=== PATIENT | female | born 1985 | race Caucasian/White ===

== ENCOUNTER 2017-08-16 23:49 | Emergency (ER) | payer OTHER ==
[~2017-08-16] VITALS: Ht 160 cm; Wt 100.4 kg
[~2017-08-16 23:49] MED LIST: ABL10 PO; DPPI150 INJ; HYDR50CA2 PO; TOPI100T45 PO
[2017-08-16] MEDS ORDERED: IBUPROFEN 600 MG TAB PO STA (23:54)
[2017-08-16 23:57] VITALS: TEMP 36.6; Ht 160 cm; Wt 100.4 kg
--- NOTE | 2017-08-17 00:28 | EMERGENCY ROOM VISIT NOTE ---
ED Visit Note First contact with patient: 23:53 CHIEF COMPLAINT: knee pain HISTORY OF PRESENT ILLNESS: This 31-year-old patient presents to the emergency department after sustaining an injury to the right knee twisting it while reaching for her luggage. The patient denies any other injuries besides their knee. The patient denies swelling or bruising. There is pain throughout the knee. They rate the pain as throbbing and 6/10. The patient states they are not able to walk on it. No numbness or tingling. No previous injuries to this knee. No ankle, foot or hip pain. Patient did not fall. REVIEW OF SYSTEMS: A 6 system review of systems was completed with positives and pertinent negatives listed in the HPI. ALLERGIES: None MEDICATIONS: Reviewed PMH: Medical Problems: (1) Adjustment disorder with depressed mood Status: Chronic (2) Schizoaffective disorder Status: Chronic SOCIAL HISTORY: No drug use PHYSICAL EXAM: Vital Signs: Reviewed Nurse's notes, vital signs stable. GENERAL : White female, no acute distress, but appears in pain, well-developed, well- nourished. MENTAL STATUS: Alert, oriented to person place and time, and cooperative. MUSCULOSKELETAL: The right knee is not swollen. There is no ecchymosis. There is no joint effusion present. The patient is tender diffusely. There is joint line tenderness. The patella not subluxate. Range of motion is intact but painful. Strength of the quads and hamstrings is 5/5. Yessenia's is negative. Presley's and Anterior Drawer tests are negative. There is pain with varus and valgus stressing. The foot and toes are warm and well- perfused. Dorsalis pedis pulse 2+. Sensation to pain and light touch is intact. Capillary refill less than 2 seconds. EMERGENCY DEPARTMENT COURSE: I examined the patient. X-rays of the right knee were reviewed by myself and my attending and reveal possible avulsion fracture. The patient was placed in a knee immobilizer under my direction and the position was satisfactory. The patient was instructed on the use of crutches. Patient was advised follow-up with orthopedics in a few days or here in the ER sooner for severe pain, numbness, tingling, worsening signs or symptoms or as needed. The patient was discharged home in good condition. DIAGNOSIS: Right Knee sprain with possible avulsion fracture DISCHARGE INSTRUCTIONS: Ibuprofen(Motrin, Advil) may be used for fever or pain. Use 600mg every six hours as needed. Take with food. Avoid using more than 2400mg in a 24 hour period. Do not use 2400mg per day for more than three consecutive days without physician direction. Prolonged inappropriate use can lead to stomach upset or ulcers. This medication can be taken if you need to drive, work, or perform activities which may be dangerous when taking narcotic pain medication. (AND/OR) Acetaminophen(Tylenol) may be used for fever or pain. Use 1000mg every six hours as needed. Avoid using more than 3000mg in a 24 hour period. This medication can be taken if you need to drive, work, or perform activities which may be dangerous when taking narcotic pain medication. Ice compresses for 20 minutes at a time four times daily for 2-3 days. Use the crutches as instructed. Rest and elevate your injury. Wear knee immobilizer when up and about. Continue current medications. Return to the ER immediately for any numbness, tingling, severe pain, extreme swelling in the extremity or as needed. Call Orthopedics tomorrow to arrange follow up for your injury. Problem List Medical Problems: (1) Adjustment disorder with depressed mood Status: Chronic (2) Schizoaffective disorder Status: Chronic Current/Historical Medications Scheduled Aripiprazole (Abilify *), 20 MG PO DAILY Hydroxyzine Pamoate (Vistaril), 50 MG PO BID Medroxyprogesterone Acetate (Medroxyprogesterone Contraceptive *), 150 MG INJ Q3 MONTHS Topiramate (Topamax), 100 MG PO BID Allergies Coded Allergies: No Known Allergies (Unverified , 10/03/11) Vital Signs Date Time Temp Pulse Resp B/P (MAP) Pulse Ox O2 Delivery O2 Flow Rate FiO2 08/16/17 23:57 36.6 100 15 123/96 99 Room Air Medications Administered Medications (Trade) Dose Ordered Sig/Jose Rafael Route Start Time Stop Time Status Last Admin Dose Admin Ibuprofen (Motrin Tab) 600 mg NOW STAT PO 08/16/17 23:54 08/16/17 23:55 DC 08/17/17 00:07 600 MG Departure Information Referrals Mikel Mauro M.D. (PCP)
[2017-08-17] MEDS ORDERED: LURA40TA PO (00:45)
[2017-08-17] MEDS ORDERED: LAMO100T16 PO (00:46)
[2017-08-17] MEDS ORDERED: PROP10TA7 PO (00:48)
[2017-08-17] MEDS ORDERED: BENZ2TAB6 PO (00:49)
[2017-08-17 00:50] VITALS: BP 147/69; PULSE 103; O2SAT 99
--- NOTE | 2017-08-17 06:32 | DIAGNOSTIC IMAGING REPORT ---
R KNEE 3 VIEWS HISTORY: 31 years-old Female pain acute right knee pain COMPARISON: None available TECHNIQUE: 3 views of the right knee FINDINGS: Moderate joint effusion. 5 x 2 mm bone fragment is noted lateral to the lateral tibial plateau with adjacent cortical lucency and irregularity suggesting possible donor site. Additionally, there is mild depression of the lateral femoral notch as seen on the lateral view. No intra-articular loose body. No dislocation. IMPRESSION: Moderate joint effusion with a 5 x 2 mm bone fragment adjacent to the lateral tibial plateau suggesting an acute avulsion fracture (Segond fracture). Additionally, there is mild depression of the lateral femoral notch suggesting possible osteochondral fracture which can be seen in cases of ACL injury. If of further clinical concern, a nonemergent follow-up MRI of the knee may be considered. The above report was generated using voice recognition software. It may contain grammatical, syntax or spelling errors. Electronically signed by: Giuseppe Gutiérrez M.D. 08/17/2017 6:31 AM Dictated Date/Time: 08/17/2017 6:24 AM
--- NOTE | 2017-08-17 06:41 | EMERGENCY ROOM VISIT NOTE ---
ED Visit Note First contact with patient: 23:52 I have personally evaluated and examined this patient. I agree with assessment and plan of Natalya Manuel PA-C. Avulsion fracture with knee effusion. Knee immobilizer and follow up with PCP/Ortho. Stable and looks well without complaint.
== END 2017-08-17 00:50 | disposition home or self-care (01) ==
LOC: EDBD 23:49 → C.EDB 23:50
DX: S83.91XA Sprain of unspecified site of right knee, initial encounter (principal); X50.1XXA Overexertion from prolonged static or awkward postures, initial encounter; F43.21 Adjustment disorder with depressed mood; F25.9 Schizoaffective disorder, unspecified

== ENCOUNTER 2017-11-21 13:45 | Inpatient (IN) | payer OTHER ==
[~2017-11-21] VITALS: Ht 160 cm; Wt 92.5 kg
[~2017-11-21 13:45] MED LIST changes: -ABL10 PO; +BENZ2TAB6 PO; -DPPI150 INJ; -HYDR50CA2 PO; +LAMO100T16 PO; +LURA40TA PO; +PROP10TA7 PO; -TOPI100T45 PO
[2017-11-21] MEDS ORDERED: BENZ-88 PO (14:00)
[2017-11-21] MEDS ORDERED: TRAZ100T29 PO (14:00)
[2017-11-21] MEDS ORDERED: LAMO25TA PO (14:00)
[2017-11-21] MEDS ORDERED: SODIUM CHLORIDE 0.9% 1000ML 1,000 ML IV STA (14:22)
[2017-11-21] MEDS ORDERED: MoRPHine SULFATE 10 MG/ML CARP/VIAL IV STA (14:22)
[2017-11-21] MEDS ORDERED: AMPICILLIN/SULBACTAM SOD INJ 3,000 MG in SODIUM CHLORIDE 0.9% 100ML 100 ML IV ONE (14:30)
[2017-11-21] MEDS ORDERED: OPTIRAY 320 IV PRN (14:45)
[2017-11-21 14:56] LABS: BASO % 0.2 %; BASO ABS # 0.03 K/uL (0-0.2); EOS % 0.3 %; EOS ABS # 0.04 K/uL (0-0.5); HEMATOCRIT 39.9 % (37-47); IG# 0.06 K/uL (0.00-0.02); LYMPH % 16.3 %; LYMPH ABS # 2.57 K/uL (1.2-3.4); MEAN CELL VOLUME 87.9 fL (80-100); MEAN CORPUSCULAR HEMOGLOBIN 30.8 pg (25-34); MEAN CORPUSCULAR HGB CONC 35.1 g/dl (32-36); MEAN PLATELET VOLUME 9.4 fL (7.4-10.4); MONO % 10.9 %; MONO ABS # 1.73 K/uL (0.11-0.59); NEUT % 71.9 %; NEUT ABS # 11.37 K/uL (1.4-6.5); PLATELET COUNT 297 K/uL (130-400); RED CELL DISTRIBUTION WIDTH CV 12.9 % (11.5-14.5); RED CELL DISTRIBUTION WIDTH SD 41.6 fL (36.4-46.3)
[2017-11-21 15:17] LABS: ALBUMIN 4.2 gm/dl (3.4-5.0); CALCIUM 9.5 mg/dl (8.5-10.1); CREATININE 1.08 mg/dl (0.60-1.20); POTASSIUM 3.3 mmol/L (3.5-5.1)
[2017-11-21 15:20] LABS: TOTAL PROTEIN 8.8 gm/dl (6.4-8.2)
--- NOTE | 2017-11-21 16:15 | DIAGNOSTIC IMAGING REPORT ---
SOFT TISSUE NECK WITH CLINICAL HISTORY: right facial/neck swelling, eval abscess, cellulitis pain. Edema. TECHNIQUE: Transaxial acquisition with multi axial reformatted images COMPARISON STUDY: None FINDINGS: Dentition demonstrates a focal left anterior mandibular periapical abscess of the left posterior incisor. There is a small right anterior mandibular periapical abscess involving a lateral right anterior incisor. There is considerable submandibular soft tissue edematous change of the right and to a lesser extent left. This predominates in the right perimandibular region. Dentition creates significant metallic artifact although a major well-defined drainable abscess or collection is not seen. Extensive cellulitis-type change extends to the right parotid as well as right submandibular region. There is moderate thickening of the right lateral fascial planes of the soft tissue neck. There is moderate reactive cervical adenopathy bilaterally. There is no evidence for airway compromise. Glottic and subglottic regions are unremarkable. IMPRESSION: 1. Extensive right facial and upper right soft tissue neck cellulitis. Less prominent findings are seen in the left. 2. This cellulitis extends to the peripheral margins of the anterior inferior right parotid gland and right submandibular gland. 3. Moderate reactive cervical adenopathy. 4. No evidence for drainable abscess or collection. 5. Several anterior mandibular periapical dental abscesses. The above report was generated using voice recognition software. It may contain grammatical, syntax or spelling errors. Electronically signed by: Dandre Jennings M.D. 11/21/2017 4:13 PM Dictated Date/Time: 11/21/2017 4:08 PM
[2017-11-21] MEDS ORDERED: KETOROLAC TROMETHAMINE 30 MG/ML VIAL IV STA (16:19)
--- NOTE | 2017-11-21 16:31 | EMERGENCY ROOM VISIT NOTE ---
ED Visit Note First contact with patient: 13:59 CHIEF COMPLAINT: Facial swelling and pain HISTORY OF PRESENTING ILLNESS: This is a 32-year-old female who presents to the emergency department with complaint of right facial pain and swelling for the past 1 week. Patient states that her symptoms started as a small lump on her right jaw and has spread to the entire right side of her face and is now spreading down the right side of her neck. She states the pain is constant, throbbing, 10/10. She has been taking ibuprofen and Tylenol with minimal improvement in her pain, her last doses of ibuprofen and Tylenol were yesterday and she has not taken anything today. She has had some associated chills and low-grade fevers 99-100. She denies any difficulty swallowing, shortness of breath or wheezing, throat or tongue swelling. She states that she saw her PCP today and was sent to the ER for further evaluation. She denies any recent dental pain or known dental fractures. She is not a diabetic. She denies tobacco use. She denies any other symptoms of headaches, vision changes, dizziness or syncope, nausea, vomiting, abdominal pain, urinary symptoms, or rash. REVIEW OF SYSTEMS: A complete 10 point review of systems was reviewed with the patient with pertinent positives and negatives as per history of present illness. All else were negative. PAST MEDICAL HISTORY: Reviewed in chart. SOCIAL HISTORY: Lives at home. Denies tobacco, alcohol, recreational drug use. ALLERGIES: Reviewed in chart. PHYSICAL EXAM: CONSTITUTIONAL: Pleasant and cooperative. No acute distress, but appears uncomfortable and in pain. Mildly dehydrated, but otherwise well appearing and well nourished. HEENT: Normocephalic, atraumatic. PERRL, EOMI. TMs normal. Pharynx normal. There is significant right-sided facial swelling most significant along the right mandible, erythematous and warm to touch, extending down the right anterior neck. Poor dentition throughout with multiple carious teeth. No palpable periapical abscesses or notable gingivitis. No edema or tenderness of the mouth floor. No trismus. Tacky mucous membranes. NECK: Supple, full active range of motion without discomfort. Moderate anterior cervical adenopathy, tender to palpation. RESPIRATORY: Clear to auscultation bilaterally with no wheezing, crackles, rhonchi or stridor. Equal expansion bilaterally. CARDIOVASCULAR: Regular rate and rhythm with no murmurs, rubs or gallops. Normal peripheral perfusion. No edema. GASTROINTESTINAL: Soft, nontender, nondistended. No palpable masses or HSM. Bowel sounds present in all quadrants. MUSCULOSKELETAL: Full range of motion of all joints without discomfort. Normal strength and sensation in all 4 extremities. INTEGUMENTARY: No rash or other significant dermatologic conditions noted. NEUROLOGIC: Alert and oriented X 4 with normal affect. Cranial nerves II-XII grossly intact. No focal neurologic deficits noted. Normal speech. Normal gait observed. ED COURSE AND MEDICAL DECISION MAKING: CC: Patient presenting with complaint of right facial pain and swelling DIFFERENTIAL DIAGNOSIS: Includes, but not limited to facial cellulitis, abscess , periapical abscess, gingivitis, dental infection, osteomyelitis, lymphadenitis , sialoadenitis, Guillermo's angina, among others. INTERPRETATION OF LABS: Leukocytosis with left shift, no anemia, no significant electrolyte abnormalities, normal renal function, normal liver enzymes. Elevated inflammatory markers. UA appears more consistent with contaminant than true infection, culture pending. Urine negative. IMAGING: SOFT TISSUE NECK WITH CLINICAL HISTORY: right facial/neck swelling, eval abscess, cellulitis pain. Edema. TECHNIQUE: Transaxial acquisition with multi axial reformatted images COMPARISON STUDY: None FINDINGS: Dentition demonstrates a focal left anterior mandibular periapical abscess of the left posterior incisor. There is a small right anterior mandibular periapical abscess involving a lateral right anterior incisor. There is considerable submandibular soft tissue edematous change of the right and to a lesser extent left. This predominates in the right perimandibular region. Dentition creates significant metallic artifact although a major well-defined drainable abscess or collection is not seen. Extensive cellulitis-type change extends to the right parotid as well as right submandibular region. There is moderate thickening of the right lateral fascial planes of the soft tissue neck. There is moderate reactive cervical adenopathy bilaterally. There is no evidence for airway compromise. Glottic and subglottic regions are unremarkable. IMPRESSION: 1. Extensive right facial and upper right soft tissue neck cellulitis. Less prominent findings are seen in the left. 2. This cellulitis extends to the peripheral margins of the anterior inferior right parotid gland and right submandibular gland. 3. Moderate reactive cervical adenopathy. 4. No evidence for drainable abscess or collection. 5. Several anterior mandibular periapical dental abscesses. MEDICATION RECONCILIATION: I attest that I have personally reviewed the patient 's current medication list. INITIAL VITAL SIGNS REVIEW: I reviewed the patient's initial vital signs and interpret them as follows: T: Afebrile; BP: Hypertensive; HR: Tachycardic; RR : Within normal limits; Pulse Ox: Within normal limits on room air. Blood pressure screening: The patient was found to have an elevated blood pressure, which was felt to be situational. SUMMARY: Patient was evaluated at bedside, history and physical exam performed. She is alert and oriented, no acute distress, resting, and stretcher. There is significant right facial and neck swelling on exam, erythematous and warm to touch. There is a firm indurated area over the right mandible. There is no obvious dental infection, no trismus, no edema of the mouth floor. Moderate right-sided cervical anterior adenopathy, tender to palpation. Patient's airway is patent, no respiratory distress, no stridor or wheezing, oxygen saturation is normal on room air. Orders were placed at bedside for labs, UA and urine , IV fluids for hydration, IV Unasyn to treat infection, IV morphine and Toradol for pain, CT soft tissue neck with IV contrast to evaluate for abscess/cellulitis, osteomyelitis. Patient discussed with Dr. Rodriguez, who agrees with my assessment and plan. Labs and imaging reviewed as above, CT shows evidence of several periapical dental abscesses, but no drainable abscess. Extensive right facial and soft tissue neck cellulitis. Labs significant for leukocytosis with left shift and elevated inflammatory markers. Given the extent of the facial cellulitis, I feel the patient would benefit from an admission for IV antibiotics and close monitoring. I spoke on the phone with Dr. Tapia, hospitalist, who agrees to evaluate the patient for admission. Patient reassessed multiple times throughout ED stay, patient remained stable, airway patent, and her pain has been improved with morphine and Toradol. Patient was updated on all results and plan for admission, she verbalized understanding and was agreeable to this plan. The patient was stable at time of admission. Problem List Medical Problems: (1) Adjustment disorder with depressed mood Status: Chronic (2) Schizoaffective disorder Status: Chronic Current/Historical Medications Scheduled Benztropine Mesylate (Benztropine Mesylate), 1 MG PO BID Lamotrigine (Lamictal), 100 MG PO DAILY Lamotrigine (Lamictal), 50 MG PO QAM Lurasidone Hcl (Latuda), 40 MG PO DAILY Propranolol (Inderal), 10 MG PO TID Topiramate (Topamax), 100 MG PO BID Trazodone Hcl (Trazodone), 100 MG PO BID Allergies Coded Allergies: Codeine (Verified Allergy, Mild, RASH, 08/17/17) Vital Signs Date Time Temp Pulse Resp B/P (MAP) Pulse Ox O2 Delivery O2 Flow Rate FiO2 11/21/17 16:12 87 20 135/76 98 Room Air 11/21/17 15:18 94 Room Air 11/21/17 15:13 97 18 125/80 98 Room Air 11/21/17 13:53 37.2 100 18 136/90 100 Room Air Laboratory Results 11/21/17 14:45 Red Blood Count 4.54, Mean Corpuscular Volume 87.9, Mean Corpuscular Hemoglobin 30.8, Mean Corpuscular Hemoglobin Concent 35.1, Mean Platelet Volume 9.4, Neutrophils (%) (Auto) 71.9, Lymphocytes (%) (Auto) 16.3, Monocytes (%) (Auto) 10.9, Eosinophils (%) (Auto) 0.3, Basophils (%) (Auto) 0.2, Neutrophils # (Auto ) 11.37, Lymphocytes # (Auto) 2.57, Monocytes # (Auto) 1.73, Eosinophils # (Auto ) 0.04, Basophils # (Auto) 0.03 11/21/17 14:45 Test 11/21/17 14:35 11/21/17 14:45 11/21/17 16:41 Urine Color DK YELLOW Urine Appearance CLOUDY (CLEAR) Urine pH 5.5 (4.5-7.5) Urine Specific [place] 1.026 (1.000-1.030) Urine Protein 1+ (NEG) Urine Glucose (UA) NEG (NEG) Urine Ketones 1+ (NEG) Urine Occult Blood 3+ (NEG) Urine Nitrite NEG (NEG) Urine Bilirubin NEG (NEG) Urine Urobilinogen NEG (NEG) Urine Leukocyte Esterase MODERATE (NEG) Urine WBC (Auto) >30 /hpf (0-5) Urine RBC (Auto) 10-30 /hpf (0-4) Urine Hyaline Casts (Auto) 5-10 /lpf (0-5) Urine Epithelial Cells (Auto) >30 /lpf (0-5) Urine Bacteria (Auto) 2+ (NEG) Urine Pathogenic Casts /lpf (0) Urine Mucus PRESENT (NONE PRSENT) Urine Test NEG (NEG) White Blood Count 15.80 K/uL (4.8-10.8) Red Blood Count 4.54 M/uL (4.2-5.4) Hemoglobin 14.0 g/dL (12.0-16.0) Hematocrit 39.9 % (37-47) Mean Corpuscular Volume 87.9 fL (80-100) Mean Corpuscular Hemoglobin 30.8 pg (25-34) Mean Corpuscular Hemoglobin Concent 35.1 g/dl (32-36) Platelet Count 297 K/uL (130-400) Mean Platelet Volume 9.4 fL (7.4-10.4) Neutrophils (%) (Auto) 71.9 % Lymphocytes (%) (Auto) 16.3 % Monocytes (%) (Auto) 10.9 % Eosinophils (%) (Auto) 0.3 % Basophils (%) (Auto) 0.2 % Neutrophils # (Auto) 11.37 K/uL (1.4-6.5) Lymphocytes # (Auto) 2.57 K/uL (1.2-3.4) Monocytes # (Auto) 1.73 K/uL (0.11-0.59) Eosinophils # (Auto) 0.04 K/uL (0-0.5) Basophils # (Auto) 0.03 K/uL (0-0.2) RDW Standard Deviation 41.6 fL (36.4-46.3) RDW Coefficient of Variation 12.9 % (11.5-14.5) Immature Granulocyte % (Auto) 0.4 % Immature Granulocyte # (Auto) 0.06 K/uL (0.00-0.02) Erythrocyte Sedimentation Rate 44 mm/hr (0-21) Anion Gap 6.0 mmol/L (3-11) Est Creatinine Clear Calc Drug Dose 80.8 ml/min Estimated GFR () 78.7 Estimated GFR (Non- 67.9 BUN/Creatinine Ratio 9.6 (10-20) Calcium Level 9.5 mg/dl (8.5-10.1) Total Bilirubin 0.9 mg/dl (0.2-1) Direct Bilirubin 0.3 mg/dl (0-0.2) Aspartate Amino Transf (AST/SGOT) 29 U/L (15-37) Alanine Aminotransferase (ALT/SGPT) 53 U/L (12-78) Alkaline Phosphatase 91 U/L (45-117) C-Reactive Protein 14.60 mg/dl (0-0.29) Total Protein 8.8 gm/dl (6.4-8.2) Albumin 4.2 gm/dl (3.4-5.0) Medications Administered Medications (Trade) Dose Ordered Sig/Jose Rafael Route Start Time Stop Time Status Last Admin Dose Admin Ampicillin Sodium/ Sulbactam Sodium 3000 mg/Sodium Chloride 108 ml @ 200 mls/hr ONE ONCE IV 11/21/17 14:30 11/21/17 15:02 DC 11/21/17 15:13 200 MLS/HR Morphine Sulfate (MoRPHine SULFATE INJ) 4 mg NOW STAT IV 11/21/17 14:22 11/21/17 14:28 DC 11/21/17 15:13 4 MG Sodium Chloride 1,000 ml @ 999 mls/hr Q1H1M STAT IV 11/21/17 14:22 11/21/17 15:22 DC 11/21/17 15:13 999 MLS/HR Ketorolac Tromethamine (Toradol Inj) 15 mg NOW STAT IV 11/21/17 16:19 11/21/17 16:20 DC 11/21/17 16:29 15 MG Departure Information Impression Primary Impression: Facial cellulitis Additional Impression: Acute periapical abscess Dispostion Admitted as an inpatient Condition FAIR Referrals Mikel Mauro M.D. (PCP) Patient Instructions My [facility] Problem Qualifiers
--- NOTE | 2017-11-21 16:35 | EMERGENCY ROOM VISIT NOTE ---
ED Visit Note First contact with patient: 13:59 Patient seen and evaluated at bedside after discussion with the [employer]. Labs and imaging reviewed. Patient obvious right-sided facial swelling with mild overlying erythema. No focal abscess, sialoadenitis, lymphadenitis, deep space infection, or Lemierre's syndrome noted on imaging. Concern given no ability to follow up for at least 72-96 hours as well as patient's poor dentition likely leading to cellulitis. Patient aware of her results and was agreeable with plan for additional evaluation and treatment. Patient given IV antibiotics in the emergency room. Please refer to Tea Graham's note for additional details.
[2017-11-21] MEDS ORDERED: POTASSIUM CHLORIDE 20 MEQ TABCR PO STA (16:41)
[2017-11-21] MEDS ORDERED: PIPERACILL/TAZOBAC CONSULT ACTIVE PRN (16:45)
[2017-11-21] MEDS ORDERED: ALUMINUM/MAGNESIUM/SIMETH (MAALOX MAX) 30 ML UDC PO PRN (17:00)
[2017-11-21] MEDS ORDERED: ONDANSETRON INJ 2 MG/ML 2 ML VIAL IV PRN (17:00)
[2017-11-21] MEDS ORDERED: MAGNESIUM HYDROXIDE SUSP 30 ML UDC PO PRN (17:00)
[2017-11-21] MEDS ORDERED: POLYETHYLENE (MIRALAX) 17 GM PACK PO PRN (17:00)
--- NOTE | 2017-11-21 17:23 | History and Physical ---
History & Physical Date & Time of Service: Nov 21, 2017 at 17:15 Chief Complaint: Hardened Checkbone And Neck Primary Care Physician: Mikel Mauro M.D. History of Present Illness Source: patient, clinic records, hospital records This is a 32-year-old female with a past medical history of schizophrenia and depression who presents with a right sided facial pain 1 week. Patient states that right jaw pain began last week, followed by swelling over her jaw which then progressed to the right side of her neck. Started to have difficulty chewing a few days ago 2/2 to an inability to fully open her mouth. Has been able to tolerate liquids and soft foods. Describes facial pain as constant, throbbing and pressure-like with an 7/10 in severity. Has been taking Tylenol and ibuprofen at home with minimal relief. Endorses a low-grade fever and chills but denies headache, tongue swelling, difficulty breathing, difficulty swallowing. Has never had facial swelling like this before. States that she has had dental problems in the past and had a tooth on the left side of her mouth extracted by an oral surgeon in August 2017. Since then, has noticed that portions of her teeth have "fallen out". States that she brushes teeth regularly. Denies drug use. Went to PCP today and was sent to the ER for further evaluation. Denies lightheadedness, vision changes, chest pain, abdominal pain, nausea, vomiting, dysuria, diarrhea, constipation. Past Medical/Surgical History Medical Problems: (1) Depression Status: Chronic (2) History of drug overdose Status: Chronic (3) Schizophrenia Status: Chronic (4) Sinus tachycardia Status: Chronic Family History No known family history Social History Smoking Status: Never Smoker Alcohol Use: none Marital Status: single Housing status: lives alone, other Occupational Status: unemployed Immunizations History of Influenza Vaccine: Yes History of Tetanus Vaccine?: Yes History of Pneumococcal: No History of Hepatitis B Vaccine: No Allergies Coded Allergies: Codeine (Verified Allergy, Mild, RASH, 08/17/17) Home Medications Scheduled Benztropine Mesylate (Benztropine Mesylate), 1 MG PO BID Lamotrigine (Lamictal), 100 MG PO HS Lamotrigine (Lamictal), 50 MG PO QAM Lurasidone Hcl (Latuda), 40 MG PO HS Propranolol (Inderal), 10 MG PO TID Topiramate (Topamax), 100 MG PO BID Scheduled PRN Trazodone Hcl (Trazodone), 100 MG PO BID PRN for Pain Review of Systems Ten systems reviewed and negative except as noted in the HPI. Physical Exam Vital Signs Date Time Temp Pulse Resp B/P (MAP) Pulse Ox O2 Delivery O2 Flow Rate FiO2 11/21/17 16:12 87 20 135/76 98 Room Air 11/21/17 15:18 94 Room Air 11/21/17 15:13 97 18 125/80 98 Room Air 11/21/17 13:53 37.2 100 18 136/90 100 Room Air General Appearance: + mild distress Head: normocephalic Eyes: normal inspection, PERRL, sclerae normal ENT: hearing grossly normal, + trismus, + pertinent finding (R facial/neck erythema. Warm to touch. Significant edema along right mandible and neck. Firm and tender to palpation. Poor dentition.) Neck: supple, thyroid normal, trachea midline Respiratory/Chest: chest non-tender, lungs clear, normal breath sounds, no respiratory distress, no accessory muscle use Cardiovascular: regular rate, rhythm, no murmur, normal peripheral pulses Abdomen/GI: non tender, soft, no organomegaly Back: normal inspection Extremities/Musculoskelatal: normal inspection, no calf tenderness, no pedal edema Neurologic/Psych: no motor/sensory deficits, alert, normal mood/affect, oriented x 3 Skin: normal color, warm/dry Diagnostics Laboratory Results Results Past 24 Hours Test 11/21/17 14:35 11/21/17 14:45 11/21/17 17:10 Range/Units Urine Color DK YELLOW Urine Appearance CLOUDY CLEAR Urine pH 5.5 4.5-7.5 Urine Specific [place] 1.026 1.000-1.030 Urine Protein 1+ NEG Urine Glucose (UA) NEG NEG Urine Ketones 1+ NEG Urine Occult Blood 3+ NEG Urine Nitrite NEG NEG Urine Bilirubin NEG NEG Urine Urobilinogen NEG NEG Urine Leukocyte Esterase MODERATE NEG Urine WBC (Auto) >30 0-5 /hpf Urine RBC (Auto) 10-30 0-4 /hpf Urine Hyaline Casts (Auto) 5-10 0-5 /lpf Urine Epithelial Cells (Auto) >30 0-5 /lpf Urine Bacteria (Auto) 2+ NEG Urine Pathogenic Casts 0 /lpf Urine Mucus PRESENT NONE PRSENT Urine Test NEG NEG White Blood Count 15.80 4.8-10.8 K/uL Red Blood Count 4.54 4.2-5.4 M/uL Hemoglobin 14.0 12.0-16.0 g/dL Hematocrit 39.9 37-47 % Mean Corpuscular Volume 87.9 80-100 fL Mean Corpuscular Hemoglobin 30.8 25-34 pg Mean Corpuscular Hemoglobin Concent 35.1 32-36 g/dl Platelet Count 297 130-400 K/uL Mean Platelet Volume 9.4 7.4-10.4 fL Neutrophils (%) (Auto) 71.9 % Lymphocytes (%) (Auto) 16.3 % Monocytes (%) (Auto) 10.9 % Eosinophils (%) (Auto) 0.3 % Basophils (%) (Auto) 0.2 % Neutrophils # (Auto) 11.37 1.4-6.5 K/uL Lymphocytes # (Auto) 2.57 1.2-3.4 K/uL Monocytes # (Auto) 1.73 0.11-0.59 K/uL Eosinophils # (Auto) 0.04 0-0.5 K/uL Basophils # (Auto) 0.03 0-0.2 K/uL RDW Standard Deviation 41.6 36.4-46.3 fL RDW Coefficient of Variation 12.9 11.5-14.5 % Immature Granulocyte % (Auto) 0.4 % Immature Granulocyte # (Auto) 0.06 0.00-0.02 K/uL Erythrocyte Sedimentation Rate 44 0-21 mm/hr Sodium Level 135 136-145 mmol/L Potassium Level 3.3 3.5-5.1 mmol/L Chloride Level 107 98-107 mmol/L Carbon Dioxide Level 22 21-32 mmol/L Anion Gap 6.0 3-11 mmol/L Blood Urea Nitrogen 10 7-18 mg/dl Creatinine 1.08 0.60-1.20 mg/dl Est Creatinine Clear Calc Drug Dose 80.8 ml/min Estimated GFR () 78.7 Estimated GFR (Non- 67.9 BUN/Creatinine Ratio 9.6 10-20 Random Glucose 103 70-99 mg/dl Calcium Level 9.5 8.5-10.1 mg/dl Total Bilirubin 0.9 0.2-1 mg/dl Direct Bilirubin 0.3 0-0.2 mg/dl Aspartate Amino Transf (AST/SGOT) 29 15-37 U/L Alanine Aminotransferase (ALT/SGPT) 53 12-78 U/L Alkaline Phosphatase 91 45-117 U/L C-Reactive Protein 14.60 0-0.29 mg/dl Total Protein 8.8 6.4-8.2 gm/dl Albumin 4.2 3.4-5.0 gm/dl Microbiology Results 11/21/17 Urine Culture, Received Pending Diagnostic Radiology Soft tissue neck CT: IMPRESSION: 1. Extensive right facial and upper right soft tissue neck cellulitis. Less prominent findings are seen in the left. 2. This cellulitis extends to the peripheral margins of the anterior inferior right parotid gland and right submandibular gland. 3. Moderate reactive cervical adenopathy. 4. No evidence for drainable abscess or collection. 5. Several anterior mandibular periapical dental abscesses. Impression Assessment and Plan This is a 32-year-old female with a past medical history of schizophrenia and depression who presents with a right sided facial pain 1 week and was found to have facial cellulitis 2/2 several periapical dental abscesses. Right Facial/soft tissue neck cellulitis: -2/2 several anterior mandibular periapical dental abscesses -Leukocytosis of 15.8 -Soft tissue neck CT with: 1. Extensive right facial and upper right soft tissue neck cellulitis. Less prominent findings are seen in the left. 2. This cellulitis extends to the peripheral margins of the anterior inferior right parotid gland and right submandibular gland. 3. Moderate reactive cervical adenopathy. 4. No evidence for drainable abscess or collection. 5. Several anterior mandibular periapical dental abscesses -Unasyn given in ED -Continue treatment with Zosyn -Blood cultures pending -Consulted oromaxillary surgeon -IV fluids UTI: -Asymptomatic -Zosyn -Urine cultures pending Schizophrenia, depression: -Cont home regimen of Lamictal, Latuda, benztropine -Follows with Dr Hoffmann at [facility] Sinus tachycardia: -Cont beta helen DVT Ppx: SCDs Code status: FULL PCP: Dispo: Admitted to [facility]. Plan to return home once medically stable. Patient seen in collaboration with Dr. Claros. Please see addendum. ATTENDING ADDENDUM: Patient seen and examined care coordinated with Erum Hurst PA-C. 32-year-old female with past medical history of depression, schizophrenia presented to ER with right-sided facial swelling pain for approximately 1 week patient has very poor dentition Presents with leukocytosis of 15,000, no evidence of sepsis CT of soft tissue neck: several anterior mandibular periapical dental abscess, extensive right facial and upper right soft tissue Ascites Physical exam: Please refer to physical exam by Erum Hurst PA-C ASSESSMENT AND PLAN: Right-sided facial cellulitis: Secondary to periapical dental abscess Started with empiric treatment with IV Zosyn Order for blood culture Oromaxillary surgeon Dr. Tapia consulted Hyponatremia/hypokalemia: Secondary to poor p.o. intake/dehydration IV fluids with NSS +20 potassium repeat PRP in a.m. Possible UTI: UA grossly positive -Denies of any urinary symptoms -On IV Zosyn -Ordered for urine culture CODE STATUS: Full code Please refer to documentation by Erum Hurst PA-C for further discussion of other issues. Fe Claros MD Resuscitation Status VTE Prophylaxis Will order VTE Prophylaxis: Yes
[2017-11-21] MEDS ORDERED: TRAZODONE HCL 100 MG TAB PO PRN (17:45)
[2017-11-21 18:24] VITALS: BP 120/76; O2SAT 98; Ht 160 cm; Wt 92.5 kg
[2017-11-21 19:06] VITALS: BP 127/80; PULSE 84; TEMP 36.8; O2SAT 99
[2017-11-21] MEDS: KETOROLAC TROMETHAMINE 15 MG/ML VIAL IV PRN (20:16)
[2017-11-21] MEDS: NSS + 20MEQ KCL 1000ML 1,000 ML IV SCH (20:23)
[2017-11-21] MEDS: PROPRANOLOL HCL 10 MG TAB PO SCH (20:25)
[2017-11-21] MEDS: LURASIDONE HCL 40 MG TAB PO SCH (20:26)
[2017-11-21] MEDS: BENZTROPINE MESYLATE 1 MG TAB PO SCH (20:26)
[2017-11-21] MEDS: TOPIRAMATE 100 MG TAB PO SCH (20:27)
[2017-11-21] MEDS ORDERED: TOPI100T45 PO (20:37)
[2017-11-21] MEDS: PIPERACILL/TAZOBAC IV 3.375 GM in DEXTROSE 5% 100ML 100 ML IV SCH (23:04)
[2017-11-22] VITALS: BP 110/75; PULSE 79; TEMP 37.2; O2SAT 100
[2017-11-22] MEDS: PIPERACILL/TAZOBAC IV 3.375 GM in DEXTROSE 5% 100ML 100 ML IV SCH ×3 (06:31→21:02)
[2017-11-22 06:54] LABS: HEMATOCRIT 40.6 % (37-47); HEMOGLOBIN 14.1 g/dL (12.0-16.0); MEAN CELL VOLUME 88.3 fL (80-100); MEAN CORPUSCULAR HEMOGLOBIN 30.7 pg (25-34); MEAN CORPUSCULAR HGB CONC 34.7 g/dl (32-36); MEAN PLATELET VOLUME 9.5 fL (7.4-10.4); PLATELET COUNT 279 K/uL (130-400); RED CELL DISTRIBUTION WIDTH CV 12.8 % (11.5-14.5); RED CELL DISTRIBUTION WIDTH SD 41.4 fL (36.4-46.3); WHITE BLOOD COUNT 8.08 K/uL (4.8-10.8)
[2017-11-22 07:24] LABS: CALCIUM 8.4 mg/dl (8.5-10.1); CREATININE 0.97 mg/dl (0.60-1.20); POTASSIUM 3.4 mmol/L (3.5-5.1)
[2017-11-22 07:35] VITALS: BP 108/72; PULSE 118; TEMP 37.7; O2SAT 100
[2017-11-22 08:00] VITALS: O2SAT 100
[2017-11-22] MEDS: NSS + 20MEQ KCL 1000ML 1,000 ML IV SCH (08:15)
[2017-11-22] MEDS: PROPRANOLOL HCL 10 MG TAB PO SCH ×3 (08:16→21:03)
[2017-11-22] MEDS: BENZTROPINE MESYLATE 1 MG TAB PO SCH ×2 (08:17→21:02)
[2017-11-22] MEDS: TOPIRAMATE 100 MG TAB PO SCH ×2 (08:18→21:04)
--- NOTE | 2017-11-22 08:32 | CONSULTATION REPORT ---
DATE OF CONSULTATION: 11/22/2017 HISTORY OF PRESENT ILLNESS: I was consulted last night to evaluate Denise for a right facial infection. I will refer to you to her dictated admission history and physical for additional details, but in essence, she has a 1-week history of right-sided facial pain with more recent swelling in the area of the right cheek which made it difficult for her to chew. She has not had any difficulty swallowing or breathing but she presented to her PCP's office who referred her to the ER where she was evaluated and then admitted and placed on IV antibiotics. PAST MEDICAL HISTORY: Notable for schizophrenia, history of drug overdose and depression and you can refer to her H&P for her meds, allergies, social and family history. Testing done from the ER showed a white count of 15,[address] scan with largely cellulitic changes in the area of the right buccal space and some stranding in the submandibular space as well. She was admitted to the floor and placed on IV Zosyn. This morning, she reports feeling somewhat better but still significantly swollen in the right cheek. She continues to deny any breathing difficulties. On exam there is a firm cellulitic swelling in the right cheek, minimal swelling in the neck and nothing that crosses the midline. Her tongue is not elevated. Her airway is widely patent. She does have some fluctuant swelling along the gingival margin in the right mandibular vestibule adjacent to those posterior right mandibular teeth which have significant decay. DATA: She was afebrile overnight. White count this morning is down to 8000. The CT scan is as reported in the system. IMPRESSION: Odontogenic infection of the right mandibular teeth extending into the right buccal space which is responding to the IV Zosyn. I feel the IV Zosyn is a good choice for her and would recommend an additional 24 hours of IV antibiotics and then transition her to an oral equivalent and outpatient followup in my office. Ideally I would like to see her Friday prepared for IV sedation and we can extract the offending teeth and drain any residual infection that may be present at that time. Thank you very much for involving me in her care. If you need to reach me, my cell phone is [phone]. The office number is [phone].
[2017-11-22] MEDS: KETOROLAC TROMETHAMINE 15 MG/ML VIAL IV PRN (08:55)
[2017-11-22] MEDS: ACETAMINOPHEN 325 MG TAB PO PRN (08:55)
[2017-11-22] MEDS ORDERED: POTASSIUM CHLORIDE 10 MEQ TABCR PO STA (09:07)
--- NOTE | 2017-11-22 10:19 | Progress Note ---
Subjective Date of Service: Nov 22, 2017. Subjective Pt evaluation today including: conversation w/ patient, physical exam, lab review, review of studies, review of inpatient medication list Saw/examined the patient in room 414 c/o feeling warm/feverish. C/o rash on L arm Noted to have this erythema on the L arm, which is sharply demarcated. Unsure of tape was used; nursing staff does not believe so. Pain controlled at this time of the facial cellulitis/dental infection. Eager to go home. Problem List Medical Problems: (1) Acute periapical abscess Status: Acute (2) Right knee sprain Status: Acute Review of Systems Constitutional: No fever, No chills ENT: + dental problems, + problem reported (facial swelling/pain - improving) Respiratory: No wheezing, No shortness of breath, No dyspnea on exertion, No dyspnea at rest Cardiac: No chest pain, No edema, No palpitations Abdomen: No pain, No nausea, No vomiting, No diarrhea Musculoskeletal: No joint pain Female : No dysuria, No urinary frequency, No hematuria Skin: + see HPI, + rash, No itch Medications Current Inpatient Medications Medications (Trade) Dose Ordered Sig/Jose Rafael Route Start Time Stop Time Status Last Admin Dose Admin Ioversol (Optiray 320) 100 ml UD PRN IV 11/21/17 14:45 11/25/17 14:44 Potassium Chloride/Sodium Chloride 1,000 ml @ 100 mls/hr Q10H IV 11/21/17 18:45 12/21/17 18:44 11/22/17 08:15 100 MLS/HR Piperacillin Sod/ Tazobactam Sod 3.375 gm/Dextrose 115 ml @ 28.75 mls/ hr Q8H IV 11/21/17 22:00 12/01/17 21:59 11/22/17 06:31 28.75 MLS/HR Miscellaneous Information (Consult) 1 ea UD PRN N/A 11/21/17 16:45 12/21/17 16:44 Ketorolac Tromethamine (Toradol Inj) 15 mg Q6H PRN IV 11/21/17 17:00 11/26/17 16:59 11/22/17 08:55 15 MG Acetaminophen (Tylenol Tab) 650 mg Q4H PRN PO 11/21/17 17:00 12/21/17 16:59 11/22/17 08:55 650 MG Al Hydrox/Mg Hydrox/Simethicone (Maalox Max Susp) 15 ml Q4H PRN PO 11/21/17 17:00 12/21/17 16:59 Magnesium Hydroxide (Milk Of Magnesia Susp) 30 ml Q6H PRN PO 11/21/17 17:00 12/21/17 16:59 Polyethylene (Miralax Powder Packet) 17 gm DAILY PRN PO 11/21/17 17:00 12/21/17 16:59 Ondansetron HCl (Zofran Inj) 4 mg Q6H PRN IV 11/21/17 17:00 12/21/17 16:59 Benztropine Mesylate (Cogentin Tab) 1 mg BID PO 11/21/17 20:00 12/21/17 20:59 11/22/17 08:17 1 MG Lamotrigine (Lamictal Tab) 100 mg HS PO 11/21/17 21:00 12/21/17 20:59 11/21/17 20:25 100 MG Lurasidone HCl (Latuda Tab) 40 mg HS PO 11/21/17 21:00 12/21/17 20:59 11/21/17 20:26 40 MG Propranolol HCl (Inderal Tab) 10 mg TID PO 11/21/17 20:00 12/21/17 20:59 11/22/17 08:16 10 MG Topiramate (Topamax Tab) 100 mg BID PO 11/21/17 20:00 12/21/17 20:59 11/22/17 08:18 100 MG Trazodone HCl (Desyrel Tab) 100 mg BID PRN PO 11/21/17 17:45 12/21/17 17:44 Objective Vital Signs Date Time Temp Pulse Resp B/P (MAP) Pulse Ox O2 Delivery O2 Flow Rate FiO2 11/22/17 07:35 37.7 118 20 108/72 (84) 100 Room Air 11/22/17 00:00 Room Air 11/22/17 00:00 37.2 79 18 110/75 (87) 100 Room Air 11/21/17 20:00 Room Air 11/21/17 19:06 36.8 84 18 127/80 (96) 99 Room Air 11/21/17 18:24 20 120/76 98 Room Air 11/21/17 17:53 88 20 120/76 98 11/21/17 16:12 87 20 135/76 98 Room Air 11/21/17 15:18 94 Room Air 11/21/17 15:13 97 18 125/80 98 Room Air 11/21/17 13:53 37.2 100 18 136/90 100 Room Air Physical Exam General Appearance: no apparent distress, + obese ENT: + pertinent finding (L side facial swelling/ mild redness) Respiratory/Chest: chest non-tender, lungs clear, normal breath sounds, no respiratory distress, no accessory muscle use Cardiovascular: regular rate, rhythm, no edema, no murmur Abdomen: normal bowel sounds, non tender, soft Extremities: normal inspection, no pedal edema Neurologic/Psychiatric: no motor/sensory deficits, alert, + pertinent finding ( flat affect) Skin: + pertinent finding (erythematous, pinpoint purpura on L inner arm with sharp demarcation) Laboratory Results Last 24 Hours Test 11/21/17 14:35 11/21/17 14:45 11/21/17 17:10 11/22/17 06:30 Urine Color DK YELLOW Urine Appearance CLOUDY Urine pH 5.5 Urine Specific [place] 1.026 Urine Protein 1+ Urine Glucose (UA) NEG Urine Ketones 1+ Urine Occult Blood 3+ Urine Nitrite NEG Urine Bilirubin NEG Urine Urobilinogen NEG Urine Leukocyte Esterase MODERATE Urine WBC (Auto) >30 /hpf Urine RBC (Auto) 10-30 /hpf Urine Hyaline Casts (Auto) 5-10 /lpf Urine Epithelial Cells (Auto) >30 /lpf Urine Bacteria (Auto) 2+ Urine Pathogenic Casts /lpf Urine Mucus PRESENT Urine Test NEG White Blood Count 15.80 K/uL 8.08 K/uL Red Blood Count 4.54 M/uL 4.60 M/uL Hemoglobin 14.0 g/dL 14.1 g/dL Hematocrit 39.9 % 40.6 % Mean Corpuscular Volume 87.9 fL 88.3 fL Mean Corpuscular Hemoglobin 30.8 pg 30.7 pg Mean Corpuscular Hemoglobin Concent 35.1 g/dl 34.7 g/dl Platelet Count 297 K/uL 279 K/uL Mean Platelet Volume 9.4 fL 9.5 fL Neutrophils (%) (Auto) 71.9 % Lymphocytes (%) (Auto) 16.3 % Monocytes (%) (Auto) 10.9 % Eosinophils (%) (Auto) 0.3 % Basophils (%) (Auto) 0.2 % Neutrophils # (Auto) 11.37 K/uL Lymphocytes # (Auto) 2.57 K/uL Monocytes # (Auto) 1.73 K/uL Eosinophils # (Auto) 0.04 K/uL Basophils # (Auto) 0.03 K/uL RDW Standard Deviation 41.6 fL 41.4 fL RDW Coefficient of Variation 12.9 % 12.8 % Immature Granulocyte % (Auto) 0.4 % Immature Granulocyte # (Auto) 0.06 K/uL Erythrocyte Sedimentation Rate 44 mm/hr Sodium Level 135 mmol/L 136 mmol/L Potassium Level 3.3 mmol/L 3.4 mmol/L Chloride Level 107 mmol/L 110 mmol/L Carbon Dioxide Level 22 mmol/L 17 mmol/L Anion Gap 6.0 mmol/L 10.0 mmol/L Blood Urea Nitrogen 10 mg/dl 9 mg/dl Creatinine 1.08 mg/dl 0.97 mg/dl Est Creatinine Clear Calc Drug Dose 80.8 ml/min 89.9 ml/min Estimated GFR () 78.7 89.6 Estimated GFR (Non- 67.9 77.3 BUN/Creatinine Ratio 9.6 9.7 Random Glucose 103 mg/dl 138 mg/dl Calcium Level 9.5 mg/dl 8.4 mg/dl Total Bilirubin 0.9 mg/dl Direct Bilirubin 0.3 mg/dl Aspartate Amino Transf (AST/SGOT) 29 U/L Alanine Aminotransferase (ALT/SGPT) 53 U/L Alkaline Phosphatase 91 U/L C-Reactive Protein 14.60 mg/dl Total Protein 8.8 gm/dl Albumin 4.2 gm/dl Lactic Acid Level 1.4 mmol/L Assessment and Plan This is a 32 year old female with a PMH of schizophrenia/depression - presented with odontogenic facial cellulitis Odontogenic Facial Cellulitis 11/22 * patient with odontogenic facial cellulitis, WBC elevated on admission * was given Unasyn in the ED and Zosyn when she got to the floor * WBC now resolved; vitals stable, low grade fever noted * appreciate oromaxillofacial surgery input - will do another 24 hours of IV abx. * will then switch to Clindamycin or Augmentin prior to discharge * outpatient f/u on Friday with Dr. Tapia for possible infected tooth extraction * pain is currently under control Schizophrenia/Mood Disorder * continue home medications Asymptomatic Bacteruria * already on antibiotics; no need to specifically treat FULL CODE
[2017-11-22] MEDS ORDERED: [UNRECOGNIZED DRUG - REMARK] ONE (14:00)
[2017-11-22 15:50] VITALS: BP 131/83; PULSE 104; TEMP 37.7; O2SAT 100
[2017-11-22 16:00] VITALS: O2SAT 100
[2017-11-22 17:35] VITALS: TEMP 37
[2017-11-22] MEDS: LURASIDONE HCL 40 MG TAB PO SCH (21:03)
[2017-11-23] VITALS: BP 111/69; PULSE 119; TEMP 38.5; O2SAT 96
[2017-11-23] MEDS: ACETAMINOPHEN 325 MG TAB PO PRN ×2 (00:18→18:00)
[2017-11-23] MEDS: PIPERACILL/TAZOBAC IV 3.375 GM in DEXTROSE 5% 100ML 100 ML IV SCH (05:48)
[2017-11-23 06:19] LABS: HEMATOCRIT 39.5 % (37-47); HEMOGLOBIN 13.8 g/dL (12.0-16.0); MEAN CELL VOLUME 88.2 fL (80-100); MEAN CORPUSCULAR HEMOGLOBIN 30.8 pg (25-34); MEAN CORPUSCULAR HGB CONC 34.9 g/dl (32-36); MEAN PLATELET VOLUME 9.3 fL (7.4-10.4); PLATELET COUNT 292 K/uL (130-400); RED CELL DISTRIBUTION WIDTH SD 41.9 fL (36.4-46.3); WHITE BLOOD COUNT 10.89 K/uL (4.8-10.8)
[2017-11-23 06:47] LABS: CALCIUM 8.7 mg/dl (8.5-10.1); CREATININE 0.9 mg/dl (0.60-1.20); POTASSIUM 3.8 mmol/L (3.5-5.1)
[2017-11-23 07:57] VITALS: BP 107/74; PULSE 111; TEMP 37.9; O2SAT 99
[2017-11-23] MEDS: BENZTROPINE MESYLATE 1 MG TAB PO SCH (08:39)
[2017-11-23] MEDS: TOPIRAMATE 100 MG TAB PO SCH (08:39)
[2017-11-23] MEDS: PROPRANOLOL HCL 10 MG TAB PO SCH ×2 (08:40→14:00)
[2017-11-23 08:42] VITALS: TEMP 37.2
[2017-11-23] MEDS ORDERED: SODIUM CHLORIDE 0.9% 1000ML 1,000 ML IV SCH (09:00)
--- NOTE | 2017-11-23 10:20 | Progress Note ---
Subjective Date of Service: Nov 23, 2017. Subjective Pt evaluation today including: conversation w/ patient, physical exam, lab review, review of studies, review of inpatient medication list Saw/examined the patient in room 414 +spiking fevers last evening pain controlled; eager to go home. Problem List Medical Problems: (1) Acute periapical abscess Status: Acute (2) Right knee sprain Status: Acute Review of Systems Constitutional: + fever, + chills, No weakness ENT: + dental problems, No nasal symptoms, No sore throat, No tinnitus, No trouble swallowing Respiratory: No shortness of breath Cardiac: No chest pain Medications Current Inpatient Medications Medications (Trade) Dose Ordered Sig/Jose Rafael Route Start Time Stop Time Status Last Admin Dose Admin Ioversol (Optiray 320) 100 ml UD PRN IV 11/21/17 14:45 11/25/17 14:44 Ketorolac Tromethamine (Toradol Inj) 15 mg Q6H PRN IV 11/21/17 17:00 11/26/17 16:59 11/22/17 08:55 15 MG Acetaminophen (Tylenol Tab) 650 mg Q4H PRN PO 11/21/17 17:00 12/21/17 16:59 11/23/17 00:18 650 MG Al Hydrox/Mg Hydrox/Simethicone (Maalox Max Susp) 15 ml Q4H PRN PO 11/21/17 17:00 12/21/17 16:59 Magnesium Hydroxide (Milk Of Magnesia Susp) 30 ml Q6H PRN PO 11/21/17 17:00 12/21/17 16:59 Polyethylene (Miralax Powder Packet) 17 gm DAILY PRN PO 11/21/17 17:00 12/21/17 16:59 Ondansetron HCl (Zofran Inj) 4 mg Q6H PRN IV 11/21/17 17:00 12/21/17 16:59 Benztropine Mesylate (Cogentin Tab) 1 mg BID PO 11/21/17 20:00 12/21/17 20:59 11/23/17 08:39 1 MG Lamotrigine (Lamictal Tab) 100 mg HS PO 11/21/17 21:00 12/21/17 20:59 11/22/17 21:03 100 MG Lurasidone HCl (Latuda Tab) 40 mg HS PO 11/21/17 21:00 12/21/17 20:59 11/22/17 21:03 40 MG Propranolol HCl (Inderal Tab) 10 mg TID PO 11/21/17 20:00 12/21/17 20:59 11/23/17 08:40 10 MG Topiramate (Topamax Tab) 100 mg BID PO 11/21/17 20:00 12/21/17 20:59 11/23/17 08:39 100 MG Trazodone HCl (Desyrel Tab) 100 mg BID PRN PO 11/21/17 17:45 12/21/17 17:44 Sodium Chloride 1,000 ml @ 80 mls/hr [id number] IV 11/23/17 09:00 12/23/17 08:59 11/23/17 09:55 80 MLS/HR Ampicillin Sodium/ Sulbactam Sodium 3000 mg/Sodium Chloride 108 ml @ 200 mls/hr Q6H IV 11/23/17 12:00 12/01/17 23:59 Objective Vital Signs Date Time Temp Pulse Resp B/P (MAP) Pulse Ox O2 Delivery O2 Flow Rate FiO2 11/23/17 08:42 37.2 11/23/17 08:00 Room Air 11/23/17 07:57 37.9 111 20 107/74 (85) 99 Room Air 11/23/17 00:00 Room Air 11/23/17 00:00 38.5 119 18 111/69 (83) 96 Room Air 11/22/17 20:00 Room Air 11/22/17 17:35 37.0 11/22/17 16:00 100 Room Air 11/22/17 15:50 37.7 104 18 131/83 (99) 100 Room Air Physical Exam General Appearance: no apparent distress ENT: + pertinent finding (+R jaw swelling noted - improving) Respiratory/Chest: no respiratory distress, no accessory muscle use Laboratory Results Last 24 Hours Test 11/23/17 06:03 White Blood Count 10.89 K/uL Red Blood Count 4.48 M/uL Hemoglobin 13.8 g/dL Hematocrit 39.5 % Mean Corpuscular Volume 88.2 fL Mean Corpuscular Hemoglobin 30.8 pg Mean Corpuscular Hemoglobin Concent 34.9 g/dl RDW Standard Deviation 41.9 fL RDW Coefficient of Variation 13.0 % Platelet Count 292 K/uL Mean Platelet Volume 9.3 fL Sodium Level 137 mmol/L Potassium Level 3.8 mmol/L Chloride Level 109 mmol/L Carbon Dioxide Level 19 mmol/L Anion Gap 9.0 mmol/L Blood Urea Nitrogen 7 mg/dl Creatinine 0.90 mg/dl Est Creatinine Clear Calc Drug Dose 96.9 ml/min Estimated GFR () 98.1 Estimated GFR (Non- 84.6 BUN/Creatinine Ratio 7.4 Random Glucose 111 mg/dl Calcium Level 8.7 mg/dl Chemistry Specimen Hemolysis Assessment and Plan This is a 32 year old female with a PMH of schizophrenia/depression - presented with odontogenic facial cellulitis Odontogenic Facial Cellulitis 11/23 * switch Zosyn to Unasyn today * if not spiking fevers later this afternoon, can d/c with Augmentin and outpatient oromaxillofacial follow-up 11/22 * patient with odontogenic facial cellulitis, WBC elevated on admission * was given Unasyn in the ED and Zosyn when she got to the floor * WBC now resolved; vitals stable, low grade fever noted * appreciate oromaxillofacial surgery input - will do another 24 hours of IV abx. * will then switch to Clindamycin or Augmentin prior to discharge * outpatient f/u on Friday with Dr. Tapia for possible infected tooth extraction * pain is currently under control Schizophrenia/Mood Disorder * continue home medications Asymptomatic Bacteruria * already on antibiotics; no need to specifically treat FULL CODE
[2017-11-23] MEDS: AMPICILLIN/SULBACTAM SOD INJ 3,000 MG in SODIUM CHLORIDE 0.9% 100ML 100 ML IV SCH ×2 (12:17→18:00)
[2017-11-23 15:29] VITALS: BP 114/77; PULSE 111; TEMP 37.5; O2SAT 99
[2017-11-23 17:00] VITALS: BP 135/83; PULSE 92; TEMP 37.4; O2SAT 99
[2017-11-23] MEDS ORDERED: AMOX875T PO (17:40)
[2017-11-23] MEDS ORDERED: NAPR-1221 PO (17:41)
--- NOTE | 2017-11-23 17:47 | Discharge Instructions ---
Discharge Instructions Date of Service Nov 23, 2017. Admission Reason for Admission: Facial Cellulitis Discharge Discharge Diagnosis / Problem: Tooth Infection Discharge Goals Goal(s): Decrease discomfort, Improve function, Diagnostic testing, Therapeutic intervention Activity Recommendations Activity Limitations: resume your previous activity . Instructions / Follow-Up Instructions / Follow-Up Please follow-up with your primary care physician - you will get a phone call with a date and time Please follow-up with Dr. Tapia, oral surgeon, on Friday - please call his office - [phone] * You will be on Augmentin (antibiotic) for the infection - take this twice a day for the next 7 days * Take Tylenol for pain; you can use Naproxen if Tylenol does not work Current Hospital Diet Patient's current hospital diet: Regular Diet Discharge Diet Recommended Diet: Regular Diet Pending Studies Studies pending at discharge: no Medical Emergencies . Who to Call and When: Medical Emergencies: If at any time you feel your situation is an emergency, please call 911 immediately. . Non-Emergent Contact Non-Emergency issues call your: Primary Care Provider, Specialist . . "Provider Documentation" section prepared by Enrico Winston. .
--- NOTE | 2017-11-23 17:50 | Discharge Summary ---
Discharge Summary Date of Service Nov 23, 2017. Discharge Summary Admission Date: Nov 21, 2017 at 16:41 Discharge Date: Nov 23, 2017 Discharge Disposition: Home Principal Diagnosis: Odontogenic Facial Cellulitis Medication Reconciliation New Medications: Amoxicillin & Pot Clavulanate (Augmentin 875-125 mg) 1 Tab Tab 1 TAB PO BID for 7 Days, #14 TAB Naproxen (Naproxen) 375 Mg Tab 1 TAB PO BID for 10 Days, #20 TAB 0 Refills Continued Medications: Benztropine Mesylate (Benztropine Mesylate) 1 Mg Tab 1 MG PO BID Lamotrigine (Lamictal) 100 Mg Tab 100 MG PO HS, TAB Lamotrigine (Lamictal) 25 Mg Tab 50 MG PO QAM, TAB Patient has not been taking at home. Lurasidone Hcl (Latuda) 40 Mg Tab 40 MG PO HS, TAB Propranolol (Inderal) 10 Mg Tab 10 MG PO TID, TAB Has been taking differently: 10mg tab BID Topiramate (Topamax) 100 Mg Tab 100 MG PO BID, TAB Trazodone Hcl (Trazodone) 100 Mg Tab 100 MG PO BID PRN for Pain, TAB Admission Information HPI (per Admitting provider): This is a 32-year-old female with a past medical history of schizophrenia and depression who presents with a right sided facial pain 1 week. Patient states that right jaw pain began last week, followed by swelling over her jaw which then progressed to the right side of her neck. Started to have difficulty chewing a few days ago 2/2 to an inability to fully open her mouth. Has been able to tolerate liquids and soft foods. Describes facial pain as constant, throbbing and pressure-like with an 7/10 in severity. Has been taking Tylenol and ibuprofen at home with minimal relief. Endorses a low-grade fever and chills but denies headache, tongue swelling, difficulty breathing, difficulty swallowing. Has never had facial swelling like this before. States that she has had dental problems in the past and had a tooth on the left side of her mouth extracted by an oral surgeon in August 2017. Since then, has noticed that portions of her teeth have "fallen out". States that she brushes teeth regularly. Denies drug use. Went to PCP today and was sent to the ER for further evaluation. Denies lightheadedness, vision changes, chest pain, abdominal pain, nausea, vomiting, dysuria, diarrhea, constipation. Physical Exam (per Admitting): General Appearance: + mild distress Head: normocephalic Eyes: normal inspection, PERRL, sclerae normal ENT: hearing grossly normal, + trismus, + pertinent finding (R facial/neck erythema. Warm to touch. Significant edema along right mandible and neck. Firm and tender to palpation. Poor dentition.) Neck: supple, thyroid normal, trachea midline Respiratory/Chest: chest non-tender, lungs clear, normal breath sounds, no respiratory distress, no accessory muscle use Cardiovascular: regular rate, rhythm, no murmur, normal peripheral pulses Abdomen/GI: non tender, soft, no organomegaly Back: normal inspection Extremities/Musculoskelatal: normal inspection, no calf tenderness, no pedal edema Neurologic/Psych: no motor/sensory deficits, alert, normal mood/affect, oriented x 3 Skin: normal color, warm/dry Hospital Course This is a 32 year old female with a PMH of schizophrenia/depression - presented with odontogenic facial cellulitis Odontogenic Facial Cellulitis 11/23 * switch Zosyn to Unasyn today * if not spiking fevers later this afternoon, can d/c with Augmentin and outpatient oromaxillofacial follow-up 11/22 * patient with odontogenic facial cellulitis, WBC elevated on admission * was given Unasyn in the ED and Zosyn when she got to the floor * WBC now resolved; vitals stable, low grade fever noted * appreciate oromaxillofacial surgery input - will do another 24 hours of IV abx. * will then switch to Clindamycin or Augmentin prior to discharge * outpatient f/u on Friday with Dr. Tapia for possible infected tooth extraction * pain is currently under control Schizophrenia/Mood Disorder * continue home medications Asymptomatic Bacteruria * already on antibiotics; no need to specifically treat FULL CODE Total time spent on discharge = 35 minutes This includes examination of the patient, discharge planning, medication reconciliation, and communication with other providers. Discharge Instructions Please follow-up with your primary care physician - you will get a phone call with a date and time Please follow-up with Dr. Tapia, oral surgeon, on Friday - please call his office - [phone] * You will be on Augmentin (antibiotic) for the infection - take this twice a day for the next 7 days * Take Tylenol for pain; you can use Naproxen if Tylenol does not work
[2017-11-23 18:48] VITALS: BP 135/83; PULSE 92; TEMP 37.4; O2SAT 99
== END 2017-11-23 19:20 | disposition home or self-care (01) | DRG 603 ==
LOC: C.EDB 13:47 → C.4E 16:41 → ENRESERV 17:10
PROVIDERS: ADMIT Hospitalist; ATTEND Family Medicine
DX: L03.211 Cellulitis of face (principal); E87.1 Hypo-osmolality and hyponatremia; K04.7 Periapical abscess without sinus; F43.21 Adjustment disorder with depressed mood; F25.9 Schizoaffective disorder, unspecified; R00.0 Tachycardia, unspecified; E87.6 Hypokalemia; R82.71 Bacteriuria; Z88.5 Allergy status to narcotic agent

== ENCOUNTER 2021-09-20 13:20 | Inpatient (IN) ==
[2021-09-20 14:30] LABS: Basophils # (auto) 0.03 K/uL (0-0.2); Basophils % (auto) 0.3 %; Eosinophils # (auto) 0.06 K/uL (0-0.5); Eosinophils % (auto) 0.6 %; Hematocrit (blood only) 40.5 % (37-47); Hemoglobin 13.7 g/dL (12.0-16.0); Immature Granulocytes # (auto) 0.01 K/uL (0.00-0.02); Immature Granulocytes % (auto) 0.1 %; Lymphocytes # (auto) 2.31 K/uL (1.2-3.4); Lymphocytes % (auto) 23.7 %; Mean Corpuscular Hemoglobin 29.9 pg (25-34); Mean Corpuscular Hgb Conc 33.8 g/dL (32-36); Mean Corpuscular Volume 88.4 fL (80-100); Mean Platelet Volume 9.9 fL (7.4-10.4); Monocytes # (auto) 0.67 K/uL (0.11-0.59); Monocytes % (auto) 6.9 %; Neutrophils # (auto) 6.65 K/uL (1.4-6.5); Neutrophils % (auto) 68.4 %; Platelet Count 332 K/uL (130-400); RDW Coefficient of Variation 13.1 % (11.5-14.5); RDW Standard Deviation 42.3 fL (36.4-46.3); Red Blood Count 4.58 M/uL (4.2-5.4); White Blood Count 9.73 K/uL (4.8-10.8)
[2021-09-20 14:42] LABS: Amphetamines+Metham, Urine Neg (Neg); Barbiturates, Urine Neg (Neg); Benzodiazepine, Urine Neg (Neg); Cocaine, Urine Neg (Neg); MDMA (Ecstacy), Urine Neg (Neg); Methadone, Urine Neg (Neg); Opiate, Urine Neg (Neg); Phencyclidine, Urine Neg (Neg)
[2021-09-20 14:43] LABS: Appearance Urine Cloudy (Clear); Bacteria Urine Automated 2+ (Negative); Bilirubin Urine Negative (Negative); Blood Urine 1+ (Negative); Color Urine Dark Yellow; Epithelial Cell Urine Auto >30 /lpf (0-5); Glucose Urine UA Negative (Negative); Ketones Urine Trace (Negative); Leukocyte Esterase Urine 2+ (Negative); Nitrite Urine Negative (Negative); Protein Urine Negative (Negative); Specific Gravity Urine 1.024 (1.000-1.030); Urobilinogen Urine Negative (Negative)
[2021-09-20 14:54] LABS: Pregnancy Test, Serum Negative (Negative)
[2021-09-20 15:04] LABS: Albumin Globulin Ratio 1.5 (0.9-2); Albumin Level 4.4 gm/dl (3.4-5.0); BUN Creatinine Ratio 9.7 (10-20); Bilirubin,Total 0.5 mg/dl (0.2-1.0); Calcium 9.1 mg/dl (8.5-10.1); Creatinine Clr Calc Pharmacy 80.8 ml/min; Est GFR (African American) 91.6 ml/min; Est GFR (Non-African American) 79.1 ml/min; Globulin 2.9 gm/dl (2.5-4.0); Potassium 3.7 mmol/L (3.5-5.1); Total Protein 7.3 gm/dl (6.0-8.3)
[2021-09-20 15:05] LABS: Acetaminophen < 3 ug/ml (10-30); Salicylate < 3.0 mg/dl (3.0-30)
--- NOTE | 2021-09-20 17:54 | Emergency Department Note ---
Impression & Plan Suicidal ideation, Schizophrenia ED Provider Note NAME: LISA THAYER AGE: 36 SEX: F ARRIVES VIA: Ambulance INFORMANT: Patient ED PROVIDER(S): Santhosh Arechiga MD CHIEF COMPLAINT: Hallucinations, suicidal ideation. PLAN: Disposition: Inpatient psychiatric admission. MEDICAL DECISION MAKING: The patient is a 36-year-old woman with a past medical history of schizophrenia with history of substance abuse who presents emergency department for evaluation of worsening hallucinations and suicidal ideation where she feels she is unable to function. She describes that she hears voices of people talking to her from "the parking lot". She reports she has thoughts of wanting to hurt herself but denies having attempted to do so. She reports that her "body is a ". Reports there is "no reason for me to live". She is interested in inpatient psychiatric treatment. The patient reports she does have a psychiatrist and follows with some clear. She also reports having been to the [facility] in the past. On arrival the patient is tearful, anxious appearing, withdrawn with poor eye contact covering her head underneath the blanket. She reports psychiatric symptoms per above. She denies any recent cough, congestion, GI or symptoms. WBC, H/H and platelets within normal limits. Chemistry without metabolic acidosis. Electrolytes LFTs are unremarkable. hCG is negative. UA without convincing evidence of infection as epithelial cells are present and the patient denies urinary symptoms. Will await culture to inform need for treatment. Drug screen was unremarkable. COVID-19 RNA, NAAT test was negative. Patient was medically cleared. Psychiatric evaluation was completed and patient again continues to report interest in inpatient treatment. Referral made to S. and anticipate admission. Triage Nursing notes reviewed and agree them. Prior medical records reviewed Vital Signs: reviewed and remarkable for no significant abnormalities Differential diagnosis: Mood disorder, infection, hypoglycemia, electrolyte abnormalities, cardiac sources, intracerebral event, toxicologic, trauma, neurologic, as well as other pathologies. ER treatment provided: See below. Laboratory studies: See below HPI: The patient is a 36-year-old woman with a past medical history of schizophrenia with history of substance abuse who presents emergency department for evaluation of worsening hallucinations and suicidal ideation where she feels she is unable to function. She describes that she hears voices of people talking to her from "the parking lot". She reports she has thoughts of wanting to hurt herself but denies having attempted to do so. She reports that her "body is a ". Reports there is "no reason for me to live". She is interested in inpatient psychiatric treatment. The patient reports she does have a psychiatrist and follows with some clear. She also reports having been to the [facility] in the past. ROS: See above HPI for pertinent positives & negatives. A total of 10 systems reviewed and were otherwise negative. PAST MEDICAL HISTORY:See Below PAST SURGICAL HISTORY:See Below FAMILY HISTORY:See Below SOCIAL HISTORY:See Below HOME MEDICATIONS:See Below ALLERGIES:See Below VITALS:See Below PHYSICAL EXAMINATION: GENERAL: Awake, alert, withdrawn, melancholy appearing and tearful, in no distress, BMI 33.9. HENT: Normocephalic, atraumatic. Oropharynx unremarkable. EYES: Normal conjunctiva. Sclera non-icteric. NECK: Supple. No nuchal rigidity. FROM. No JVD. RESPIRATORY: Clear to auscultation. CARDIAC: Regular rate, normal rhythm. Extremities warm and well perfused. Pulses equal. ABDOMEN: Soft, non-distended. No tenderness to palpation. No rebound or guarding. No masses. RECTAL: Deferred. MUSCULOSKELETAL: Chest examination reveals no tenderness. The back is symmetrical on inspection without obvious abnormality. There is no CVA tenderness to palpation. No joint edema. LOWER EXTREMITIES: Calves are equal size bilaterally and non-tender. No edema. No discoloration. NEURO: Normal sensorium. No sensory or motor deficits noted. SKIN: No rash or jaundice noted. PSYCH: Positive suicidal ideation. Denies HI. Reports auditory hallucinations. Reports hopelessness and depression. Santhosh Arechiga MD Past Med/Surg History Medical History Acute periapical abscess Depression Facial cellulitis History of drug overdose MDD (major depressive disorder), recurrent episode, moderate Schizophrenia Sinus tachycardia Suicidal ideation Surgical History No pertinent past surgical history Family History Other Cancer Social History Smoking Status: Never smoker Preferred Language: Swedish [employer] Required: No Beliefs That Will Affect Care: None marital status: Single current occupational status: unemployed Feels Safe at Home: No Assistive Devices: None Allergies Allergies Allergy/AdvReac Type Severity Reaction Status Date / Time codeine AdvReac Mild RASH Verified 09/20/21 14:36 Home Meds Home Medications Medication Instructions Recorded Confirmed benztropine 1 mg tablet 1 mg PO BID 05/30/19 09/20/21 topiramate 100 mg tablet (Topamax) 100 mg PO BID 05/30/19 09/20/21 lamotrigine 100 mg tablet 100 mg PO HS 08/22/19 09/20/21 (Lamictal) lurasidone 40 mg tablet (Latuda) 40 mg PO DAILY 02/12/21 09/20/21 propranolol 10 mg tablet 10 mg PO BID 02/12/21 09/20/21 Results & Data (ED) Vital Signs Vital Signs - 24 hr 09/20/21 13:49 09/20/21 15:29 Temperature 37.1 C Temperature Source Oral Pulse Rate 98 H Pulse Rate [Right Finger] 90 Respiratory Rate 17 14 Respiratory Depth Normal Blood Pressure 132/95 Blood Pressure [Right Arm] 119/88 Blood Pressure Mean 107 Blood Pressure Mean [Right Arm] 98 Pulse Oximetry 99 97 Oxygen Delivery Method Room Air Room Air Sepsis Recent Fever Within 48 Hours No Sepsis New/Unexplained Change in Mental Status N/A Sepsis Action Taken by Nursing No Action Required Laboratory Data Attestation: I reviewed the patient's lab results. Result diagrams: 09/20/21 14:07 09/20/21 14:07 Lab Results 09/20/21 09/20/21 09/20/21 Range/Units 13:39 13:39 14:07 WBC 9.73 (4.8-10.8) K/uL RBC 4.58 (4.2-5.4) M/uL Hgb 13.7 (12.0-16.0) g/dL Hct 40.5 (37-47) % MCV 88.4 (80-100) fL MCH 29.9 (25-34) pg MCHC 33.8 (32-36) g/dL RDW Std Deviation 42.3 (36.4-46.3) fL RDW Coeff of Indira 13.1 (11.5-14.5) % Plt Count 332 (130-400) K/uL MPV 9.9 (7.4-10.4) fL Immature Gran % (Auto) 0.1 % Neut % (Auto) 68.4 % Lymph % (Auto) 23.7 % [place] % (Auto) 6.9 % Eos % (Auto) 0.6 % Baso % (Auto) 0.3 % Neut # (Auto) 6.65 H (1.4-6.5) K/uL Lymph # (Auto) 2.31 (1.2-3.4) K/uL [place] # (Auto) 0.67 H (0.11-0.59) K/uL Eos # (Auto) 0.06 (0-0.5) K/uL Baso # (Auto) 0.03 (0-0.2) K/uL Immature Gran # (Auto) 0.01 (0.00-0.02) K/uL Sodium (136-145) mmol/L Potassium (3.5-5.1) mmol/L Chloride (98-107) mmol/L Carbon Dioxide (21-32) mmol/L Anion Gap (3-11) BUN (6-23) mg/dl Creatinine (0.6-1.2) mg/dl Est Cr Clr Drug Dosing ml/min Est GFR ( Amer) ml/min Est GFR (Non-Af Amer) ml/min BUN/Creatinine Ratio (10-20) Glucose (70-99) mg/dl Calcium (8.5-10.1) mg/dl Total Bilirubin (0.2-1.0) mg/dl AST (13-39) U/L ALT (7-52) U/L Alkaline Phosphatase (34-104) U/L Total Protein (6.0-8.3) gm/dl Albumin (3.4-5.0) gm/dl Globulin (2.5-4.0) gm/dl Albumin/Globulin Ratio (0.9-2) TSH (0.300-4.500) uIu/ml HCG, Qual (Negative) Urine Color Dark Yellow Urine Appearance Cloudy A (Clear) Urine pH 7.0 (4.5-7.5) Ur Specific [place] 1.024 (1.000-1.030) Urine Protein Negative (Negative) Urine Glucose (UA) Negative (Negative) Urine Ketones Trace H (Negative) Urine Blood 1+ H (Negative) Urine Nitrite Negative (Negative) Urine Bilirubin Negative (Negative) Urine Urobilinogen Negative (Negative) Ur Leukocyte Esterase 2+ H (Negative) Urine WBC (Auto) 10-30 H (0-5) /hpf Urine RBC (Auto) 10-30 H (0-4) /hpf U Hyaline Cast (Auto) 10-30 H (0-5) /lpf U Epithel Cells (Auto) >30 H (0-5) /lpf Urine Bacteria (Auto) 2+ H (Negative) Salicylates (3.0-30) mg/dl Urine Opiates Screen Neg (Neg) Ur Methadone, Qual Neg (Neg) Acetaminophen (10-30) ug/ml Urine Barbiturates Neg (Neg) Ur Phencyclidine (PCP) Neg (Neg) U Amphetamin/Meth Scrn Neg (Neg) MDMA (Ecstasy) Screen Neg (Neg) U Benzodiazepines Scrn Neg (Neg) Ur Cocaine Metabolite Neg (Neg) U Marijuana (THC) Screen Neg (Neg) Ethyl Alcohol mg/dL (0-9.9) mg/dl SARS-CoV-2, RNA, NAAT (NEGATIVE) 09/20/21 09/20/21 09/20/21 Range/Units 14:07 14:07 14:07 WBC (4.8-10.8) K/uL RBC (4.2-5.4) M/uL Hgb (12.0-16.0) g/dL Hct (37-47) % MCV (80-100) fL MCH (25-34) pg MCHC (32-36) g/dL RDW Std Deviation (36.4-46.3) fL RDW Coeff of Indira (11.5-14.5) % Plt Count (130-400) K/uL MPV (7.4-10.4) fL Immature Gran % (Auto) % Neut % (Auto) % Lymph % (Auto) % [place] % (Auto) % Eos % (Auto) % Baso % (Auto) % Neut # (Auto) (1.4-6.5) K/uL Lymph # (Auto) (1.2-3.4) K/uL [place] # (Auto) (0.11-0.59) K/uL Eos # (Auto) (0-0.5) K/uL Baso # (Auto) (0-0.2) K/uL Immature Gran # (Auto) (0.00-0.02) K/uL Sodium 138 (136-145) mmol/L Potassium 3.7 (3.5-5.1) mmol/L Chloride 108 H (98-107) mmol/L Carbon Dioxide 22 (21-32) mmol/L Anion Gap 8 (3-11) BUN 9 (6-23) mg/dl Creatinine 0.93 (0.6-1.2) mg/dl Est Cr Clr Drug Dosing 80.8 ml/min Est GFR ( Amer) 91.6 ml/min Est GFR (Non-Af Amer) 79.1 ml/min BUN/Creatinine Ratio 9.7 L (10-20) Glucose 96 (70-99) mg/dl Calcium 9.1 (8.5-10.1) mg/dl Total Bilirubin 0.5 (0.2-1.0) mg/dl AST 16 (13-39) U/L ALT 25 (7-52) U/L Alkaline Phosphatase 73 (34-104) U/L Total Protein 7.3 (6.0-8.3) gm/dl Albumin 4.4 (3.4-5.0) gm/dl Globulin 2.9 (2.5-4.0) gm/dl Albumin/Globulin Ratio 1.5 (0.9-2) TSH 1.232 (0.300-4.500) uIu/ml HCG, Qual (Negative) Urine Color Urine Appearance (Clear) Urine pH (4.5-7.5) Ur Specific [place] (1.000-1.030) Urine Protein (Negative) Urine Glucose (UA) (Negative) Urine Ketones (Negative) Urine Blood (Negative) Urine Nitrite (Negative) Urine Bilirubin (Negative) Urine Urobilinogen (Negative) Ur Leukocyte Esterase (Negative) Urine WBC (Auto) (0-5) /hpf Urine RBC (Auto) (0-4) /hpf U Hyaline Cast (Auto) (0-5) /lpf U Epithel Cells (Auto) (0-5) /lpf Urine Bacteria (Auto) (Negative) Salicylates < 3.0 L (3.0-30) mg/dl Urine Opiates Screen (Neg) Ur Methadone, Qual (Neg) Acetaminophen < 3 L (10-30) ug/ml Urine Barbiturates (Neg) Ur Phencyclidine (PCP) (Neg) U Amphetamin/Meth Scrn (Neg) MDMA (Ecstasy) Screen (Neg) U Benzodiazepines Scrn (Neg) Ur Cocaine Metabolite (Neg) U Marijuana (THC) Screen (Neg) Ethyl Alcohol mg/dL (0-9.9) mg/dl SARS-CoV-2, RNA, NAAT (NEGATIVE) 09/20/21 09/20/21 09/20/21 Range/Units 14:07 14:07 15:30 WBC (4.8-10.8) K/uL RBC (4.2-5.4) M/uL Hgb (12.0-16.0) g/dL Hct (37-47) % MCV (80-100) fL MCH (25-34) pg MCHC (32-36) g/dL RDW Std Deviation (36.4-46.3) fL RDW Coeff of Indira (11.5-14.5) % Plt Count (130-400) K/uL MPV (7.4-10.4) fL Immature Gran % (Auto) % Neut % (Auto) % Lymph % (Auto) % [place] % (Auto) % Eos % (Auto) % Baso % (Auto) % Neut # (Auto) (1.4-6.5) K/uL Lymph # (Auto) (1.2-3.4) K/uL [place] # (Auto) (0.11-0.59) K/uL Eos # (Auto) (0-0.5) K/uL Baso # (Auto) (0-0.2) K/uL Immature Gran # (Auto) (0.00-0.02) K/uL Sodium (136-145) mmol/L Potassium (3.5-5.1) mmol/L Chloride (98-107) mmol/L Carbon Dioxide (21-32) mmol/L Anion Gap (3-11) BUN (6-23) mg/dl Creatinine (0.6-1.2) mg/dl Est Cr Clr Drug Dosing ml/min Est GFR ( Amer) ml/min Est GFR (Non-Af Amer) ml/min BUN/Creatinine Ratio (10-20) Glucose (70-99) mg/dl Calcium (8.5-10.1) mg/dl Total Bilirubin (0.2-1.0) mg/dl AST (13-39) U/L ALT (7-52) U/L Alkaline Phosphatase (34-104) U/L Total Protein (6.0-8.3) gm/dl Albumin (3.4-5.0) gm/dl Globulin (2.5-4.0) gm/dl Albumin/Globulin Ratio (0.9-2) TSH (0.300-4.500) uIu/ml HCG, Qual Negative (Negative) Urine Color Urine Appearance (Clear) Urine pH (4.5-7.5) Ur Specific [place] (1.000-1.030) Urine Protein (Negative) Urine Glucose (UA) (Negative) Urine Ketones (Negative) Urine Blood (Negative) Urine Nitrite (Negative) Urine Bilirubin (Negative) Urine Urobilinogen (Negative) Ur Leukocyte Esterase (Negative) Urine WBC (Auto) (0-5) /hpf Urine RBC (Auto) (0-4) /hpf U Hyaline Cast (Auto) (0-5) /lpf U Epithel Cells (Auto) (0-5) /lpf Urine Bacteria (Auto) (Negative) Salicylates (3.0-30) mg/dl Urine Opiates Screen (Neg) Ur Methadone, Qual (Neg) Acetaminophen (10-30) ug/ml Urine Barbiturates (Neg) Ur Phencyclidine (PCP) (Neg) U Amphetamin/Meth Scrn (Neg) MDMA (Ecstasy) Screen (Neg) U Benzodiazepines Scrn (Neg) Ur Cocaine Metabolite (Neg) U Marijuana (THC) Screen (Neg) Ethyl Alcohol mg/dL < 10.0 H (0-9.9) mg/dl SARS-CoV-2, RNA, NAAT NEGATIVE (NEGATIVE) Administered Medications Benztropine Mesylate (Benztropine Mesylate 1 Mg Tab) 1 mg PO BID [facility] Stop: 10/20/21 20:59 Last Admin: 09/20/21 20:02 Dose: 1 mg Documented by: [id number] Hydroxyzine HCl (Hydroxyzine Hcl 25 Mg Tab) 50 mg PO HSZ PRN PRN Reason: Insomnia Stop: 10/20/21 18:24 Last Admin: 09/20/21 22:43 Dose: 50 mg Documented by: [id number] Admin: 09/20/21 21:29 Dose: 50 mg Documented by: [id number] Lamotrigine (Lamotrigine 100 Mg Tab) 100 mg PO HS [facility] Stop: 10/20/21 21:59 Last Admin: 09/20/21 20:02 Dose: 100 mg Documented by: [id number] Lurasidone HCl (Lurasidone Hcl 40 Mg Tab) 40 mg PO DAILY [facility] Stop: 10/20/21 19:14 Last Admin: 09/20/21 20:01 Dose: 40 mg Documented by: [id number] Olanzapine (Olanzapine Zydis 5 Mg Orally Dis. Tab) 5 mg PO Q6 PRN PRN Reason: Agitation Stop: 10/20/21 20:05 Last Admin: 09/20/21 20:38 Dose: 5 mg Documented by: [id number] Propranolol HCl (Propranolol Hcl 10 Mg Tab) 10 mg PO BID [facility] Stop: 10/20/21 20:59 Last Admin: 09/20/21 20:02 Dose: 10 mg Documented by: [id number] Topiramate (Topiramate 100 Mg Tab) 100 mg PO BID [facility] Stop: 10/20/21 20:59 Last Admin: 09/20/21 20:02 Dose: 100 mg Documented by: [id number] Discharge Plan Visit Data Chief Complaint: Mental Health Evaluation Stated Complaint: PSYCHIATRIC EVAL ED Provider: Santhosh Arechiga Discharge Problem: Suicidal ideation, Schizophrenia Patient Disposition: Admitted As Inpatient Discharge Instructions Interventions: ED Discharge Assessment Last Done: 09/20/21 18:40 Discharge Problem: Schizophrenia Qualifiers: Schizophrenia type: unspecified Qualified Code(s): F20.9 - Schizophrenia, unspecified
[2021-09-20] MEDS ORDERED: ALUMINUM/MAGNESIUM SUSP 30 ML UDC PO PRN (18:25)
[2021-09-20] MEDS ORDERED: MAGNESIUM HYDROXIDE SUSP 30 ML UDC PO PRN (18:25)
[2021-09-20] MEDS ORDERED: BISMUTH SUBSALICYLATE LIQD 236 ML PO PRN (18:25)
[2021-09-20] MEDS ORDERED: ACETAMINOPHEN 325 MG TAB PO PRN (18:25)
[2021-09-20] MEDS ORDERED: SODIUM CHLORIDE 0.65% NA SOLN 45 ML (OCEAN) PRN (18:25)
[2021-09-20] MEDS ORDERED: hydrOXYzine HCl 25 MG TAB PO PRN (18:25)
[2021-09-20] MEDS: LURASIDONE HCL 40 MG TAB PO SCH (20:01)
[2021-09-20] MEDS: TOPIRAMATE 100 MG TAB PO SCH (20:02)
[2021-09-20] MEDS: PROPRANOLOL HCL 10 MG TAB PO SCH (20:02)
[2021-09-20] MEDS: BENZTROPINE MESYLATE 1 MG TAB PO SCH (20:02)
[2021-09-20] MEDS: OLANZapine ZYDIS 5 MG ORALLY DIS. TAB PO PRN (20:38)
[2021-09-20] MEDS: hydrOXYzine HCl 25 MG TAB PO PRN ×2 (21:29→22:43)
[2021-09-20] MEDS ORDERED: lamoTRIgine 100 MG TAB PO SCH (22:00)
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
[2021-09-21] MEDS: LURASIDONE HCL 40 MG TAB PO SCH (09:24)
[2021-09-21] MEDS: TOPIRAMATE 100 MG TAB PO SCH (09:24)
[2021-09-21] MEDS: BENZTROPINE MESYLATE 1 MG TAB PO SCH ×2 (09:24→20:44)
[2021-09-21] MEDS: PROPRANOLOL HCL 10 MG TAB PO SCH ×2 (09:24→20:44)
[2021-09-21] MEDS: hydrOXYzine HCl 25 MG TAB PO PRN (20:44)
[2021-09-21] MEDS: lamoTRIgine 100 MG TAB PO SCH (20:44)
[2021-09-21] MEDS ORDERED: BENZTROPINE MESYLATE 1 MG TAB PO SCH (21:00)
[2021-09-21] MEDS ORDERED: PROPRANOLOL HCL 10 MG TAB PO SCH (21:00)
[2021-09-22] MEDS: OLANZapine ZYDIS 5 MG ORALLY DIS. TAB PO PRN (00:02)
[2021-09-22] MEDS: BENZTROPINE MESYLATE 1 MG TAB PO SCH ×2 (09:17→20:53)
[2021-09-22] MEDS: LURASIDONE HCL 40 MG TAB PO SCH (09:18)
[2021-09-22] MEDS: PROPRANOLOL HCL 10 MG TAB PO SCH ×2 (09:18→20:52)
--- NOTE | 2021-09-22 10:27 | Psychiatric Progress Note ---
Date of Service September 22, 2021 Impression / Recommendations Impression The patient is a 36 year old with a history of schizophrenia and depression who was admitted for worsening psychosis, mood lability and SI. Diagnostically consistent with acute exacerbation of psychosis associated with schizoaffective disorder versus schizophrenia with current depressive episode. Schizoaffective disorder seems most likely given history of episodes of senait and depression. Fixation around romantic relationships and feelings of loneliness seem to be symptoms she has previously experienced during episodes of worsening mood and psychosis. Differential also includes malingering given her perseveration regarding her intent to come to an inpatient unit to meet a romantic partner and her frustration and initial 72 hour notice (she then rescinded) when she determined the unit did not have enough male patients for her liking. The patient is deemed unstable and requires psychiatric hospitalization for diagnostic clarification, safety and stabilization, medication management and development of further coping skills. MNPR given psychosis, recent agitation/anger and ongoing poor sleep. 09/22/20--as per admission she declines titration of lamictal and latuda, requesting trial of Zyprexa so will order standing this hs. Reviewed metabolic labs from am. elevated bp last night likely agitation related to primary psych condition, no evidence of withdrawal. (1) MDD (major depressive disorder), recurrent episode, moderate: (2) Suicidal ideation: (3) Schizoaffective disorder: 09/22/20: reviewed care by Dr. Rogers. Zyprexa 10 mg this hs with plan to taper Latuda if tolerates/effective. D/C hs/prn Vistaril as ineffective. 09/21/21: The patient was admitted to the [facility] ([facility] mental health unit) on q15 min checks (behavioral with suicide precautions) for safety. The patient will participate in group, recreational, and milieu therapies and will be offered additional individual and family sessions as clinically appropriate. MNPR given acute psychosis with paranoia, delusions and yelling and easily irritable -Fasting labs for tomorrow morning -Will discontinue topimax -If fasting labs stable plan for likely cross-taper from latuda to olanzapine -Consider utility of cogentin given that she is on secondary generation antipsychotic and it may be contributing to cognitive and anticholinergic side effects -Continue propranolol and lamictal -consider increasing outpt supports with case management and additional opportunities for healthy social engagement with peers Inventory Assets Strengths: motivated to seek treatment, interested in additional outpatient supports, has psychiatric provider Needs: increased outpatient supports, additional coping skills, medication adjustments Risk Factors Assessment Do You Have Access To A Gun?: No Mental Health Diagnoses: Yes Previous Attempt: Yes (per chart, she denies) Family History of Suicide: No Previous Psychiatric Hospitalization: Yes Hopelessness: No (denies today) Smoker: No Protective Factors Assessment Employed: No Good Rapport with Provider: Yes Interval History Identifying Information LISA THAYER is a 36-year-old woman who has a history of schizophrenia vs schizoaffective disorder, major depressive, multiple prior psychiatric hospitalizations (last at [facility] in 2019) and prior suicide attempts and was admitted on 09/20/21 18:25 on a 201 voluntary commitment for worsening auditory hallucinations, paranoia, and SI. Chief Complaint "yeah I feel like if this place can't help me find a I should just be at home". Review of Systems Sleep Information Total Hours of Sleep: 2.25 Sleep Comments: pt given vistaril per rn. pt on q-15 minute checks Meal Information Percent Meal Consumed - Breakfast: 100 Percent Meal Consumed - Lunch: 100 Percent Meal Consumed - Dinner: 100 Subjective Subjective Patient was seen & assessed and interval progress reviewed with nursing and social work. Irritable on admission assessments and difficult time falling asleep last pm. States this is similar to home. Seems to have some degree of thought blocking. Very concrete/limited in groups. Disheveled and now wearing a bra despite pendulous breasts. Physical Exam Psychiatric Orientation: alert (but tired appearing) Apperance: + disheveled Eye Contact: + fair eye contact Motor Behavior: steady gait and station and no abnormal motor movements Speech: + abnormal rate/rhythm/volume of speech (non spontaneous) Affect: + blunted affect Mood: + irritable mood Thought Process: + circumstantial thought process and + looseness of associations Thought Content: + paranoid; no delusions Suicidal Thoughts: denies suicidal thoughts, denies suicidal plan and denies suicidal intent Homicidal Thoughts: denies homicidal thoughts Hallucinations: no auditory hallucinations (denies, did not appear to be responding to internal stimuli at this time) and no visual hallucinations Cognition: language grossly intact; + attention not intact Estimated Intelligence: + below average estimated intelligence Insight: + impaired insight Judgement: + impaired judgement Vital Signs (Past 24 Hours) Last Vital Signs Temp 37.5 C 09/21/21 21:13 Pulse 93 H 09/21/21 21:12 Resp 16 09/21/21 06:37 BP 141/84 H 09/21/21 21:12 Pulse Ox 98 09/20/21 19:18 Results & Data ([facility]) Laboratory Results Laboratory Results - last 24 hr 09/20/21 09/22/21 14:07 09:00 Fasting Glucose 87 Triglycerides 114 Cholesterol 171 LDL Cholesterol, Calc 114 VLDL Cholesterol, Calc 23 HDL Cholesterol 34 Cholesterol/HDL Ratio 5.0 Ethyl Alcohol mg/dL < 10.0 Current Inpatient Medications Current Inpatient Medications: Current Inpatient Medications Acetaminophen (Acetaminophen 325 Mg Tab) 650 mg PO Q4H PRN PRN Reason: Headache or Minor Fever Stop: 10/20/21 18:24 Al Hydrox/Mg Hydrox/Simethicone (Aluminum/Magnesium Susp 30 Ml Udc) 30 ml PO Q4H PRN PRN Reason: GI Upset Stop: 10/20/21 18:24 Benztropine Mesylate (Benztropine Mesylate 1 Mg Tab) 1 mg PO BID SUZY Stop: 10/20/21 20:59 Last Admin: 09/22/21 09:17 Dose: 1 mg Documented by: Bismuth Subsalicylate (Bismuth Subsalicylate Liqd 236 Ml) 15 ml PO PRN PRN PRN Reason: Loose Stool Stop: 10/20/21 18:24 Hydroxyzine HCl (Hydroxyzine Hcl 25 Mg Tab) 50 mg PO HSZ PRN PRN Reason: Insomnia Stop: 10/20/21 18:24 Last Admin: 09/21/21 20:44 Dose: 50 mg Documented by: Hydroxyzine HCl (Hydroxyzine Hcl 25 Mg Tab) 25 mg PO Q4H PRN PRN Reason: Anxiety Stop: 10/20/21 18:24 Lamotrigine (Lamotrigine 100 Mg Tab) 100 mg PO HS SUZY Stop: 10/21/21 21:59 Last Admin: 09/21/21 20:44 Dose: 100 mg Documented by: Lurasidone HCl (Lurasidone Hcl 40 Mg Tab) 40 mg PO DAILY SUZY Stop: 10/22/21 08:59 Last Admin: 09/22/21 09:18 Dose: 40 mg Documented by: Magnesium Hydroxide (Magnesium Hydroxide Susp 30 Ml Udc) 30 ml PO DAILY PRN PRN Reason: Constipation Stop: 10/20/21 18:24 Olanzapine (Olanzapine Zydis 5 Mg Orally Dis. Tab) 5 mg PO Q6 PRN PRN Reason: Agitation Stop: 10/20/21 20:05 Last Admin: 09/22/21 00:02 Dose: 5 mg Documented by: Propranolol HCl (Propranolol Hcl 10 Mg Tab) 10 mg PO BID SUZY Stop: 10/20/21 20:59 Last Admin: 09/22/21 09:18 Dose: 10 mg Documented by: Sodium Chloride (Sodium Chloride 0.65% Na Soln 45 Ml ([place])) 1 - 2 sprays NA PRN PRN PRN Reason: Nasal Dryness/Congestion Stop: 10/20/21 18:24 Mental Health & Subst Abuse Tx Psychiatrist Name of Psychiatrist: Katrin Moses PA-C Psychiatrist's Date of Appointment with Psychiatrist: 10/08/21 Time of Appointment with Psychiatrist: 12:45 PM Psychiatric Appointment Comment: [phone] [place] [address] Observation Nurse Name of Observation Nurse: [employer] Phone Number for Observation Nurse: [phone]
[2021-09-22] MEDS: lamoTRIgine 100 MG TAB PO SCH (20:53)
[2021-09-22] MEDS: OLANZapine 10 MG TAB PO SCH (20:53)
[2021-09-22] MEDS: ZOLPIDEM TARTRATE 10 MG TAB PO PRN (21:12)
[2021-09-23] MEDS: LURASIDONE HCL 40 MG TAB PO SCH (09:28)
[2021-09-23] MEDS: BENZTROPINE MESYLATE 1 MG TAB PO SCH ×2 (09:29→20:41)
[2021-09-23] MEDS: PROPRANOLOL HCL 10 MG TAB PO SCH ×2 (09:29→20:42)
--- NOTE | 2021-09-23 11:39 | Psychiatric Progress Note ---
Date of Service September 23, 2021 Impression / Recommendations Impression The patient is a 36 year old with a history of schizophrenia and depression who was admitted for worsening psychosis, mood lability and SI. Diagnostically consistent with acute exacerbation of psychosis associated with schizoaffective disorder versus schizophrenia with current depressive episode. Schizoaffective disorder seems most likely given history of episodes of senait and depression. Fixation around romantic relationships and feelings of loneliness seem to be symptoms she has previously experienced during episodes of worsening mood and psychosis. Differential also includes malingering given her perseveration regarding her intent to come to an inpatient unit to meet a romantic partner and her frustration and initial 72 hour notice (she then rescinded) when she determined the unit did not have enough male patients for her liking. The patient is deemed unstable and requires psychiatric hospitalization for diagnostic clarification, safety and stabilization, medication management and development of further coping skills. MNPR given psychosis, recent agitation/anger and ongoing poor sleep. 09/22/20--slight improvement, clearly still paranoid (1) Suicidal ideation: (2) Schizoaffective disorder: 09/23/21: continue current meds and treatment plan. did require prn Ambien despite Zyprexa. monitor. 09/22/21: reviewed care by Dr. Rogers. Zyprexa 10 mg this hs with plan to taper Latuda if tolerates/effective. D/C hs/prn Vistaril as ineffective. 09/21/21: The patient was admitted to the [facility] ([facility] mental health unit) on q15 min checks (behavioral with suicide precautions) for safety. The patient will participate in group, recreational, and milieu therapies and will be offered additional individual and family sessions as clinically appropriate. MNPR given acute psychosis with paranoia, delusions and yelling and easily irritable -Fasting labs for tomorrow morning -Will discontinue topimax -If fasting labs stable plan for likely cross-taper from latuda to olanzapine -Consider utility of cogentin given that she is on secondary generation antipsychotic and it may be contributing to cognitive and anticholinergic side effects -Continue propranolol and lamictal -consider increasing outpt supports with case management and additional opportunities for healthy social engagement with peers Inventory Assets Strengths: motivated to seek treatment, interested in additional outpatient supports, has psychiatric provider Needs: increased outpatient supports, additional coping skills, medication adjustments Risk Factors Assessment Do You Have Access To A Gun?: No Mental Health Diagnoses: Yes Previous Attempt: Yes (per chart, she denies) Family History of Suicide: No Previous Psychiatric Hospitalization: Yes Hopelessness: No (denies today) Smoker: No Protective Factors Assessment Employed: No Good Rapport with Provider: Yes Interval History Identifying Information LISA THAYER is a 36-year-old woman who has a history of schizophrenia vs schizoaffective disorder, major depressive, multiple prior psychiatric hospitalizations (last at the [facility] in 2019) and prior suicide attempts and was admitted on 09/20/21 18:25 on a 201 voluntary commitment for worsening auditory hallucinations, paranoia, and SI. Chief Complaint "yeah I'm just writing, you don't need to see that" when asked about her journal Review of Systems Sleep Information Total Hours of Sleep: 5 Sleep Comments: pt given justoien per rn. pt on q-15 minute checks Meal Information Percent Meal Consumed - Breakfast: 100 Percent Meal Consumed - Lunch: 100 Percent Meal Consumed - Dinner: 100 Subjective Subjective Patient was seen & assessed and interval progress reviewed with nursing and social work. Slept better, less reactive on evenings. In fact had a reality based conversation with staff after hs meds. Resistant to 1-on-1 meeting this am. Physical Exam Psychiatric Orientation: alert (but tired appearing) and oriented x 3 Apperance: appropriately dressed, appropriately groomed and + disheveled Eye Contact: + fair eye contact Motor Behavior: steady gait and station and no abnormal motor movements Speech: + abnormal rate/rhythm/volume of speech (non spontaneous) Affect: + blunted affect Thought Process: + circumstantial thought process and + looseness of associations Thought Content: + paranoid; no delusions Suicidal Thoughts: denies suicidal thoughts, denies suicidal plan and denies suicidal intent Homicidal Thoughts: denies homicidal thoughts Hallucinations: no auditory hallucinations (denies, did not appear to be responding to internal stimuli at this time) and no visual hallucinations Cognition: language grossly intact Vital Signs (Past 24 Hours) Last Vital Signs Temp 36.7 C 09/23/21 06:46 Pulse 99 H 09/23/21 06:46 Resp 16 09/23/21 06:46 BP 111/80 09/23/21 06:46 Pulse Ox 98 09/20/21 19:18 Results & Data ([facility]) Current Inpatient Medications Current Inpatient Medications: Current Inpatient Medications Acetaminophen (Acetaminophen 325 Mg Tab) 650 mg PO Q4H PRN PRN Reason: Headache or Minor Fever Stop: 10/20/21 18:24 Al Hydrox/Mg Hydrox/Simethicone (Aluminum/Magnesium Susp 30 Ml Udc) 30 ml PO Q4H PRN PRN Reason: GI Upset Stop: 10/20/21 18:24 Benztropine Mesylate (Benztropine Mesylate 1 Mg Tab) 1 mg PO BID SUZY Stop: 10/20/21 20:59 Last Admin: 09/23/21 09:29 Dose: 1 mg Documented by: Bismuth Subsalicylate (Bismuth Subsalicylate Liqd 236 Ml) 15 ml PO PRN PRN PRN Reason: Loose Stool Stop: 10/20/21 18:24 Lamotrigine (Lamotrigine 100 Mg Tab) 100 mg PO HS SUZY Stop: 10/21/21 21:59 Last Admin: 09/22/21 20:53 Dose: 100 mg Documented by: Lurasidone HCl (Lurasidone Hcl 40 Mg Tab) 40 mg PO DAILY SUZY Stop: 10/22/21 08:59 Last Admin: 09/23/21 09:28 Dose: 40 mg Documented by: Magnesium Hydroxide (Magnesium Hydroxide Susp 30 Ml Udc) 30 ml PO DAILY PRN PRN Reason: Constipation Stop: 10/20/21 18:24 Olanzapine (Olanzapine Zydis 5 Mg Orally Dis. Tab) 5 mg PO Q6 PRN PRN Reason: Agitation Stop: 10/20/21 20:05 Last Admin: 09/22/21 00:02 Dose: 5 mg Documented by: Olanzapine (Olanzapine 10 Mg Tab) 10 mg PO HS SUZY Stop: 10/22/21 21:59 Last Admin: 09/22/21 20:53 Dose: 10 mg Documented by: Propranolol HCl (Propranolol Hcl 10 Mg Tab) 10 mg PO BID SUZY Stop: 10/20/21 20:59 Last Admin: 09/23/21 09:29 Dose: 10 mg Documented by: Sodium Chloride (Sodium Chloride 0.65% Na Soln 45 Ml ([place])) 1 - 2 sprays NA PRN PRN PRN Reason: Nasal Dryness/Congestion Stop: 10/20/21 18:24 Zolpidem Tartrate (Zolpidem Tartrate 10 Mg Tab) 10 mg PO HS PRN PRN Reason: Sleep Stop: 10/22/21 10:33 Last Admin: 09/22/21 21:12 Dose: 10 mg Documented by: Mental Health & Subst Abuse Tx Psychiatrist Name of Psychiatrist: Katrin Moses PA-C Psychiatrist's Date of Appointment with Psychiatrist: 10/08/21 Time of Appointment with Psychiatrist: 12:45 PM Psychiatric Appointment Comment: [phone] [place] [address] 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
[2021-09-23] MEDS: OLANZapine 10 MG TAB PO SCH (20:42)
[2021-09-23] MEDS: ZOLPIDEM TARTRATE 10 MG TAB PO PRN (20:42)
[2021-09-23] MEDS: lamoTRIgine 100 MG TAB PO SCH (20:42)
[2021-09-24] MEDS: PROPRANOLOL HCL 10 MG TAB PO SCH ×2 (08:19→21:04)
[2021-09-24] MEDS: BENZTROPINE MESYLATE 1 MG TAB PO SCH ×2 (08:19→21:05)
[2021-09-24] MEDS: LURASIDONE HCL 40 MG TAB PO SCH (08:19)
--- NOTE | 2021-09-24 10:12 | Psychiatric Progress Note ---
Date of Service September 24, 2021 Impression / Recommendations Impression The patient is a 36 year old with a history of schizophrenia and depression who was admitted for worsening psychosis, mood lability and SI. Diagnostically consistent with acute exacerbation of psychosis associated with schizoaffective disorder versus schizophrenia with current depressive episode. Schizoaffective disorder seems most likely given history of episodes of senait and depression. Fixation around romantic relationships and feelings of loneliness seem to be symptoms she has previously experienced during episodes of worsening mood and psychosis. Differential also includes malingering given her perseveration regarding her intent to come to an inpatient unit to meet a romantic partner and her frustration and initial 72 hour notice (she then rescinded) when she determined the unit did not have enough male patients for her liking. The patient is deemed unstable and requires psychiatric hospitalization for diagnostic clarification, safety and stabilization, medication management and development of further coping skills. MNPR given psychosis, recent agitation/anger and ongoing poor sleep. 09/24/20--less paranoia (1) Suicidal ideation: (2) Schizoaffective disorder: 09/24/21: patient desires to continue current meds and work on safety and other discharge planning. 09/23/21: continue current meds and treatment plan. did require prn Ambien despite Zyprexa. monitor. 09/22/21: reviewed care by Dr. Rogers. Zyprexa 10 mg this hs with plan to taper Latuda if tolerates/effective. D/C hs/prn Vistaril as ineffective. 09/21/21: The patient was admitted to the [facility] ([facility] mental health unit) on q15 min checks (behavioral with suicide precautions) for safety. The patient will participate in group, recreational, and milieu therapies and will be offered additional individual and family sessions as clinically appropriate. MNPR given acute psychosis with paranoia, delusions and yelling and easily irritable -Fasting labs for tomorrow morning -Will discontinue topimax -If fasting labs stable plan for likely cross-taper from latuda to olanzapine -Consider utility of cogentin given that she is on secondary generation an tipsychotic and it may be contributing to cognitive and anticholinergic side effects -Continue propranolol and lamictal -consider increasing outpt supports with case management and additional oppor tunities for healthy social engagement with peers Inventory Assets Strengths: motivated to seek treatment, interested in additional outpatient supports, has psychiatric provider Needs: increased outpatient supports, additional coping skills, medication adjustments Risk Factors Assessment Do You Have Access To A Gun?: No Mental Health Diagnoses: Yes Previous Attempt: Yes (per chart, she denies) Family History of Suicide: No Previous Psychiatric Hospitalization: Yes Hopelessness: No (denies today) Smoker: No Protective Factors Assessment Employed: No Good Rapport with Provider: Yes Interval History Identifying Information LISA THAYER is a 36-year-old woman who has a history of schizophrenia vs schizoaffective disorder, major depressive, multiple prior psychiatric hospitalizations (last at [facility] in 2019) and prior suicide attempts and was admitted on 09/20/21 18:25 on a 201 voluntary commitment for worsening auditory hallucinations, paranoia, and SI. Chief Complaint "I'm feeling some better". Review of Systems Sleep Information Total Hours of Sleep: 4.75 Sleep Comments: pt given justoien per rn. pt on q-15 minute checks Meal Information Percent Meal Consumed - Breakfast: 50 Percent Meal Consumed - Lunch: 90 Percent Meal Consumed - Dinner: 100 Subjective Subjective Patient was seen & assessed and interval progress reviewed with treatment team. Less irritable on evening shift. Continues to write in journal but guarded about it. Mentions someone named Sherri making up rumors about her being but otherwise doesn't appear to be responding to internal stimuli. Physical Exam Psychiatric Orientation: alert and oriented x 3 Apperance: appropriately dressed and + disheveled Eye Contact: + fair eye contact Motor Behavior: no abnormal motor movements Speech: normal rate/rhythm/volume of speech Affect: + depressed affect Mood: no depressed mood Thought Process: + concrete thought process Thought Content: reality based without delusions (was grandiose with staff talking about becoming a apparel designer) Suicidal Thoughts: denies suicidal thoughts Homicidal Thoughts: denies homicidal thoughts Hallucinations: no auditory hallucinations and no visual hallucinations Cognition: language grossly intact Estimated Intelligence: consistent with education level Insight: + limited insight Judgement: + limited judgement Vital Signs (Past 24 Hours) Last Vital Signs Temp 36.9 C 09/24/21 06:40 Pulse 105 H 09/24/21 06:40 Resp 18 09/24/21 06:40 BP 125/89 09/24/21 06:40 Pulse Ox 98 09/20/21 19:18 Results & Data ([facility]) Current Inpatient Medications Current Inpatient Medications: Current Inpatient Medications Acetaminophen (Acetaminophen 325 Mg Tab) 650 mg PO Q4H PRN PRN Reason: Headache or Minor Fever Stop: 10/20/21 18:24 Last Admin: 09/23/21 23:26 Dose: 650 mg Documented by: Al Hydrox/Mg Hydrox/Simethicone (Aluminum/Magnesium Susp 30 Ml Udc) 30 ml PO Q4H PRN PRN Reason: GI Upset Stop: 10/20/21 18:24 Benztropine Mesylate (Benztropine Mesylate 1 Mg Tab) 1 mg PO BID SUZY Stop: 10/20/21 20:59 Last Admin: 09/24/21 08:19 Dose: 1 mg Documented by: Bismuth Subsalicylate (Bismuth Subsalicylate Liqd 236 Ml) 15 ml PO PRN PRN PRN Reason: Loose Stool Stop: 10/20/21 18:24 Lamotrigine (Lamotrigine 100 Mg Tab) 100 mg PO HS SUZY Stop: 10/21/21 21:59 Last Admin: 09/23/21 20:42 Dose: 100 mg Documented by: Lurasidone HCl (Lurasidone Hcl 40 Mg Tab) 40 mg PO DAILY SUZY Stop: 10/22/21 08:59 Last Admin: 09/24/21 08:19 Dose: 40 mg Documented by: Magnesium Hydroxide (Magnesium Hydroxide Susp 30 Ml Udc) 30 ml PO DAILY PRN PRN Reason: Constipation Stop: 10/20/21 18:24 Olanzapine (Olanzapine Zydis 5 Mg Orally Dis. Tab) 5 mg PO Q6 PRN PRN Reason: Agitation Stop: 10/20/21 20:05 Last Admin: 09/22/21 00:02 Dose: 5 mg Documented by: Olanzapine (Olanzapine 10 Mg Tab) 10 mg PO HS SUZY Stop: 10/22/21 21:59 Last Admin: 09/23/21 20:42 Dose: 10 mg Documented by: Propranolol HCl (Propranolol Hcl 10 Mg Tab) 10 mg PO BID SUZY Stop: 10/20/21 20:59 Last Admin: 09/24/21 08:19 Dose: 10 mg Documented by: Sodium Chloride (Sodium Chloride 0.65% Na Soln 45 Ml ([place])) 1 - 2 sprays NA PRN PRN PRN Reason: Nasal Dryness/Congestion Stop: 10/20/21 18:24 Zolpidem Tartrate (Zolpidem Tartrate 10 Mg Tab) 10 mg PO HS PRN PRN Reason: Sleep Stop: 10/22/21 10:33 Last Admin: 09/23/21 20:42 Dose: 10 mg Documented by: Mental Health & Subst Abuse Tx Psychiatrist Name of Psychiatrist: Katrin Moses PA-C Psychiatrist's Date of Appointment with Psychiatrist: 10/08/21 Time of Appointment with Psychiatrist: 12:45 PM Psychiatric Appointment Comment: [phone] [place] [address] 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
[2021-09-24] MEDS: ZOLPIDEM TARTRATE 10 MG TAB PO PRN (21:04)
[2021-09-24] MEDS: OLANZapine 10 MG TAB PO SCH (21:05)
[2021-09-24] MEDS: lamoTRIgine 100 MG TAB PO SCH (21:05)
[2021-09-25] MEDS: BENZTROPINE MESYLATE 1 MG TAB PO SCH (08:15)
[2021-09-25] MEDS: LURASIDONE HCL 40 MG TAB PO SCH (08:15)
[2021-09-25] MEDS: PROPRANOLOL HCL 10 MG TAB PO SCH (08:15)
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
== END 2021-09-25 11:50 | disposition home or self-care (01) | DRG 885 ==
LOC: ED 13:20 → 3S 18:25 → SUATTDRO 18:25 → 3S 18:40

== ENCOUNTER 2021-12-13 08:45 | Inpatient (IN) ==
--- NOTE | 2021-12-13 09:01 | Emergency Department Note ---
Impression & Plan Mood disorder, Psychosis, Hypokalemia ED Provider Note NAME: LISA THAYER AGE: 36 SEX: F : 1985 ARRIVES VIA: Ambulance INFORMANT: Patient ED PROVIDER(S): Hermes Brasher DO CHIEF COMPLAINT: mood disorder HPI: Patient is a 36-year-old female who presents the ER with a past medical history of schizoaffective disorder and depression for walking around [facility] with only a towel on. She notes she wanted to know what it felt like to have a . She denies any headache or change in vision. No chest pain or shortness of breath. She notes that she does hear voices but does not elaborate on what they are telling her. She denies any suicidal homicidal ideations. No other exacerbating or remitting factors. ROS: See above HPI for pertinent positives & negatives. A total of 10 systems reviewed and were otherwise negative. PAST MEDICAL HISTORY:See Below PAST SURGICAL HISTORY:See Below FAMILY HISTORY:See Below SOCIAL HISTORY:See Below HOME MEDICATIONS:See Below ALLERGIES:See Below VITALS:See Below PHYSICAL EXAMINATION: GENERAL: Sitting up in bed, alert, well appearing, well nourished, no distress, non-toxic EYE EXAM: normal conjunctiva. PERRL and EOM's grossly intact. OROPHARYNX: no exudate, no erythema, lips, buccal mucosa, and tongue normal and mucous membranes are moist NECK: supple, no nuchal rigidity, no adenopathy, non-tender LUNGS: Clear to auscultation. Normal chest wall mechanics HEART: no murmurs, S1 normal and S2 normal ABDOMEN: abdomen soft, non-tender, normo-active bowel sounds, no masses, no rebound or guarding. BACK: Back is symmetrical on inspection and there is no deformity, no midline tenderness, no CVA tenderness. SKIN: no rashes and no bruising UPPER EXTREMITIES: upper extremities are grossly normal. LOWER EXTREMITIES: No pitting edema. NEURO EXAM: Normal sensorium, cranial nerves II-XII grossly intact, normal speech, no gross weakness of arms, no gross weakness of legs. PSYCH: Denies any suicidal homicidal ideations. No auditory visual hallucinations. MEDICAL DECISION MAKING: Patient is a 36-year-old female who presents ER with above-stated complaint. Blood work was obtained and showed no significant leukocytosis or anemia. BMP with mild hypokalemia. LFTs bilirubin TSH was unremarkable. UA was completely contaminated and she had no urinary symptoms. Will not treat. was negative. Tox negative. Alcohol negative. Covid negative. Patient was agreeable to come in on a 201. Patient was admitted to 3 S. Observation Status: Indication: Mood Disorder Patient with no pertinent family history, was seen first at 0855 hrs and was necessary in order to determine medical stability and avoid unnecessary admission. Upon reevaluation, 5 hours of observation revealed that the patient should be admitted to the hospitalist. Disposition date and time 12/13/2021 at 2 PM. Triage Nursing notes reviewed. Limited review of prior medical records performed Vital Signs: reviewed and remarkable for no significant abnormalities Differential diagnosis: Mood disorder, infection, hypoglycemia, electrolyte abnormalities, cardiac sources, intracerebral event, toxicologic, trauma, neurologic, as well as other pathologies. ER treatment provided: See below Diagnostics interpreted by me: ECG: none Laboratory studies: As stated above and show below. Imaging studies: See below Consultation(s): none Procedures: none Critical Care: None Past Med/Surg History Medical History Acute periapical abscess Depression Facial cellulitis History of drug overdose Sinus tachycardia Suicidal ideation Surgical History No pertinent past surgical history Family History Other Cancer Social History Smoking Status: Unknown if ever smoked Preferred Language: Nepali [employer] Required: No Beliefs That Will Affect Care: None marital status: Single current occupational status: unemployed Feels Safe at Home: Yes Assistive Devices: None Allergies Allergies Allergy/AdvReac Type Severity Reaction Status Date / Time codeine AdvReac Mild RASH Verified 09/20/21 14:36 Home Meds Home Medications Medication Instructions Recorded Confirmed No Known Home Medications 12/10/21 12/13/21 Results & Data (ED) Vital Signs Vital Signs - 24 hr 12/13/21 08:57 Temperature 36.7 C Temperature Source Oral Pulse Rate 114 H Respiratory Rate 18 Respiratory Effort / Characteristics Non-Labored Respiratory Depth Normal Blood Pressure 145/118 H Blood Pressure Mean 127 Blood Pressure Position Sitting Pulse Oximetry 95 Oxygen Delivery Method Room Air Sepsis Recent Fever Within 48 Hours No Sepsis New/Unexplained Change in Mental Status No Sepsis Action Taken by Nursing No Action Required Laboratory Data Result diagrams: 12/13/21 08:59 12/13/21 08:59 Lab Results 12/13/21 12/13/21 12/13/21 Range/Units 08:54 08:54 08:54 WBC (4.8-10.8) K/uL RBC (4.2-5.4) M/uL Hgb (12.0-16.0) g/dL Hct (37-47) % MCV (80-100) fL MCH (25-34) pg MCHC (32-36) g/dL RDW Std Deviation (36.4-46.3) fL RDW Coeff of Indira (11.5-14.5) % Plt Count (130-400) K/uL MPV (7.4-10.4) fL Immature Gran % (Auto) % Neut % (Auto) % Lymph % (Auto) % [place] % (Auto) % Eos % (Auto) % Baso % (Auto) % Neut # (Auto) (1.4-6.5) K/uL Lymph # (Auto) (1.2-3.4) K/uL [place] # (Auto) (0.11-0.59) K/uL Eos # (Auto) (0-0.5) K/uL Baso # (Auto) (0-0.2) K/uL Immature Gran # (Auto) (0.00-0.02) K/uL Sodium (136-145) mmol/L Potassium (3.5-5.1) mmol/L Chloride (98-107) mmol/L Carbon Dioxide (21-32) mmol/L Anion Gap (3-11) BUN (6-23) mg/dl Creatinine (0.6-1.2) mg/dl Est Cr Clr Drug Dosing ml/min Est GFR ( Amer) ml/min Est GFR (Non-Af Amer) ml/min BUN/Creatinine Ratio (10-20) Glucose (70-99(Fasting)) mg/dl Calcium (8.5-10.1) mg/dl Total Bilirubin (0.2-1.0) mg/dl AST (13-39) U/L ALT (7-52) U/L Alkaline Phosphatase (34-104) U/L Total Protein (6.0-8.3) gm/dl Albumin (3.4-5.0) gm/dl Globulin (2.5-4.0) gm/dl Albumin/Globulin Ratio (0.9-2) TSH (0.300-4.500) uIu/ml Urine Color Dark Yellow Urine Appearance Cloudy A (Clear) Urine pH 5.0 (4.5-7.5) Ur Specific [place] 1.033 H (1.000-1.030) Urine Protein 1+ H (Negative) Urine Glucose (UA) Negative (Negative) Urine Ketones Trace H (Negative) Urine Blood 2+ H (Negative) Urine Nitrite Negative (Negative) Urine Bilirubin 1+ H (Negative) Urine Urobilinogen Negative (Negative) Ur Leukocyte Esterase Trace H (Negative) Urine WBC (Auto) 5-10 H (0-5) /hpf Urine RBC (Auto) 10-30 H (0-4) /hpf U Hyaline Cast (Auto) >30 H (0-5) /lpf U Epithel Cells (Auto) >30 H (0-5) /lpf Urine Bacteria (Auto) Negative (Negative) Ur Renal Epithelial Cell 5-10 H (0-5) /lpf Urine Mucus Present A (None Prsent) Urine Test Negative (Negative) Salicylates (3.0-30) mg/dl Urine Opiates Screen Neg (Neg) Ur Methadone, Qual Neg (Neg) Acetaminophen (10-30) ug/ml Urine Barbiturates Neg (Neg) Ur Phencyclidine (PCP) Neg (Neg) U Amphetamin/Meth Scrn Neg (Neg) MDMA (Ecstasy) Screen Neg (Neg) U Benzodiazepines Scrn Neg (Neg) Ur Cocaine Metabolite Neg (Neg) U Marijuana (THC) Screen Neg (Neg) Ethyl Alcohol mg/dL (<10.0) mg/dl SARS-CoV-2, RNA, NAAT (NEGATIVE) 12/13/21 12/13/21 12/13/21 Range/Units 08:59 08:59 08:59 WBC 5.96 (4.8-10.8) K/uL RBC 4.88 (4.2-5.4) M/uL Hgb 14.8 (12.0-16.0) g/dL Hct 43.0 (37-47) % MCV 88.1 (80-100) fL MCH 30.3 (25-34) pg MCHC 34.4 (32-36) g/dL RDW Std Deviation 42.0 (36.4-46.3) fL RDW Coeff of Indira 12.9 (11.5-14.5) % Plt Count 335 (130-400) K/uL MPV 9.9 (7.4-10.4) fL Immature Gran % (Auto) 0.2 % Neut % (Auto) 55.0 % Lymph % (Auto) 32.7 % [place] % (Auto) 10.7 % Eos % (Auto) 1.2 % Baso % (Auto) 0.2 % Neut # (Auto) 3.28 (1.4-6.5) K/uL Lymph # (Auto) 1.95 (1.2-3.4) K/uL [place] # (Auto) 0.64 H (0.11-0.59) K/uL Eos # (Auto) 0.07 (0-0.5) K/uL Baso # (Auto) 0.01 (0-0.2) K/uL Immature Gran # (Auto) 0.01 (0.00-0.02) K/uL Sodium 142 (136-145) mmol/L Potassium 3.2 L (3.5-5.1) mmol/L Chloride 106 (98-107) mmol/L Carbon Dioxide 29 (21-32) mmol/L Anion Gap 7 (3-11) BUN 9 (6-23) mg/dl Creatinine 0.89 (0.6-1.2) mg/dl Est Cr Clr Drug Dosing 83.6 ml/min Est GFR ( Amer) 96.6 ml/min Est GFR (Non-Af Amer) 83.4 ml/min BUN/Creatinine Ratio 10.1 (10-20) Glucose 113 H (70-99(Fasting)) mg/dl Calcium 9.8 (8.5-10.1) mg/dl Total Bilirubin 0.6 (0.2-1.0) mg/dl AST 22 (13-39) U/L ALT 31 (7-52) U/L Alkaline Phosphatase 60 (34-104) U/L Total Protein 8.1 (6.0-8.3) gm/dl Albumin 4.9 (3.4-5.0) gm/dl Globulin 3.2 (2.5-4.0) gm/dl Albumin/Globulin Ratio 1.5 (0.9-2) TSH 1.057 (0.300-4.500) uIu/ml Urine Color Urine Appearance (Clear) Urine pH (4.5-7.5) Ur Specific [place] (1.000-1.030) Urine Protein (Negative) Urine Glucose (UA) (Negative) Urine Ketones (Negative) Urine Blood (Negative) Urine Nitrite (Negative) Urine Bilirubin (Negative) Urine Urobilinogen (Negative) Ur Leukocyte Esterase (Negative) Urine WBC (Auto) (0-5) /hpf Urine RBC (Auto) (0-4) /hpf U Hyaline Cast (Auto) (0-5) /lpf U Epithel Cells (Auto) (0-5) /lpf Urine Bacteria (Auto) (Negative) Ur Renal Epithelial Cell (0-5) /lpf Urine Mucus (None Prsent) Urine Test (Negative) Salicylates (3.0-30) mg/dl Urine Opiates Screen (Neg) Ur Methadone, Qual (Neg) Acetaminophen (10-30) ug/ml Urine Barbiturates (Neg) Ur Phencyclidine (PCP) (Neg) U Amphetamin/Meth Scrn (Neg) MDMA (Ecstasy) Screen (Neg) U Benzodiazepines Scrn (Neg) Ur Cocaine Metabolite (Neg) U Marijuana (THC) Screen (Neg) Ethyl Alcohol mg/dL (<10.0) mg/dl SARS-CoV-2, RNA, NAAT (NEGATIVE) 12/13/21 12/13/21 12/13/21 Range/Units 08:59 08:59 09:00 WBC (4.8-10.8) K/uL RBC (4.2-5.4) M/uL Hgb (12.0-16.0) g/dL Hct (37-47) % MCV (80-100) fL MCH (25-34) pg MCHC (32-36) g/dL RDW Std Deviation (36.4-46.3) fL RDW Coeff of Indira (11.5-14.5) % Plt Count (130-400) K/uL MPV (7.4-10.4) fL Immature Gran % (Auto) % Neut % (Auto) % Lymph % (Auto) % [place] % (Auto) % Eos % (Auto) % Baso % (Auto) % Neut # (Auto) (1.4-6.5) K/uL Lymph # (Auto) (1.2-3.4) K/uL [place] # (Auto) (0.11-0.59) K/uL Eos # (Auto) (0-0.5) K/uL Baso # (Auto) (0-0.2) K/uL Immature Gran # (Auto) (0.00-0.02) K/uL Sodium (136-145) mmol/L Potassium (3.5-5.1) mmol/L Chloride (98-107) mmol/L Carbon Dioxide (21-32) mmol/L Anion Gap (3-11) BUN (6-23) mg/dl Creatinine (0.6-1.2) mg/dl Est Cr Clr Drug Dosing ml/min Est GFR ( Amer) ml/min Est GFR (Non-Af Amer) ml/min BUN/Creatinine Ratio (10-20) Glucose (70-99(Fasting)) mg/dl Calcium (8.5-10.1) mg/dl Total Bilirubin (0.2-1.0) mg/dl AST (13-39) U/L ALT (7-52) U/L Alkaline Phosphatase (34-104) U/L Total Protein (6.0-8.3) gm/dl Albumin (3.4-5.0) gm/dl Globulin (2.5-4.0) gm/dl Albumin/Globulin Ratio (0.9-2) TSH (0.300-4.500) uIu/ml Urine Color Urine Appearance (Clear) Urine pH (4.5-7.5) Ur Specific [place] (1.000-1.030) Urine Protein (Negative) Urine Glucose (UA) (Negative) Urine Ketones (Negative) Urine Blood (Negative) Urine Nitrite (Negative) Urine Bilirubin (Negative) Urine Urobilinogen (Negative) Ur Leukocyte Esterase (Negative) Urine WBC (Auto) (0-5) /hpf Urine RBC (Auto) (0-4) /hpf U Hyaline Cast (Auto) (0-5) /lpf U Epithel Cells (Auto) (0-5) /lpf Urine Bacteria (Auto) (Negative) Ur Renal Epithelial Cell (0-5) /lpf Urine Mucus (None Prsent) Urine Test (Negative) Salicylates < 3.0 L (3.0-30) mg/dl Urine Opiates Screen (Neg) Ur Methadone, Qual (Neg) Acetaminophen < 3 L (10-30) ug/ml Urine Barbiturates (Neg) Ur Phencyclidine (PCP) (Neg) U Amphetamin/Meth Scrn (Neg) MDMA (Ecstasy) Screen (Neg) U Benzodiazepines Scrn (Neg) Ur Cocaine Metabolite (Neg) U Marijuana (THC) Screen (Neg) Ethyl Alcohol mg/dL < 10.0 (<10.0) mg/dl SARS-CoV-2, RNA, NAAT NEGATIVE (NEGATIVE) Discharge Plan Visit Data Chief Complaint: Mental Health Evaluation Stated Complaint: [facility] ED Provider: Hermes Brasher Discharge Problem: Mood disorder, Psychosis, Hypokalemia Discharge Instructions Interventions: ED Discharge Assessment Last Done: 12/13/21 13:53
[2021-12-13 09:10] LABS: Basophils # (auto) 0.01 K/uL (0-0.2); Basophils % (auto) 0.2 %; Eosinophils # (auto) 0.07 K/uL (0-0.5); Eosinophils % (auto) 1.2 %; Hemoglobin 14.8 g/dL (12.0-16.0); Immature Granulocytes # (auto) 0.01 K/uL (0.00-0.02); Immature Granulocytes % (auto) 0.2 %; Lymphocytes # (auto) 1.95 K/uL (1.2-3.4); Lymphocytes % (auto) 32.7 %; Mean Corpuscular Hemoglobin 30.3 pg (25-34); Mean Corpuscular Hgb Conc 34.4 g/dL (32-36); Mean Corpuscular Volume 88.1 fL (80-100); Mean Platelet Volume 9.9 fL (7.4-10.4); Monocytes # (auto) 0.64 K/uL (0.11-0.59); Monocytes % (auto) 10.7 %; Neutrophils # (auto) 3.28 K/uL (1.4-6.5); Platelet Count 335 K/uL (130-400); RDW Coefficient of Variation 12.9 % (11.5-14.5); Red Blood Count 4.88 M/uL (4.2-5.4); White Blood Count 5.96 K/uL (4.8-10.8)
[2021-12-13 09:31] LABS: Albumin Globulin Ratio 1.5 (0.9-2); Albumin Level 4.9 gm/dl (3.4-5.0); BUN Creatinine Ratio 10.1 (10-20); Bilirubin,Total 0.6 mg/dl (0.2-1.0); Calcium 9.8 mg/dl (8.5-10.1); Creatinine Clr Calc Pharmacy 83.6 ml/min; Est GFR (African American) 96.6 ml/min; Est GFR (Non-African American) 83.4 ml/min; Globulin 3.2 gm/dl (2.5-4.0); Potassium 3.2 mmol/L (3.5-5.1); Total Protein 8.1 gm/dl (6.0-8.3)
[2021-12-13 09:47] LABS: Acetaminophen < 3 ug/ml (10-30); Salicylate < 3.0 mg/dl (3.0-30)
[2021-12-13 09:55] LABS: Pregnancy Test, Urine Negative (Negative)
[2021-12-13 10:02] LABS: Appearance Urine Cloudy (Clear); Bacteria Urine Automated Negative (Negative); Blood Urine 2+ (Negative); Color Urine Dark Yellow; Epithelial Cell Urine Auto >30 /lpf (0-5); Glucose Urine UA Negative (Negative); Ketones Urine Trace (Negative); Leukocyte Esterase Urine Trace (Negative); Nitrite Urine Negative (Negative); Protein Urine 1+ (Negative); Specific Gravity Urine 1.033 (1.000-1.030); Urobilinogen Urine Negative (Negative)
[2021-12-13 10:19] LABS: Bilirubin Urine 1+ (Negative)
[2021-12-13 10:27] LABS: Cast Urine Automated >30 /lpf (0-5)
[2021-12-13 10:28] LABS: Mucus Urine Present (None Prsent)
[2021-12-13 11:02] LABS: Amphetamines+Metham, Urine Neg (Neg); Barbiturates, Urine Neg (Neg); Benzodiazepine, Urine Neg (Neg); Cocaine, Urine Neg (Neg); MDMA (Ecstacy), Urine Neg (Neg); Methadone, Urine Neg (Neg); Opiate, Urine Neg (Neg); Phencyclidine, Urine Neg (Neg)
[2021-12-13] MEDS ORDERED: SODIUM CHLORIDE 0.65% NA SOLN 45 ML (OCEAN) PRN (14:21)
[2021-12-13] MEDS ORDERED: BISMUTH SUBSALICYLATE LIQD 236 ML PO PRN (14:21)
[2021-12-13] MEDS ORDERED: ACETAMINOPHEN 325 MG TAB PO PRN (14:21)
[2021-12-13] MEDS ORDERED: MAGNESIUM HYDROXIDE SUSP 30 ML UDC PO PRN (14:21)
[2021-12-13] MEDS ORDERED: ALUMINUM/MAGNESIUM SUSP 30 ML UDC PO PRN (14:21)
[2021-12-13] MEDS: OLANZAPINE 2.5 MG TAB PO PRN ×2 (15:22→18:43)
[2021-12-13] MEDS: hydrOXYzine HCl 25 MG TAB PO PRN (19:45)
[2021-12-13] MEDS ORDERED: PROPRANOLOL HCL 10 MG TAB PO PRN (20:18)
[2021-12-14] MEDS: hydrOXYzine HCl 25 MG TAB PO PRN ×2 (09:17→21:30)
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
[2021-12-14] MEDS: OLANZAPINE 2.5 MG TAB PO PRN (09:55)
[2021-12-14] MEDS ORDERED: traZODone HCL 50 MG TAB PO PRN (10:48)
[2021-12-14] MEDS: ARIPiprazole 5 MG TAB PO SCH (12:12)
[2021-12-14] MEDS: OLANZapine 5 MG TABLET PO PRN (13:55)
[2021-12-14] MEDS ORDERED: LORazepam 0.5 MG TAB PO PRN (14:27)
[2021-12-14] MEDS: POTASSIUM CHLORIDE 10 MEQ TABCR PO SCH (21:30)
[2021-12-15 08:25] LABS: Chol HDL Ratio 4.9 (0-5)
[2021-12-15] MEDS: POTASSIUM CHLORIDE 10 MEQ TABCR PO SCH ×2 (08:25→21:38)
[2021-12-15] MEDS: ARIPiprazole 5 MG TAB PO SCH (08:25)
[2021-12-15] MEDS ORDERED: ARIPiprazole 5 MG TAB PO ONE (10:37)
--- NOTE | 2021-12-15 10:38 | Psychiatric Progress Note ---
Date of Service December 15, 2021 Impression / Recommendations Impression The patient is a 36 year old with a history of schizophrenia vs schizoaffective disorder who was admitted for worsening psychosis and delusions in the context of medication non-adherence consistent with an acute exacerbation of schizophrenia. MNPR due to acute psychosis with delusions and paranoia and disorganization leading to periods of disrobing/nudity not appropriate for roommate 12/15/2021: minimal change, remains grossly disorganized and unable to care for self without supervision, responding to internal stimuli (1) Schizophrenia: (2) Depression: (3) Hypokalemia: 12/15/21: admission by Dr. Rogers reviewed. Titrate Abilify to 10 mg today and monitor for akathisia. Zyprexa prn as ordered. 12/14/21: The patient was admitted to the [facility] ([facility] unit) on q15 min checks (behavioral with suicide precautions) for safety. The patient will participate in group, recreational, and milieu therapies and will be offered additional individual and family sessions as clinically appropriate. -K+ chloride oral repletion for hypokalemia -fasting lipid panel and glucose in qAM and will add on recheck of CK to ensure downtrending or stable -start abilify 5mg qd -trazodone 50mg qhs prn -olanzapine 2.5 mg QID prn and 5 mg daily prn for agitation severe anxiety for now as well as propranolol 10mg BID prn in case of akathisia with abilify, if anxiety persists may need to consider addition of ativan prn but will avoid for now Inventory Assets Strengths: follows with psychiatry, notes a few local friends, loves her cat Needs: additional outpatient support/ideally case management, medication adjustment, additional coping skills Risk Factors Assessment : Yes Do You Have Access To A Gun?: No Mental Health Diagnoses: Yes Previous Attempt: Yes Family History of Suicide: No Previous Psychiatric Hospitalization: Yes Hopelessness: Yes (believes she is ) Smoker: No Protective Factors Assessment Employed: No Stable Relationships: No Good Rapport with Provider: No Interval History Identifying Information LISA THAYER is a 36-year-old woman who currently lives in [place] alone with her cat, has a history of schizophrenia vs schizoaffective disorder, and was admitted on 12/13/21 13:41 on a 201 voluntary commitment for psychosis after being found wandering naked outside in only a towel. Chief Complaint "what's up?" then talks to self in front of other patients, unaware that sweatpant bottoms appear soaked after shower. Review of Systems Sleep Information Total Hours of Sleep: 8 Sleep Comments: pt given vistaril per rn. pt on q-15 minute checks Meal Information Percent Meal Consumed - Breakfast: 100 Percent Meal Consumed - Lunch: 100 Percent Meal Consumed - Dinner: 100 Subjective Subjective Patient was seen & assessed and interval progress reviewed with nursing and social work. Started Abilify yesterday with hopes she will agree to CONCEPCION prior to discharge. Is less labilt/irritable with staff than yesterday. Creating some distress for younger depressed patients as responds to internal stimuli/talks to self. Denies akathisia and known to me from prior stays and typically wanders. Short attention span. Has laid on floor due to delusion that she is . Physical Exam Psychiatric Orientation: alert Apperance: + disheveled Eye Contact: + fair eye contact Motor Behavior: steady gait and station and no abnormal motor movements Speech: normal rate/rhythm/volume of speech Mood: + anxious mood and + irritable mood Thought Process: + circumstantial thought process and + looseness of associations Thought Content: + paranoid and + delusions Suicidal Thoughts: denies suicidal thoughts (denies SI but also notes she is "", feels safe on the unit), denies suicidal plan and denies suicidal intent Homicidal Thoughts: denies homicidal thoughts Hallucinations: + auditory hallucinations Cognition: language grossly intact Estimated Intelligence: + below average estimated intelligence Insight: + severely impaired insight Judgement: + severely impaired judgement Vital Signs (Past 24 Hours) Last Vital Signs Temp 37.1 C 12/15/21 06:39 Pulse 125 H 12/15/21 06:39 Resp 16 12/15/21 06:39 BP 128/85 12/15/21 06:39 Pulse Ox 98 12/13/21 14:05 Results & Data ([facility]) Laboratory Results Laboratory Results - last 24 hr 12/15/21 07:46 Fasting Glucose 98 Total Creatine Kinase 134 Triglycerides 108 Cholesterol 157 LDL Cholesterol, Calc 103 VLDL Cholesterol, Calc 22 HDL Cholesterol 32 Cholesterol/HDL Ratio 4.9 Current Inpatient Medications Current Inpatient Medications: Current Inpatient Medications Acetaminophen (Acetaminophen 325 Mg Tab) 650 mg PO Q4H PRN PRN Reason: Headache or Minor Fever Stop: 01/12/22 14:20 Al Hydrox/Mg Hydrox/Simethicone (Aluminum/Magnesium Susp 30 Ml Udc) 30 ml PO Q4H PRN PRN Reason: GI Upset Stop: 01/12/22 14:20 Aripiprazole (Aripiprazole 10 Mg Tab) 10 mg PO QAM SUZY Stop: 01/15/22 08:59 Aripiprazole (Aripiprazole 5 Mg Tab) 5 mg PO ONE ONE Stop: 12/15/21 10:38 Bismuth Subsalicylate (Bismuth Subsalicylate Liqd 236 Ml) 15 ml PO PRN PRN PRN Reason: Loose Stool Stop: 01/12/22 14:20 Hydroxyzine HCl (Hydroxyzine Hcl 25 Mg Tab) 50 mg PO HSZ PRN PRN Reason: Insomnia Stop: 01/12/22 14:20 Last Admin: 12/14/21 21:30 Dose: 50 mg Documented by: Hydroxyzine HCl (Hydroxyzine Hcl 25 Mg Tab) 25 mg PO Q4H PRN PRN Reason: Anxiety Stop: 01/12/22 14:20 Last Admin: 12/14/21 09:17 Dose: 25 mg Documented by: Lorazepam (Lorazepam 0.5 Mg Tab) 0.5 mg PO BID PRN PRN Reason: Agitation Stop: 01/13/22 14:26 Magnesium Hydroxide (Magnesium Hydroxide Susp 30 Ml Udc) 30 ml PO DAILY PRN PRN Reason: Constipation Stop: 01/12/22 14:20 Olanzapine (Olanzapine 2.5 Mg Tab) 2.5 mg PO QID PRN PRN Reason: psychosis Stop: 01/12/22 16:59 Last Admin: 12/14/21 09:55 Dose: 2.5 mg Documented by: Olanzapine (Olanzapine 5 Mg Tablet) 5 mg PO DAILY PRN PRN Reason: Agitation Stop: 01/12/22 20:17 Last Admin: 12/14/21 13:55 Dose: 5 mg Documented by: Potassium Chloride (Potassium Chloride 10 Meq Tabcr) 10 meq PO BID SUZY Stop: 01/13/22 20:59 Last Admin: 12/15/21 08:25 Dose: 10 meq Documented by: Propranolol HCl (Propranolol Hcl 10 Mg Tab) 10 mg PO BID PRN PRN Reason: Anxiety/Agitation Stop: 01/12/22 20:59 Sodium Chloride (Sodium Chloride 0.65% Na Soln 45 Ml ([place])) 1 - 2 sprays NA PRN PRN PRN Reason: Nasal Dryness/Congestion Stop: 01/12/22 14:20 Trazodone HCl (Trazodone Hcl 50 Mg Tab) 50 mg PO HS PRN PRN Reason: insomnia Stop: 01/13/22 21:59
[2021-12-15] MEDS: hydrOXYzine HCl 25 MG TAB PO PRN (21:38)
[2021-12-16] MEDS: hydrOXYzine HCl 25 MG TAB PO PRN (02:24)
[2021-12-16] MEDS ORDERED: ARIPiprazole 10 MG TAB PO SCH (09:00)
[2021-12-16] MEDS: POTASSIUM CHLORIDE 10 MEQ TABCR PO SCH ×2 (10:12→21:21)
--- NOTE | 2021-12-16 13:15 | Psychiatric Progress Note ---
Date of Service December 16, 2021 Impression / Recommendations Impression The patient is a 36 year old with a history of schizophrenia vs schizoaffective disorder who was admitted for worsening psychosis and delusions in the context of medication non-adherence consistent with an acute exacerbation of schizophrenia. MNPR due to acute psychosis with delusions and paranoia and disorganization leading to periods of disrobing/nudity not appropriate for roommate 12/16/2021: improving, delusions are less bizarre today but more thought blocking. (1) Schizophrenia: (2) Depression: (3) Hypokalemia: 12/16/21: Responding to Abilify and tolerating well. Titrate to 15 mg Abilify tomorrow with target likely 20 mg prior to conversion to CONCEPCION. Patient is a voluntary and must consent. Needs outpatient CM (historically refuses) 12/15/21: admission by Dr. Rogers reviewed. Titrate Abilify to 10 mg today and monitor for akathisia. Zyprexa prn as ordered. 12/14/21: The patient was admitted to the [facility] ([facility]) on q15 min checks (behavioral with suicide precautions) for safety. The patient will participate in group, recreational, and milieu therapies and will be offered additional individual and family sessions as clinically appropriate. -K+ chloride oral repletion for hypokalemia -fasting lipid panel and glucose in qAM and will add on recheck of CK to ensure downtrending or stable -start abilify 5mg qd -trazodone 50mg qhs prn -olanzapine 2.5 mg QID prn and 5 mg daily prn for agitation severe anxiety for now as well as propranolol 10mg BID prn in case of akathisia with abilify, if anxiety persists may need to consider addition of ativan prn but will avoid for now Inventory Assets Strengths: follows with psychiatry, notes a few local friends, loves her cat Needs: additional outpatient support/ideally case management, medication adjustment, additional coping skills Risk Factors Assessment : Yes Do You Have Access To A Gun?: No Mental Health Diagnoses: Yes Previous Attempt: Yes Family History of Suicide: No Previous Psychiatric Hospitalization: Yes Hopelessness: Yes (believes she is ) Smoker: No Protective Factors Assessment Employed: No Stable Relationships: No Good Rapport with Provider: No Interval History Identifying Information LISA THAYER is a 36-year-old woman who currently lives in [place] alone with her cat, has a history of schizophrenia vs schizoaffective disorder, and was admitted on 12/13/21 13:41 on a 201 voluntary commitment for psychosis after being found wandering naked outside in only a towel. Chief Complaint "this thing on my hand needs reviewed, it's needly, maybe it's my boobs". Review of Systems Sleep Information Total Hours of Sleep: 8.25 Sleep Comments: pt given vistaril per rn. pt on q-15 minute checks Meal Information Percent Meal Consumed - Breakfast: 100 Percent Meal Consumed - Lunch: 25 Percent Meal Consumed - Dinner: 25 Subjective Subjective Patient was seen & assessed and interval progress reviewed with nursing and social work, still confused at times but less talking out, short attention span but attending select groups, very off topic in conversation (inappropriate topics like babies). Slept well. Denies restlessness. Physical Exam Psychiatric Orientation: alert Apperance: + disheveled Eye Contact: + fair eye contact Motor Behavior: no abnormal motor movements Speech: normal rate/rhythm/volume of speech Mood: + anxious mood Thought Process: + thought blocking and + circumstantial thought process Thought Content: + paranoid and + delusions Suicidal Thoughts: denies suicidal thoughts Homicidal Thoughts: denies homicidal thoughts Hallucinations: + auditory hallucinations; no visual hallucinations and no tactile hallucinations Cognition: language grossly intact Insight: + impaired insight Judgement: + impaired judgement Vital Signs (Past 24 Hours) Last Vital Signs Temp 37 C 12/16/21 06:35 Pulse 108 H 12/16/21 06:36 Resp 16 12/16/21 06:35 BP 128/89 12/16/21 06:36 Pulse Ox 98 12/13/21 14:05 Results & Data ([facility]) Current Inpatient Medications Current Inpatient Medications: Current Inpatient Medications Acetaminophen (Acetaminophen 325 Mg Tab) 650 mg PO Q4H PRN PRN Reason: Headache or Minor Fever Stop: 01/12/22 14:20 Last Admin: 12/16/21 11:08 Dose: 650 mg Documented by: Al Hydrox/Mg Hydrox/Simethicone (Aluminum/Magnesium Susp 30 Ml Udc) 30 ml PO Q4H PRN PRN Reason: GI Upset Stop: 01/12/22 14:20 Aripiprazole (Aripiprazole 10 Mg Tab) 10 mg PO QAM SUZY Stop: 01/15/22 08:59 Last Admin: 12/16/21 10:12 Dose: 10 mg Documented by: Bismuth Subsalicylate (Bismuth Subsalicylate Liqd 236 Ml) 15 ml PO PRN PRN PRN Reason: Loose Stool Stop: 01/12/22 14:20 Hydroxyzine HCl (Hydroxyzine Hcl 25 Mg Tab) 50 mg PO HSZ PRN PRN Reason: Insomnia Stop: 01/12/22 14:20 Last Admin: 12/16/21 02:24 Dose: 50 mg Documented by: Hydroxyzine HCl (Hydroxyzine Hcl 25 Mg Tab) 25 mg PO Q4H PRN PRN Reason: Anxiety Stop: 01/12/22 14:20 Last Admin: 12/14/21 09:17 Dose: 25 mg Documented by: Lorazepam (Lorazepam 0.5 Mg Tab) 0.5 mg PO BID PRN PRN Reason: Agitation Stop: 01/13/22 14:26 Magnesium Hydroxide (Magnesium Hydroxide Susp 30 Ml Udc) 30 ml PO DAILY PRN PRN Reason: Constipation Stop: 01/12/22 14:20 Olanzapine (Olanzapine 2.5 Mg Tab) 2.5 mg PO QID PRN PRN Reason: psychosis Stop: 01/12/22 16:59 Last Admin: 12/14/21 09:55 Dose: 2.5 mg Documented by: Olanzapine (Olanzapine 5 Mg Tablet) 5 mg PO DAILY PRN PRN Reason: Agitation Stop: 01/12/22 20:17 Last Admin: 12/14/21 13:55 Dose: 5 mg Documented by: Potassium Chloride (Potassium Chloride 10 Meq Tabcr) 10 meq PO BID SUZY Stop: 01/13/22 20:59 Last Admin: 12/16/21 10:12 Dose: 10 meq Documented by: Propranolol HCl (Propranolol Hcl 10 Mg Tab) 10 mg PO BID PRN PRN Reason: Anxiety/Agitation Stop: 01/12/22 20:59 Sodium Chloride (Sodium Chloride 0.65% Na Soln 45 Ml ([place])) 1 - 2 sprays NA PRN PRN PRN Reason: Nasal Dryness/Congestion Stop: 01/12/22 14:20 Trazodone HCl (Trazodone Hcl 50 Mg Tab) 50 mg PO HS PRN PRN Reason: insomnia Stop: 01/13/22 21:59
[2021-12-16] MEDS: OLANZapine 5 MG TABLET PO PRN (13:39)
[2021-12-17] MEDS: ARIPiprazole 15 MG TAB PO SCH (08:29)
[2021-12-17] MEDS: POTASSIUM CHLORIDE 10 MEQ TABCR PO SCH ×2 (08:29→21:19)
--- NOTE | 2021-12-17 12:50 | Psychiatric Progress Note ---
Date of Service December 17, 2021 Impression / Recommendations Impression The patient is a 36 year old with a history of schizophrenia vs schizoaffective disorder who was admitted for worsening psychosis and delusions in the context of medication non-adherence consistent with an acute exacerbation of schizophrenia. MNPR due to acute psychosis with delusions and paranoia and disorganization leading to periods of disrobing/nudity not appropriate for roommate 12/17/2021: improving, doesn't openly express delusions, continued lack of insight. (1) Schizophrenia: (2) Depression: 12/17/21: trial of Cogentin 1 mg BID for muscle complaints. Will continue to stress importance of CONCEPCION. 12/16/21: Responding to Abilify and tolerating well. Titrate to 15 mg Abilify tomorrow with target likely 20 mg prior to conversion to CONCEPCION. Patient is a vol untary and must consent. Needs outpatient CM (historically refuses) 12/15/21: admission by Dr. Rogers reviewed. Titrate Abilify to 10 mg today and monitor for akathisia. Zyprexa prn as ordered. 12/14/21: The patient was admitted to the [facility] ([facility] unit) on q15 min checks (behavioral with suicide precautions) for safety. The patient will participate in group, recreational, and milieu therapies and will be offered additional individual and family sessions as clinically appropriate. -K+ chloride oral repletion for hypokalemia -fasting lipid panel and glucose in qAM and will add on recheck of CK to ensure downtrending or stable -start abilify 5mg qd -trazodone 50mg qhs prn -olanzapine 2.5 mg QID prn and 5 mg daily prn for agitation severe anxiety for now as well as propranolol 10mg BID prn in case of akathisia with abilify, if anxiety persists may need to consider addition of ativan prn but will avoid for now Inventory Assets Strengths: follows with psychiatry, notes a few local friends, loves her cat Needs: additional outpatient support/ideally case management, medication adjustment, additional coping skills Risk Factors Assessment : Yes Do You Have Access To A Gun?: No Mental Health Diagnoses: Yes Previous Attempt: Yes Family History of Suicide: No Previous Psychiatric Hospitalization: Yes Hopelessness: Yes (believes she is ) Smoker: No Protective Factors Assessment Employed: No Stable Relationships: No Good Rapport with Provider: No Interval History Identifying Information LISA THAYER is a 36-year-old woman who currently lives in [place] alone with her cat, has a history of schizophrenia vs schizoaffective disorder, and was admitted on 12/13/21 13:41 on a 201 voluntary commitment for psychosis after being found wandering naked outside in only a towel. Chief Complaint "when can I leave?" Review of Systems Sleep Information Total Hours of Sleep: 7.45 Sleep Comments: pt given vistaril per rn. pt on q-15 minute checks Meal Information Percent Meal Consumed - Breakfast: 75 Percent Meal Consumed - Lunch: 25 Percent Meal Consumed - Dinner: 100 Subjective Subjective Patient was seen & assessed and interval progress reviewed with treatment team. Patient is on voluntary, hasn't signed 72 hr notice, won't agree to CM or CONCEPCION. Is improving with Abilify. today c/o muscles feeling tight in arms. No cogwheeling or dystonia, maybe some decreased arm swing. Physical Exam Psychiatric Orientation: alert and oriented x 3 Apperance: appropriately dressed and + disheveled Eye Contact: + fair eye contact Motor Behavior: steady gait and station Speech: normal rate/rhythm/volume of speech Mood: + anxious mood Thought Process: + thought blocking and + circumstantial thought process Thought Content: + delusions Suicidal Thoughts: denies suicidal thoughts and denies suicidal plan Homicidal Thoughts: denies homicidal thoughts Hallucinations: no auditory hallucinations Cognition: language grossly intact Insight: + impaired insight Judgement: + impaired judgement Vital Signs (Past 24 Hours) Last Vital Signs Temp 36.9 C 12/17/21 06:43 Pulse 103 H 12/17/21 06:43 Resp 16 12/17/21 06:43 BP 134/86 12/17/21 06:43 Pulse Ox 98 12/13/21 14:05 Results & Data ([facility]) Current Inpatient Medications Current Inpatient Medications: Current Inpatient Medications Acetaminophen (Acetaminophen 325 Mg Tab) 650 mg PO Q4H PRN PRN Reason: Headache or Minor Fever Stop: 01/12/22 14:20 Last Admin: 12/16/21 11:08 Dose: 650 mg Documented by: Al Hydrox/Mg Hydrox/Simethicone (Aluminum/Magnesium Susp 30 Ml Udc) 30 ml PO Q4H PRN PRN Reason: GI Upset Stop: 01/12/22 14:20 Aripiprazole (Aripiprazole 15 Mg Tab) 15 mg PO QAM SUZY Stop: 01/16/22 08:59 Last Admin: 12/17/21 08:29 Dose: 15 mg Documented by: Benztropine Mesylate (Benztropine Mesylate 1 Mg Tab) 1 mg PO BID SUZY Stop: 01/16/22 12:44 Bismuth Subsalicylate (Bismuth Subsalicylate Liqd 236 Ml) 15 ml PO PRN PRN PRN Reason: Loose Stool Stop: 01/12/22 14:20 Hydroxyzine HCl (Hydroxyzine Hcl 25 Mg Tab) 50 mg PO HSZ PRN PRN Reason: Insomnia Stop: 01/12/22 14:20 Last Admin: 12/16/21 02:24 Dose: 50 mg Documented by: Hydroxyzine HCl (Hydroxyzine Hcl 25 Mg Tab) 25 mg PO Q4H PRN PRN Reason: Anxiety Stop: 01/12/22 14:20 Last Admin: 12/14/21 09:17 Dose: 25 mg Documented by: Lorazepam (Lorazepam 0.5 Mg Tab) 0.5 mg PO BID PRN PRN Reason: Agitation Stop: 01/13/22 14:26 Magnesium Hydroxide (Magnesium Hydroxide Susp 30 Ml Udc) 30 ml PO DAILY PRN PRN Reason: Constipation Stop: 01/12/22 14:20 Olanzapine (Olanzapine 2.5 Mg Tab) 2.5 mg PO QID PRN PRN Reason: psychosis Stop: 01/12/22 16:59 Last Admin: 12/14/21 09:55 Dose: 2.5 mg Documented by: Olanzapine (Olanzapine 5 Mg Tablet) 5 mg PO DAILY PRN PRN Reason: Agitation Stop: 01/12/22 20:17 Last Admin: 12/16/21 13:39 Dose: 5 mg Documented by: Potassium Chloride (Potassium Chloride 10 Meq Tabcr) 10 meq PO BID SUZY Stop: 01/13/22 20:59 Last Admin: 12/17/21 08:29 Dose: 10 meq Documented by: Propranolol HCl (Propranolol Hcl 10 Mg Tab) 10 mg PO BID PRN PRN Reason: Anxiety/Agitation Stop: 01/12/22 20:59 Sodium Chloride (Sodium Chloride 0.65% Na Soln 45 Ml ([place])) 1 - 2 sprays NA PRN PRN PRN Reason: Nasal Dryness/Congestion Stop: 01/12/22 14:20 Trazodone HCl (Trazodone Hcl 50 Mg Tab) 50 mg PO HS PRN PRN Reason: insomnia Stop: 01/13/22 21:59
[2021-12-17] MEDS: BENZTROPINE MESYLATE 1 MG TAB PO SCH ×2 (13:11→21:19)
[2021-12-17] MEDS: hydrOXYzine HCl 25 MG TAB PO PRN ×2 (16:57→21:20)
[2021-12-18] MEDS: ARIPiprazole 15 MG TAB PO SCH (08:24)
[2021-12-18] MEDS: BENZTROPINE MESYLATE 1 MG TAB PO SCH (08:24)
[2021-12-18] MEDS: POTASSIUM CHLORIDE 10 MEQ TABCR PO SCH (08:24)
--- NOTE | 2021-12-18 15:21 | Discharge Summary ---
Date of Service December 18, 2021 History of Present Illness As per Dr Rogers on admission: Denise is known to me from her prior admission in September 2021 with a somewhat similar presentation including delusions focused on wanting to find a , grandiose ideas about starting a fashion line and bel iefs that she was "". She was discharged on a cross-taper from [place] to olanzapine with [facility] psychiatric follow-up. She presented to the ED earlier this week on 12/10/21 via police after she requested their help getitng transported from a local restaurant and then reported muscle aches. ED workup showed no concern for any acute physical issues and she requested discharge home. She re-presented on 12/13/21 after being found wandering in downtown [place] without only a towel on and making statements about doing so in order to find a . She also endorsed auditory hallucinations and denied SI but noted that she was "". She also reported long standing delusion and paranoia about someone talking about her in the parking lot of her apartment which was consistent with delusions from her previous admission in September. Today Denise reports struggling with her medications noting that she has been inconsistent in taking them and that "I need a different combination of medications". Denies any specific side effects related to her medications and when we start to review side effects states "I don't care I'm it doesn't matter". She is quite fixated on beliefs that something is wrong with her muscles and bone marrow and upset that medical workups have been normal and reassuring noting "there's something wrong I know it" and "I couldn't feel my body" but can't provide further details regarding why this has been a concern. She requests help for this stating "help me calm down my blood!". Endorses muscle issues with her "hips, leg, and biceps" but is not observed to have any issues walking nor any abnormal movements. Reiterates what she told manager case in the ED that she was walking around in her towel because "I just wanted to see what it's be like to have a house and a ". States she last saw her psychiatric provider in November and that she was not given her medications. States she has no use for a pillowcase cleaner and is not interested in this. Psychiatric ROS notable for hearing auditory hallucinations though she won't expand on this; endorses chronic poor sleep and somewhat sexually disinhibited around male staff this morning after getting out of the shower and not attentive to the positioning of her towel but no other evidence for symptoms of acute senait; reports anxiety related to muscle and bone marrow/blood issues; reports her mood as "I'm happy" and denies SI but then states "I'm " and "I'm already gone". Physical Exam Psychiatric See admission H&P and DOD assessment. Vital Signs (Past 24 Hours) Last Vital Signs Temp 37.1 C 12/18/21 06:33 Pulse 98 H 12/18/21 06:33 Resp 16 12/18/21 06:33 BP 126/91 12/18/21 06:33 Pulse Ox 98 12/13/21 14:05 Principal Diagnosis schizophrenia Psychiatric Data See daily stay summary. In short, safety was maintained and the patient was initially very irritable and uncooperative with staff. Like last hospitalization she responded quickly to restart of antipsychotic medication in that she was less restless, delusions were less bizarre or openly expressed, and she took more interest in self-care as became more organized. Medication changes included a trial of Abilify with hopes that she would agree to long acting injectable and they tolerated this well. A safety plan was completed prior to discharge. The patient is aware it is our recommendation that she have a pillowcase cleaner and that she take a CONCEPCION to decrease risk of relapse/rehospitalization. She minimizes her diagnosis but has capacity to make decisions around voluntary admission and medications. She states that she will comply with oral Abilify as her medication regimen is much simpler and she has wanted medication changes for some time. She intermittently complained of breast/back discomfort (pendulous breasts) and was encouraged to follow up with PCP. Day of Discharge Assessment Today the patient voices readiness for discharge and submitted a 72 hour notice. They note improvement in mood and deny thoughts to harm self or others. Thoughts are much more organized and they are improved from admission. She would still like to be in a relationship but is not expressing delusions re: this. Her level of residual symptoms does not meet criteria for an involuntary commitment. They agree to take mediations as prescribed and keep follow-up appointments as Abilify requires ongoing monitoring for TD and metabolic issues. They are stable for discharge to outpatient level of care. Transition of Care Transition Of Care Record: was reviewed with the patient Advance Directives Advance Directives Information Provided: Yes Advance Directives: No Mental Health Advance Directive: No Advance Directives on File: No Living Will: No Power of Eye Glass Frame Polisher: No Advance Directives Reason:: Declines as Mental Health Visit. Risk Factors Assessment : Yes Do You Have Access To A Gun?: No Mental Health Diagnoses: Yes Previous Attempt: Yes Family History of Suicide: No Previous Psychiatric Hospitalization: Yes Hopelessness: Yes (believes she is ) Smoker: No Protective Factors Assessment Employed: No Stable Relationships: No Good Rapport with Provider: No Tobacco Cessation at Discharge Tobacco Cessation Medication Prescribed at Discharge: Offered & Pt Refused Total Time Total Time Spent: Greater Than 30 Minutes Total Time Includes: Examination of the patient, Discharge Planning and Medication Reconciliation Discharge Data Lab Results 12/13/21 12/13/21 12/13/21 08:54 08:54 08:54 WBC RBC Hgb Hct MCV MCH MCHC RDW Std Deviation RDW Coeff of Indira Plt Count MPV Immature Gran % (Auto) Neut % (Auto) Lymph % (Auto) [place] % (Auto) Eos % (Auto) Baso % (Auto) Neut # (Auto) Lymph # (Auto) [place] # (Auto) Eos # (Auto) Baso # (Auto) Immature Gran # (Auto) Sodium Potassium Chloride Carbon Dioxide Anion Gap BUN Creatinine Est Cr Clr Drug Dosing Est GFR ( Amer) Est GFR (Non-Af Amer) BUN/Creatinine Ratio Glucose Fasting Glucose Calcium Total Bilirubin AST ALT Alkaline Phosphatase Total Creatine Kinase Total Protein Albumin Globulin Albumin/Globulin Ratio Triglycerides Cholesterol LDL Cholesterol, Calc VLDL Cholesterol, Calc HDL Cholesterol Cholesterol/HDL Ratio TSH Urine Color Dark Yellow Urine Appearance Cloudy A Urine pH 5.0 Ur Specific [place] 1.033 H Urine Protein 1+ H Urine Glucose (UA) Negative Urine Ketones Trace H Urine Blood 2+ H Urine Nitrite Negative Urine Bilirubin 1+ H Urine Urobilinogen Negative Ur Leukocyte Esterase Trace H Urine WBC (Auto) 5-10 H Urine RBC (Auto) 10-30 H U Hyaline Cast (Auto) >30 H U Epithel Cells (Auto) >30 H Urine Bacteria (Auto) Negative Ur Renal Epithelial Cell 5-10 H Urine Mucus Present A Urine Test Negative Salicylates Urine Opiates Screen Neg Ur Methadone, Qual Neg Acetaminophen Urine Barbiturates Neg Ur Phencyclidine (PCP) Neg U Amphetamin/Meth Scrn Neg MDMA (Ecstasy) Screen Neg U Benzodiazepines Scrn Neg Ur Cocaine Metabolite Neg U Marijuana (THC) Screen Neg Ethyl Alcohol mg/dL SARS-CoV-2, RNA, NAAT 12/13/21 12/13/21 12/13/21 08:59 08:59 08:59 WBC 5.96 RBC 4.88 Hgb 14.8 Hct 43.0 MCV 88.1 MCH 30.3 MCHC 34.4 RDW Std Deviation 42.0 RDW Coeff of Indira 12.9 Plt Count 335 MPV 9.9 Immature Gran % (Auto) 0.2 Neut % (Auto) 55.0 Lymph % (Auto) 32.7 [place] % (Auto) 10.7 Eos % (Auto) 1.2 Baso % (Auto) 0.2 Neut # (Auto) 3.28 Lymph # (Auto) 1.95 [place] # (Auto) 0.64 H Eos # (Auto) 0.07 Baso # (Auto) 0.01 Immature Gran # (Auto) 0.01 Sodium 142 Potassium 3.2 L Chloride 106 Carbon Dioxide 29 Anion Gap 7 BUN 9 Creatinine 0.89 Est Cr Clr Drug Dosing 83.6 Est GFR ( Amer) 96.6 Est GFR (Non-Af Amer) 83.4 BUN/Creatinine Ratio 10.1 Glucose 113 H Fasting Glucose Calcium 9.8 Total Bilirubin 0.6 AST 22 ALT 31 Alkaline Phosphatase 60 Total Creatine Kinase Total Protein 8.1 Albumin 4.9 Globulin 3.2 Albumin/Globulin Ratio 1.5 Triglycerides Cholesterol LDL Cholesterol, Calc VLDL Cholesterol, Calc HDL Cholesterol Cholesterol/HDL Ratio TSH 1.057 Urine Color Urine Appearance Urine pH Ur Specific [place] Urine Protein Urine Glucose (UA) Urine Ketones Urine Blood Urine Nitrite Urine Bilirubin Urine Urobilinogen Ur Leukocyte Esterase Urine WBC (Auto) Urine RBC (Auto) U Hyaline Cast (Auto) U Epithel Cells (Auto) Urine Bacteria (Auto) Ur Renal Epithelial Cell Urine Mucus Urine Test Salicylates Urine Opiates Screen Ur Methadone, Qual Acetaminophen Urine Barbiturates Ur Phencyclidine (PCP) U Amphetamin/Meth Scrn MDMA (Ecstasy) Screen U Benzodiazepines Scrn Ur Cocaine Metabolite U Marijuana (THC) Screen Ethyl Alcohol mg/dL SARS-CoV-2, RNA, NAAT 12/13/21 12/13/21 12/13/21 08:59 08:59 09:00 WBC RBC Hgb Hct MCV MCH MCHC RDW Std Deviation RDW Coeff of Indira Plt Count MPV Immature Gran % (Auto) Neut % (Auto) Lymph % (Auto) [place] % (Auto) Eos % (Auto) Baso % (Auto) Neut # (Auto) Lymph # (Auto) [place] # (Auto) Eos # (Auto) Baso # (Auto) Immature Gran # (Auto) Sodium Potassium Chloride Carbon Dioxide Anion Gap BUN Creatinine Est Cr Clr Drug Dosing Est GFR ( Amer) Est GFR (Non-Af Amer) BUN/Creatinine Ratio Glucose Fasting Glucose Calcium Total Bilirubin AST ALT Alkaline Phosphatase Total Creatine Kinase Total Protein Albumin Globulin Albumin/Globulin Ratio Triglycerides Cholesterol LDL Cholesterol, Calc VLDL Cholesterol, Calc HDL Cholesterol Cholesterol/HDL Ratio TSH Urine Color Urine Appearance Urine pH Ur Specific [place] Urine Protein Urine Glucose (UA) Urine Ketones Urine Blood Urine Nitrite Urine Bilirubin Urine Urobilinogen Ur Leukocyte Esterase Urine WBC (Auto) Urine RBC (Auto) U Hyaline Cast (Auto) U Epithel Cells (Auto) Urine Bacteria (Auto) Ur Renal Epithelial Cell Urine Mucus Urine Test Salicylates < 3.0 L Urine Opiates Screen Ur Methadone, Qual Acetaminophen < 3 L Urine Barbiturates Ur Phencyclidine (PCP) U Amphetamin/Meth Scrn MDMA (Ecstasy) Screen U Benzodiazepines Scrn Ur Cocaine Metabolite U Marijuana (THC) Screen Ethyl Alcohol mg/dL < 10.0 SARS-CoV-2, RNA, NAAT NEGATIVE 12/15/21 07:46 WBC RBC Hgb Hct MCV MCH MCHC RDW Std Deviation RDW Coeff of Indira Plt Count MPV Immature Gran % (Auto) Neut % (Auto) Lymph % (Auto) [place] % (Auto) Eos % (Auto) Baso % (Auto) Neut # (Auto) Lymph # (Auto) [place] # (Auto) Eos # (Auto) Baso # (Auto) Immature Gran # (Auto) Sodium Potassium Chloride Carbon Dioxide Anion Gap BUN Creatinine Est Cr Clr Drug Dosing Est GFR ( Amer) Est GFR (Non-Af Amer) BUN/Creatinine Ratio Glucose Fasting Glucose 98 Calcium Total Bilirubin AST ALT Alkaline Phosphatase Total Creatine Kinase 134 Total Protein Albumin Globulin Albumin/Globulin Ratio Triglycerides 108 Cholesterol 157 LDL Cholesterol, Calc 103 VLDL Cholesterol, Calc 22 HDL Cholesterol 32 Cholesterol/HDL Ratio 4.9 TSH Urine Color Urine Appearance Urine pH Ur Specific [place] Urine Protein Urine Glucose (UA) Urine Ketones Urine Blood Urine Nitrite Urine Bilirubin Urine Urobilinogen Ur Leukocyte Esterase Urine WBC (Auto) Urine RBC (Auto) U Hyaline Cast (Auto) U Epithel Cells (Auto) Urine Bacteria (Auto) Ur Renal Epithelial Cell Urine Mucus Urine Test Salicylates Urine Opiates Screen Ur Methadone, Qual Acetaminophen Urine Barbiturates Ur Phencyclidine (PCP) U Amphetamin/Meth Scrn MDMA (Ecstasy) Screen U Benzodiazepines Scrn Ur Cocaine Metabolite U Marijuana (THC) Screen Ethyl Alcohol mg/dL SARS-CoV-2, RNA, NAAT Hospital Course (1) Schizophrenia: (2) Depression: 12/17/21: trial of Cogentin 1 mg BID for muscle complaints. Will continue to stress importance of CONCEPCION. 12/16/21: Responding to Abilify and tolerating well. Titrate to 15 mg Abilify tomorrow with target likely 20 mg prior to conversion to CONCEPCION. Patient is a voluntary and must consent. Needs outpatient CM (historically refuses) 12/15/21: admission by Dr. Rogers reviewed. Titrate Abilify to 10 mg today and monitor for akathisia. Zyprexa prn as ordered. 12/14/21: The patient [facility]) on q15 min checks (behavioral with suicide precautions) for safety. The patient will participate in group, recreational, and milieu therapies and will be offered additional individual and family sessions as clinically appropriate. -K+ chloride oral repletion for hypokalemia -fasting lipid panel and glucose in qAM and will add on recheck of CK to ensure downtrending or stable -start abilify 5mg qd -trazodone 50mg qhs prn -olanzapine 2.5 mg QID prn and 5 mg daily prn for agitation severe anxiety for now as well as propranolol 10mg BID prn in case of akathisia with abilify, if anxiety persists may need to consider addition of ativan prn but will avoid for now Mental Health & Subst Abuse Tx Psychiatrist Name of Psychiatrist: Karl Boo Psychiatrist's Date of Appointment with Psychiatrist: 12/25/21 Time of Appointment with Psychiatrist: 2:20pm Psychiatric Appointment Comment: [address] [place] [id number] Post Discharge Appointments Smoking Cessation Counseling Tobacco Cessation Medication Prescribed at Discharge: Offered & Pt Refused Contact Information Discharge Discharge [address]: [address] [place] [address] [place] [id number] Discharge Plan Discharge Items Patient Disposition: Home - Self-Care Reason For Visit: MHID Discharge Diagnosis: schizophrenia Activity: Resume your previous activity Non-emergency contact: Primary Care Provider, Psychiatrist and Therapist Call non-emergency contact if: you have any medication questions and your symptoms worsen Follow-up/Referrals: PCP,NO [Primary Care Provider] - Diet: Regular Addtl Attending Provider Instructions: SPECIAL CARE INSTRUCTIONS: 1. Follow through with your scheduled aftercare appointments. If unable to keep an appointment, please call to reschedule. 2. Take your medication only as prescribed. Medication should not be changed or stopped without the approval of your doctor. In the event of worsening symptoms or concerns about side effects, contact your doctor immediately. 3. Utilize new healthy coping skills, anger management skills, and stress management skills learned during your hospitalization. Journal feelings and process them with a support person. Identify stressors or situations that may result in relapse, deterioration or inappropriate behaviors and develop a plan to deal with those issues. 4. If your coping skills are ineffective and you are in crisis, contact your outpatient providers for direction. If unable to reach your providers, please call the [facility] CRISIS LINE AT , go to the [facility] walk-in center at [address], [address], [place], or go to the closest Emergency Room. 5. Avoid alcohol and un-prescribed drugs. 6. You have been provided with the Mental Health Advance Directives Pamphlet for your review. 7. Your condition is stable for discharge to outpatient level of care, but recovery is an ongoing process. Ifthoughts to harm yourself or others return, follow the safety plan developed during your stay. Planning for a safe return home includes securing weapons. Our treatment team recommends weaponsbe removed from the home until your outpatient provider reassesses your progress. In rare cases where the items themselvescannot be removed, guns and ammunitionshould be secured separatelyand keys stored by a reliable personoutside of the home. If you were admitted on an involuntary commitment, the police or other legal authorities may be involved in this process. AFTERCARE APPOINTMENTS: * Please call your insurance company prior to your scheduled appointment to confirm your aftercare providers are covered. Take your insurance information to your appointments. WHO TO CALL AND WHEN: Medical Emergencies: For questions or emergencies related to your hospital stay, please contact the Inpatient Behavioral Health Unit at [phone]. A rn clinician is on-call 31/03 for the Behavioral Health Unit for emergencies At any time you feel your situation is an emergency, you may also call 911 immediately. Pending Studies at Discharge: No Stand-Alone Forms: [facility] [employer], Smoking Cessation Medications and DC Order Prescriptions: New hydroxyzine HCl 25 mg Tablet 25 mg PO Q4H PRN (Reason: Anxiety) 30 Days Qty: 30 RF: 0 aripiprazole [Abilify] 15 mg Tablet 15 mg PO QAM 30 Days Qty: 30 RF: 0 Continued benztropine 1 mg tablet 1 mg PO BID RF: 0 Discontinued propranolol 10 mg tablet 10 mg PO BID RF: 0 topiramate 100 mg tablet 100 mg PO BID RF: 0 lamotrigine 100 mg tablet 100 mg PO HS RF: 0 Latuda 40 mg tablet 40 mg PO QPM RF: 0 Discharge Orders: Discharge Order (Routine); Ordered 12/18/21 Ordered By: Rosaline Bermudez Admission Data Admit Date/Time: 12/13/21 13:41 Attending Provider: Rosaline Bermudez Admit Provider: Elizabeth Rogers Primary Care Provider: PCP,NO Other Interventions: Discharge Summary Assessment (RN) Last Done: 12/18/21 15:39 Coding Level of Care Code 97616 D/C day mgmt > 30 min Diagnoses Schizophrenia F20.9 Depression F32.9
== END 2021-12-18 16:55 | disposition home or self-care (01) | DRG 885 ==
LOC: ED 08:45 → 3S 13:41 → SUATTDRO 13:41 → 3S 13:53

== ENCOUNTER 2022-01-09 15:51 | Inpatient (IN) ==
--- NOTE | 2022-01-09 16:10 | Emergency Department Note ---
Impression & Plan Psychosis ADMIT ED Provider Note HPI: The patient is a 36-year-old female with history of schizophrenia, presents emergency department after she was found outside wrapped up in a towel. Patient is unable to expand on this at all on my examination as she is unwilling. Patient states she does not want to talk. She is in no acute physical distress on arrival here to the ED, according to case management report, patient stated "I thought I could just sign myself and I do not want to talk to anyone". ROS: -Psychiatric: Abnormal behavior, history of schizophrenia *10 point review systems was conducted and is otherwise negative unless stated above *Outpatient medications and allergy history reviewed PE: General: Alert, NAD HEENT: Normocephalic, atraumatic Eyes: Extraocular eye movement is intact, no scleral erythema Pulmonary: No respiratory distress, no tachypnea Cardio: Patient appears well perfused, no cyanosis GI: Abdomen is nondistended : No suprapubic tenderness MSK: No evidence of trauma or malformation of the extremities, no edema Skin: No evidence of rash Neuro: Alert, no focal deficits Psychiatric: Non-cooperative with history Medical Decision Making: Patient presented to the emergency department with reported features of psych osis, she apparently was wrapped up in a towel, partially naked, she was in front of the court house in [place], [place], and was acting strangely. Police were contacted and the patient was transported to the ED for assessment. She is minimally cooperative on history here in the ED, she does have features of psychosis and I do not feel that she is stable for outpatient management. She does not exhibit a clear thought process here in the ED, she does not appear stable for discharge under her own volition and I do not believe she is able to take care of herself. Patient was medically cleared here in the ED, she was accepted at [address] [place] [address] for inpatient care. Patient was admitted on a voluntary bas is/201 for further care. Diagnosis: 1. 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 Beliefs That Will Affect Care: None marital status: Single current occupational status: unemployed Feels Safe at Home: Yes Assistive Devices: None Allergies Allergies Allergy/AdvReac Type Severity Reaction Status Date / Time codeine AdvReac Mild RASH Verified 12/24/21 08:03 Results & Data (ED) Vital Signs Vital Signs - 24 hr 01/09/22 15:58 Temperature 36.8 C Temperature Source Oral Pulse Rate 88 Respiratory Rate 18 Blood Pressure 134/94 Blood Pressure Mean 107 Blood Pressure Position Sitting Pulse Oximetry 100 Oxygen Delivery Method Room Air Sepsis Recent Fever Within 48 Hours No Sepsis New/Unexplained Change in Mental Status No Sepsis Action Taken by Nursing No Action Required Laboratory Data Result diagrams: 01/09/22 16:29 01/09/22 16:29 Lab Results 01/09/22 01/09/22 01/09/22 Range/Units 16:29 16:29 16:29 WBC 7.90 (4.8-10.8) K/uL RBC 4.83 (4.2-5.4) M/uL Hgb 14.5 (12.0-16.0) g/dL Hct 43.8 (37-47) % MCV 90.7 (80-100) fL MCH 30.0 (25-34) pg MCHC 33.1 (32-36) g/dL RDW Std Deviation 42.3 (36.4-46.3) fL RDW Coeff of Indira 12.7 (11.5-14.5) % Plt Count 346 (130-400) K/uL MPV 9.8 (7.4-10.4) fL Immature Gran % (Auto) 0.1 % Neut % (Auto) 53.5 % Lymph % (Auto) 37.1 % Wilcox % (Auto) 7.6 % Eos % (Auto) 1.4 % Baso % (Auto) 0.3 % Neut # (Auto) 4.23 (1.4-6.5) K/uL Lymph # (Auto) 2.93 (1.2-3.4) K/uL Wilcox # (Auto) 0.60 H (0.11-0.59) K/uL Eos # (Auto) 0.11 (0-0.5) K/uL Baso # (Auto) 0.02 (0-0.2) K/uL Immature Gran # (Auto) 0.01 (0.00-0.02) K/uL Sodium 139 (136-145) mmol/L Potassium 3.6 (3.5-5.1) mmol/L Chloride 103 (98-107) mmol/L Carbon Dioxide 29 (21-32) mmol/L Anion Gap 7 (3-11) BUN 8 (6-23) mg/dl Creatinine 0.81 (0.6-1.2) mg/dl Est Cr Clr Drug Dosing 93.1 ml/min Est GFR ( Amer) 108.3 ml/min Est GFR (Non-Af Amer) 93.4 ml/min BUN/Creatinine Ratio 9.9 L (10-20) Glucose 90 (70-99(Fasting)) mg/dl Calcium 9.8 (8.5-10.1) mg/dl Total Bilirubin 0.6 (0.2-1.0) mg/dl AST 15 (13-39) U/L ALT 21 (7-52) U/L Alkaline Phosphatase 70 (34-104) U/L Total Protein 7.9 (6.0-8.3) gm/dl Albumin 4.8 (3.4-5.0) gm/dl Globulin 3.1 (2.5-4.0) gm/dl Albumin/Globulin Ratio 1.5 (0.9-2) TSH 1.030 (0.300-4.500) uIu/ml Urine Color Urine Appearance (Clear) Urine pH (4.5-7.5) Ur Specific Collison (1.000-1.030) Urine Protein (Negative) Urine Glucose (UA) (Negative) Urine Ketones (Negative) Urine Blood (Negative) Urine Nitrite (Negative) Urine Bilirubin (Negative) Urine Urobilinogen (Negative) Ur Leukocyte Esterase (Negative) Urine WBC (Auto) (0-5) /hpf Urine RBC (Auto) (0-4) /hpf U Hyaline Cast (Auto) (0-5) /lpf U Epithel Cells (Auto) (0-5) /lpf Urine Bacteria (Auto) (Negative) Urine Mucus (None Prsent) Salicylates (3.0-30) mg/dl Urine Opiates Screen (Neg) Ur Methadone, Qual (Neg) Acetaminophen (10-30) ug/ml Urine Barbiturates (Neg) Ur Phencyclidine (PCP) (Neg) U Amphetamin/Meth Scrn (Neg) MDMA (Ecstasy) Screen (Neg) U Benzodiazepines Scrn (Neg) Ur Cocaine Metabolite (Neg) U Marijuana (THC) Screen (Neg) Ethyl Alcohol mg/dL (<10.0) mg/dl SARS-CoV-2, RNA, NAAT (NEGATIVE) 01/09/22 01/09/22 01/09/22 Range/Units 16:29 16:29 17:38 WBC (4.8-10.8) K/uL RBC (4.2-5.4) M/uL Hgb (12.0-16.0) g/dL Hct (37-47) % MCV (80-100) fL MCH (25-34) pg MCHC (32-36) g/dL RDW Std Deviation (36.4-46.3) fL RDW Coeff of Indira (11.5-14.5) % Plt Count (130-400) K/uL MPV (7.4-10.4) fL Immature Gran % (Auto) % Neut % (Auto) % Lymph % (Auto) % Wilcox % (Auto) % Eos % (Auto) % Baso % (Auto) % Neut # (Auto) (1.4-6.5) K/uL Lymph # (Auto) (1.2-3.4) K/uL Wilcox # (Auto) (0.11-0.59) K/uL Eos # (Auto) (0-0.5) K/uL Baso # (Auto) (0-0.2) K/uL Immature Gran # (Auto) (0.00-0.02) K/uL Sodium (136-145) mmol/L Potassium (3.5-5.1) mmol/L Chloride (98-107) mmol/L Carbon Dioxide (21-32) mmol/L Anion Gap (3-11) BUN (6-23) mg/dl Creatinine (0.6-1.2) mg/dl Est Cr Clr Drug Dosing ml/min Est GFR ( Amer) ml/min Est GFR (Non-Af Amer) ml/min BUN/Creatinine Ratio (10-20) Glucose (70-99(Fasting)) mg/dl Calcium (8.5-10.1) mg/dl Total Bilirubin (0.2-1.0) mg/dl AST (13-39) U/L ALT (7-52) U/L Alkaline Phosphatase (34-104) U/L Total Protein (6.0-8.3) gm/dl Albumin (3.4-5.0) gm/dl Globulin (2.5-4.0) gm/dl Albumin/Globulin Ratio (0.9-2) TSH (0.300-4.500) uIu/ml Urine Color Dark Yellow Urine Appearance Cloudy A (Clear) Urine pH 6.0 (4.5-7.5) Ur Specific Collison 1.030 (1.000-1.030) Urine Protein Trace H (Negative) Urine Glucose (UA) Negative (Negative) Urine Ketones Trace H (Negative) Urine Blood 1+ H (Negative) Urine Nitrite Negative (Negative) Urine Bilirubin Negative (Negative) Urine Urobilinogen Negative (Negative) Ur Leukocyte Esterase Negative (Negative) Urine WBC (Auto) 5-10 H (0-5) /hpf Urine RBC (Auto) 10-30 H (0-4) /hpf U Hyaline Cast (Auto) 1-5 (0-5) /lpf U Epithel Cells (Auto) >30 H (0-5) /lpf Urine Bacteria (Auto) 1+ H (Negative) Urine Mucus Present A (None Prsent) Salicylates < 3.0 L (3.0-30) mg/dl Urine Opiates Screen (Neg) Ur Methadone, Qual (Neg) Acetaminophen < 3 L (10-30) ug/ml Urine Barbiturates (Neg) Ur Phencyclidine (PCP) (Neg) U Amphetamin/Meth Scrn (Neg) MDMA (Ecstasy) Screen (Neg) U Benzodiazepines Scrn (Neg) Ur Cocaine Metabolite (Neg) U Marijuana (THC) Screen (Neg) Ethyl Alcohol mg/dL < 10.0 (<10.0) mg/dl SARS-CoV-2, RNA, NAAT (NEGATIVE) 01/09/22 01/09/22 Range/Units 17:38 18:06 WBC (4.8-10.8) K/uL RBC (4.2-5.4) M/uL Hgb (12.0-16.0) g/dL Hct (37-47) % MCV (80-100) fL MCH (25-34) pg MCHC (32-36) g/dL RDW Std Deviation (36.4-46.3) fL RDW Coeff of Indira (11.5-14.5) % Plt Count (130-400) K/uL MPV (7.4-10.4) fL Immature Gran % (Auto) % Neut % (Auto) % Lymph % (Auto) % Wilcox % (Auto) % Eos % (Auto) % Baso % (Auto) % Neut # (Auto) (1.4-6.5) K/uL Lymph # (Auto) (1.2-3.4) K/uL Wilcox # (Auto) (0.11-0.59) K/uL Eos # (Auto) (0-0.5) K/uL Baso # (Auto) (0-0.2) K/uL Immature Gran # (Auto) (0.00-0.02) K/uL Sodium (136-145) mmol/L Potassium (3.5-5.1) mmol/L Chloride (98-107) mmol/L Carbon Dioxide (21-32) mmol/L Anion Gap (3-11) BUN (6-23) mg/dl Creatinine (0.6-1.2) mg/dl Est Cr Clr Drug Dosing ml/min Est GFR ( Amer) ml/min Est GFR (Non-Af Amer) ml/min BUN/Creatinine Ratio (10-20) Glucose (70-99(Fasting)) mg/dl Calcium (8.5-10.1) mg/dl Total Bilirubin (0.2-1.0) mg/dl AST (13-39) U/L ALT (7-52) U/L Alkaline Phosphatase (34-104) U/L Total Protein (6.0-8.3) gm/dl Albumin (3.4-5.0) gm/dl Globulin (2.5-4.0) gm/dl Albumin/Globulin Ratio (0.9-2) TSH (0.300-4.500) uIu/ml Urine Color Urine Appearance (Clear) Urine pH (4.5-7.5) Ur Specific Collison (1.000-1.030) Urine Protein (Negative) Urine Glucose (UA) (Negative) Urine Ketones (Negative) Urine Blood (Negative) Urine Nitrite (Negative) Urine Bilirubin (Negative) Urine Urobilinogen (Negative) Ur Leukocyte Esterase (Negative) Urine WBC (Auto) (0-5) /hpf Urine RBC (Auto) (0-4) /hpf U Hyaline Cast (Auto) (0-5) /lpf U Epithel Cells (Auto) (0-5) /lpf Urine Bacteria (Auto) (Negative) Urine Mucus (None Prsent) Salicylates (3.0-30) mg/dl Urine Opiates Screen Neg (Neg) Ur Methadone, Qual Neg (Neg) Acetaminophen (10-30) ug/ml Urine Barbiturates Neg (Neg) Ur Phencyclidine (PCP) Neg (Neg) U Amphetamin/Meth Scrn Neg (Neg) MDMA (Ecstasy) Screen Neg (Neg) U Benzodiazepines Scrn Neg (Neg) Ur Cocaine Metabolite Neg (Neg) U Marijuana (THC) Screen Neg (Neg) Ethyl Alcohol mg/dL (<10.0) mg/dl SARS-CoV-2, RNA, NAAT NEGATIVE (NEGATIVE) Discharge Plan Visit Data Chief Complaint: Mental Health Evaluation Stated Complaint: [facility] ED Provider: Dandre Rodríguez Discharge Problem: Psychosis Forms Stand Alone Forms: [facility], Suicide Prevention Resources Referrals Referrals: PCP,NO [Primary Care Provider] - Discharge Problem: Psychosis Qualifiers: Psychosis type: other Qualified Code(s): F28 - Other psychotic disorder not due to a substance or known physiological condition
[2022-01-09 16:57] LABS: Basophils # (auto) 0.02 K/uL (0-0.2); Basophils % (auto) 0.3 %; Eosinophils # (auto) 0.11 K/uL (0-0.5); Eosinophils % (auto) 1.4 %; Hematocrit (blood only) 43.8 % (37-47); Hemoglobin 14.5 g/dL (12.0-16.0); Immature Granulocytes # (auto) 0.01 K/uL (0.00-0.02); Immature Granulocytes % (auto) 0.1 %; Lymphocytes # (auto) 2.93 K/uL (1.2-3.4); Lymphocytes % (auto) 37.1 %; Mean Corpuscular Hgb Conc 33.1 g/dL (32-36); Mean Corpuscular Volume 90.7 fL (80-100); Mean Platelet Volume 9.8 fL (7.4-10.4); Monocytes % (auto) 7.6 %; Neutrophils # (auto) 4.23 K/uL (1.4-6.5); Neutrophils % (auto) 53.5 %; Platelet Count 346 K/uL (130-400); RDW Coefficient of Variation 12.7 % (11.5-14.5); RDW Standard Deviation 42.3 fL (36.4-46.3); Red Blood Count 4.83 M/uL (4.2-5.4)
[2022-01-09 17:03] LABS: Albumin Globulin Ratio 1.5 (0.9-2); Albumin Level 4.8 gm/dl (3.4-5.0); BUN Creatinine Ratio 9.9 (10-20); Bilirubin,Total 0.6 mg/dl (0.2-1.0); Calcium 9.8 mg/dl (8.5-10.1); Creatinine Clr Calc Pharmacy 93.1 ml/min; Est GFR (African American) 108.3 ml/min; Est GFR (Non-African American) 93.4 ml/min; Globulin 3.1 gm/dl (2.5-4.0); Potassium 3.6 mmol/L (3.5-5.1); Total Protein 7.9 gm/dl (6.0-8.3)
[2022-01-09 17:16] LABS: Acetaminophen < 3 ug/ml (10-30); Salicylate < 3.0 mg/dl (3.0-30)
[2022-01-09 17:56] LABS: Appearance Urine Cloudy (Clear); Bacteria Urine Automated 1+ (Negative); Bilirubin Urine Negative (Negative); Blood Urine 1+ (Negative); Color Urine Dark Yellow; Epithelial Cell Urine Auto >30 /lpf (0-5); Glucose Urine UA Negative (Negative); Ketones Urine Trace (Negative); Leukocyte Esterase Urine Negative (Negative); Nitrite Urine Negative (Negative); Protein Urine Trace (Negative); Urobilinogen Urine Negative (Negative)
[2022-01-09 18:06] LABS: Mucus Urine Present (None Prsent)
[2022-01-09 18:22] LABS: Amphetamines+Metham, Urine Neg (Neg); Barbiturates, Urine Neg (Neg); Benzodiazepine, Urine Neg (Neg); Cocaine, Urine Neg (Neg); MDMA (Ecstacy), Urine Neg (Neg); Methadone, Urine Neg (Neg); Opiate, Urine Neg (Neg); Phencyclidine, Urine Neg (Neg)
[2022-01-09] MEDS ORDERED: MAGNESIUM HYDROXIDE SUSP 30 ML UDC PO PRN (20:01)
[2022-01-09] MEDS ORDERED: ACETAMINOPHEN 325 MG TAB PO PRN (20:01)
[2022-01-09] MEDS ORDERED: BISMUTH SUBSALICYLATE LIQD 236 ML PO PRN (20:01)
[2022-01-09] MEDS ORDERED: SODIUM CHLORIDE 0.65% NA SOLN 45 ML (OCEAN) PRN (20:01)
[2022-01-09] MEDS ORDERED: ALUMINUM/MAGNESIUM SUSP 30 ML UDC PO PRN (20:01)
[2022-01-09] MEDS ORDERED: hydrOXYzine HCl 25 MG TAB PO PRN ×2 (20:01)
[2022-01-09] MEDS ORDERED: OLANZapine 5 MG TABLET PO PRN (20:06)
[2022-01-10] MEDS: ARIPiprazole 5 MG TAB PO SCH (08:25)
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
[2022-01-11] MEDS: ARIPiprazole 5 MG TAB PO SCH (08:30)
--- NOTE | 2022-01-11 08:54 | Psychiatric Progress Note ---
Date of Service January 11, 2022 Impression / Recommendations Impression The patient is a 36 year old with a history of schizophrenia vs schizoaffective disorder who was admitted for worsening psychosis and delusions in the context of medication non-adherence consistent with an acute exacerbation of schizophrenia and consistent with recent presentations from admissions in Sep and December 2021. Diagnostically felt to be most consistent with schizophrenia. Long acting injectable medication options remains the most likely to offer long- term stabilization. The patient is deemed unstable and requires psychiatric hospitalization for diagnostic clarification, safety and stabilization, medicat ion management and development of further coping skills. MNPR due to acute psychosis with delusions and paranoia and disorganization leading to periods of disrobing/nudity not appropriate for roommate 01/11/22: Ongoing acute psychosis with auditory hallucinations and disorganized behaviors. Increase abilify to 10mg qd. (1) Schizophrenia: (2) Psychosis: 01/11/22: Increase abilify to 10mg qd 01/10/22: The patient was admitted to the [facility] ([facility] mental health unit) on q15 min checks (behavioral with suicide precautions) for safety. The pa magalie will participate in group, recreational, and milieu therapies and will be offered additional individual and family sessions as clinically appropriate. -Restart abilify at 5 mg qd and will titrate accordingly -Hold cogentin as she desires simplified medication regimen to improve adherence Inventory Assets Strengths: willing to seek voluntary treatment, has outpatient psychiatric services, willing to take medication, has housing Needs: additional outpatient support (ideally CM if she agrees), stabilization, re- initiation of medication Suicide Risk Level Suicide Risk Level: Moderate (q15 min suicide checks) Suicide Risk Level Comments: Acute risk is moderate as she endorses periods of feeling "" and has AH but unable to state context or if having cAH but notes she feels safe on the unit and denies SI during assessment. Risk Factors Assessment : Yes Do You Have Access To A Gun?: No Health Problems: No Mental Health Diagnoses: Yes Substance Use Disorders: No Previous Attempt: Yes Family History of Suicide: No Previous Psychiatric Hospitalization: Yes Hopelessness: No Protective Factors Assessment Employed: No Stable Relationships: No Good Rapport with Provider: Yes Interval History Identifying Information LISA THAYER is a 36-year-old woman who currently lives in [place] alone, has a history of schizophrenia vs schizoaffective disorder, and was admitted on 01/09/22 20:17 on a 201 voluntary commitment for bizarre and disorganized behavior. Chief Complaint "I just need the voices to go away!". Review of Systems Sleep Information Total Hours of Sleep: 8.25 Meal Information Percent Meal Consumed - Breakfast: 100 Percent Meal Consumed - Lunch: 100 Percent Meal Consumed - Dinner: 100 Subjective Subjective Patient was seen & assessed and interval progress reviewed with treatment team nursing and social work. Fixated on male staff. She couldn't stay on task, smiling inappropriately and not connecting with any peers. Continues to discuss a desire to get and be . Periods of irritability. No side effects from abilify but feels it isn't working due to ongoing voices. Reviewed plan for ongoing titration and then CONCEPCION which she is agreeable with. Discussed plan of 20mg and then CONCEPCION. She cannot speak in depth about content of auditory hallucinations but discusses distress from these. Physical Exam Psychiatric Orientation: alert, oriented to person and oriented to place Apperance: appropriately dressed and + disheveled Eye Contact: + fair eye contact Motor Behavior: no abnormal motor movements; n EPS Speech: + abnormal rate/rhythm/volume of speech (latent) Affect: + irritable affect Mood: + irritable mood Thought Process: + circumstantial thought process and + looseness of associations Thought Content: + delusions Suicidal Thoughts: denies suicidal thoughts Homicidal Thoughts: denies homicidal thoughts Hallucinations: + auditory hallucinations; no visual hallucinations Cognition: recent memory grossly intact, remote memory grossly intact and language grossly intact; + attention not intact Estimated Intelligence: consistent with education level Insight: + impaired insight Judgement: + impaired judgement Vital Signs (Past 24 Hours) Last Vital Signs Temp 36.8 C 01/11/22 06:49 Pulse 94 H 01/11/22 06:50 Resp 16 01/11/22 06:49 BP 129/86 01/11/22 06:50 Pulse Ox 98 01/09/22 20:48 Results & Data ([facility]) Current Inpatient Medications Current Inpatient Medications: Current Inpatient Medications Acetaminophen (Acetaminophen 325 Mg Tab) 650 mg PO Q4H PRN PRN Reason: Headache or Minor Fever Stop: 02/08/22 20:00 Al Hydrox/Mg Hydrox/Simethicone (Aluminum/Magnesium Susp 30 Ml Udc) 30 ml PO Q4H PRN PRN Reason: GI Upset Stop: 02/08/22 20:00 Aripiprazole (Aripiprazole 5 Mg Tab) 5 mg PO QAM SUZY Stop: 02/09/22 08:59 Last Admin: 01/11/22 08:30 Dose: 5 mg Documented by: Bismuth Subsalicylate (Bismuth Subsalicylate Liqd 236 Ml) 15 ml PO PRN PRN PRN Reason: Loose Stool Stop: 02/08/22 20:00 Hydroxyzine HCl (Hydroxyzine Hcl 25 Mg Tab) 50 mg PO HSZ PRN PRN Reason: Insomnia Stop: 02/08/22 20:00 Hydroxyzine HCl (Hydroxyzine Hcl 25 Mg Tab) 25 mg PO Q4H PRN PRN Reason: Anxiety Stop: 02/08/22 20:00 Magnesium Hydroxide (Magnesium Hydroxide Susp 30 Ml Udc) 30 ml PO DAILY PRN PRN Reason: Constipation Stop: 02/08/22 20:00 Olanzapine (Olanzapine 5 Mg Tablet) 5 mg PO BID PRN PRN Reason: Agitation Stop: 02/08/22 20:59 Sodium Chloride (Sodium Chloride 0.65% Na Soln 45 Ml ([place])) 1 - 2 sprays NA PRN PRN PRN Reason: Nasal Dryness/Congestion Stop: 02/08/22 20:00 Mental Health & Subst Abuse Tx Psychiatrist Name of Psychiatrist: Pastora Moses Psychiatrist's Psychiatric Appointment Comment: [id number] [place] [id number] Therapist Name of Therapist: Pt declines a need Mathematics Education Professor Name of Mathematics Education Professor: Pt declines a need Post Discharge Appointments Primary Care Physician Name Of Family Doctor: Pt declines a need Contact Information Discharge Discharge Address: [address] [place] [address] [id number] (1) Psychosis Psychosis type: other Qualified Code(s): F28 - Other psychotic disorder not due to a substance or known physiological condition
[2022-01-11] MEDS ORDERED: ARIPiprazole 5 MG TAB PO STA (12:25)
[2022-01-12] MEDS ORDERED: ARIPiprazole 10 MG TAB PO SCH (09:00)
[2022-01-12] MEDS ORDERED: ARIPiprazole 10 MG TAB PO ONE (10:44)
--- NOTE | 2022-01-12 11:01 | Psychiatric Progress Note ---
Date of Service January 12, 2022 Impression / Recommendations Impression The patient is a 36 year old with a history of schizophrenia vs schizoaffective disorder who was admitted for worsening psychosis and delusions in the context of medication non-adherence consistent with an acute exacerbation of schizophrenia and consistent with recent presentations from admissions in Sep and December 2021. Diagnostically felt to be most consistent with schizophrenia. Long acting injectable medication options remains the most likely to offer long- term stabilization. The patient is deemed unstable and requires psychiatric hospitalization for diagnostic clarification, safety and stabilization, medicat ion management and development of further coping skills. MNPR due to acute psychosis with delusions and paranoia and disorganization leading to periods of disrobing/nudity not appropriate for roommate 01/12/22: Ongoing disorganization, historically does well with medications but non compliant, agreeable to CONCEPCION. (1) Schizophrenia: (2) Psychosis: 01/12/22: Reviewed with patient the recommendation that she resume therapeutic dose of Abilify as quickly as possible, will load with an additional 20 mg today. As she is agreeable to Ability aristada and it is covered on her plan, will given initio and Aristada today. She understands that the Abilify Aristada Initio is so doesn't need to take the 21 days of oral medication until Abilify Aristada is active and then will not require injection for 6-8 weeks. 01/11/22: Increase abilify to 10mg qd 01/10/22: The patient was admitted to the [facility] ([facility] mental health unit) on q15 min checks (behavioral with suicide precautions) for safety. The patient will participate in group, recreational, and milieu therapies and will be offered additional individual and family sessions as clinically appropriate. -Restart abilify at 5 mg qd and will titrate accordingly -Hold cogentin as she desires simplified medication regimen to improve adherence Inventory Assets Strengths: willing to seek voluntary treatment, has outpatient psychiatric services, willing to take medication, has housing Needs: additional outpatient support (ideally CM if she agrees), stabilization, re- initiation of medication Suicide Risk Level Suicide Risk Level: Moderate (q15 min suicide checks) Suicide Risk Level Comments: Acute risk is moderate as she endorses periods of feeling "" and has AH but unable to state context or if having cAH but notes she feels safe on the unit and denies SI during assessment. Risk Factors Assessment : Yes Do You Have Access To A Gun?: No Health Problems: No Mental Health Diagnoses: Yes Substance Use Disorders: No Previous Attempt: Yes Family History of Suicide: No Previous Psychiatric Hospitalization: Yes Hopelessness: No Protective Factors Assessment Employed: No Stable Relationships: No Good Rapport with Provider: Yes Interval History Identifying Information LISA THAYER is a 36-year-old woman who currently lives in [place] alone, has a history of schizophrenia vs schizoaffective disorder, and was admitted on 01/09/22 20:17 on a 201 voluntary commitment for bizarre and disorganized behavior. Chief Complaint "I'm depressed, doesn't everyone want love?" while smiling inappropriately. Review of Systems Sleep Information Total Hours of Sleep: 7.5 Meal Information Percent Meal Consumed - Breakfast: 100 Percent Meal Consumed - Lunch: 100 Percent Meal Consumed - Dinner: 100 Subjective Subjective Patient was seen & assessed and interval progress reviewed with nursing and social work. Patient continues with disorganized behavior. Did shower this am but pretends to smoke her fingers and now a plastic spoon. Laid face down on the floor last pm and said she was , staff could not redirect the delusion and eventually limited stimulation and she put self to bed. Physical Exam Psychiatric Orientation: alert, oriented to person and oriented to place Apperance: appropriately dressed and + disheveled Eye Contact: + fair eye contact Motor Behavior: no abnormal motor movements; n EPS Speech: + abnormal rate/rhythm/volume of speech (latent) Affect: + labile affect Mood: + depressed mood Thought Process: + circumstantial thought process and + looseness of associati ons Thought Content: + delusions Suicidal Thoughts: denies suicidal thoughts Homicidal Thoughts: denies homicidal thoughts Hallucinations: + auditory hallucinations (denies but appears to be responding to internal stimuli); no visual hallucinations Cognition: language grossly intact; + attention not intact Estimated Intelligence: consistent with education level Insight: + impaired insight Judgement: + impaired judgement Vital Signs (Past 24 Hours) Last Vital Signs Temp 36.8 C 01/12/22 06:40 Pulse 97 H 01/12/22 06:40 Resp 16 01/12/22 06:40 BP 123/82 01/12/22 06:40 Pulse Ox 98 01/09/22 20:48 Results & Data ([facility]) Laboratory Results patient has fasting metabolic labs from last hospitalization in early December. Current Inpatient Medications Current Inpatient Medications: Current Inpatient Medications Acetaminophen (Acetaminophen 325 Mg Tab) 650 mg PO Q4H PRN PRN Reason: Headache or Minor Fever Stop: 02/08/22 20:00 Al Hydrox/Mg Hydrox/Simethicone (Aluminum/Magnesium Susp 30 Ml Udc) 30 ml PO Q4H PRN PRN Reason: GI Upset Stop: 02/08/22 20:00 Aripiprazole Lauroxil (Aripiprazole Lauroxil 675 Mg/2.4 Ml Syr) 675 mg IM ONE ONE Stop: 01/12/22 10:45 Aripiprazole Lauroxil (Aripiprazole Lauroxil 882 Mg/3.2 Ml Syr) 882 mg IM ONE ONE Stop: 01/12/22 10:45 Bismuth Subsalicylate (Bismuth Subsalicylate Liqd 236 Ml) 15 ml PO PRN PRN PRN Reason: Loose Stool Stop: 02/08/22 20:00 Hydroxyzine HCl (Hydroxyzine Hcl 25 Mg Tab) 50 mg PO HSZ PRN PRN Reason: Insomnia Stop: 02/08/22 20:00 Hydroxyzine HCl (Hydroxyzine Hcl 25 Mg Tab) 25 mg PO Q4H PRN PRN Reason: Anxiety Stop: 02/08/22 20:00 Magnesium Hydroxide (Magnesium Hydroxide Susp 30 Ml Udc) 30 ml PO DAILY PRN PRN Reason: Constipation Stop: 02/08/22 20:00 Olanzapine (Olanzapine 5 Mg Tablet) 5 mg PO BID PRN PRN Reason: Agitation Stop: 02/08/22 20:59 Sodium Chloride (Sodium Chloride 0.65% Na Soln 45 Ml ([place])) 1 - 2 sprays NA PRN PRN PRN Reason: Nasal Dryness/Congestion Stop: 02/08/22 20:00 Mental Health & Subst Abuse Tx Psychiatrist Name of Psychiatrist: Pastora Moses Psychiatrist's Date of Appointment with Psychiatrist: 01/29/22 Time of Appointment with Psychiatrist: 1:30 p.m Psychiatric Appointment Comment: [phone], [place] [id number] Therapist Name of Therapist: Pt declines a need Rn Liaison Name of Rn Liaison: Pt declines a need Post Discharge Appointments Primary Care Physician Name Of Family Doctor: Pt declines a need Contact Information Discharge Discharge [address]: [address] [place] [address] (1) Psychosis Psychosis type: other Qualified Code(s): F28 - Other psychotic disorder not due to a substance or known physiological condition
[2022-01-12] MEDS ORDERED: ARIPiprazole LAUROXIL 675 MG/2.4 ML SYR IM ONE (11:30)
[2022-01-12] MEDS ORDERED: ARIPiprazole LAUROXIL 882 MG/3.2 ML SYR IM ONE (11:45)
--- NOTE | 2022-01-13 12:13 | Psychiatric Progress Note ---
Date of Service January 13, 2022 Impression / Recommendations Impression The patient is a 36 year old with a history of schizophrenia vs schizoaffective disorder who was admitted for worsening psychosis and delusions in the context of medication non-adherence consistent with an acute exacerbation of schizophrenia and consistent with recent presentations from admissions in Sep and December 2021. Diagnostically felt to be most consistent with schizophrenia. Long acting injectable medication options remains the most likely to offer long- term stabilization. The patient is deemed unstable and requires psychiatric hospitalization for diagnostic clarification, safety and stabilization, medicat ion management and development of further coping skills. MNPR due to acute psychosis with delusions and paranoia and disorganization leading to periods of disrobing/nudity not appropriate for roommate 01/13/22: resistant to additional oral Abilify (1) Schizophrenia: (2) Psychosis: 01/13/22: patient declines additional oral Abilify so did not receive full loading dose but will continue to offer Zyprexa prn. 01/12/22: Reviewed with patient the recommendation that she resume therapeutic dose of Abilify as quickly as possible, will load with an additional 20 mg today. As she is agreeable to Ability aristada and it is covered on her plan, will given initio and Aristada today. She understands that the Abilify Aristada Initio is so doesn't need to take the 21 days of oral medication until Abilify Aristada is active and then will not require injection for 6-8 weeks. 01/11/22: Increase abilify to 10mg qd 01/10/22: The patient was admitted to the [facility] ([facility] mental health unit) on q15 min checks (behavioral with suicide precautions) for safety. The patient will participate in group, recreational, and milieu therapies and will be offered additional individual and family sessions as clinically appropriate. -Restart abilify at 5 mg qd and will titrate accordingly -Hold cogentin as she desires simplified medication regimen to improve adherence Inventory Assets Strengths: willing to seek voluntary treatment, has outpatient psychiatric services, willing to take medication, has housing Needs: additional outpatient support (ideally CM if she agrees), stabilization, re- initiation of medication Suicide Risk Level Suicide Risk Level: Moderate (q15 min suicide checks) Suicide Risk Level Comments: Acute risk is moderate as she endorses periods of feeling "" and has AH but unable to state context or if having cAH but notes she feels safe on the unit and denies SI during assessment. Risk Factors Assessment : Yes Do You Have Access To A Gun?: No Health Problems: No Mental Health Diagnoses: Yes Substance Use Disorders: No Previous Attempt: Yes Family History of Suicide: No Previous Psychiatric Hospitalization: Yes Hopelessness: No Protective Factors Assessment Employed: No Stable Relationships: No Good Rapport with Provider: Yes Interval History Identifying Information LISA THAYER is a 36-year-old woman who currently lives in [place] alone, has a history of schizophrenia vs schizoaffective disorder, and was admitted on 01/09/22 20:17 on a 201 voluntary commitment for bizarre and disorganized behavior. Chief Complaint "I'm " Review of Systems Sleep Information Total Hours of Sleep: 8.5 Meal Information Percent Meal Consumed - Breakfast: 100 Percent Meal Consumed - Lunch: 100 Percent Meal Consumed - Dinner: 50 Subjective Subjective Patient was seen & assessed and interval progress reviewed with nursing and social work. Patient was initially resistant as didn't want meds admin gluteal but accepted initio and aristada yesterday. 20 mg Abilify not available for a dmin until much later in day and ultimately held due to concerns about possible akathisia if given toward bed time. She received a dose of prn Zyprexa. Today seems less restless and did attend exercise group with limited participation. wondering around room and difficult to engage in conversation. Physical Exam Psychiatric Orientation: alert, oriented to person and oriented to place Apperance: + disheveled Eye Contact: + poor eye contact Motor Behavior: no abnormal motor movements; n EPS Speech: + abnormal rate/rhythm/volume of speech (latent) Affect: + blunted affect Mood: + depressed mood (or rather alexithymia) Thought Process: + circumstantial thought process Thought Content: + delusions Suicidal Thoughts: denies suicidal thoughts Homicidal Thoughts: denies homicidal thoughts Hallucinations: no auditory hallucinations and no visual hallucinations Cognition: recent memory grossly intact, remote memory grossly intact and language grossly intact; + attention not intact Estimated Intelligence: consistent with education level Insight: + impaired insight Judgement: + impaired judgement Vital Signs (Past 24 Hours) Last Vital Signs Temp 36.3 C L 01/13/22 06:41 Pulse 93 H 01/13/22 06:41 Resp 16 05/08/22 06:41 BP 117/78 01/13/22 06:41 Pulse Ox 98 01/09/22 20:48 Results & Data ([facility]) Current Inpatient Medications Current Inpatient Medications: Current Inpatient Medications Acetaminophen (Acetaminophen 325 Mg Tab) 650 mg PO Q4H PRN PRN Reason: Headache or Minor Fever Stop: 02/08/22 20:00 Al Hydrox/Mg Hydrox/Simethicone (Aluminum/Magnesium Susp 30 Ml Udc) 30 ml PO Q4H PRN PRN Reason: GI Upset Stop: 02/08/22 20:00 Bismuth Subsalicylate (Bismuth Subsalicylate Liqd 236 Ml) 15 ml PO PRN PRN PRN Reason: Loose Stool Stop: 02/08/22 20:00 Hydroxyzine HCl (Hydroxyzine Hcl 25 Mg Tab) 50 mg PO HSZ PRN PRN Reason: Insomnia Stop: 02/08/22 20:00 Hydroxyzine HCl (Hydroxyzine Hcl 25 Mg Tab) 25 mg PO Q4H PRN PRN Reason: Anxiety Stop: 02/08/22 20:00 Magnesium Hydroxide (Magnesium Hydroxide Susp 30 Ml Udc) 30 ml PO DAILY PRN PRN Reason: Constipation Stop: 02/08/22 20:00 Olanzapine (Olanzapine 5 Mg Tablet) 5 mg PO BID PRN PRN Reason: Agitation Stop: 02/08/22 20:59 Last Admin: 01/12/22 17:47 Dose: 5 mg Documented by: Sodium Chloride (Sodium Chloride 0.65% Na Soln 45 Ml ([place])) 1 - 2 sprays NA PRN PRN PRN Reason: Nasal Dryness/Congestion Stop: 02/08/22 20:00 Mental Health & Subst Abuse Tx Psychiatrist Name of Psychiatrist: Pastora Moses Psychiatrist's Date of Appointment with Psychiatrist: 01/29/22 Time of Appointment with Psychiatrist: 1:30 p.m Psychiatric Appointment Comment: [phone] [place] [id number] Therapist Name of Therapist: Pt declines a need Poultry Hatchery Man Name of Poultry Hatchery Man: Pt declines a need Post Discharge Appointments Primary Care Physician Name Of Family Doctor: Pt declines a need Contact Information Discharge Discharge [address]: [address] [place] [id number] (1) Psychosis Psychosis type: other Qualified Code(s): F28 - Other psychotic disorder not due to a substance or known physiological condition
--- NOTE | 2022-01-14 15:31 | Psychiatric Progress Note ---
Date of Service January 14, 2022 Impression / Recommendations Impression The patient is a 36 year old with a history of schizophrenia vs schizoaffective disorder who was admitted for worsening psychosis and delusions in the context of medication non-adherence consistent with an acute exacerbation of schizophrenia and consistent with recent presentations from admissions in Sep and December 2021. Diagnostically felt to be most consistent with schizophrenia. Long acting injectable medication options remains the most likely to offer long- term stabilization. MNPR due to acute psychosis with delusions and paranoia and disorganization leading to periods of disrobing/nudity not appropriate for roommate 01/14/22: significant improvement in psychosis, some depression/anxiety at baseline which often triggered med noncompliance (1) Schizophrenia: (2) Psychosis: 01/14/22: retrial of low dose Prozac 10 mg for anxiety/residual depressive symptoms. monitor closely for activation. 01/13/22: patient declines additional oral Abilify so did not receive full loading dose but will continue to offer Zyprexa prn. 01/12/22: Reviewed with patient the recommendation that she resume therapeutic dose of Abilify as quickly as possible, will load with an additional 20 mg today. As she is agreeable to Ability aristada and it is covered on her plan, will given initio and Aristada today. She understands that the Abilify Aristada Initio is so doesn't need to take the 21 days of oral medication until Abilify Aristada is active and then will not require injection for 6-8 weeks. 01/11/22: Increase abilify to 10mg qd 01/10/22: The patient was admitted to the [facility] ([facility] mental health unit) on q15 min checks (behavioral with suicide precautions) for safety. The patient will participate in group, recreational, and milieu therapies and will be offered additional individual and family sessions as clinically appropriate. -Restart abilify at 5 mg qd and will titrate accordingly -Hold cogentin as she desires simplified medication regimen to improve adherence Inventory Assets Strengths: willing to seek voluntary treatment, has outpatient psychiatric services, willing to take medication, has housing Needs: additional outpatient support (ideally CM if she agrees), stabilization, re- initiation of medication Suicide Risk Level Suicide Risk Level: Moderate (q15 min suicide checks) Risk Factors Assessment : Yes Do You Have Access To A Gun?: No Health Problems: No Mental Health Diagnoses: Yes Substance Use Disorders: No Previous Attempt: Yes Family History of Suicide: No Previous Psychiatric Hospitalization: Yes Hopelessness: No Protective Factors Assessment Employed: No Stable Relationships: No Good Rapport with Provider: Yes Interval History Identifying Information LISA THAYER is a 36-year-old woman who currently lives in [place] alone, has a history of schizophrenia vs schizoaffective disorder, and was admitted on 01/09/22 20:17 on a 201 voluntary commitment for bizarre and disorganized behavior. Chief Complaint "I want something for my depression that would work better, how about Rexulti?" Review of Systems Sleep Information Total Hours of Sleep: 8 Meal Information Percent Meal Consumed - Breakfast: 100 Percent Meal Consumed - Lunch: 25 Percent Meal Consumed - Dinner: 100 Subjective Subjective Patient was seen & assessed and interval progress reviewed with treatment team. Patient reports some sadness and anxiety about her cat. She stats that she gets lonely and this is why she worries so much about finding a and "when I'm not manic, not that I think I get manic, I still worry". She states that Prozac was helpful for her before and she has asked for this repeatedly in the past. Typically her mood is just restabilizing and I had concerns about her being prescribed an antidepressant if not taking atypical consistently. She was made aware of risks of activation. Physical Exam Psychiatric Orientation: alert, oriented to person and oriented to place Apperance: appropriately dressed; not disheveled Eye Contact: + fair eye contact Motor Behavior: no abnormal motor movements; n EPS Speech: normal rate/rhythm/volume of speech Affect: + blunted affect Mood: + depressed mood (or rather alexithymia) Thought Process: + circumstantial thought process Thought Content: + delusions (much less) Suicidal Thoughts: denies suicidal thoughts Homicidal Thoughts: denies homicidal thoughts Hallucinations: no auditory hallucinations and no visual hallucinations Cognition: attention grossly intact and language grossly intact Estimated Intelligence: consistent with education level Insight: + impaired insight Judgement: + impaired judgement Vital Signs (Past 24 Hours) Last Vital Signs Temp 36.8 C 01/14/22 06:43 Pulse 83 01/14/22 06:43 Resp 16 01/14/22 06:43 BP 121/84 01/14/22 06:43 Pulse Ox 98 01/09/22 20:48 Results & Data ([facility]) Current Inpatient Medications Current Inpatient Medications: Current Inpatient Medications Acetaminophen (Acetaminophen 325 Mg Tab) 650 mg PO Q4H PRN PRN Reason: Headache or Minor Fever Stop: 02/08/22 20:00 Al Hydrox/Mg Hydrox/Simethicone (Aluminum/Magnesium Susp 30 Ml Udc) 30 ml PO Q4H PRN PRN Reason: GI Upset Stop: 02/08/22 20:00 Bismuth Subsalicylate (Bismuth Subsalicylate Liqd 236 Ml) 15 ml PO PRN PRN PRN Reason: Loose Stool Stop: 02/08/22 20:00 Fluoxetine HCl (Fluoxetine Hcl 10 Mg Cap) 10 mg PO QAM SUZY Stop: 02/14/22 08:59 Hydroxyzine HCl (Hydroxyzine Hcl 25 Mg Tab) 50 mg PO HSZ PRN PRN Reason: Insomnia Stop: 02/08/22 20:00 Hydroxyzine HCl (Hydroxyzine Hcl 25 Mg Tab) 25 mg PO Q4H PRN PRN Reason: Anxiety Stop: 02/08/22 20:00 Magnesium Hydroxide (Magnesium Hydroxide Susp 30 Ml Udc) 30 ml PO DAILY PRN PRN Reason: Constipation Stop: 02/08/22 20:00 Olanzapine (Olanzapine 5 Mg Tablet) 5 mg PO BID PRN PRN Reason: Agitation Stop: 02/08/22 20:59 Last Admin: 01/12/22 17:47 Dose: 5 mg Documented by: Sodium Chloride (Sodium Chloride 0.65% Na Soln 45 Ml ([place])) 1 - 2 sprays NA PRN PRN PRN Reason: Nasal Dryness/Congestion Stop: 02/08/22 20:00 Mental Health & Subst Abuse Tx Psychiatrist Name of Psychiatrist: Pastora Moses Psychiatrist's Date of Appointment with Psychiatrist: 01/29/22 Time of Appointment with Psychiatrist: 1:30 p.m Psychiatric Appointment Comment: [phone] [place] [id number] Therapist Name of Therapist: Pt declines a need Printing Press Machinist Name of Printing Press Machinist: Pt declines a need Post Discharge Appointments Primary Care Physician Name Of Family Doctor: Pt declines a need Contact Information Discharge Discharge Address: [address] [place] [id number] (1) Psychosis Psychosis type: other Qualified Code(s): F28 - Other psychotic disorder not due to a substance or known physiological condition
[2022-01-15] MEDS: FLUoxetine HCL 10 MG CAP PO SCH (08:29)
--- NOTE | 2022-01-15 10:42 | Psychiatric Progress Note ---
Date of Service January 15, 2022 Impression / Recommendations Impression The patient is a 36 year old with a history of schizophrenia vs schizoaffective disorder who was admitted for worsening psychosis and delusions in the context of medication non-adherence consistent with an acute exacerbation of schizophrenia and consistent with recent presentations from admissions in Sep and December 2021. Diagnostically felt to be most consistent with schizophrenia. Long acting injectable medication options remains the most likely to offer long- term stabilization. MNPR due to hx of disrobing/severity of psychosis. 01/15/22: improving, continued poor insight. (1) Schizophrenia: (2) Psychosis: 01/15/22: continue current medication and treatment plan. 01/14/22: retrial of low dose Prozac 10 mg for anxiety/residual depressive symptoms. monitor closely for activation. 01/13/22: patient declines additional oral Abilify so did not receive full loading dose but will continue to offer Zyprexa prn. 01/12/22: Reviewed with patient the recommendation that she resume therapeutic dose of Abilify as quickly as possible, will load with an additional 20 mg today. As she is agreeable to Ability aristada and it is covered on her plan, will given initio and Aristada today. She understands that the Abilify Aristada Initio is so doesn't need to take the 21 days of oral medication until Abilify Aristada is active and then will not require injection for 6-8 weeks. 01/11/22: Increase abilify to 10mg qd 01/10/22: The patient was admitted to the [facility] on q15 min checks (behavioral with suicide precautions) for safety. The patient will participate in group, recreational, and milieu therapies and will be offered additional individual and family sessions as clinically appropriate. -Restart abilify at 5 mg qd and will titrate accordingly -Hold cogentin as she desires simplified medication regimen to improve adherence Inventory Assets Strengths: willing to seek voluntary treatment, has outpatient psychiatric services, willing to take medication, has housing Needs: additional outpatient support (ideally CM if she agrees), stabilization, re- initiation of medication Suicide Risk Level Suicide Risk Level: Moderate (q15 min suicide checks) Suicide Risk Level Comments: Acute risk is moderate Risk Factors Assessment : Yes Do You Have Access To A Gun?: No Health Problems: No Mental Health Diagnoses: Yes Substance Use Disorders: No Previous Attempt: Yes Family History of Suicide: No Previous Psychiatric Hospitalization: Yes Hopelessness: No Protective Factors Assessment Employed: No Stable Relationships: No Good Rapport with Provider: Yes Interval History Identifying Information LISA THAYER is a 36-year-old woman who currently lives in [place] alone, has a history of schizophrenia vs schizoaffective disorder, and was admitted on 01/09/22 20:17 on a 201 voluntary commitment for bizarre and disorganized behavior. Chief Complaint "my cat is probably just hiding." Review of Systems Sleep Information Total Hours of Sleep: 6.75 Sleep Comments: pt on q-15 minute checks Meal Information Percent Meal Consumed - Breakfast: 100 Percent Meal Consumed - Lunch: 25 Percent Meal Consumed - Dinner: 100 Subjective Subjective Patient was seen & assessed and interval progress reviewed with nursing and social work. Remains more organized, affect is still inappropriate to content at times but less delay in response/internal preoccupations. Physical Exam Psychiatric Orientation: alert, oriented to person and oriented to place Apperance: appropriately dressed; not disheveled Eye Contact: + fair eye contact Motor Behavior: no abnormal motor movements; n EPS Speech: normal rate/rhythm/volume of speech Affect: + blunted affect Mood: no depressed mood Thought Process: + circumstantial thought process Thought Content: + delusions (much less) Suicidal Thoughts: denies suicidal thoughts Homicidal Thoughts: denies homicidal thoughts Hallucinations: no auditory hallucinations and no visual hallucinations Cognition: recent memory grossly intact, remote memory grossly intact, attention grossly intact and language grossly intact Estimated Intelligence: consistent with education level Insight: + impaired insight Judgement: + impaired judgement Vital Signs (Past 24 Hours) Last Vital Signs Temp 36.9 C 01/15/22 06:39 Pulse 98 H 01/15/22 06:40 Resp 16 01/15/22 06:39 BP 120/82 01/15/22 06:40 Pulse Ox 98 01/09/22 20:48 Results & Data ([facility]UST) Current Inpatient Medications Current Inpatient Medications: Current Inpatient Medications Acetaminophen (Acetaminophen 325 Mg Tab) 650 mg PO Q4H PRN PRN Reason: Headache or Minor Fever Stop: 02/08/22 20:00 Al Hydrox/Mg Hydrox/Simethicone (Aluminum/Magnesium Susp 30 Ml Udc) 30 ml PO Q4H PRN PRN Reason: GI Upset Stop: 02/08/22 20:00 Bismuth Subsalicylate (Bismuth Subsalicylate Liqd 236 Ml) 15 ml PO PRN PRN PRN Reason: Loose Stool Stop: 02/08/22 20:00 Fluoxetine HCl (Fluoxetine Hcl 10 Mg Cap) 10 mg PO QAM SUZY Stop: 02/14/22 08:59 Last Admin: 01/15/22 08:29 Dose: 10 mg Documented by: Hydroxyzine HCl (Hydroxyzine Hcl 25 Mg Tab) 50 mg PO HSZ PRN PRN Reason: Insomnia Stop: 02/08/22 20:00 Hydroxyzine HCl (Hydroxyzine Hcl 25 Mg Tab) 25 mg PO Q4H PRN PRN Reason: Anxiety Stop: 02/08/22 20:00 Magnesium Hydroxide (Magnesium Hydroxide Susp 30 Ml Udc) 30 ml PO DAILY PRN PRN Reason: Constipation Stop: 02/08/22 20:00 Olanzapine (Olanzapine 5 Mg Tablet) 5 mg PO BID PRN PRN Reason: Agitation Stop: 02/08/22 20:59 Last Admin: 01/12/22 17:47 Dose: 5 mg Documented by: Sodium Chloride (Sodium Chloride 0.65% Na Soln 45 Ml ([facility])) 1 - 2 sprays NA PRN PRN PRN Reason: Nasal Dryness/Congestion Stop: 02/08/22 20:00 Mental Health & Subst Abuse Tx Psychiatrist Name of Psychiatrist: Pastora Moses Psychiatrist's Date of Appointment with Psychiatrist: 01/29/22 Time of Appointment with Psychiatrist: 1:30 p.m Psychiatric Appointment Comment: [id number] [place] [id number] Therapist Name of Therapist: Pt declines a need Kiln Charger Name of Kiln Charger: Pt declines a need Post Discharge Appointments Primary Care Physician Name Of Family Doctor: Pt declines a need Contact Information Discharge Discharge [address]: [address] [place] [address] [place] [id number] (1) Psychosis Psychosis type: other Qualified Code(s): F28 - Other psychotic disorder not due to a substance or known physiological condition
[2022-01-16] MEDS: FLUoxetine HCL 10 MG CAP PO SCH (07:55)
--- NOTE | 2022-01-16 08:51 | Discharge Summary ---
Date of Service January 16, 2022 History of Present Illness As per Dr. Rogers on admission: Denise is well know to me from her two recent inpatient psychiatric admissions at [facility] (December 2021 & Sep 2021) for similar presentations of wandering outside in a towel with bizarre statements and disorganized behaviors in the context of medication non-adherence. Similarly she presented to the ED again, initially on 01/08/22 after being found by police standing naked in the rain but was discharged from the ED as she declined voluntary tx and did not meet 302 criteria. She re- presented to the ED again yesterday via police after being found standing in only towel outside of the court house in [place] making statements of already being when asked about SI and requesting voluntary psychiatric treatment to get back on her medication. Today she remains disorganized making statements to staff such as "if wishes could be kisses" and stating her desire to find a and get . Tells me "if I had love I wouldn't need pills". She is willing to restart abilify as she found this helpful during her last admission for stabilizing her mood. When asked about SI she states "who knows" and later states "I'm already ". Unlike her like admission does not endorse any somatic delusions this t kimberly stating "you saw my blood work did it look ok?" and is reassured when informed it was normal. She is auditory hallucinations but cannot expand on what the voices are telling her. Hasn't been taking her medications. During her last admission she was stabilized on abilify 15mg qd with goal of titrating to 20mg and eventually hope that she would agree to CONCEPCION formulation given her long history of medication non-adherence and re-hospitalizations. She was also given cogentin 1mg BID as she had been expressing muscle pain during her previous admission. Physical Exam Psychiatric See admission H&P and DOD assessment. Vital Signs (Past 24 Hours) Last Vital Signs Temp 36.7 C 01/16/22 06:49 Pulse 88 01/16/22 06:49 Resp 16 01/16/22 06:49 BP 123/87 01/16/22 06:49 Pulse Ox 98 01/09/22 20:48 Principal Diagnosis schizophrenia Psychiatric Data See daily stay summary. In short, safety was maintained and the patient was cooperative with care. Medication changes included restart of Abilify and transition to CONCEPCION via Initio and Aristada (co-administered) on 01/13/22 and they tolerated this well. She was focussed on a retrial of antidepressant and repeatedly asked to start Prozac which was initiated at 10 mg when clear she was stable enough on Abilify. She then insisted on a trial of Zoloft and reviewed that same class, no clinical sense to change without a full retrial, particularly on date of discharge. She plans to ask her outpatient prescriber about Zoloft. Re-reviewed longer term risks associated with Abilify and need for ongoing monitoring for longer term metabolic, TD risks. A family session was held day prior to discharge, her brother in [place] is particularly supportive and she may consider relocating there some day to be closer to family. A safety plan was completed prior to discharge. She was much more appropriate, pleasant, participated in groups, made cards for staff this visit. Day of Discharge Assessment Today the patient voices readiness for discharge. They note improvement in mood and deny thoughts to harm self or others. Thoughts remain concrete but much more organized and they are improved from admission. There is no evidence of hallucinations or delusions. They agree to take mediations as prescribed and keep follow-up appointments. They are stable for discharge to outpatient level of care. Transition of Care Transition Of Care Record: was reviewed with the patient Advance Directives Advance Directives Information Provided: Yes Advance Directives: No Mental Health Advance Directive: No Advance Directives on File: No Living Will: No Power of Heel Reducer: No Advance Directives Reason:: Declines as Mental Health Visit. Suicide Risk Level Suicide Risk Level Comments: low, stable for discharge to outpatient level of care. Risk Factors Assessment : Yes Do You Have Access To A Gun?: No Health Problems: No Mental Health Diagnoses: Yes Substance Use Disorders: No Previous Attempt: Yes Family History of Suicide: No Previous Psychiatric Hospitalization: Yes Hopelessness: No Protective Factors Assessment Employed: No Stable Relationships: No Good Rapport with Provider: Yes Tobacco Cessation at Discharge Tobacco Cessation Medication Prescribed at Discharge: Not Applicable/Non-Smoker Total Time Total Time Spent: Greater Than 30 Minutes Total Time Includes: Examination of the patient, Discharge Planning and Medication Reconciliation Discharge Data Lab Results 01/09/22 01/09/22 01/09/22 16:29 16:29 16:29 WBC 7.90 RBC 4.83 Hgb 14.5 Hct 43.8 MCV 90.7 MCH 30.0 MCHC 33.1 RDW Std Deviation 42.3 RDW Coeff of Indira 12.7 Plt Count 346 MPV 9.8 Immature Gran % (Auto) 0.1 Neut % (Auto) 53.5 Lymph % (Auto) 37.1 [place] % (Auto) 7.6 Eos % (Auto) 1.4 Baso % (Auto) 0.3 Neut # (Auto) 4.23 Lymph # (Auto) 2.93 [place] # (Auto) 0.60 H Eos # (Auto) 0.11 Baso # (Auto) 0.02 Immature Gran # (Auto) 0.01 Sodium 139 Potassium 3.6 Chloride 103 Carbon Dioxide 29 Anion Gap 7 BUN 8 Creatinine 0.81 Est Cr Clr Drug Dosing 93.1 Est GFR ( Amer) 108.3 Est GFR (Non-Af Amer) 93.4 BUN/Creatinine Ratio 9.9 L Glucose 90 Calcium 9.8 Total Bilirubin 0.6 AST 15 ALT 21 Alkaline Phosphatase 70 Total Protein 7.9 Albumin 4.8 Globulin 3.1 Albumin/Globulin Ratio 1.5 TSH 1.030 Urine Color Urine Appearance Urine pH Ur Specific [place] Urine Protein Urine Glucose (UA) Urine Ketones Urine Blood Urine Nitrite Urine Bilirubin Urine Urobilinogen Ur Leukocyte Esterase Urine WBC (Auto) Urine RBC (Auto) U Hyaline Cast (Auto) U Epithel Cells (Auto) Urine Bacteria (Auto) Urine Mucus Salicylates Urine Opiates Screen Ur Methadone, Qual Acetaminophen Urine Barbiturates Ur Phencyclidine (PCP) U Amphetamin/Meth Scrn MDMA (Ecstasy) Screen U Benzodiazepines Scrn Ur Cocaine Metabolite U Marijuana (THC) Screen Ethyl Alcohol mg/dL SARS-CoV-2, RNA, NAAT 01/09/22 01/09/22 01/09/22 16:29 16:29 17:38 WBC RBC Hgb Hct MCV MCH MCHC RDW Std Deviation RDW Coeff of Indira Plt Count MPV Immature Gran % (Auto) Neut % (Auto) Lymph % (Auto) [place] % (Auto) Eos % (Auto) Baso % (Auto) Neut # (Auto) Lymph # (Auto) [place] # (Auto) Eos # (Auto) Baso # (Auto) Immature Gran # (Auto) Sodium Potassium Chloride Carbon Dioxide Anion Gap BUN Creatinine Est Cr Clr Drug Dosing Est GFR ( Amer) Est GFR (Non-Af Amer) BUN/Creatinine Ratio Glucose Calcium Total Bilirubin AST ALT Alkaline Phosphatase Total Protein Albumin Globulin Albumin/Globulin Ratio TSH Urine Color Dark Yellow Urine Appearance Cloudy A Urine pH 6.0 Ur Specific [place] 1.030 Urine Protein Trace H Urine Glucose (UA) Negative Urine Ketones Trace H Urine Blood 1+ H Urine Nitrite Negative Urine Bilirubin Negative Urine Urobilinogen Negative Ur Leukocyte Esterase Negative Urine WBC (Auto) 5-10 H Urine RBC (Auto) 10-30 H U Hyaline Cast (Auto) 1-5 U Epithel Cells (Auto) >30 H Urine Bacteria (Auto) 1+ H Urine Mucus Present A Salicylates < 3.0 L Urine Opiates Screen Ur Methadone, Qual Acetaminophen < 3 L Urine Barbiturates Ur Phencyclidine (PCP) U Amphetamin/Meth Scrn MDMA (Ecstasy) Screen U Benzodiazepines Scrn Ur Cocaine Metabolite U Marijuana (THC) Screen Ethyl Alcohol mg/dL < 10.0 SARS-CoV-2, RNA, NAAT 01/09/22 01/09/22 17:38 18:06 WBC RBC Hgb Hct MCV MCH MCHC RDW Std Deviation RDW Coeff of Indira Plt Count MPV Immature Gran % (Auto) Neut % (Auto) Lymph % (Auto) [place] % (Auto) Eos % (Auto) Baso % (Auto) Neut # (Auto) Lymph # (Auto) [place] # (Auto) Eos # (Auto) Baso # (Auto) Immature Gran # (Auto) Sodium Potassium Chloride Carbon Dioxide Anion Gap BUN Creatinine Est Cr Clr Drug Dosing Est GFR ( Amer) Est GFR (Non-Af Amer) BUN/Creatinine Ratio Glucose Calcium Total Bilirubin AST ALT Alkaline Phosphatase Total Protein Albumin Globulin Albumin/Globulin Ratio TSH Urine Color Urine Appearance Urine pH Ur Specific [place] Urine Protein Urine Glucose (UA) Urine Ketones Urine Blood Urine Nitrite Urine Bilirubin Urine Urobilinogen Ur Leukocyte Esterase Urine WBC (Auto) Urine RBC (Auto) U Hyaline Cast (Auto) U Epithel Cells (Auto) Urine Bacteria (Auto) Urine Mucus Salicylates Urine Opiates Screen Neg Ur Methadone, Qual Neg Acetaminophen Urine Barbiturates Neg Ur Phencyclidine (PCP) Neg U Amphetamin/Meth Scrn Neg MDMA (Ecstasy) Screen Neg U Benzodiazepines Scrn Neg Ur Cocaine Metabolite Neg U Marijuana (THC) Screen Neg Ethyl Alcohol mg/dL SARS-CoV-2, RNA, NAAT NEGATIVE Hospital Course (1) Schizophrenia: (2) Psychosis: 01/15/22: continue current medication and treatment plan. 01/14/22: retrial of low dose Prozac 10 mg for anxiety/residual depressive symptoms. monitor closely for activation. 01/13/22: patient declines additional oral Abilify so did not receive full loading dose but will continue to offer Zyprexa prn. 01/12/22: Reviewed with patient the recommendation that she resume therapeutic dose of Abilify as quickly as possible, will load with an additional 20 mg today. As she is agreeable to Ability aristada and it is covered on her plan, will given initio and Aristada today. She understands that the Abilify Aristada Initio is so doesn't need to take the 21 days of oral medication until Abilify Aristada is active and then will not require injection for 6-8 weeks. 01/11/22: Increase abilify to 10mg qd 01/10/22: The patient was admitted to the [facility] ([facility] mental health unit) on q15 min checks (behavioral with suicide precautions) for safety. The patient will participate in group, recreational, and milieu therapies and will be offered additional individual and family sessions as clinically appropriate. -Restart abilify at 5 mg qd and will titrate accordingly -Hold cogentin as she desires simplified medication regimen to improve adherence Mental Health & Subst Abuse Tx Psychiatrist Name of Psychiatrist: Pastora Moses Psychiatrist's Date of Appointment with Psychiatrist: 01/29/22 Time of Appointment with Psychiatrist: 1:30 p.m Psychiatric Appointment Comment: [phone] [place] [id number] Psychiatrist Release of Information: Obtained, Reviewed and Signed Therapist Name of Therapist: Karl discuss to be on waiting list Bulb Inspector Name of Bulb Inspector: Pt declines a need Post Discharge Appointments Primary Care Physician Name Of Family Doctor: Pt declines a need Smoking Cessation Counseling Tobacco Cessation Medication Prescribed at Discharge: Not Applicable/Non-Smoker Contact Information Discharge Discharge [address]: [address] [place] [id number] Discharge Plan Discharge Items Patient Disposition: Home - Self-Care Reason For Visit: MHID Discharge Diagnosis: schizophrenia Activity: Resume your previous activity Non-emergency contact: Primary Care Provider, Psychiatrist and Therapist Call non-emergency contact if: you have any medication questions and your symptoms worsen Follow-up/Referrals: PCP,NO [Primary Care Provider] - Diet: Regular Addtl Attending Provider Instructions: SPECIAL CARE INSTRUCTIONS: 1. Follow through with your scheduled aftercare appointments. If unable to keep an appointment, please call to reschedule. 2. Take your medication only as prescribed. Medication should not be changed or stopped without the approval of your doctor. In the event of worsening symptoms or concerns about side effects, contact your doctor immediately. 3. Utilize new healthy coping skills, anger management skills, and stress management skills learned during your hospitalization. Journal feelings and process them with a support person. Identify stressors or situations that may result in relapse, deterioration or inappropriate behaviors and develop a plan to deal with those issues. 4. If your coping skills are ineffective and you are in crisis, contact your outpatient providers for direction. If unable to reach your providers, please call the [facility] CRISIS LINE AT , go to the [facility] walk-in center at [address], [address], [place], or go to the closest Emergency Room. 5. Avoid alcohol and un-prescribed drugs. 6. You have been provided with the Mental Health Advance Directives Pamphlet for your review. 7. Your condition is stable for discharge to outpatient level of care, but recovery is an ongoing process. Ifthoughts to harm yourself or others return, follow the safety plan developed during your stay. Planning for a safe return home includes securing weapons. Our treatment team recommends weaponsbe removed from the home until your outpatient provider reassesses your progress. In rare cases where the items themselvescannot be removed, guns and ammunitionshould be secured separatelyand keys stored by a reliable personoutside of the home. If you were admitted on an involuntary commitment, the police or other legal authorities may be involved in this process. AFTERCARE APPOINTMENTS: * Please call your insurance company prior to your scheduled appointment to confirm your aftercare providers are covered. Take your insurance information to your appointments. WHO TO CALL AND WHEN: Medical Emergencies: For questions or emergencies related to your hospital stay, please contact the Inpatient Behavioral Health Unit at [phone]. A plate mill mill hand is on-call 31/03 for the Behavioral Health Unit for emergencies At any time you feel your situation is an emergency, you may also call 911 immediately. Pending Studies at Discharge: No Stand-Alone Forms: My [facility], Smoking Cessation Medications and DC Order Prescriptions: New fluoxetine 10 mg Capsule 10 mg PO QAM 30 Days Qty: 30 RF: 0 Aristada 882 mg/3.2 mL suspension,extended rel syring 882 mg IM ONCE Qty: 3.2 RF: 0 Continued hydroxyzine HCl 25 mg tablet 25 mg PO Q4 PRN (Reason: anxiety/sleep) 30 Days Qty: 30 RF: 0 Discontinued benztropine 1 mg tablet 1 mg PO BID RF: 0 aripiprazole 15 mg tablet 15 mg PO DAILY RF: 0 Discharge Orders: Discharge Order (Routine); Ordered 01/16/22 Ordered By: Rosaline Bermudez Admission Data Admit Date/Time: 01/09/22 20:17 Attending Provider: Rosaline Bermudez Admit Provider: Elizabeth Rogers Primary Care Provider: PCP,NO Other Interventions: PSY Interdisciplinary Discharge Planning Last Done: 01/16/22 08:47 Coding Level of Care Code 20805 D/C day mgmt > 30 min Diagnoses Schizophrenia F20.9 Psychosis F28 Psychosis type: other
== END 2022-01-16 10:59 | disposition home or self-care (01) | DRG 885 ==
LOC: ED 15:51 → 3S 20:15 → SUATTDRO 20:17 → 3S 20:17

== ENCOUNTER 2022-01-18 13:32 | Inpatient (IN) ==
[2022-01-18] MEDS ORDERED: NALOXONE HCL 0.4 MG/1 ML VIAL/CARP IV STA (13:41)
[2022-01-18] MEDS ORDERED: SODIUM CHLORIDE 0.9% 1000ML 1,000 ML IV ONE (13:41)
--- NOTE | 2022-01-18 13:45 | Emergency Department Note ---
ED Provider Note HPI: The patient is a 36-year-old female with history of schizophrenia, psychosis, presents emergency department with a chief complaint of altered mental status. Patient was reportedly found in an altered state laying on the sidewalk. She became more alert on EMS arrival, nasal trumpet was placed as the patient was significantly altered and reportedly had a lack of respiratory drive, patient became more alert when this was placed and was saturating well on her own per EMS report. On arrival here to the ED the patient is a difficult historian, she has a flat affect and delayed to no response when asked questions, she does have a history of schizophrenia and psychosis, she is alert and is able to follow simple commands, she is maintaining her airway without issue and is saturating well on room air. She is unable to provide me with any useful history on my initial assessment. 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 On arrival here to the ED patient was medically screened, lab work is unremarkable, EKG shows sinus rhythm, patient remained hemodynamically stable, CT imaging of the head was obtained given that the patient was found down and it was unwitnessed whether or not she fell, this does not show any evidence of intracranial injury. Patient has been mostly incoherent from the standpoint of history here in the ED, she is able to follow commands and ambulates her extremity spontaneously, when I ask her question she often stares off without giving me a response. I feel like her symptoms and presentation today are psychiatric in nature, she adamantly denies any drug use, Narcan was initially ordered but held as the patient became more alert without any interventions. She was moved to the psychiatric holding unit, on my reassessment she tells me when I ask her if she is having any thoughts of hurting herself "I have no reason to live". Patient does tell me she feels like she needs to be admitted for psychiatric evaluation, when I asked her directly she responds "yes". I do have concern that she is not able to take care of herself and she may be suicidal, she has complained of vague suicidal threats with previous presentations and at times incoherently says things such as "I am already ". She is currently under 201 and we will undergo bed search. She has had previous psychiatric admissions. 302 will be petitioned if the patient attempts to leave under her own volition as I do not feel that she is stable to do so. Patient was signed out to my colleague, Dr. Collins, pending bed search and final disposition. Diagnosis: 1. Psychosis 2. Unwitnessed fall/altered mental status 3. Suicidal ideation Disposition: Handoff / 201 Dandre Rodríguez, DO Emergency Medicine Impression & Plan Schizophrenia Past Med/Surg History Medical History Acute periapical abscess Depression Facial cellulitis History of drug overdose Hypokalemia Schizophrenia Sinus tachycardia Suicidal ideation Surgical History No pertinent past surgical history Family History Other Cancer Social History Smoking Status: Never smoker Preferred Language: Tanzanian Communication Ability: Effective Infusion Rn Required: No Beliefs That Will Affect Care: None marital status: Single current occupational status: unemployed Feels Safe at Home: Yes Assistive Devices: None Results & Data (ED) Vital Signs Vital Signs - 24 hr 01/18/22 13:30 01/18/22 13:40 01/18/22 17:12 Temperature 37.0 C 36.8 C Temperature Source Oral Oral Pulse Rate 89 Pulse Rate [Left Finger] 76 Respiratory Rate 19 16 Respiratory Effort / Characteristics Non-Labored Respiratory Depth Normal Normal Blood Pressure 130/92 Blood Pressure [Right Arm] 138/94 Blood Pressure Mean 104 Blood Pressure Mean [Right Arm] 108 Pulse Oximetry 95 95 99 Oxygen Delivery Method Room Air Room Air Sepsis Recent Fever Within 48 Hours No Sepsis New/Unexplained Change in Mental Status N/A Sepsis Action Taken by Nursing No Action Required Laboratory Data Result diagrams: 01/18/22 14:30 01/18/22 14:30 Lab Results 01/18/22 01/18/22 01/18/22 Range/Units 14:13 14:13 14:30 WBC (4.8-10.8) K/uL RBC (4.2-5.4) M/uL Hgb (12.0-16.0) g/dL Hct (37-47) % MCV (80-100) fL MCH (25-34) pg MCHC (32-36) g/dL RDW Std Deviation (36.4-46.3) fL RDW Coeff of Indira (11.5-14.5) % Plt Count (130-400) K/uL MPV (7.4-10.4) fL Immature Gran % (Auto) % Neut % (Auto) % Lymph % (Auto) % Patrick % (Auto) % Eos % (Auto) % Baso % (Auto) % Neut # (Auto) (1.4-6.5) K/uL Lymph # (Auto) (1.2-3.4) K/uL Patrick # (Auto) (0.11-0.59) K/uL Eos # (Auto) (0-0.5) K/uL Baso # (Auto) (0-0.2) K/uL Immature Gran # (Auto) (0.00-0.02) K/uL Sodium (136-145) mmol/L Potassium (3.5-5.1) mmol/L Chloride (98-107) mmol/L Carbon Dioxide (21-32) mmol/L Anion Gap (3-11) BUN (6-23) mg/dl Creatinine (0.6-1.2) mg/dl Est Cr Clr Drug Dosing ml/min Est GFR ( Amer) ml/min Est GFR (Non-Af Amer) ml/min BUN/Creatinine Ratio (10-20) Glucose (70-99(Fasting)) mg/dl Calcium (8.5-10.1) mg/dl Total Bilirubin (0.2-1.0) mg/dl AST (13-39) U/L ALT (7-52) U/L Alkaline Phosphatase (34-104) U/L Troponin I High Sens 2.8 (0-14) pg/ml Total Protein (6.0-8.3) gm/dl Albumin (3.4-5.0) gm/dl Globulin (2.5-4.0) gm/dl Albumin/Globulin Ratio (0.9-2) Lipase (11-82) U/L TSH 1.503 (0.300-4.500) uIu/ml Salicylates < 3.0 L (3.0-30) mg/dl Urine Opiates Screen (Neg) Ur Methadone, Qual (Neg) Acetaminophen < 3 L (10-30) ug/ml Urine Barbiturates (Neg) Ur Phencyclidine (PCP) (Neg) U Amphetamin/Meth Scrn (Neg) MDMA (Ecstasy) Screen (Neg) U Benzodiazepines Scrn (Neg) Ur Cocaine Metabolite (Neg) U Marijuana (THC) Screen (Neg) Ethyl Alcohol mg/dL (<10.0) mg/dl 01/18/22 01/18/22 01/18/22 Range/Units 14:30 14:30 14:39 WBC 9.70 (4.8-10.8) K/uL RBC 4.50 (4.2-5.4) M/uL Hgb 13.4 (12.0-16.0) g/dL Hct 40.1 (37-47) % MCV 89.1 (80-100) fL MCH 29.8 (25-34) pg MCHC 33.4 (32-36) g/dL RDW Std Deviation 40.9 (36.4-46.3) fL RDW Coeff of Indira 12.6 (11.5-14.5) % Plt Count 331 (130-400) K/uL MPV 10.2 (7.4-10.4) fL Immature Gran % (Auto) 0.2 % Neut % (Auto) 67.9 % Lymph % (Auto) 22.2 % Patrick % (Auto) 9.0 % Eos % (Auto) 0.5 % Baso % (Auto) 0.2 % Neut # (Auto) 6.59 H (1.4-6.5) K/uL Lymph # (Auto) 2.15 (1.2-3.4) K/uL Patrick # (Auto) 0.87 H (0.11-0.59) K/uL Eos # (Auto) 0.05 (0-0.5) K/uL Baso # (Auto) 0.02 (0-0.2) K/uL Immature Gran # (Auto) 0.02 (0.00-0.02) K/uL Sodium 139 (136-145) mmol/L Potassium 3.4 L (3.5-5.1) mmol/L Chloride 103 (98-107) mmol/L Carbon Dioxide 24 (21-32) mmol/L Anion Gap 12 H (3-11) BUN 7 (6-23) mg/dl Creatinine 0.75 (0.6-1.2) mg/dl Est Cr Clr Drug Dosing 107.1 ml/min Est GFR ( Amer) 118.9 ml/min Est GFR (Non-Af Amer) 102.5 ml/min BUN/Creatinine Ratio 9.3 L (10-20) Glucose 93 (70-99(Fasting)) mg/dl Calcium 9.4 (8.5-10.1) mg/dl Total Bilirubin 0.6 (0.2-1.0) mg/dl AST 27 (13-39) U/L ALT 40 (7-52) U/L Alkaline Phosphatase 71 (34-104) U/L Troponin I High Sens (0-14) pg/ml Total Protein 7.4 (6.0-8.3) gm/dl Albumin 4.5 (3.4-5.0) gm/dl Globulin 2.9 (2.5-4.0) gm/dl Albumin/Globulin Ratio 1.6 (0.9-2) Lipase 5 L (11-82) U/L TSH (0.300-4.500) uIu/ml Salicylates (3.0-30) mg/dl Urine Opiates Screen (Neg) Ur Methadone, Qual (Neg) Acetaminophen (10-30) ug/ml Urine Barbiturates (Neg) Ur Phencyclidine (PCP) (Neg) U Amphetamin/Meth Scrn (Neg) MDMA (Ecstasy) Screen (Neg) U Benzodiazepines Scrn (Neg) Ur Cocaine Metabolite (Neg) U Marijuana (THC) Screen (Neg) Ethyl Alcohol mg/dL < 10.0 (<10.0) mg/dl 01/18/22 Range/Units 16:19 WBC (4.8-10.8) K/uL RBC (4.2-5.4) M/uL Hgb (12.0-16.0) g/dL Hct (37-47) % MCV (80-100) fL MCH (25-34) pg MCHC (32-36) g/dL RDW Std Deviation (36.4-46.3) fL RDW Coeff of Indira (11.5-14.5) % Plt Count (130-400) K/uL MPV (7.4-10.4) fL Immature Gran % (Auto) % Neut % (Auto) % Lymph % (Auto) % Patrick % (Auto) % Eos % (Auto) % Baso % (Auto) % Neut # (Auto) (1.4-6.5) K/uL Lymph # (Auto) (1.2-3.4) K/uL Patrick # (Auto) (0.11-0.59) K/uL Eos # (Auto) (0-0.5) K/uL Baso # (Auto) (0-0.2) K/uL Immature Gran # (Auto) (0.00-0.02) K/uL Sodium (136-145) mmol/L Potassium (3.5-5.1) mmol/L Chloride (98-107) mmol/L Carbon Dioxide (21-32) mmol/L Anion Gap (3-11) BUN (6-23) mg/dl Creatinine (0.6-1.2) mg/dl Est Cr Clr Drug Dosing ml/min Est GFR ( Amer) ml/min Est GFR (Non-Af Amer) ml/min BUN/Creatinine Ratio (10-20) Glucose (70-99(Fasting)) mg/dl Calcium (8.5-10.1) mg/dl Total Bilirubin (0.2-1.0) mg/dl AST (13-39) U/L ALT (7-52) U/L Alkaline Phosphatase (34-104) U/L Troponin I High Sens (0-14) pg/ml Total Protein (6.0-8.3) gm/dl Albumin (3.4-5.0) gm/dl Globulin (2.5-4.0) gm/dl Albumin/Globulin Ratio (0.9-2) Lipase (11-82) U/L TSH (0.300-4.500) uIu/ml Salicylates (3.0-30) mg/dl Urine Opiates Screen Neg (Neg) Ur Methadone, Qual Neg (Neg) Acetaminophen (10-30) ug/ml Urine Barbiturates Neg (Neg) Ur Phencyclidine (PCP) Neg (Neg) U Amphetamin/Meth Scrn Neg (Neg) MDMA (Ecstasy) Screen Neg (Neg) U Benzodiazepines Scrn Neg (Neg) Ur Cocaine Metabolite Neg (Neg) U Marijuana (THC) Screen Neg (Neg) Ethyl Alcohol mg/dL (<10.0) mg/dl Administered Medications Discontinued Medications Sodium Chloride (Nss 1000ml) 1,000 mls @ 999 mls/hr IV .[id number] ONE Stop: 01/18/22 14:41 Last Infusion: 01/18/22 16:35 Dose: 0 mls/hr Documented by: [id number] Admin: 01/18/22 15:00 Dose: 999 mls/hr Documented by: [id number] Naloxone HCl (Naloxone Hcl 0.4 Mg/1 Ml Vial/Carp) 0.4 mg IV NOW STA Stop: 01/18/22 13:42 Last Admin: 01/18/22 15:27 Dose: Not Given Documented by: [id number] Imaging Data Radiologist's Impression: Chest X-Ray 01/18/22 13:40 XR chest 1V portable CLINICAL HISTORY: Atypical chest pain TECHNIQUE: Single frontal radiograph of the chest was obtained. Comparison: Comparison is made to chest radiograph 12/10/2021 FINDINGS: No lines and tubes are seen. The cardiomediastinal silhouette is normal. The lungs are clear. No evidence of pleural effusion or pneumothorax. IMPRESSION: No acute chest disease. ACT 112: Negative or not required by law. Electronically signed by: Trenton Cagle M.D. 01/18/2022 2:[address] 01/18/22 13:[address] DOSE: 537.48 mGy.cm HISTORY: found down TECHNIQUE: Multiaxial CT images of the head were performed without the use of intravenous contrast. Automated exposure control was utilized for this study. A dose lowering technique was utilized adhering to the principles of ALARA. Comparison: Head CT 02/12/2021. Findings: The paranasal sinuses and mastoid air cells are clear. The calvarium and skull base are intact. Stable prominence of the lateral ventricles.. There is no mass, hematoma, midline shift, or acute infarct. Impression: No significant change compared to the prior study. No acute intracranial abnormality. ACT 112: Negative or not required by law. Electronically signed by: Jakob Cadena M.D. 01/18/2022 2:35 PM Discharge Plan Visit Data Chief Complaint: Unresponsive ED Provider: Dandre Rodríguez Discharge Problem: Schizophrenia Forms Stand Alone Forms: [facility] Prescriptions Prescriptions: No Action fluoxetine 10 mg Capsule 10 mg PO QAM 30 Days Qty: 30 RF: 0 Aristada 882 mg/3.2 mL suspension,extended rel syring 882 mg IM ONCE Qty: 3.2 RF: 0 hydroxyzine HCl 25 mg tablet 25 mg PO Q4 PRN (Reason: anxiety/sleep) 30 Days Qty: 30 RF: 0 Referrals Referrals: PCP,NO [Primary Care Provider] -
--- NOTE | 2022-01-18 14:16 | XRay Report ---
XR chest 1V portable CLINICAL HISTORY: Atypical chest pain TECHNIQUE: Single frontal radiograph of the chest was obtained. Comparison: Comparison is made to chest radiograph 12/10/2021 FINDINGS: No lines and tubes are seen. The cardiomediastinal silhouette is normal. The lungs are clear. No evid ence of pleural effusion or pneumothorax. IMPRESSION: No acute chest disease. ACT 112: Negative or not required by law. Electronically signed by: Trenton Cagle M.D. 01/18/2022 2:15 PM
--- NOTE | 2022-01-18 14:36 | CT Scan Report ---
HEAD CT NONCONTRAST CT DOSE: 537.48 mGy.cm HISTORY: found down TECHNIQUE: Multiaxial CT images of the head were performed without the use of intravenous contrast. A utomated exposure control was utilized for this study. A dose lowering technique was utilized adheri ng to the principles of ALARA. Comparison: Head CT 02/12/2021. Findings: The paranasal sinuses and mastoid air cells are clear. The calvarium and skull base are int act. Stable prominence of the lateral ventricles.. There is no mass, hematoma, midline shift, or acut e infarct. Impression: No significant change compared to the prior study. No acute intracranial abnormality. ACT 112: Negative or not required by law. Electronically signed by: Jakob Cadena M.D. 01/18/2022 2:35 PM
[2022-01-18 14:52] LABS: Basophils # (auto) 0.02 K/uL (0-0.2); Basophils % (auto) 0.2 %; Eosinophils # (auto) 0.05 K/uL (0-0.5); Eosinophils % (auto) 0.5 %; Hematocrit (blood only) 40.1 % (37-47); Hemoglobin 13.4 g/dL (12.0-16.0); Immature Granulocytes # (auto) 0.02 K/uL (0.00-0.02); Immature Granulocytes % (auto) 0.2 %; Lymphocytes # (auto) 2.15 K/uL (1.2-3.4); Lymphocytes % (auto) 22.2 %; Mean Corpuscular Hemoglobin 29.8 pg (25-34); Mean Corpuscular Hgb Conc 33.4 g/dL (32-36); Mean Corpuscular Volume 89.1 fL (80-100); Mean Platelet Volume 10.2 fL (7.4-10.4); Monocytes # (auto) 0.87 K/uL (0.11-0.59); Neutrophils # (auto) 6.59 K/uL (1.4-6.5); Neutrophils % (auto) 67.9 %; Platelet Count 331 K/uL (130-400); RDW Coefficient of Variation 12.6 % (11.5-14.5); RDW Standard Deviation 40.9 fL (36.4-46.3)
[2022-01-18 15:18] LABS: Albumin Globulin Ratio 1.6 (0.9-2); Albumin Level 4.5 gm/dl (3.4-5.0); BUN Creatinine Ratio 9.3 (10-20); Bilirubin,Total 0.6 mg/dl (0.2-1.0); Calcium 9.4 mg/dl (8.5-10.1); Creatinine Clr Calc Pharmacy 107.1 ml/min; Est GFR (African American) 118.9 ml/min; Est GFR (Non-African American) 102.5 ml/min; Globulin 2.9 gm/dl (2.5-4.0); Potassium 3.4 mmol/L (3.5-5.1); Total Protein 7.4 gm/dl (6.0-8.3)
[2022-01-18 15:42] LABS: Acetaminophen < 3 ug/ml (10-30); Salicylate < 3.0 mg/dl (3.0-30)
[2022-01-18 17:12] LABS: Amphetamines+Metham, Urine Neg (Neg); Barbiturates, Urine Neg (Neg); Benzodiazepine, Urine Neg (Neg); Cocaine, Urine Neg (Neg); MDMA (Ecstacy), Urine Neg (Neg); Methadone, Urine Neg (Neg); Opiate, Urine Neg (Neg); Phencyclidine, Urine Neg (Neg)
--- NOTE | 2022-01-18 18:36 | Emergency Department Note ---
ED Visit Note This fit patient was signed out to me at shift change by Dr. Rodríguez. At that point the patient had been medically cleared and was awaiting psychiatric evaluation and placement. She was just in the hospital and discharged 2 days ago she is currently psychotic. She was evaluated by [facility] who do know her well and they will be admitting her for further inpatient treatment and evaluation. .
[2022-01-18] MEDS ORDERED: ALUMINUM/MAGNESIUM SUSP 30 ML UDC PO PRN (20:37)
[2022-01-18] MEDS ORDERED: MAGNESIUM HYDROXIDE SUSP 30 ML UDC PO PRN (20:37)
[2022-01-18] MEDS ORDERED: SODIUM CHLORIDE 0.65% NA SOLN 45 ML (OCEAN) PRN (20:37)
[2022-01-18] MEDS ORDERED: ACETAMINOPHEN 325 MG TAB PO PRN (20:37)
[2022-01-18] MEDS ORDERED: BISMUTH SUBSALICYLATE LIQD 236 ML PO PRN (20:37)
[2022-01-18] MEDS ORDERED: hydrOXYzine HCl 25 MG TAB PO PRN (20:37)
--- NOTE | 2022-01-18 22:45 | Electrocardiogram Report ---
Test Reason : Blood Pressure : / mmHG Vent. Rate : 088 BPM Atrial Rate : 088 BPM P-R Int : 132 ms QRS Dur : 084 ms QT Int : 402 ms P-R-T Axes : 038 046 010 degrees QTc Int : 486 ms Normal sinus rhythm Prolonged QT Abnormal ECG When compared with ECG of 10-DEC-2021 16:18, Limb lead reversal is no longer Present T wave inversion less evident in Inferior leads Nonspecific T wave abnormality no longer evident in Anterolateral leads Confirmed by Eugene Farfan ([id number]) on 01/18/2022 10:45:07 PM Referred By: Confirmed By:Eugene Farfan
[2022-01-18] MEDS: hydrOXYzine HCl 25 MG TAB PO PRN (23:40)
[2022-01-19] MEDS ORDERED: FLUoxetine HCL 10 MG CAP PO SCH (09:00)
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
[2022-01-19] MEDS ORDERED: ARIPiprazole 5 MG TAB PO PRN (15:06)
[2022-01-20] MEDS: SERTRALINE HCL 50 MG TABLET PO SCH (08:35)
--- NOTE | 2022-01-20 09:06 | Psychiatric Progress Note ---
Date of Service January 20, 2022 Impression / Recommendations Impression The patient is a 36 year old with a history of schizophrenia vs schizoaffective disorder who was admitted for episode of unresponsiveness and SI with with worsening depression after recent discharge. Seems it may be related to difficulty tolerating transition back home versus worsening disorganization with SI. Diagnostically felt to be most consistent with schizophrenia with depression. She's tolerating recent Abilify CONCEPCION. The patient is deemed unstable and requires psychiatric hospitalization for diagnostic clarification, safety and stabilization, medication management and development of further coping skills. MNPR due to delusions and paranoia and disorganization leading to periods of disrobing historically, not appropriate for roommate 01/20/22: ongoing psychosis with delusions but more organized and appropriate than prior admissions. Ongoing depression but tolerating initiation of sertraline. (1) Schizophrenia: (2) Major depression, recurrent: 01/20/22: Continue current meds and tx plan 01/19/22: The patient was admitted to the [facility] ([facility]) on q15 min checks (behavioral with suicide precautions) for safety. The patient will participate in group, recreational, and milieu therapies and will be offered additional individual and family sessions as clinically appropriate. -Stop fluoxetine -Start sertraline 25mg qd -Abilify 5 mg BID prn for agitation Inventory Assets Strengths: willing to seek voluntary treatment, has outpatient psychiatric services, willing to take medication, has housing, supportive family Needs: additional outpatient supports, stabilization Suicide Risk Level Suicide Risk Level: High (q15 min suicide checks) Suicide Risk Level Comments: Acute risk is high given depressed mood, possible self-harm event leading to fall, and ongoing intermittent SI with thoughts of falling to hurt herself but also feels safe here and able to safety contract and no cAH Risk Factors Assessment : Yes Do You Have Access To A Gun?: No Mental Health Diagnoses: Yes Previous Attempt: Yes Previous Psychiatric Hospitalization: Yes Hopelessness: Yes Protective Factors Assessment Employed: No Stable Relationships: No Supportive Family: Yes Good Rapport with Provider: Yes Interval History Identifying Information LISA THAYER is a 36-year-old woman who currently lives in [place] alone, has a history of schizophrenia vs schizoaffective disorder, and was admitted on 01/18/22 20:37 on a 201 voluntary commitment for SI and disorganized behavior. Chief Complaint "I'm ok". Review of Systems Sleep Information Total Hours of Sleep: 7.5 Meal Information Percent Meal Consumed - Breakfast: 100 Percent Meal Consumed - Lunch: 100 Percent Meal Consumed - Dinner: 100 Subjective Subjective Patient was seen & assessed and interval progress reviewed with treatment team nursing and social work. Continues to have and respond to internal stimuli. Endorses some periods of sadness. 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 Still focused on themes of love. Reports some lessening of SI since being in the hospital. Denies any side effects from sertraline. No episodes of falling or self-harm yesterday or today. Physical Exam Psychiatric Orientation: alert and oriented x 3 Apperance: appropriately dressed and + disheveled Eye Contact: + fair eye contact Motor Behavior: steady gait and station and no abnormal motor movements; n EPS and n tremor Speech: normal rate/rhythm/volume of speech Affect: + flat affect (but also with periods of inappropriate smiling ) Mood: + depressed mood Thought Process: + tangential thought process Thought Content: + delusions, + ideas of reference and + loneliness Suicidal Thoughts: denies suicidal plan and denies suicidal intent; + reports suicidal thoughts (Intermittent SI ) Homicidal Thoughts: denies homicidal thoughts Hallucinations: + auditory hallucinations; no visual hallucinations Cognition: recent memory grossly intact, remote memory grossly intact, attention grossly intact and language grossly intact Insight: + limited insight Judgement: + limited judgement Vital Signs (Past 24 Hours) Last Vital Signs Temp 37.0 C 01/20/22 06:47 Pulse 96 H 01/20/22 06:49 Resp 18 01/20/22 06:47 BP 131/99 01/20/22 06:49 Pulse Ox 98 01/18/22 21:27 Results & Data ([facility]) Current Inpatient Medications Current Inpatient Medications: Current Inpatient Medications Acetaminophen (Acetaminophen 325 Mg Tab) 650 mg PO Q4H PRN PRN Reason: Headache or Minor Fever Stop: 02/17/22 20:36 Last Admin: 01/18/22 21:54 Dose: 650 mg Documented by: Al Hydrox/Mg Hydrox/Simethicone (Aluminum/Magnesium Susp 30 Ml Udc) 30 ml PO Q4H PRN PRN Reason: GI Upset Stop: 02/17/22 20:36 Aripiprazole (Aripiprazole 5 Mg Tab) 5 mg PO BID PRN PRN Reason: Agitation Stop: 02/18/22 20:59 Bismuth Subsalicylate (Bismuth Subsalicylate Liqd 236 Ml) 15 ml PO PRN PRN PRN Reason: Loose Stool Stop: 02/17/22 20:36 Hydroxyzine HCl (Hydroxyzine Hcl 25 Mg Tab) 50 mg PO HSZ PRN PRN Reason: Insomnia Stop: 02/17/22 20:36 Last Admin: 01/18/22 23:40 Dose: 50 mg Documented by: Hydroxyzine HCl (Hydroxyzine Hcl 25 Mg Tab) 25 mg PO Q4H PRN PRN Reason: Anxiety Stop: 02/17/22 20:36 Magnesium Hydroxide (Magnesium Hydroxide Susp 30 Ml Udc) 30 ml PO DAILY PRN PRN Reason: Constipation Stop: 02/17/22 20:36 Sertraline HCl (Sertraline Hcl 50 Mg Tablet) 25 mg PO QAM SUZY Stop: 02/19/22 08:59 Last Admin: 01/20/22 08:35 Dose: 25 mg Documented by: Sodium Chloride (Sodium Chloride 0.65% Na Soln 45 Ml (Posey)) 1 - 2 sprays NA PRN PRN PRN Reason: Nasal Dryness/Congestion Stop: 02/17/22 20:36 Mental Health & Subst Abuse Tx Psychiatrist Name of Psychiatrist: Pastora Boo Psychiatrist's Date of Appointment with Psychiatrist: 01/29/22 Time of Appointment with Psychiatrist: 1:30 p.m. Psychiatric Appointment Comment: [id number] PA Therapist Name of Therapist: Pastora Kwong On waitlist Retail Merchandising Coordinator Name of Retail Merchandising Coordinator: Pt is declining Post Discharge Appointments Primary Care Physician Name Of Family Doctor: Ronny Primary Care Provider Appointment Comment: [facility] Contact Information Discharge Discharge Address: [address], [place] [address], [place] [id number]
[2022-01-21] MEDS: hydrOXYzine HCl 25 MG TAB PO PRN ×2 (01:05→21:52)
--- NOTE | 2022-01-21 08:34 | Psychiatric Progress Note ---
Date of Service January 21, 2022 Impression / Recommendations Impression The patient is a 36 year old with a history of schizophrenia vs schizoaffective disorder who was admitted for episode of unresponsiveness and SI with with worsening depression after recent discharge. Seems it may be related to difficulty tolerating transition back home versus worsening disorganization with SI. Diagnostically felt to be most consistent with schizophrenia with depression. She's tolerating recent Abilify CONCEPCION. The patient is deemed unstable and requires psychiatric hospitalization for diagnostic clarification, safety and stabilization, medication management and development of further coping skills. MNPR due to delusions and paranoia and disorganization leading to periods of disrobing historically, not appropriate for roommate 01/21/22: ongoing psychosis with delusions but more organized and appropriate than prior admissions. Ongoing depression but tolerating sertraline, intermittent SI, had SI last night but improved mood this morning. Agreed to case management referral. Consents to dose titration of sertraline. (1) Schizophrenia: (2) Major depression, recurrent: 01/21/22: Increase sertraline to 50mg qd tomorrow. 01/20/22: Continue current meds and tx plan 01/19/22: The patient was admitted to the [facility] ([facility] inpatient mental health unit) on q15 min checks (behavioral with suicide precautions) for safety. The patient will participate in group, recreational, and milieu therapies and will be offered additional individual and family sessions as clinically appropriate. -Stop fluoxetine -Start sertraline 25mg qd -Abilify 5 mg BID prn for agitation Inventory Assets Strengths: willing to seek voluntary treatment, has outpatient psychiatric services, willing to take medication, has housing, supportive family Needs: additional outpatient supports, stabilization Suicide Risk Level Suicide Risk Level: High (q15 min suicide checks) Suicide Risk Level Comments: Acute risk is high given depressed mood, possible self-harm event leading to fall, and ongoing intermittent SI with thoughts of falling to hurt herself but also feels safe here and able to safety contract and no cAH Risk Factors Assessment : Yes Do You Have Access To A Gun?: No Mental Health Diagnoses: Yes Previous Attempt: Yes Previous Psychiatric Hospitalization: Yes Hopelessness: Yes Protective Factors Assessment Employed: No Stable Relationships: No Supportive Family: Yes Good Rapport with Provider: Yes Interval History Identifying Information DENISE THAYER is a 36-year-old woman who currently lives in [place] alone, has a history of schizophrenia vs schizoaffective disorder, and was admitted on 01/18/22 20:37 on a 201 voluntary commitment for SI and disorganized behavior. Chief Complaint "fine". Review of Systems Sleep Information Total Hours of Sleep: 6 Meal Information Percent Meal Consumed - Breakfast: 100 Percent Meal Consumed - Lunch: 100 Percent Meal Consumed - Dinner: 100 Subjective Subjective Patient was seen & assessed and interval progress reviewed with treatment team nursing and social work. Last night in community meeting stated her goal was "to kill myself" but was then able to state she could remain safe and was cheerful while speaking to her brother on the phone a bit later. Focused on sertraline and hoping it will help her mood. Today reports her mood is "fine" though remains perseverative about the sertraline. She denies any side effects. Agrees to case packer referral. Wants to increase the sertraline dose. Took Vistaril prn last night which helped with insomnia. Denies current SI. Was unaware of EKG stickers from arrival in ED still being on her stomach, this provider noticed them while she was stretching and after pointing them out Denise remained unconcerned and apparently unbothered by their presence. Recommended she remove these or ask for nursing assistance if needed to avoid skin breakdown or rash. Physical Exam Psychiatric Orientation: alert and oriented x 3 Apperance: appropriately dressed and + disheveled Eye Contact: + fair eye contact Motor Behavior: steady gait and station and no abnormal motor movements; n EPS and n tremor Speech: normal rate/rhythm/volume of speech Affect: + flat affect (but also with periods of inappropriate smiling ) Mood: + depressed mood Thought Process: + tangential thought process Thought Content: + delusions, + ideas of reference and + loneliness Suicidal Thoughts: denies suicidal plan and denies suicidal intent; + reports suicidal thoughts (Intermittent SI ) Homicidal Thoughts: denies homicidal thoughts Hallucinations: + auditory hallucinations; no visual hallucinations Cognition: recent memory grossly intact, remote memory grossly intact, attention grossly intact and language grossly intact Insight: + limited insight Judgement: + limited judgement Vital Signs (Past 24 Hours) Last Vital Signs Temp 36.9 C 01/21/22 06:40 Pulse 103 H 01/21/22 06:42 Resp 18 01/21/22 06:40 BP 133/88 01/21/22 06:42 Pulse Ox 98 01/18/22 21:27 Results & Data ([facility]) Current Inpatient Medications Current Inpatient Medications: Current Inpatient Medications Acetaminophen (Acetaminophen 325 Mg Tab) 650 mg PO Q4H PRN PRN Reason: Headache or Minor Fever Stop: 02/17/22 20:36 Last Admin: 01/18/22 21:54 Dose: 650 mg Documented by: Al Hydrox/Mg Hydrox/Simethicone (Aluminum/Magnesium Susp 30 Ml Udc) 30 ml PO Q4H PRN PRN Reason: GI Upset Stop: 02/17/22 20:36 Aripiprazole (Aripiprazole 5 Mg Tab) 5 mg PO BID PRN PRN Reason: Agitation Stop: 02/18/22 20:59 Bismuth Subsalicylate (Bismuth Subsalicylate Liqd 236 Ml) 15 ml PO PRN PRN PRN Reason: Loose Stool Stop: 02/17/22 20:36 Hydroxyzine HCl (Hydroxyzine Hcl 25 Mg Tab) 50 mg PO HSZ PRN PRN Reason: Insomnia Stop: 02/17/22 20:36 Last Admin: 01/21/22 01:05 Dose: 50 mg Documented by: Hydroxyzine HCl (Hydroxyzine Hcl 25 Mg Tab) 25 mg PO Q4H PRN PRN Reason: Anxiety Stop: 02/17/22 20:36 Magnesium Hydroxide (Magnesium Hydroxide Susp 30 Ml Udc) 30 ml PO DAILY PRN PRN Reason: Constipation Stop: 02/17/22 20:36 Sertraline HCl (Sertraline Hcl 50 Mg Tablet) 25 mg PO QAM SUZY Stop: 02/19/22 08:59 Last Admin: 01/20/22 08:35 Dose: 25 mg Documented by: Sodium Chloride (Sodium Chloride 0.65% Na Soln 45 Ml ([place])) 1 - 2 sprays NA PRN PRN PRN Reason: Nasal Dryness/Congestion Stop: 02/17/22 20:36 Mental Health & Subst Abuse Tx Psychiatrist Name of Psychiatrist: Pastora Boo Psychiatrist's Date of Appointment with Psychiatrist: 01/29/22 Time of Appointment with Psychiatrist: 1:30 p.m. Psychiatric Appointment Comment: [phone] Therapist Name of Therapist: Judyar - On waitlist Seals Engraver Name of Seals Engraver: Pt is declining Post Discharge Appointments Primary Care Physician Name Of Family Doctor: Ronny Primary Care [facility] [address] [facility] Contact Information Discharge Discharge Address: [address] [place] [address], [place] [id number], [place] [address]
[2022-01-21] MEDS: SERTRALINE HCL 50 MG TABLET PO SCH (08:37)
--- NOTE | 2022-01-22 08:49 | Psychiatric Progress Note ---
Date of Service January 22, 2022 Impression / Recommendations Impression The patient is a 36 year old with a history of schizophrenia vs schizoaffective disorder who was admitted for episode of unresponsiveness and SI with with worsening depression after recent discharge. Seems it may be related to difficulty tolerating transition back home versus worsening disorganization with SI. Diagnostically felt to be most consistent with schizophrenia with depression. She's tolerating recent Abilify CONCEPCION. The patient is deemed unstable and requires psychiatric hospitalization for diagnostic clarification, safety and stabilization, medication management and development of further coping skills. MNPR due to delusions and paranoia and disorganization leading to periods of disrobing historically, not appropriate for roommate 01/22/22: ongoing psychosis with delusions but more organized and appropriate than prior admissions though still with periods of bizarre behaviors and disheveled. Ongoing depression but tolerating sertraline titration, intermittent SI but denies so far today. Could not tolerate phone call to establish case management services. (1) Schizophrenia: (2) Major depression, recurrent: 01/22/22: Continue with sertraline 50mg qd and other current medications and tx plan. 01/21/22: Increase sertraline to 50mg qd tomorrow. 01/20/22: Continue current meds and tx plan 01/19/22: The patient was admitted to the [facility] ([facility] mental health unit) on q15 min checks (behavioral with suicide precautions) for safety. The patient will participate in group, recreational, and milieu therapies and will be offered additional individual and family sessions as clinically appropriate. -Stop fluoxetine -Start sertraline 25mg qd -Abilify 5 mg BID prn for agitation -Received abilify Initio and Aristada CONCEPCION on 01/13/22. Inventory Assets Strengths: willing to seek voluntary treatment, has outpatient psychiatric services, willing to take medication, has housing, supportive family Needs: additional outpatient supports, stabilization Suicide Risk Level Suicide Risk Level: Moderate (q15 min suicide checks) Suicide Risk Level Comments: Acute risk is moderate given some improvement in mood but with suspected self- harm event leading to fall prior to admission, and ongoing intermittent SI with thoughts of falling to hurt herself but also feels safe here and able to safety contract and no cAH Risk Factors Assessment : Yes Do You Have Access To A Gun?: No Mental Health Diagnoses: Yes Previous Attempt: Yes Previous Psychiatric Hospitalization: Yes Hopelessness: Yes Protective Factors Assessment Employed: No Stable Relationships: No Supportive Family: Yes Good Rapport with Provider: Yes Interval History Identifying Information LISA THAYER is a 36-year-old woman who currently lives in [place] alone, has a history of schizophrenia vs schizoaffective disorder, and was admitted on 01/18/22 20:37 on a 201 voluntary commitment for SI and disorganized behavior. Chief Complaint "I'm ok". Review of Systems Sleep Information Total Hours of Sleep: 8.25 Meal Information Percent Meal Consumed - Breakfast: 100 Percent Meal Consumed - Lunch: 100 Percent Meal Consumed - Dinner: 100 Subjective Subjective Patient was seen & assessed and interval progress reviewed with treatment team nursing and social work. Agreeable to call with [facility] today for case management intake but then hang up after about 2 minutes into the call as she became frustrated to learn that the male medical case worker had a waitlist and she was upset by suggestion of considering a male medical case worker through [facility] case management. Reports her mood is "ok" and denies SI today. No side effects so far from the sertraline dose increase this morning. Discussed her belief that she is engaged but doesn't know who gave her the ring on her finger but hopes "I will find him again soon". Physical Exam Psychiatric Orientation: alert and oriented x 3 Apperance: appropriately dressed and + disheveled Eye Contact: + fair eye contact Motor Behavior: steady gait and station and no abnormal motor movements; n EPS and n tremor Speech: normal rate/rhythm/volume of speech Affect: + flat affect (but also with periods of inappropriate smiling ) Mood: + depressed mood Thought Process: + tangential thought process Thought Content: + delusions, + ideas of reference and + loneliness Suicidal Thoughts: denies suicidal thoughts Homicidal Thoughts: denies homicidal thoughts Hallucinations: + auditory hallucinations; no visual hallucinations Cognition: recent memory grossly intact, remote memory grossly intact, attention grossly intact and language grossly intact Insight: + limited insight Judgement: + limited judgement Vital Signs (Past 24 Hours) Last Vital Signs Temp 36.8 C 01/22/22 06:47 Pulse 94 H 01/22/22 06:48 Resp 18 01/22/22 06:47 BP 131/93 01/22/22 06:48 Pulse Ox 98 01/18/22 21:27 Results & Data ([facility]) Current Inpatient Medications Current Inpatient Medications: Current Inpatient Medications Acetaminophen (Acetaminophen 325 Mg Tab) 650 mg PO Q4H PRN PRN Reason: Headache or Minor Fever Stop: 02/17/22 20:36 Last Admin: 01/18/22 21:54 Dose: 650 mg Documented by: Al Hydrox/Mg Hydrox/Simethicone (Aluminum/Magnesium Susp 30 Ml Udc) 30 ml PO Q4H PRN PRN Reason: GI Upset Stop: 02/17/22 20:36 Aripiprazole (Aripiprazole 5 Mg Tab) 5 mg PO BID PRN PRN Reason: Agitation Stop: 02/18/22 20:59 Bismuth Subsalicylate (Bismuth Subsalicylate Liqd 236 Ml) 15 ml PO PRN PRN PRN Reason: Loose Stool Stop: 02/17/22 20:36 Hydroxyzine HCl (Hydroxyzine Hcl 25 Mg Tab) 50 mg PO HSZ PRN PRN Reason: Insomnia Stop: 02/17/22 20:36 Last Admin: 01/21/22 21:52 Dose: 50 mg Documented by: Hydroxyzine HCl (Hydroxyzine Hcl 25 Mg Tab) 25 mg PO Q4H PRN PRN Reason: Anxiety Stop: 02/17/22 20:36 Magnesium Hydroxide (Magnesium Hydroxide Susp 30 Ml Udc) 30 ml PO DAILY PRN PRN Reason: Constipation Stop: 02/17/22 20:36 Sertraline HCl (Sertraline Hcl 50 Mg Tablet) 50 mg PO QAM SUZY Stop: 02/21/22 08:59 Sodium Chloride (Sodium Chloride 0.65% Na Soln 45 Ml ([place])) 1 - 2 sprays NA PRN PRN PRN Reason: Nasal Dryness/Congestion Stop: 02/17/22 20:36 Mental Health & Subst Abuse Tx Psychiatrist Name of Psychiatrist: Pastora Boo Psychiatrist's Date of Appointment with Psychiatrist: 01/29/22 Time of Appointment with Psychiatrist: 1:30 p.m. Psychiatric Appointment Comment: [phone] Therapist Name of Therapist: Pastora Kwong On waitlist Copy And Print Associate Name of Copy And Print Associate: Pt is declining Post Discharge Appointments Primary Care Physician Name Of Family Doctor: Ronny Primary Care Provider Appointment Comment: [address] [facility] Contact Information Discharge Discharge Address: [address], [address], [place] [address]
[2022-01-22] MEDS: SERTRALINE HCL 50 MG TABLET PO SCH (09:50)
[2022-01-22] MEDS: hydrOXYzine HCl 25 MG TAB PO PRN (21:31)
[2022-01-23] MEDS: SERTRALINE HCL 50 MG TABLET PO SCH (08:42)
--- NOTE | 2022-01-23 08:55 | Psychiatric Progress Note ---
Date of Service January 23, 2022 Impression / Recommendations Impression The patient is a 36 year old with a history of schizophrenia vs schizoaffective disorder who was admitted for episode of unresponsiveness and SI with with worsening depression after recent discharge. Seems it may be related to difficulty tolerating transition back home versus worsening disorganization with SI. Diagnostically felt to be most consistent with schizophrenia with depression. She's tolerating recent Abilify CONCEPCION. The patient is deemed unstable and requires psychiatric hospitalization for diagnostic clarification, safety and stabilization, medication management and development of further coping skills. MNPR due to delusions and paranoia and disorganization leading to periods of disrobing historically, not appropriate for roommate 01/23/22: steady improvement in psychosis, more organized and pleasant. Denies SI and tolerating sertraline. Participating well with groups. Fixated on a specific male staff member. (1) Schizophrenia: (2) Major depression, recurrent: 01/23/22: Continue current medications and tx plan. 01/22/22: Continue with sertraline 50mg qd and other current medications and tx plan. 01/21/22: Increase sertraline to 50mg qd tomorrow. 01/20/22: Continue current meds and tx plan 01/19/22: The patient was admitted to the [facility] ([facility] mental health unit) on q15 min checks (behavioral with suicide precautions) for safety. The patient will participate in group, recreational, and milieu therapies and will be offered additional individual and family sessions as clinically appropriate. -Stop fluoxetine -Start sertraline 25mg qd -Abilify 5 mg BID prn for agitation -Received abilify Initio and Aristada CONCEPCION on 01/13/22. Inventory Assets Strengths: willing to seek voluntary treatment, has outpatient psychiatric services, willing to take medication, has housing, supportive family Needs: additional outpatient supports, stabilization Suicide Risk Level Suicide Risk Level: Moderate (q15 min suicide checks) Suicide Risk Level Comments: Acute risk is moderate given some improvement in mood but with suspected self- harm event leading to fall prior to admission, and recent intermittent SI with thoughts of falling to hurt herself but also feels safe here, is denying current SI and able to safety contract and no cAH Risk Factors Assessment : Yes Do You Have Access To A Gun?: No Mental Health Diagnoses: Yes Previous Attempt: Yes Previous Psychiatric Hospitalization: Yes Hopelessness: Yes Protective Factors Assessment Employed: No Stable Relationships: No Supportive Family: Yes Good Rapport with Provider: Yes Interval History Identifying Information LISA THAYER is a 36-year-old woman who currently lives in [place] alone, has a history of schizophrenia vs schizoaffective disorder, and was admitted on 20:37 on a 201 voluntary commitment for SI and disorganized behavior. Chief Complaint "I'm ok". Review of Systems Sleep Information Total Hours of Sleep: 7.75 Meal Information Percent Meal Consumed - Breakfast: 100 Percent Meal Consumed - Lunch: 100 Percent Meal Consumed - Dinner: 100 Subjective Subjective Patient was seen & assessed and interval progress reviewed with treatment team nursing and social work. 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 Fixation on a male staff member and wrote a note stating "if you can't see him, wear him". No SI. No side effects from sertraline or recent abilify CONCEPCION. States her mood is "ok" and feels tired today. Denies sleep issues, states she slept well with Vistaril prn. States her goal today is to "feel better". Reviewed that her cat is at home but she states he has plenty of food. Physical Exam Psychiatric Orientation: alert and oriented x 3 Apperance: appropriately dressed and + disheveled Eye Contact: + fair eye contact Motor Behavior: steady gait and station and no abnormal motor movements; n EPS and n tremor Speech: normal rate/rhythm/volume of speech Affect: + flat affect (but also with periods of smiling ) Mood: + depressed mood Thought Process: + tangential thought process Thought Content: + delusions Suicidal Thoughts: denies suicidal thoughts Homicidal Thoughts: denies homicidal thoughts Hallucinations: + auditory hallucinations; no visual hallucinations Cognition: recent memory grossly intact, remote memory grossly intact, attention grossly intact and language grossly intact Insight: + limited insight Judgement: + limited judgement Vital Signs (Past 24 Hours) Last Vital Signs Temp 37.0 C 01/23/22 06:37 Pulse 99 H 01/23/22 06:38 Resp 16 01/23/22 06:37 BP 122/90 01/23/22 06:38 Pulse Ox 98 01/18/22 21:27 Results & Data ([facility]) Current Inpatient Medications Current Inpatient Medications: Current Inpatient Medications Acetaminophen (Acetaminophen 325 Mg Tab) 650 mg PO Q4H PRN PRN Reason: Headache or Minor Fever Stop: 02/17/22 20:36 Last Admin: 01/18/22 21:54 Dose: 650 mg Documented by: Al Hydrox/Mg Hydrox/Simethicone (Aluminum/Magnesium Susp 30 Ml Udc) 30 ml PO Q4H PRN PRN Reason: GI Upset Stop: 02/17/22 20:36 Aripiprazole (Aripiprazole 5 Mg Tab) 5 mg PO BID PRN PRN Reason: Agitation Stop: 02/18/22 20:59 Bismuth Subsalicylate (Bismuth Subsalicylate Liqd 236 Ml) 15 ml PO PRN PRN PRN Reason: Loose Stool Stop: 02/17/22 20:36 Hydroxyzine HCl (Hydroxyzine Hcl 25 Mg Tab) 50 mg PO HSZ PRN PRN Reason: Insomnia Stop: 02/17/22 20:36 Last Admin: 01/22/22 21:31 Dose: 50 mg Documented by: Hydroxyzine HCl (Hydroxyzine Hcl 25 Mg Tab) 25 mg PO Q4H PRN PRN Reason: Anxiety Stop: 02/17/22 20:36 Magnesium Hydroxide (Magnesium Hydroxide Susp 30 Ml Udc) 30 ml PO DAILY PRN PRN Reason: Constipation Stop: 02/17/22 20:36 Sertraline HCl (Sertraline Hcl 50 Mg Tablet) 50 mg PO QAM SUZY Stop: 02/21/22 08:59 Last Admin: 01/23/22 08:42 Dose: 50 mg Documented by: Sodium Chloride (Sodium Chloride 0.65% Na Soln 45 Ml ([place])) 1 - 2 sprays NA PRN PRN PRN Reason: Nasal Dryness/Congestion Stop: 02/17/22 20:36 Mental Health & Subst Abuse Tx Psychiatrist Name of Psychiatrist: Pastora Boo Psychiatrist's Date of Appointment with Psychiatrist: 01/29/22 Time of Appointment with Psychiatrist: 1:30 p.m. Psychiatric Appointment Comment: [phone] PA Therapist Name of Therapist: Pastora Kwong On waitlist Power Originator Name of Power Originator: Pt is declining Post Discharge Appointments Primary Care Physician Name Of Family Doctor: Ronny Primary Care Provider Appointment Comment: [address], [place] Contact Information Discharge Discharge Address: [address] [facility] [facility] [facility] [address], [place] [address]
[2022-01-23] MEDS: hydrOXYzine HCl 25 MG TAB PO PRN (22:01)
[2022-01-24] MEDS: SERTRALINE HCL 50 MG TABLET PO SCH (08:36)
--- NOTE | 2022-01-24 09:16 | Discharge Summary ---
Date of Service January 24, 2022 History of Present Illness Denise presents for her third inpatient psychiatric admission in recent months after recent discharge on 01/16/2022. She is well known to me from her three prior recent inpatient admissions (January 11-2021, December 2021, Sep 2021) though this time presented after she was found by EMS appearing to be unresponsiveness on the sidewalk leading them to bring her to the ED. She had a thorough medical workup in the ED including negative UDS and normal head CT and rather noted worsening depression and SI. She has consistently denied that event of unresponsiveness was due to any type of ingestion, suicide attempt nor self- harm. Rather today she tells me that "I fell" and that "it was an accident" though notably told the adult family home program manager that her SI was associated with a plan to "fall" from standing height onto the ground so unclear if she may have intentionally fallen to the ground. She states her auditory hallucinations have "toned down a little bit" and denies any command AH nor any specific statements the voices have made. She endorses depressed mood with periods of SI though feels safe in the hospital. Has difficulty describing specific depression symptoms but states she felt "full of sadness" after her recent discharge. 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 Though she is eager to switch to Zoloft asking if she can switch to this which she had been discussing on the day of discharge on 01/16/22. She denies any side effects from her recent Abilify CONCEPCION-recieved Initio and Aristada on 01/13/22. Denies any balance changes nor dizziness nor any history of episodes of unresponsiveness/LOC like what occurred yesterday. Physical Exam Vital Signs (Past 24 Hours) Last Vital Signs Temp 36.8 C 01/24/22 06:40 Pulse 109 H 01/24/22 06:41 Resp 16 01/24/22 06:40 BP 143/89 H 01/24/22 06:41 Pulse Ox 98 01/18/22 21:27 See admission H&P and DOD summary. Principal Diagnosis Schizophrenia Psychiatric Data See daily stay summary. In short, patient was engaged with the social/therapeutic milieu of the unit and more pleasant and appropriate than during previous admissions though she did become quite fixated on a particular male staff member and made inappropriate sexual-themed comments toward him at times. Safety was maintained and the patient was cooperative with care. Medication changes included discontinuation of fluoxetine and titration of sertraline and they tolerated this well. She continued to tolerate her recent CONCEPCION abiliy injections: Abilify Initio and Aristada 882 mg on 01/13/22 without any side effects. Attempts were made to set her up with outpatient case management but ultimately she refused this after hanging up during the intake with [facility] and declined any further attempts to set this up. She revised her previous safety plan prior to discharge. In the days leading up to discharge she consistently denied any SI and did not engage in any self-harm behaviors nor any episodes of falling. She participated in safety planning and in discussions about ways to seek support and recognizing warning signs and utilizing coping skills. Symptoms of psychosis lessened significantly during this hospitalization and she was able to maintain pleasant interactions with fewer delusions and lessening of auditory hallucinations. Reviewed importance of seeking emergency care should SI intensify, worsen or should they feel unsafe in the future which they agree to do. On the day of discharge she stated her mood was "good" and remained future-oriented including spending time with her cat Lilian, calling her brothers, being at her apartment and having meals at the [employer] and engaging in aftercare appointments for psychiatry. Day of Discharge Assessment Today the patient voices readiness for discharge. They note improvement in mood. They deny thoughts of harm to self or others. Thoughts are concrete but organized and they are clinically improved from admission. There is no evidence of acute psychosis and she denies auditory hallucinations today but she does have a history of chronic auditory hallucinations and some delusions regarding having a fashion line which are unchanged and chronic in nature. They improved in the hospital with support and medication adjustments. They agree to take medications as prescribed and keep follow-up appointments. At the time of the discharge they are deemed to be stable and appropriate for outpatient level of care. They are not deemed to be at imminent risk of harm to self or others. They are aware of emergency and crisis services. Knows to call 911 or go to nearest emergency care center if in a crisis which cannot be handled as an outpatient. Transition of Care Transition Of Care Record: was reviewed with the patient Advance Directives Advance Directives Information Provided: Yes Advance Directives: No Mental Health Advance Directive: No Advance Directives on File: No Living Will: No Power of Paper Maker: No Advance Directives Reason:: Declines as Mental Health Visit. Suicide Risk Level Suicide Risk Level Comments: Acute risk is low given improvement in mood and denial of SI, lack of access to lethal means, improvement in sleep, hopefulness and improvement in psychosis. Chronic risk is moderate given psychiatric co-morbid diagnoses, periods of impulsivity, prior attempt, hx self-harm, prior psychiatric hospitalizations, poor social support, mood disorder, schizophrenia but also with protective factors. Counseled on ways to reduce acute and chronic risk including engaging with outpatient providers, using safety plan if needed, utilizing her supports including talking to her brothers, taking medication, and using coping skills. Modifiable risk factors of SI and depression were addressed during hospitalization through development of new coping skills, safety planning, and medication adjustments. Risk Factors Assessment : Yes Do You Have Access To A Gun?: No Mental Health Diagnoses: Yes Previous Attempt: Yes Previous Psychiatric Hospitalization: Yes Hopelessness: No Protective Factors Assessment Employed: No Stable Relationships: No Supportive Family: Yes Good Rapport with Provider: Yes Discharge Data Lab Results 01/18/22 01/18/22 01/18/22 14:13 14:13 14:30 WBC RBC Hgb Hct MCV MCH MCHC RDW Std Deviation RDW Coeff of Indira Plt Count MPV Immature Gran % (Auto) Neut % (Auto) Lymph % (Auto) [place] % (Auto) Eos % (Auto) Baso % (Auto) Neut # (Auto) Lymph # (Auto) [place] # (Auto) Eos # (Auto) Baso # (Auto) Immature Gran # (Auto) Sodium Potassium Chloride Carbon Dioxide Anion Gap BUN Creatinine Est Cr Clr Drug Dosing Est GFR ( Amer) Est GFR (Non-Af Amer) BUN/Creatinine Ratio Glucose Calcium Total Bilirubin AST ALT Alkaline Phosphatase Troponin I High Sens 2.8 Total Protein Albumin Globulin Albumin/Globulin Ratio Lipase TSH 1.503 POC Ur Test Salicylates < 3.0 L Urine Opiates Screen Ur Methadone, Qual Acetaminophen < 3 L Urine Barbiturates Ur Phencyclidine (PCP) U Amphetamin/Meth Scrn MDMA (Ecstasy) Screen U Benzodiazepines Scrn Ur Cocaine Metabolite U Marijuana (THC) Screen Ethyl Alcohol mg/dL SARS-CoV-2, RNA, NAAT 01/18/22 01/18/22 01/18/22 14:30 14:30 14:39 WBC 9.70 RBC 4.50 Hgb 13.4 Hct 40.1 MCV 89.1 MCH 29.8 MCHC 33.4 RDW Std Deviation 40.9 RDW Coeff of Indira 12.6 Plt Count 331 MPV 10.2 Immature Gran % (Auto) 0.2 Neut % (Auto) 67.9 Lymph % (Auto) 22.2 [place] % (Auto) 9.0 Eos % (Auto) 0.5 Baso % (Auto) 0.2 Neut # (Auto) 6.59 H Lymph # (Auto) 2.15 [place] # (Auto) 0.87 H Eos # (Auto) 0.05 Baso # (Auto) 0.02 Immature Gran # (Auto) 0.02 Sodium 139 Potassium 3.4 L Chloride 103 Carbon Dioxide 24 Anion Gap 12 H BUN 7 Creatinine 0.75 Est Cr Clr Drug Dosing 107.1 Est GFR ( Amer) 118.9 Est GFR (Non-Af Amer) 102.5 BUN/Creatinine Ratio 9.3 L Glucose 93 Calcium 9.4 Total Bilirubin 0.6 AST 27 ALT 40 Alkaline Phosphatase 71 Troponin I High Sens Total Protein 7.4 Albumin 4.5 Globulin 2.9 Albumin/Globulin Ratio 1.6 Lipase 5 L TSH POC Ur Test Salicylates Urine Opiates Screen Ur Methadone, Qual Acetaminophen Urine Barbiturates Ur Phencyclidine (PCP) U Amphetamin/Meth Scrn MDMA (Ecstasy) Screen U Benzodiazepines Scrn Ur Cocaine Metabolite U Marijuana (THC) Screen Ethyl Alcohol mg/dL < 10.0 SARS-CoV-2, RNA, NAAT 01/18/22 01/18/22 01/18/22 16:19 19:32 20:53 WBC RBC Hgb Hct MCV MCH MCHC RDW Std Deviation RDW Coeff of Indira Plt Count MPV Immature Gran % (Auto) Neut % (Auto) Lymph % (Auto) [place] % (Auto) Eos % (Auto) Baso % (Auto) Neut # (Auto) Lymph # (Auto) [place] # (Auto) Eos # (Auto) Baso # (Auto) Immature Gran # (Auto) Sodium Potassium Chloride Carbon Dioxide Anion Gap BUN Creatinine Est Cr Clr Drug Dosing Est GFR ( Amer) Est GFR (Non-Af Amer) BUN/Creatinine Ratio Glucose Calcium Total Bilirubin AST ALT Alkaline Phosphatase Troponin I High Sens Total Protein Albumin Globulin Albumin/Globulin Ratio Lipase TSH POC Ur Test NEG Salicylates Urine Opiates Screen Neg Ur Methadone, Qual Neg Acetaminophen Urine Barbiturates Neg Ur Phencyclidine (PCP) Neg U Amphetamin/Meth Scrn Neg MDMA (Ecstasy) Screen Neg U Benzodiazepines Scrn Neg Ur Cocaine Metabolite Neg U Marijuana (THC) Screen Neg Ethyl Alcohol mg/dL SARS-CoV-2, RNA, NAAT NEGATIVE Hospital Course (1) Schizophrenia: (2) Major depression, recurrent: 01/23/22: Continue current medications and tx plan. 01/22/22: Continue with sertraline 50mg qd and other current medications and tx plan. 01/21/22: Increase sertraline to 50mg qd tomorrow. 01/20/22: Continue current meds and tx plan 01/19/22: The patient was admitted to the [facility] ([facility]) on q15 min checks (behavioral with suicide precautions) for safety. The patient will participate in group, recreational, and milieu therapies and will be offered additional individual and family sessions as clinically appropriate. -Stop fluoxetine -Start sertraline 25mg qd -Abilify 5 mg BID prn for agitation -Received abilify Initio and Aristada CONCEPCION on 01/13/22. Mental Health & Subst Abuse Tx Psychiatrist Name of Psychiatrist: Pastora Boo Psychiatrist's Date of Appointment with Psychiatrist: 01/29/22 Time of Appointment with Psychiatrist: 1:30 p.m. Psychiatric Appointment Comment: [id number] PA Therapist Name of Therapist: Pastora Kwong On waitlist Collection Systems Foreman Name of Collection Systems Foreman: Pt is declining Post Discharge Appointments Primary Care Physician Name Of Family Doctor: Ronny [facility] Information Discharge Discharge Address: [address] [place] [address], [address] [place] [id number] Discharge Plan Discharge Items Patient Disposition: Home - Self-Care Reason For Visit: SUICIDAL IDEATION Discharge Diagnosis: Schizophrenia Activity: Resume your previous activity Non-emergency contact: Primary Care Provider and Psychiatrist Call non-emergency contact if: you have any medication questions and your symptoms worsen Follow-up/Referrals: PCP,NO [Primary Care Provider] - Diet: Regular Addtl Attending Provider Instructions: SPECIAL CARE INSTRUCTIONS: 1. Follow through with your scheduled aftercare appointments. If unable to keep an appointment, please call to reschedule. 2. Take your medication only as prescribed. Medication should not be changed or stopped without the approval of your doctor. In the event of worsening symptoms or concerns about side effects, contact your doctor immediately. 3. Utilize new healthy coping skills, anger management skills, and stress management skills learned during your hospitalization. Journal feelings and process them with a support person. Identify stressors or situations that may result in relapse, deterioration or inappropriate behaviors and develop a p murali to deal with those issues. 4. If your coping skills are ineffective and you are in crisis, contact your outpatient providers for direction. If unable to reach your providers, please call the [facility] CRISIS LINE AT , go to the [facility] walk-in center at [address] [place] [address] A, [place], or go to the closest Emergency Room. 5. Avoid alcohol and un-prescribed drugs. 6. You have been provided with the Mental Health Advance Directives Pamphlet for your review. 7. Your condition is stable for discharge to outpatient level of care, but recovery is an ongoing process. Ifthoughts to harm yourself or others return, follow the safety plan developed during your stay. Planning for a safe return home includes securing weapons. Our treatment team recommends weaponsbe removed from the home until your outpatient provider reassesses your progress. In rare cases where the items themselvescannot be removed, guns and ammunitionshould be secured separatelyand keys stored by a reliable personoutside of the home. If you were admitted on an involuntary commitment, the police or other legal authorities may be involved in this process. AFTERCARE APPOINTMENTS: * Please call your insurance company prior to your scheduled appointment to confirm your aftercare providers are covered. Take your insurance information to your appointments. WHO TO CALL AND WHEN: Medical Emergencies: For questions or emergencies related to your hospital stay, please contact the Inpatient Behavioral Health Unit at [phone]. A exploitation analyst is on-call 31/03 for the Behavioral Health Unit for emergencies At any time you feel your situation is an emergency, you may also call 911 immediately. Pending Studies at Discharge: No Stand-Alone Forms: My [facility] Medications and DC Order Prescriptions: New sertraline 50 mg Tablet 50 mg PO QAM 30 Days Qty: 30 RF: 0 Continued Aristada 882 mg/3.2 mL suspension,extended rel syring 882 mg IM ONCE Qty: 3.2 RF: 0 hydroxyzine HCl 25 mg tablet 25 mg PO Q4 PRN (Reason: anxiety/sleep) 30 Days Qty: 30 RF: 0 Discontinued fluoxetine 10 mg Capsule 10 mg PO QAM 30 Days Qty: 30 RF: 0 Discharge Orders: Discharge Order (Routine); Ordered 01/24/22 Ordered By: Elizabeth Bear/Other Patient Handouts: Depression: Tips to Help Yourself Admission Data Admit Date/Time: 01/18/22 20:37 Attending Provider: Elizabeth Rogers Admit Provider: Elizabeth Rogers Primary Care Provider: PCP,NO Other Interventions: Discharge Summary Assessment (RN) Last Done: 01/24/22 09:38 PSY Interdisciplinary Discharge Planning Last Done: 01/24/22 09:46 Coding Level of Care Code 52112 D/C day mgmt > 30 min Diagnoses Schizophrenia F20.9 Major depression, recurrent F33.9 Time Spent (min) 30
== END 2022-01-24 10:00 | disposition home or self-care (01) | DRG 885 ==
LOC: ED 13:32 → 3S 20:37

== ENCOUNTER 2022-04-02 20:34 | Observation (INO) ==
[2022-04-02] MEDS ORDERED: SODIUM CHLORIDE 0.9% 1000ML 1,000 ML IV ONE ×2 (20:58→22:07)
[2022-04-02] MEDS ORDERED: LORazepam 2 MG/1 ML VIAL IV STA ×4 (21:11→22:07)
[2022-04-02 21:36] LABS: Appearance Urine Clear (Clear); Bacteria Urine Automated Negative (Negative); Bilirubin Urine Negative (Negative); Blood Urine Trace (Negative); Color Urine Yellow; Epithelial Cell Urine Auto >30 /lpf (0-5); Glucose Urine UA Negative (Negative); Ketones Urine Negative (Negative); Leukocyte Esterase Urine 1+ (Negative); Nitrite Urine Negative (Negative); Protein Urine Negative (Negative); RBC Urine Automated 0-4 /hpf (0-4); Specific Gravity Urine 1.004 (1.000-1.030); Urobilinogen Urine Negative (Negative); pH Urine 5.5 (4.5-7.5)
[2022-04-02 21:40] LABS: Basophils # (auto) 0.03 K/uL (0-0.2); Basophils % (auto) 0.5 %; Eosinophils # (auto) 0.02 K/uL (0-0.50); Eosinophils % (auto) 0.3 %; Hematocrit (blood only) 35.1 % (34.1-44.9); Hemoglobin 11.4 g/dl (12.0-16.0); Immature Granulocytes # (auto) 0.02 K/uL (0.00-0.02); Immature Granulocytes % (auto) 0.3 %; Lymphocytes # (auto) 1.95 K/uL (1.2-3.4); Lymphocytes % (auto) 29.5 %; Mean Corpuscular Hemoglobin 27.8 pg (25.0-34.0); Mean Corpuscular Hgb Conc 32.5 g/dL (32.0-36.0); Mean Corpuscular Volume 85.6 fL (80.0-100.0); Mean Platelet Volume 9.3 fL (9.4-12.3); Monocytes # (auto) 0.51 K/uL (0.24-0.82); Monocytes % (auto) 7.7 %; Neutrophils # (auto) 4.07 K/uL (1.4-6.5); Neutrophils % (auto) 61.7 %; Platelet Count 284 K/uL (130-400); RDW Coefficient of Variation 12.7 % (11.5-14.5); RDW Standard Deviation 39.4 fL (36.4-46.3)
[2022-04-02 21:50] LABS: Albumin Globulin Ratio 1.5 (0.9-2); Albumin Level 4.1 gm/dl (3.4-5.0); BUN Creatinine Ratio 12.8 (10-20); Bilirubin,Total 0.3 mg/dl (0.2-1.0); Calcium 9.2 mg/dl (8.5-10.1); Creatinine Clr Calc Pharmacy 91.4 ml/min; Est GFR (African American) 100.7 ml/min; Est GFR (Non-African American) 86.9 ml/min; Globulin 2.8 gm/dl (2.5-4.0); Potassium 3.3 mmol/L (3.5-5.1); Pregnancy Test, Serum Negative (Negative); Total Protein 6.9 gm/dl (6.0-8.3)
[2022-04-02 21:51] LABS: Acetaminophen < 3 ug/ml (10-30); Salicylate < 3.0 mg/dl (3.0-30)
[2022-04-02 21:58] LABS: Amphetamines+Metham, Urine Neg (Neg); Barbiturates, Urine Neg (Neg); Benzodiazepine, Urine Neg (Neg); Cocaine, Urine Neg (Neg); MDMA (Ecstacy), Urine Pos (Neg); Methadone, Urine Neg (Neg); Opiate, Urine Neg (Neg); Phencyclidine, Urine Neg (Neg)
[2022-04-02 22:12] LABS: Magnesium 1.8 mg/dl (1.7-2.4); Phosphorus 2.9 mg/dl (2.5-4.9)
--- NOTE | 2022-04-02 22:15 | Emergency Department Note ---
Impression & Plan Suicide attempt by multiple drug overdose, Schizophrenia, Sinus tachycardia, Hypokalemia ED Provider Note NAME: LISA THAYER AGE: 36 SEX: F ARRIVES VIA: Ambulance INFORMANT: Patient, EMS ED PROVIDER(S): Santhosh Arcehiga MD CHIEF COMPLAINT: Suicide attempt, overdose PLAN: Disposition: Admit MEDICAL DECISION MAKING: The patient is a 36-year-old woman with a past medical history of schizophrenia who presents to the emergency department via EMS after intentional drug overdose attempted to kill her self where she reports 2 hours prior to arrival she took an undetermined amount of her 150 mg bupropion and her Risperdal (though she had reported to EMS Zoloft). Per EMS report they found the patient to be in SVT and administered adenosine. She arrived to emergency department with heart in the 130s sinus tachycardia. The poor historian and again is unsure of how much she took. When asked if she wants help for her depression she reports "actually I want to ". The patient was seen in the emergency department yesterday for feeling sad. On arrival the patient is melancholy appearing, afebrile with heart rate in the 130s to 150s/100s and O2 saturation 99% on room air. She appears clinically dry. Her skin is warm and dry. She has normal reflexes and no clonus. EKG demonstrates sinus tachycardia with normal intervals. WBC, HCT and platelets within normal limits. Chemistry without metabolic acidosis. Potassium 3.3 and electrolytes otherwise unremarkable. LFTs within normal limits. hCG is negative. UA appears contaminated. Drug screen positive for MDMA. ASA and apap undetectable. Case was discussed with the Poison Control Center. She recommendations. Agrees with plan for admission for further monitoring as extended-release Wellbutrin can have seizures up to 12 hours following overdose ingestion. Agrees with supportive care and symptomatic treatment with benzodiazepines up to 2 mg every 15 minutes as needed for symptomatic control. The patient was given repeat doses of IV Ativan with subsequent improvement in her heart rate to the 110s-120s. Blood pressure also improved. Patient admitted for further monitoring given unclear quantity of her overdose. On medical clearance she will need psychiatric admission. Case was discussed with Dr. Hurst, [facility] [place] hospitalist, who will evaluate the patient for admission. Triage Nursing notes reviewed and agree them. Prior medical records reviewed Vital Signs: reviewed and remarkable for sinus tachycardia. Differential diagnosis: Overdose, toxicologic, infection, hypoglycemia, electrolyte abnormalities, cardiac sources, intracerebral event, neurologic, trauma, as well as other pathologies. ER treatment provided: See below. Diagnostics interpreted by me: ECG: Sinus tachycardia, 138 bpm, no ectopy, no overt ST elevation or depression, QTC 454, QRS 82. Cardiac Monitoring: An order for continuous cardiac monitoring was placed and demonstrated Sinus tachycardia, 138 bpm, no ectopy. Laboratory studies: See below Imaging studies: See below Consultation(s): Poison Control Center Case was discussed with Dr. Hurst, [facility] [place] hospitalist, who will evaluate the patient for admission. HPI: The patient is a 36-year-old woman with a past medical history of schizophrenia who presents to the emergency department via EMS after intentional drug overdose attempted to kill her self where she reports 2 hours prior to arrival she took an undetermined amount of her 150 mg bupropion and her Risper ye (though she had reported to EMS Zoloft). Per EMS report they found the patient to be in SVT and administered adenosine. She arrived to emergency department with heart in the 130s sinus tachycardia. The poor historian and again is unsure of how much she took. When asked if she wants help for her depression she reports "actually I want to ". The patient was seen in the emergency department yesterday for feeling sad. ROS: See above HPI for pertinent positives & negatives. A total of 10 systems reviewed and were otherwise negative. VITALS:See Below PHYSICAL EXAMINATION: GENERAL: Awake, alert, melancholy-appearing, in no distress HENT: Normocephalic, atraumatic. Oropharynx with dry mucous membranes and ot herwise unremarkable. EYES: Normal conjunctiva. Sclera non-icteric. NECK: Supple. No nuchal rigidity. FROM. No JVD. RESPIRATORY: Clear to auscultation. CARDIAC: Regular rate, normal rhythm. Extremities warm and well perfused. Pulses equal. ABDOMEN: Soft, non-distended. No tenderness to palpation. No rebound or guarding. No masses. RECTAL: Deferred. MUSCULOSKELETAL: Chest examination reveals no tenderness. The back is symmetrical on inspection without obvious abnormality. There is no CVA tenderne ss to palpation. No joint edema. LOWER EXTREMITIES: Calves are equal size bilaterally and non-tender. No edema. No discoloration. NEURO: No focal sensory or motor deficits noted. 5/5 strength and SILT x 4 extremities. Intact finger-nose. DTRs within normal limits. There is no clonus SKIN: Warm and dry. No rash or jaundice noted. PSYCH: Suicidal ideation with overdose and attempt to kill herself. "I want to ". ED COURSE: Critical Care: I have personally spent greater than 95 minutes of critical care time in the direct management of this patient. This includes bedside care, interpretation of diagnostic studies, and testing, discussion with consultants, patient, and family members, and other required patient management activities. This 95 minutes is in excess of all separately billable procedures. Santhosh Arechiga MD Past Med/Surg History Medical History Acute periapical abscess Depression Facial cellulitis History of drug overdose Hypokalemia Psychosis Schizophrenia Sinus tachycardia Suicidal ideation Surgical History No pertinent past surgical history Family History Other Cancer Social History Smoking Status: Never smoker Tobacco Type: Cigarettes Preferred Language: Ukrainian Communication Ability: Effective School Standards Coach Required: No Beliefs That Will Affect Care: None marital status: Single current occupational status: unemployed Feels Safe at Home: No Assistive Devices: None Allergies Allergies Allergy/AdvReac Type Severity Reaction Status Date / Time codeine Allergy Intermediate RASH Verified 03/28/22 19:56 Home Meds Home Medications Medication Instructions Recorded Confirmed brexpiprazole 0.5 mg tablet 0.5 mg PO QAM 03/28/22 04/02/22 (Rexulti) bupropion HCl (smoking deter) 150 150 mg PO QAM 03/28/22 04/02/22 mg tablet,12 hr sustained-release(smoking deterrent) risperidone 1 mg tablet See Rx Instructions .Route .COMPLEX 03/28/22 04/02/22 Results & Data (ED) Vital Signs Vital Signs - 24 hr 04/02/22 20:43 04/02/22 20:58 04/02/22 21:03 Temperature 36.8 C Temperature Source Oral Pulse Rate 143 H 132 H Pulse Rate [Apical] 138 H Pulse Rate from SpO2 Sensor Pulse Rhythm Regular Respiratory Rate 16 16 Respiratory Effort / Characteristics Non-Labored Spontaneous Respiratory Depth Normal Blood Pressure 155/112 H Blood Pressure [Right Arm] Blood Pressure Mean 126 Blood Pressure Mean [Right Arm] Pulse Oximetry 99 100 97 Oxygen Delivery Method Room Air Room Air Room Air Sepsis Recent Fever Within 48 Hours No Sepsis New/Unexplained Change in Mental Status No Sepsis Action Taken by Nursing No Action Required End-Tidal CO2 04/02/22 21:44 04/02/22 22:03 04/02/22 20:42 Temperature Temperature Source Pulse Rate 141 H Pulse Rate [Apical] 134 H 140 H Pulse Rate from SpO2 Sensor 140 H Pulse Rhythm Respiratory Rate 20 20 18 Respiratory Effort / Characteristics Respiratory Depth Blood Pressure Blood Pressure [Right Arm] 148/94 H 154/106 H Blood Pressure Mean Blood Pressure Mean [Right Arm] 112 122 Pulse Oximetry 99 99 100 Oxygen Delivery Method Room Air Room Air Sepsis Recent Fever Within 48 Hours Sepsis New/Unexplained Change in Mental Status Sepsis Action Taken by Nursing End-Tidal CO2 04/02/22 20:50 04/02/22 21:01 04/02/22 21:10 Temperature Temperature Source Pulse Rate 132 H 159 H 151 H Pulse Rate [Apical] Pulse Rate from SpO2 Sensor 133 H Pulse Rhythm Respiratory Rate 20 15 15 Respiratory Effort / Characteristics Respiratory Depth Blood Pressure Blood Pressure [Right Arm] Blood Pressure Mean Blood Pressure Mean [Right Arm] Pulse Oximetry 100 Oxygen Delivery Method Sepsis Recent Fever Within 48 Hours Sepsis New/Unexplained Change in Mental Status Sepsis Action Taken by Nursing End-Tidal CO2 04/02/22 21:20 04/02/22 21:30 04/02/22 21:40 Temperature Temperature Source Pulse Rate 135 H 161 H 158 H Pulse Rate [Apical] Pulse Rate from SpO2 Sensor Pulse Rhythm Respiratory Rate 20 20 23 Respiratory Effort / Characteristics Respiratory Depth Blood Pressure Blood Pressure [Right Arm] Blood Pressure Mean Blood Pressure Mean [Right Arm] Pulse Oximetry Oxygen Delivery Method Sepsis Recent Fever Within 48 Hours Sepsis New/Unexplained Change in Mental Status Sepsis Action Taken by Nursing End-Tidal CO2 04/02/22 21:44 04/02/22 21:44 04/02/22 21:50 Temperature Temperature Source Pulse Rate 135 H 143 H Pulse Rate [Apical] Pulse Rate from SpO2 Sensor 133 H 139 H Pulse Rhythm Respiratory Rate 22 24 Respiratory Effort / Characteristics Respiratory Depth Blood Pressure 148/94 H Blood Pressure [Right Arm] Blood Pressure Mean 112 Blood Pressure Mean [Right Arm] Pulse Oximetry 96 98 Oxygen Delivery Method Sepsis Recent Fever Within 48 Hours Sepsis New/Unexplained Change in Mental Status Sepsis Action Taken by Nursing End-Tidal CO2 04/02/22 22:00 04/02/22 22:01 04/02/22 22:01 Temperature Temperature Source Pulse Rate 139 H 135 H Pulse Rate [Apical] Pulse Rate from SpO2 Sensor Pulse Rhythm Respiratory Rate 23 20 Respiratory Effort / Characteristics Respiratory Depth Blood Pressure 154/106 H Blood Pressure [Right Arm] Blood Pressure Mean 122 Blood Pressure Mean [Right Arm] Pulse Oximetry Oxygen Delivery Method Sepsis Recent Fever Within 48 Hours Sepsis New/Unexplained Change in Mental Status Sepsis Action Taken by Nursing End-Tidal CO2 04/02/22 22:10 04/02/22 22:30 04/02/22 22:32 Temperature Temperature Source Pulse Rate 155 H 126 H Pulse Rate [Apical] Pulse Rate from SpO2 Sensor 157 H 128 H Pulse Rhythm Respiratory Rate 26 H 20 Respiratory Effort / Characteristics Respiratory Depth Blood Pressure 130/109 H Blood Pressure [Right Arm] Blood Pressure Mean 116 Blood Pressure Mean [Right Arm] Pulse Oximetry 94 98 Oxygen Delivery Method Sepsis Recent Fever Within 48 Hours Sepsis New/Unexplained Change in Mental Status Sepsis Action Taken by Nursing End-Tidal CO2 04/02/22 22:32 04/02/22 22:40 04/03/22 00:27 Temperature Temperature Source Pulse Rate 131 H 132 H Pulse Rate [Apical] 123 H Pulse Rate from SpO2 Sensor 131 H 132 H Pulse Rhythm Respiratory Rate 29 H 18 16 Respiratory Effort / Characteristics Non-Labored Spontaneous Respiratory Depth Normal Blood Pressure Blood Pressure [Right Arm] 137/100 Blood Pressure Mean Blood Pressure Mean [Right Arm] 112 Pulse Oximetry 97 98 98 Oxygen Delivery Method Room Air Sepsis Recent Fever Within 48 Hours Sepsis New/Unexplained Change in Mental Status Sepsis Action Taken by Nursing End-Tidal CO2 28 10 04/03/22 02:48 Temperature Temperature Source Pulse Rate Pulse Rate [Apical] 110 H Pulse Rate from SpO2 Sensor Pulse Rhythm Respiratory Rate 16 Respiratory Effort / Characteristics Non-Labored Spontaneous Respiratory Depth Normal Blood Pressure Blood Pressure [Right Arm] 125/92 Blood Pressure Mean Blood Pressure Mean [Right Arm] 103 Pulse Oximetry 99 Oxygen Delivery Method Room Air Sepsis Recent Fever Within 48 Hours Sepsis New/Unexplained Change in Mental Status Sepsis Action Taken by Nursing End-Tidal CO2 Laboratory Data Attestation: I reviewed the patient's lab results. Result diagrams: 04/02/22 20:47 07/26/22 20:47 Lab Results 04/02/22 04/02/22 04/02/22 Range/Units 20:47 20:47 20:47 WBC 6.60 (4.8-10.8) K/ul RBC 4.10 (3.93-5.22) M/uL Hgb 11.4 L (12.0-16.0) g/dl Hct 35.1 (34.1-44.9) % MCV 85.6 (80.0-100.0) fL MCH 27.8 (25.0-34.0) pg MCHC 32.5 (32.0-36.0) g/dL RDW Std Deviation 39.4 (36.4-46.3) fL RDW Coeff of Indira 12.7 (11.5-14.5) % Plt Count 284 (130-400) K/uL MPV 9.3 L (9.4-12.3) fL Immature Gran % (Auto) 0.3 % Neut % (Auto) 61.7 % Lymph % (Auto) 29.5 % [place] % (Auto) 7.7 % Eos % (Auto) 0.3 % Baso % (Auto) 0.5 % Neut # (Auto) 4.07 (1.4-6.5) K/uL Lymph # (Auto) 1.95 (1.2-3.4) K/uL [place] # (Auto) 0.51 (0.24-0.82) K/uL Eos # (Auto) 0.02 (0-0.50) K/uL Baso # (Auto) 0.03 (0-0.2) K/uL Immature Gran # (Auto) 0.02 (0.00-0.02) K/uL Sodium 138 (136-145) mmol/L Potassium 3.3 L (3.5-5.1) mmol/L Chloride 105 (98-107) mmol/L Carbon Dioxide 22 (21-32) mmol/L Anion Gap 11 (3-11) BUN 11 (6-23) mg/dl Creatinine 0.86 (0.6-1.2) mg/dl Est Cr Clr Drug Dosing 91.4 ml/min Est GFR ( Amer) 100.7 ml/min Est GFR (Non-Af Amer) 86.9 ml/min BUN/Creatinine Ratio 12.8 (10-20) Glucose 121 H (70-99(Fasting)) mg/dl Calcium 9.2 (8.5-10.1) mg/dl Phosphorus (2.5-4.9) mg/dl Magnesium (1.7-2.4) mg/dl Total Bilirubin 0.3 (0.2-1.0) mg/dl AST 13 (13-39) U/L ALT 29 (7-52) U/L Alkaline Phosphatase 88 (34-104) U/L Total Protein 6.9 (6.0-8.3) gm/dl Albumin 4.1 (3.4-5.0) gm/dl Globulin 2.8 (2.5-4.0) gm/dl Albumin/Globulin Ratio 1.5 (0.9-2) HCG, Qual Negative (Negative) Urine Color Urine Appearance (Clear) Urine pH (4.5-7.5) Ur Specific [place] (1.000-1.030) Urine Protein (Negative) Urine Glucose (UA) (Negative) Urine Ketones (Negative) Urine Blood (Negative) Urine Nitrite (Negative) Urine Bilirubin (Negative) Urine Urobilinogen (Negative) Ur Leukocyte Esterase (Negative) Urine WBC (Auto) (0-5) /hpf Urine RBC (Auto) (0-4) /hpf U Hyaline Cast (Auto) (0-5) /lpf U Epithel Cells (Auto) (0-5) /lpf Urine Bacteria (Auto) (Negative) Salicylates (3.0-30) mg/dl Urine Opiates Screen (Neg) Ur Methadone, Qual (Neg) Acetaminophen (10-30) ug/ml Urine Barbiturates (Neg) Ur Phencyclidine (PCP) (Neg) U Amphetamin/Meth Scrn (Neg) MDMA (Ecstasy) Screen (Neg) U Benzodiazepines Scrn (Neg) Ur Cocaine Metabolite (Neg) U Marijuana (THC) Screen (Neg) Ethyl Alcohol mg/dL (<10.0) mg/dl SARS-CoV-2, RNA, NAAT (NEGATIVE) 04/02/22 04/02/22 04/02/22 Range/Units 20:47 20:47 20:47 WBC (4.8-10.8) K/ul RBC (3.93-5.22) M/uL Hgb (12.0-16.0) g/dl Hct (34.1-44.9) % MCV (80.0-100.0) fL MCH (25.0-34.0) pg MCHC (32.0-36.0) g/dL RDW Std Deviation (36.4-46.3) fL RDW Coeff of Indira (11.5-14.5) % Plt Count (130-400) K/uL MPV (9.4-12.3) fL Immature Gran % (Auto) % Neut % (Auto) % Lymph % (Auto) % [place] % (Auto) % Eos % (Auto) % Baso % (Auto) % Neut # (Auto) (1.4-6.5) K/uL Lymph # (Auto) (1.2-3.4) K/uL [place] # (Auto) (0.24-0.82) K/uL Eos # (Auto) (0-0.50) K/uL Baso # (Auto) (0-0.2) K/uL Immature Gran # (Auto) (0.00-0.02) K/uL Sodium (136-145) mmol/L Potassium (3.5-5.1) mmol/L Chloride (98-107) mmol/L Carbon Dioxide (21-32) mmol/L Anion Gap (3-11) BUN (6-23) mg/dl Creatinine (0.6-1.2) mg/dl Est Cr Clr Drug Dosing ml/min Est GFR ( Amer) ml/min Est GFR (Non-Af Amer) ml/min BUN/Creatinine Ratio (10-20) Glucose (70-99(Fasting)) mg/dl Calcium (8.5-10.1) mg/dl Phosphorus 2.9 (2.5-4.9) mg/dl Magnesium 1.8 (1.7-2.4) mg/dl Total Bilirubin (0.2-1.0) mg/dl AST (13-39) U/L ALT (7-52) U/L Alkaline Phosphatase (34-104) U/L Total Protein (6.0-8.3) gm/dl Albumin (3.4-5.0) gm/dl Globulin (2.5-4.0) gm/dl Albumin/Globulin Ratio (0.9-2) HCG, Qual (Negative) Urine Color Urine Appearance (Clear) Urine pH (4.5-7.5) Ur Specific [place] (1.000-1.030) Urine Protein (Negative) Urine Glucose (UA) (Negative) Urine Ketones (Negative) Urine Blood (Negative) Urine Nitrite (Negative) Urine Bilirubin (Negative) Urine Urobilinogen (Negative) Ur Leukocyte Esterase (Negative) Urine WBC (Auto) (0-5) /hpf Urine RBC (Auto) (0-4) /hpf U Hyaline Cast (Auto) (0-5) /lpf U Epithel Cells (Auto) (0-5) /lpf Urine Bacteria (Auto) (Negative) Salicylates < 3.0 L (3.0-30) mg/dl Urine Opiates Screen (Neg) Ur Methadone, Qual (Neg) Acetaminophen < 3 L (10-30) ug/ml Urine Barbiturates (Neg) Ur Phencyclidine (PCP) (Neg) U Amphetamin/Meth Scrn (Neg) MDMA (Ecstasy) Screen (Neg) U Benzodiazepines Scrn (Neg) Ur Cocaine Metabolite (Neg) U Marijuana (THC) Screen (Neg) Ethyl Alcohol mg/dL < 10.0 (<10.0) mg/dl SARS-CoV-2, RNA, NAAT (NEGATIVE) 04/02/22 04/02/22 04/02/22 Range/Units 21:15 21:49 Unknown WBC (4.8-10.8) K/ul RBC (3.93-5.22) M/uL Hgb (12.0-16.0) g/dl Hct (34.1-44.9) % MCV (80.0-100.0) fL MCH (25.0-34.0) pg MCHC (32.0-36.0) g/dL RDW Std Deviation (36.4-46.3) fL RDW Coeff of Indira (11.5-14.5) % Plt Count (130-400) K/uL MPV (9.4-12.3) fL Immature Gran % (Auto) % Neut % (Auto) % Lymph % (Auto) % [place] % (Auto) % Eos % (Auto) % Baso % (Auto) % Neut # (Auto) (1.4-6.5) K/uL Lymph # (Auto) (1.2-3.4) K/uL [place] # (Auto) (0.24-0.82) K/uL Eos # (Auto) (0-0.50) K/uL Baso # (Auto) (0-0.2) K/uL Immature Gran # (Auto) (0.00-0.02) K/uL Sodium (136-145) mmol/L Potassium (3.5-5.1) mmol/L Chloride (98-107) mmol/L Carbon Dioxide (21-32) mmol/L Anion Gap (3-11) BUN (6-23) mg/dl Creatinine (0.6-1.2) mg/dl Est Cr Clr Drug Dosing ml/min Est GFR ( Amer) ml/min Est GFR (Non-Af Amer) ml/min BUN/Creatinine Ratio (10-20) Glucose (70-99(Fasting)) mg/dl Calcium (8.5-10.1) mg/dl Phosphorus (2.5-4.9) mg/dl Magnesium (1.7-2.4) mg/dl Total Bilirubin (0.2-1.0) mg/dl AST (13-39) U/L ALT (7-52) U/L Alkaline Phosphatase (34-104) U/L Total Protein (6.0-8.3) gm/dl Albumin (3.4-5.0) gm/dl Globulin (2.5-4.0) gm/dl Albumin/Globulin Ratio (0.9-2) HCG, Qual (Negative) Urine Color Yellow Urine Appearance Clear (Clear) Urine pH 5.5 (4.5-7.5) Ur Specific [place] 1.004 (1.000-1.030) Urine Protein Negative (Negative) Urine Glucose (UA) Negative (Negative) Urine Ketones Negative (Negative) Urine Blood Trace H (Negative) Urine Nitrite Negative (Negative) Urine Bilirubin Negative (Negative) Urine Urobilinogen Negative (Negative) Ur Leukocyte Esterase 1+ H (Negative) Urine WBC (Auto) 10-30 H (0-5) /hpf Urine RBC (Auto) 0-4 (0-4) /hpf U Hyaline Cast (Auto) 1-5 (0-5) /lpf U Epithel Cells (Auto) >30 H (0-5) /lpf Urine Bacteria (Auto) Negative (Negative) Salicylates (3.0-30) mg/dl Urine Opiates Screen Neg (Neg) Ur Methadone, Qual Neg (Neg) Acetaminophen (10-30) ug/ml Urine Barbiturates Neg (Neg) Ur Phencyclidine (PCP) Neg (Neg) U Amphetamin/Meth Scrn Neg (Neg) MDMA (Ecstasy) Screen Pos H (Neg) U Benzodiazepines Scrn Neg (Neg) Ur Cocaine Metabolite Neg (Neg) U Marijuana (THC) Screen Neg (Neg) Ethyl Alcohol mg/dL (<10.0) mg/dl SARS-CoV-2, RNA, NAAT NEGATIVE (NEGATIVE) Administered Medications Discontinued Medications Sodium Chloride (Nss 1000ml) 1,000 mls @ 999 mls/hr IV .Q1H1M ONE Stop: 04/02/22 21:58 Last Infusion: 04/02/22 21:55 Dose: 0 mls/hr Documented By: Admin: 04/02/22 21:07 Dose: 999 mls/hr Documented By: ES Sodium Chloride (Nss 1000ml) 1,000 mls @ 999 mls/hr IV .Q1H1M ONE Stop: 04/02/22 23:07 Last Infusion: 04/02/22 23:26 Dose: 0 mls/hr Documented By: Admin: 04/02/22 22:10 Dose: 999 mls/hr Documented By: ES Lorazepam (Lorazepam 2 Mg/1 Ml Vial) 2 mg IV NOW STA; Protocol Stop: 04/02/22 21:12 Last Admin: 04/02/22 21:19 Dose: 2 mg Documented By: ES Lorazepam (Lorazepam 2 Mg/1 Ml Vial) 2 mg IV NOW STA; Protocol Stop: 04/02/22 21:30 Last Admin: 04/02/22 21:36 Dose: 2 mg Documented By: ES Lorazepam (Lorazepam 2 Mg/1 Ml Vial) 4 mg IV NOW STA; Protocol Stop: 04/02/22 21:41 Last Admin: 04/02/22 21:55 Dose: 4 mg Documented By: ES Lorazepam (Lorazepam 2 Mg/1 Ml Vial) 4 mg IV NOW STA; Protocol Stop: 04/02/22 22:08 Last Admin: 07/26/22 22:18 Dose: 4 mg Documented By: ES Discharge Plan Visit Data Chief Complaint: Overdose (Intentional) Stated Complaint: overdose ED Provider: Santhosh Arechiga Discharge Problem: Suicide attempt by multiple drug overdose, Schizophrenia, Sinus tachycardia, Hypokalemia : Suicide attempt by multiple drug overdose Qualifiers: Encounter type: initial encounter Qualified Code(s): T50.912A - Poisoning by multiple unspecified drugs, medicaments and biological substances, intentional self-harm, initial encounter Schizophrenia Qualifiers: Schizophrenia type: unspecified Qualified Code(s): F20.9 - Schizophrenia, unspecified
--- NOTE | 2022-04-02 23:21 | History & Physical Report ---
Date of Service April 02, 2022 Assessment & Plan (1) Bupropion overdose: Plan: 36yo female with a history of schizophrenia and frequent ED visits for mental health evaluations presents to [facility] via EMS after an intentional overdose of an unknown quantity of bupropion and risperidone. Bupropion overdose, risperidone overdose Patient presents after an intentional overdose of an unknown quantity ("a handful") of bupropion and risperidone Vitals notable for tachycardia and intermittent hypertension, vitals otherwise stable Labs notable only for mild hypokalemia; no other electrolyte abnormalities, LFTs not elevated Admit to PCU for supportive care and benzodiazepine administration due to 12- hour seizure risk secondary to bupropion overdose Ativan 2mg IV q15min as-needed for agitation or seizure NPO, home meds held Daily CBC, BMP, EKG Parasuicidal behavior Patient with intentional overdose with the goal of suicide in the setting of prior attempts One-to-one observation, safe tray when diet is advanced, suicide precautions Psychiatry consulted, insight appreciated Hypokalemia: mild Potassium on admission 3.3 Replete with KCl 20mEq added to LR@100mL/hr while patient is NPO Trend daily BMP Schizophrenia Home regimen held on admission Will defer further psych med management to psychiatry given patient's complex history FEN: NPO, LR@100mL/hr + 20mEq KCl Code status: full code (NOT discussed with patient due to cognitive status; reassess when able) DVT ppx: SCDs Held home meds: all Consults: psychiatry Case management: following Dispo: PCU given seizure risk and need for frequent reassessment (2) Intentional overdose of risperidone: (3) Schizophrenia: (4) Sinus tachycardia: History of Present Illness Primary Care Provider: Santosh Vigil DO 36yo female with a history of schizophrenia and frequent ED visits for mental health evaluations presents to [facility] via EMS after an intentional overdose of an unknown quantity of bupropion and risperidone. History is obtained through EMS and ED chart review, as patient is obtunded at the time of my interview (04/03 at 00:30). Per EMS report, patient reported intentionally ingesting "a handful" of bupropion and risperidone on 04/02 around 16:00-17:00 with suicide as the intent. Patient reported to EMS personnel that she developed sudden-onset chest pain immediately after taking the pills. Patient called 911 a few hours later, and EMS arrived at 19:54. Upon initial EMS assessment, vitals - HR 164, BP 137/87, RR 16; patient was AOx4, GCS 15, pupils were equal and reactive, PE was otherwise unremarkable. No signs of physical trauma noted. EMS personnel felt patient was in SVT and administered adenosine. Upon arrival to the ED, patient was tachycardic between 130s-150s and hypertensive to 155/112. Afebrile, RR wnl, O2 sat adequate on room air. Appeared clinically dry, skin warm and dry, normal reflexes without clonus. EKG showed sinus tachycardia; no QTc prolongation. Labs were notable for mild hypokalemia to 3.3 and UDS positive for MDMA. CBC unremarkable, chemistry without metabolic acidosis, electrolytes otherwise unremarkable. LFTs wnl, b-hCG not elevated. APAP and salicylates negative. Per ED provider, Poison Control recommended admission for supportive care given bupropion's seizure threshold-lowering effect lasts up to twelve hours. Poison Control recommended symptomatic treatment with ativan 2mg q15min as-needed for agitation. Allergies Allergy/AdvReac Type Severity Reaction Status Date / Time codeine Allergy Intermediate RASH Verified 03/28/22 19:56 Home Medications Medication Instructions Recorded Confirmed Type brexpiprazole 0.5 mg tablet 0.5 mg PO QAM 03/28/22 04/02/22 History (Rexulti) bupropion HCl (smoking deter) 150 150 mg PO QAM 03/28/22 04/02/22 History mg tablet,12 hr sustained-release(smoking deterrent) risperidone 1 mg tablet See Rx Instructions .Route .COMPLEX 03/28/22 04/02/22 History Past Med/Surg History Medical History Acute periapical abscess Depression Facial cellulitis History of drug overdose Hypokalemia Psychosis Schizophrenia Sinus tachycardia Suicidal ideation Surgical History No pertinent past surgical history Family History Other Cancer Social History Smoking Status: Never smoker Tobacco Type: Cigarettes Preferred Language: Kittitian Communication Ability: Effective 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 Beliefs That Will Affect Care: None marital status: Single current occupational status: unemployed Feels Safe at Home: No Assistive Devices: None Review of Systems Review of Systems: Unobtainable due to cognitive status Physical Exam Physical Exam: Constitutional: no acute distress, laying in hospital bed, obtunded HEENT: NCAT, no conjunctival injection, no scleral icterus CV: tachycardic, rhythm regular, no murmur appreciated, extremities well- perfused, no LE edema Resp: CTABL, no wheezes/rales/rhonchi appreciated, no increased work of marc thing GI: soft, nondistended, nontender, BS normoactive MSK: no gross deformities appreciated Skin: multiple linear scars noted on anterior wrists bilaterally Neuro: obtunded, arouses to voice but falls back asleep quickly, no focal deficit appreciated Results & Data Results & Data ([facility]) Vital Signs (Past 12 Hours) Vital Signs Temp Pulse Pulse Resp BP BP Pulse Ox 04/02/22 22:40 132 H 18 98 04/02/22 22:32 131 H 29 H 97 04/02/22 22:32 130/109 H 04/02/22 22:30 126 H 20 98 04/02/22 22:10 155 H 26 H 94 04/02/22 22:01 135 H 20 04/02/22 22:01 154/106 H 04/02/22 22:00 139 H 23 04/02/22 21:50 143 H 24 98 04/02/22 21:44 135 H 22 96 04/02/22 21:44 148/94 H 04/02/22 21:40 158 H 23 04/02/22 21:30 161 H 20 04/02/22 21:20 135 H 20 04/02/22 21:10 151 H 15 04/02/22 21:01 159 H 15 04/02/22 20:50 132 H 20 100 04/02/22 20:42 141 H 18 100 04/02/22 22:03 140 H 20 154/106 H 99 04/02/22 21:44 134 H 20 148/94 H 99 04/02/22 21:03 132 H 16 97 04/02/22 20:58 138 H 100 04/02/22 20:43 36.8 C 143 H 16 155/112 H 99 O2 Del Method 07/26/22 22:40 04/02/22 22:32 04/02/22 22:32 04/02/22 22:30 04/02/22 22:10 04/02/22 22:01 04/02/22 22:01 04/02/22 22:00 04/02/22 21:50 04/02/22 21:44 04/02/22 21:44 04/02/22 21:40 04/02/22 21:30 04/02/22 21:20 04/02/22 21:10 04/02/22 21:01 04/02/22 20:50 04/02/22 20:42 04/02/22 22:03 Room Air 04/02/22 21:44 Room Air 04/02/22 21:03 Room Air 04/02/22 20:58 Room Air 04/02/22 20:43 Room Air Laboratory Results Laboratory Results WBC 7.12 K/ul (4.8-10.8) 04/03/22 07:18 RBC 4.28 M/uL (3.93-5.22) 04/03/22 07:18 Hgb 11.6 g/dl (12.0-16.0) L 04/03/22 07:18 Hct 36.4 % (34.1-44.9) 04/03/22 07:18 MCV 85.0 fL (80.0-100.0) 04/03/22 07:18 MCH 27.1 pg (25.0-34.0) 04/03/22 07:18 MCHC 31.9 g/dL (32.0-36.0) L 04/03/22 07:18 RDW Std Deviation 39.8 fL (36.4-46.3) 04/03/22 07:18 RDW Coeff of Indira 12.9 % (11.5-14.5) 04/03/22 07:18 Plt Count 287 K/uL (130-400) 04/03/22 07:18 MPV 9.1 fL (9.4-12.3) L 04/03/22 07:18 Immature Gran % (Auto) 0.4 % 04/03/22 07:18 Neut % (Auto) 56.7 % 04/03/22 07:18 Lymph % (Auto) 32.9 % 04/03/22 07:18 [place] % (Auto) 8.6 % 04/03/22 07:18 Eos % (Auto) 0.8 % 04/03/22 07:18 Baso % (Auto) 0.6 % 04/03/22 07:18 Neut # (Auto) 4.04 K/uL (1.4-6.5) 04/03/22 07:18 Lymph # (Auto) 2.34 K/uL (1.2-3.4) 04/03/22 07:18 [place] # (Auto) 0.61 K/uL (0.24-0.82) 04/03/22 07:18 Eos # (Auto) 0.06 K/uL (0-0.50) 04/03/22 07:18 Baso # (Auto) 0.04 K/uL (0-0.2) 04/03/22 07:18 Immature Gran # (Auto) 0.03 K/uL (0.00-0.02) H 04/03/22 07:18 Sodium 139 mmol/L (136-145) 04/03/22 07:18 Potassium 4.3 mmol/L (3.5-5.1) D 04/03/22 08:50 Chloride 107 mmol/L (98-107) 04/03/22 07:18 Carbon Dioxide 25 mmol/L (21-32) 04/03/22 07:18 Anion Gap 7 (3-11) 04/03/22 07:18 BUN 7 mg/dl (6-23) 04/03/22 07:18 Creatinine 0.89 mg/dl (0.6-1.2) 04/03/22 07:18 Est Cr Clr Drug Dosing 88.3 ml/min 04/03/22 07:18 Est GFR ( Amer) 96.6 ml/min 04/03/22 07:18 Est GFR (Non-Af Amer) 83.4 ml/min 04/03/22 07:18 BUN/Creatinine Ratio 7.9 (10-20) L 04/03/22 07:18 Glucose 81 mg/dl (70-99(Fasting)) 04/03/22 07:18 Calcium 8.6 mg/dl (8.5-10.1) 04/03/22 07:18 Phosphorus 4.1 mg/dl (2.5-4.9) D 04/03/22 07:18 Magnesium 2.0 mg/dl (1.7-2.4) 04/03/22 08:50 Total Bilirubin 0.3 mg/dl (0.2-1.0) 04/02/22 20:47 AST 13 U/L (13-39) 04/02/22 20:47 ALT 29 U/L (7-52) 04/02/22 20:47 Alkaline Phosphatase 88 U/L (34-104) 04/02/22 20:47 Total Protein 6.9 gm/dl (6.0-8.3) 04/02/22 20:47 Albumin 4.1 gm/dl (3.4-5.0) 04/02/22 20:47 Globulin 2.8 gm/dl (2.5-4.0) 04/02/22 20:47 Albumin/Globulin Ratio 1.5 (0.9-2) 04/02/22 20:47 HCG, Qual Negative (Negative) 04/02/22 20:47 Urine Color Yellow 04/02/22 21:15 Urine Appearance Clear (Clear) 04/02/22 21:15 Urine pH 5.5 (4.5-7.5) 04/02/22 21:15 Ur Specific [place] 1.004 (1.000-1.030) 04/02/22 21:15 Urine Protein Negative (Negative) 04/02/22 21:15 Urine Glucose (UA) Negative (Negative) 04/02/22 21:15 Urine Ketones Negative (Negative) 04/02/22 21:15 Urine Blood Trace (Negative) H 04/02/22 21:15 Urine Nitrite Negative (Negative) 04/02/22 21:15 Urine Bilirubin Negative (Negative) 04/02/22 21:15 Urine Urobilinogen Negative (Negative) 04/02/22 21:15 Ur Leukocyte Esterase 1+ (Negative) H 04/02/22 21:15 Urine WBC (Auto) 10-30 /hpf (0-5) H 04/02/22 21:15 Urine RBC (Auto) 0-4 /hpf (0-4) 04/02/22 21:15 U Hyaline Cast (Auto) 1-5 /lpf (0-5) 04/02/22 21:15 U Epithel Cells (Auto) >30 /lpf (0-5) H 04/02/22 21:15 Urine Bacteria (Auto) Negative (Negative) 04/02/22 21:15 Salicylates < 3.0 mg/dl (3.0-30) L 04/02/22 20:47 Urine Opiates Screen Neg (Neg) 04/02/22 Unknown Ur Methadone, Qual Neg (Neg) 04/02/22 Unknown Acetaminophen < 3 ug/ml (10-30) L 04/02/22 20:47 Urine Barbiturates Neg (Neg) 04/02/22 Unknown Ur Phencyclidine (PCP) Neg (Neg) 04/02/22 Unknown U Amphetamin/Meth Scrn Neg (Neg) 04/02/22 Unknown MDMA (Ecstasy) Screen Pos (Neg) H 04/02/22 Unknown U Benzodiazepines Scrn Neg (Neg) 04/02/22 Unknown Ur Cocaine Metabolite Neg (Neg) 04/02/22 Unknown U Marijuana (THC) Screen Neg (Neg) 04/02/22 Unknown Ethyl Alcohol mg/dL < 10.0 mg/dl (<10.0) 04/02/22 20:47 SARS-CoV-2, RNA, NAAT NEGATIVE (NEGATIVE) 04/02/22 21:49 Supervising Physician Co-Signing Physician Notes Patient seen and examined, chart reviewed, case discussed with Dr. Gale and I agree with the note as above. In brief, 36yo female with history of schizophrenia, prior suicide attempts presenting after intentional ingestion of unknown quantities of Risperdal and Bupropion in attempt to end her life. Patient unable to provide further details at this time. Unable to verbally contract for safety at this time. On exam she is somnolent, arousable and answers questions in one word then returns to sleep Regular, narrow complex tachycardia noted on monitor Skin - warm, dry, intact HEENT - dry MM, PERRL, neck supple Heart - +S1/S2, regular, tachycardic, no m/r/g Lungs - CTA Abd - soft, NT/ND Neuro - somnolent, arousable, does not provide detailed history, follows some commands Labs and images reviewed EKG with normal intervals Assessment/Plan - intentional overdose with Bupropion and Risperdal. Will monitor for seizure activity, monitor for arrhythmia Ativan PRN symptomatic management Psychiatry consultation appreciated K repleted Remainder as above Resident Activity Tracking Resident Involvement: Resident Care Provided and Test Rider Coverage Note Care Provided: Adult Hospital Medicine (1) Schizophrenia Schizophrenia type: unspecified Qualified Code(s): F20.9 - Schizophrenia, unspecified
[2022-04-03] MEDS ORDERED: LORazepam 2 MG/1 ML VIAL IV PRN ×2 (01:22→02:14)
[2022-04-03] MEDS: POTASSIUM CHLORIDE 20 MEQ in LACTATED RINGER'S 1,000 ML IV SCH ×2 (03:50→14:03)
[2022-04-03 07:35] LABS: Basophils # (auto) 0.04 K/uL (0-0.2); Basophils % (auto) 0.6 %; Eosinophils # (auto) 0.06 K/uL (0-0.50); Eosinophils % (auto) 0.8 %; Hematocrit (blood only) 36.4 % (34.1-44.9); Hemoglobin 11.6 g/dl (12.0-16.0); Immature Granulocytes # (auto) 0.03 K/uL (0.00-0.02); Immature Granulocytes % (auto) 0.4 %; Lymphocytes # (auto) 2.34 K/uL (1.2-3.4); Lymphocytes % (auto) 32.9 %; Mean Corpuscular Hemoglobin 27.1 pg (25.0-34.0); Mean Corpuscular Hgb Conc 31.9 g/dL (32.0-36.0); Mean Platelet Volume 9.1 fL (9.4-12.3); Monocytes # (auto) 0.61 K/uL (0.24-0.82); Monocytes % (auto) 8.6 %; Neutrophils # (auto) 4.04 K/uL (1.4-6.5); Neutrophils % (auto) 56.7 %; Platelet Count 287 K/uL (130-400); RDW Coefficient of Variation 12.9 % (11.5-14.5); RDW Standard Deviation 39.8 fL (36.4-46.3); Red Blood Count 4.28 M/uL (3.93-5.22); White Blood Count 7.12 K/ul (4.8-10.8)
--- NOTE | 2022-04-03 08:01 | Hospitalist Progress Note ---
Date of Service April 03, 2022 Assessment & Plan (1) Bupropion overdose: Plan: 36yo female with a history of schizophrenia and frequent ED visits for mental health evaluations presents to [facility] via EMS after an intentional overdose of an unknown quantity of bupropion and risperidone. Bupropion overdose, risperidone overdose Patient presents after an intentional overdose of an unknown quantity ("a handful") of bupropion and risperidone Vitals notable for tachycardia and intermittent hypertension, have since returned to wnl Labs notable only for mild hypokalemia; LFTs not elevated -MDMA UDS positive, known to be false positive with bupropion Admit to PCU for supportive care and benzodiazepine administration due to 12- hour seizure risk secondary to bupropion overdose Ativan 2mg IV q15min as-needed for agitation or seizure received 12mg ativan since admission RASS -1 NPO, home meds held Daily CBC, BMP, EKG Parasuicidal behavior Patient with intentional overdose with the goal of suicide in the setting of prior attempts One-to-one observation, safe tray when diet is advanced, suicide precautions Psychiatry consulted, appreciate suggestions Hypokalemia: repleted Potassium on admission 3.3, repleted recheck 4.3 Trend daily BMP Schizophrenia Home regimen held on admission Will defer further psych med management to psychiatry given patient's complex history WBCs in urine -Ucx pending FEN: NPO, LR@100mL/hr + 20mEq KCl Code status: full code (NOT discussed with patient due to cognitive status; reassess when able) DVT ppx: SCDs Held home meds: all Consults: psychiatry Case management: following, has considered inpatient treatment for SI Dispo: PCU given seizure risk and need for frequent reassessment (2) Intentional overdose of risperidone: (3) Schizophrenia: (4) Sinus tachycardia: Admission and Anticipated Discharge Date Admission Date: April 03, 2022 Supervising Physician Co-Signing Physician Notes Resident Physician Supervision Note: I independently interviewed and examined the patient and verified the rodriguez history and physical, reviewed labs and image studies and agree with resident Dr. Landon findings and care plan. Subjective Patient seen at bedside sleeping comfortably arousable on exam opens eyes answers questions, quickly falls asleep afterwards. She denies any nausea headache SOB pain at this time. Review of Systems Review of Systems: Negative fever chills Negative headache dizziness Negative chest pain palpitations SOB Negative nausea vomitting diarrhea constipation Negative numbness tingling rash swelling Physical Exam Constitutional: well developed, well nourished, cooperative, comfortable and + lethargic Eyes: PERRL, conjunctivae normal, anicteric sclerae ENMT: external ear and nose normal, oropharynx normal Neck: trachea midline, no thyromegaly Respiratory: normal respiratory effort, lungs clear to auscultation Cardiovascular: RRR, no murmur, no edema Chest (Breasts): Chest: normal inspection of chest Gastrointestinal (Abdomen): normal bowel sounds, soft, nontender, no hepatosplenomegaly Skin: no rashes, warm and dry Results & Data Results & Data ([facility]) Vital Signs (Past 12 Hours) Vital Signs Temp Pulse Pulse Resp BP BP Pulse Ox 04/03/22 06:47 89 17 110/77 99 04/03/22 03:55 04/03/22 03:54 106 H 17 116/92 100 04/03/22 02:48 110 H 16 125/92 99 04/03/22 00:27 123 H 16 137/100 98 04/02/22 22:40 132 H 18 98 04/02/22 22:32 131 H 29 H 97 04/02/22 22:32 130/109 H 04/02/22 22:30 126 H 20 98 04/02/22 22:10 155 H 26 H 94 04/02/22 22:01 135 H 20 04/02/22 22:01 154/106 H 04/02/22 22:00 139 H 23 04/02/22 21:50 143 H 24 98 04/02/22 21:44 135 H 22 96 04/02/22 21:44 148/94 H 04/02/22 21:40 158 H 23 04/02/22 21:30 161 H 20 04/02/22 21:20 135 H 20 04/02/22 21:10 151 H 15 04/02/22 21:01 159 H 15 04/02/22 20:50 132 H 20 100 04/02/22 20:42 141 H 18 100 04/02/22 22:03 140 H 20 154/106 H 99 04/02/22 21:44 134 H 20 148/94 H 99 04/02/22 21:03 132 H 16 97 04/02/22 20:58 138 H 100 04/02/22 20:43 36.8 C 143 H 16 155/112 H 99 Pulse Ox O2 Del Method O2 Del Method 04/03/22 06:47 Room Air 04/03/22 03:55 100 Room Air 04/03/22 03:54 Room Air 04/03/22 02:48 Room Air 04/03/22 00:27 Room Air 04/02/22 22:40 04/02/22 22:32 04/02/22 22:32 04/02/22 22:30 04/02/22 22:10 04/02/22 22:01 04/02/22 22:01 04/02/22 22:00 04/02/22 21:50 04/02/22 21:44 04/02/22 21:44 04/02/22 21:40 04/02/22 21:30 04/02/22 21:20 04/02/22 21:10 04/02/22 21:01 04/02/22 20:50 04/02/22 20:42 04/02/22 22:03 Room Air 04/02/22 21:44 Room Air 04/02/22 21:03 Room Air 04/02/22 20:58 Room Air 04/02/22 20:43 Room Air Diagnostic Findings Laboratory Results WBC 7.12 K/ul (4.8-10.8) 04/03/22 07:18 RBC 4.28 M/uL (3.93-5.22) 04/03/22 07:18 Hgb 11.6 g/dl (12.0-16.0) L 04/03/22 07:18 Hct 36.4 % (34.1-44.9) 04/03/22 07:18 MCV 85.0 fL (80.0-100.0) 04/03/22 07:18 MCH 27.1 pg (25.0-34.0) 04/03/22 07:18 MCHC 31.9 g/dL (32.0-36.0) L 04/03/22 07:18 RDW Std Deviation 39.8 fL (36.4-46.3) 04/03/22 07:18 RDW Coeff of Indira 12.9 % (11.5-14.5) 04/03/22 07:18 Plt Count 287 K/uL (130-400) 04/03/22 07:18 MPV 9.1 fL (9.4-12.3) L 04/03/22 07:18 Immature Gran % (Auto) 0.4 % 04/03/22 07:18 Neut % (Auto) 56.7 % 04/03/22 07:18 Lymph % (Auto) 32.9 % 04/03/22 07:18 [place] % (Auto) 8.6 % 04/03/22 07:18 Eos % (Auto) 0.8 % 04/03/22 07:18 Baso % (Auto) 0.6 % 04/03/22 07:18 Neut # (Auto) 4.04 K/uL (1.4-6.5) 04/03/22 07:18 Lymph # (Auto) 2.34 K/uL (1.2-3.4) 04/03/22 07:18 [place] # (Auto) 0.61 K/uL (0.24-0.82) 04/03/22 07:18 Eos # (Auto) 0.06 K/uL (0-0.50) 04/03/22 07:18 Baso # (Auto) 0.04 K/uL (0-0.2) 04/03/22 07:18 Immature Gran # (Auto) 0.03 K/uL (0.00-0.02) H 04/03/22 07:18 Sodium 139 mmol/L (136-145) 04/03/22 07:18 Potassium 4.3 mmol/L (3.5-5.1) D 04/03/22 08:50 Chloride 107 mmol/L (98-107) 04/03/22 07:18 Carbon Dioxide 25 mmol/L (21-32) 04/03/22 07:18 Anion Gap 7 (3-11) 04/03/22 07:18 BUN 7 mg/dl (6-23) 04/03/22 07:18 Creatinine 0.89 mg/dl (0.6-1.2) 04/03/22 07:18 Est Cr Clr Drug Dosing 88.3 ml/min 04/03/22 07:18 Est GFR ( Amer) 96.6 ml/min 04/03/22 07:18 Est GFR (Non-Af Amer) 83.4 ml/min 04/03/22 07:18 BUN/Creatinine Ratio 7.9 (10-20) L 04/03/22 07:18 Glucose 81 mg/dl (70-99(Fasting)) 04/03/22 07:18 Calcium 8.6 mg/dl (8.5-10.1) 04/03/22 07:18 Phosphorus 4.1 mg/dl (2.5-4.9) D 04/03/22 07:18 Magnesium 2.0 mg/dl (1.7-2.4) 04/03/22 08:50 Total Bilirubin 0.3 mg/dl (0.2-1.0) 04/02/22 20:47 AST 13 U/L (13-39) 04/02/22 20:47 ALT 29 U/L (7-52) 04/02/22 20:47 Alkaline Phosphatase 88 U/L (34-104) 04/02/22 20:47 Total Protein 6.9 gm/dl (6.0-8.3) 04/02/22 20:47 Albumin 4.1 gm/dl (3.4-5.0) 04/02/22 20:47 Globulin 2.8 gm/dl (2.5-4.0) 04/02/22 20:47 Albumin/Globulin Ratio 1.5 (0.9-2) 04/02/22 20:47 HCG, Qual Negative (Negative) 04/02/22 20:47 Urine Color Yellow 04/02/22 21:15 Urine Appearance Clear (Clear) 04/02/22 21:15 Urine pH 5.5 (4.5-7.5) 04/02/22 21:15 Ur Specific [place] 1.004 (1.000-1.030) 04/02/22 21:15 Urine Protein Negative (Negative) 04/02/22 21:15 Urine Glucose (UA) Negative (Negative) 04/02/22 21:15 Urine Ketones Negative (Negative) 04/02/22 21:15 Urine Blood Trace (Negative) H 04/02/22 21:15 Urine Nitrite Negative (Negative) 04/02/22 21:15 Urine Bilirubin Negative (Negative) 04/02/22 21:15 Urine Urobilinogen Negative (Negative) 04/02/22 21:15 Ur Leukocyte Esterase 1+ (Negative) H 04/02/22 21:15 Urine WBC (Auto) 10-30 /hpf (0-5) H 04/02/22 21:15 Urine RBC (Auto) 0-4 /hpf (0-4) 04/02/22 21:15 U Hyaline Cast (Auto) 1-5 /lpf (0-5) 04/02/22 21:15 U Epithel Cells (Auto) >30 /lpf (0-5) H 04/02/22 21:15 Urine Bacteria (Auto) Negative (Negative) 04/02/22 21:15 Salicylates < 3.0 mg/dl (3.0-30) L 04/02/22 20:47 Urine Opiates Screen Neg (Neg) 04/02/22 Unknown Ur Methadone, Qual Neg (Neg) 04/02/22 Unknown Acetaminophen < 3 ug/ml (10-30) L 04/02/22 20:47 Urine Barbiturates Neg (Neg) 04/02/22 Unknown Ur Phencyclidine (PCP) Neg (Neg) 04/02/22 Unknown U Amphetamin/Meth Scrn Neg (Neg) 04/02/22 Unknown MDMA (Ecstasy) Screen Pos (Neg) H 04/02/22 Unknown U Benzodiazepines Scrn Neg (Neg) 04/02/22 Unknown Ur Cocaine Metabolite Neg (Neg) 04/02/22 Unknown U Marijuana (THC) Screen Neg (Neg) 04/02/22 Unknown Ethyl Alcohol mg/dL < 10.0 mg/dl (<10.0) 04/02/22 20:47 SARS-CoV-2, RNA, NAAT NEGATIVE (NEGATIVE) 04/02/22 21:49 Medications Administered Current Inpatient Medications Potassium Chloride 20 meq/ (Lactated Ringer's) 1,010 mls @ 100 mls/hr IV .[id number] SUZY Stop: 04/03/22 22:11 Last Admin: 04/03/22 03:50 Dose: 100 mls/hr Lorazepam (Lorazepam 2 Mg/1 Ml Vial) 2 mg IV Q15M PRN; Protocol PRN Reason: Agitation or seizure Stop: 05/03/22 01:29 Resident Activity Tracking Resident Involvement: Resident Care Provided Care Provided: Adult Hospital Medicine (1) Schizophrenia Schizophrenia type: unspecified Qualified Code(s): F20.9 - Schizophrenia, unspecified
[2022-04-03 08:14] LABS: Anion Gap 7 (3-11); BUN Creatinine Ratio 7.9 (10-20); Blood Urea Nitrogen 7 mg/dl (6-23); Calcium 8.6 mg/dl (8.5-10.1); Carbon Dioxide 25 mmol/L (21-32); Chloride 107 mmol/L (98-107); Creatinine Clr Calc Pharmacy 88.3 ml/min; Est GFR (African American) 96.6 ml/min; Est GFR (Non-African American) 83.4 ml/min; Glucose 81 mg/dl (70-99(Fasting)); Phosphorus 4.1 mg/dl (2.5-4.9); Sodium 139 mmol/L (136-145)
[2022-04-03 09:28] LABS: Potassium 4.3 mmol/L (3.5-5.1)
--- NOTE | 2022-04-03 12:24 | Billing Data ---
Date of Service April 02, 2022 Coding Level of Care Code 26498 Initial Inpt Care Lvl 2
--- NOTE | 2022-04-03 13:39 | Psychiatric Consultation ---
Date of Consultation April 03, 2022 Impression / Recommendations Impression 36 woman with a history of schizoaffective disorder and frequent psychiatric hospitalizations/ED presentations admitted medically following a suicide attempt via overdose with a 302 petition on the chart. Diagnostically consistent with schizoaffective disorder likely current depressive episode and leading to suicide attempt. Her acute risk of self-harm is high given history of prior suicide attempts presentation of suicide attempt, comorbid psychiatric conditions, history of impulsivity and she will require inpatient psychiatric hospitalization once medically stable. If she attempts to leave she would meet 302 criteria and psychiatric liaison should be consulted so 302 warrant can be pursued. (1) Schizoaffective disorder: (2) Major depression, recurrent: Major depression episode severity: unspecified Plan - Requires one-on-one and suicide precautions -302 petition on the chart she may not leave AMA -Agree with holding her psychiatric medications given overdose and potential for lowering seizure threshold -Once medically stable will begin process of referrals for inpatient psychiatric hospitalization Psych History Identifying Data 36 woman from [place] with a history of schizoaffective disorder and frequent psychiatric hospitalizations/ED presentations admitted medically following a suicide attempt via overdose. Psychiatry consulted for risk assessment/recommendations. Chief Complaint mute/sedated History of Present Illness Patient is well known to me from her multiple prior inpatient psychiatric admissions for schizoaffective disorder leading to disorganized behaviors and periods of depression with suicidal ideation. She was last admitted to our [facility] in mid January and since that time was hospitalized once at [facility] inpatient [facility] in late January then has presented to the emergency department on at least 5 different occasions for presentations of disorganized behavior, depression or suicidal ideation. She represented to the emergency department yesterday via EMS after reportedly taking an unspecified quantity of Wellbutrin 150 mg tabs and risperidone versus sertraline. It is unclear to me who contacted EMS and their arrival she was showing signs consistent with an overdose thus requiring medical admission. On arrival to the ED she endorsed suicidal ideation and intent. Overnight she required multiple doses of Ativan and thus has been sedated throughout the morning on my assessment is laying in bed does not arouse to verbal prompts is observed to have a CO2 monitor in place in her nose. Per ED notes from her presentation on 04/01/2022 she has been continuing to experience intermittent auditory hallucinations and intermittent periods of suicidal ideation. At that time she denied any recent substance use. She continues to follow with Ny Moses at [facility] for psychiatric treatment. Emergency department had recently referred her for outpatient case management services unclear if they have initiated an intake or begun working with her. Medical admission H&P appears her most recent medications have been Wellbutrin 150 mg daily risperidone and possibly Rexulti 0.5 mg daily. On her last discharge from [facility] she had been receiving [facility] Abilify unclear if she has received this recently. Unclear if she has been continuing to take sertraline. Past Psychiatric History Previous Psych History: see HPI Previous Psych Admissions: multiple, most recently [facility] late January 2022 History of Previous Suicide Attempt: Yes Allergies Allergy/AdvReac Type Severity Reaction Status Date / Time codeine Allergy Intermediate RASH Verified 03/28/22 19:56 Home Medications Medication Instructions Recorded Confirmed Type brexpiprazole 0.5 mg tablet 0.5 mg PO QAM 03/28/22 04/02/22 History (Rexulti) bupropion HCl (smoking deter) 150 150 mg PO QAM 03/28/22 04/02/22 History mg tablet,12 hr sustained-release(smoking deterrent) risperidone 1 mg tablet See Rx Instructions .Route .COMPLEX 03/28/22 04/02/22 History Substance Abuse History [facility] Personal History Living Arrangements: Apartment (With her cat) Beliefs That Will Affect Care: None Patient History Medical History Acute periapical abscess Depression Facial cellulitis History of drug overdose Hypokalemia Psychosis Schizophrenia Sinus tachycardia Suicidal ideation Surgical History No pertinent past surgical history Family History Other Cancer Social History Smoking Status: Never smoker Tobacco Type: Cigarettes Preferred Language: French Communication Ability: Effective 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 Qualified Required: No Beliefs That Will Affect Care: None marital status: Single current occupational status: unemployed Feels Safe at Home: No Assistive Devices: None Physical Exam Psychiatric: Orientation: + not alert Apperance: appropriately dressed and + disheveled Eye Contact: + poor eye contact Motor Behavior: no abnormal motor movements Affect: + flat affect Vital Signs (Past 24 Hours): Last Vital Signs Temp 36.8 C 04/02/22 20:43 Pulse 89 04/03/22 06:47 Resp 17 04/03/22 06:47 BP 110/77 04/03/22 06:47 Pulse Ox 99 04/03/22 06:47 O2 Del Method 04/03/22 06:47 Review of Systems Unobtainable due to reduced consciousness Results & Data (PSY) Medications Administered Potassium Chloride 20 meq/ (Lactated Ringer's) 1,010 mls @ 100 mls/hr IV .Q10H6M SUZY Stop: 04/03/22 22:11 Last Admin: 04/03/22 03:50 Dose: 100 mls/hr Documented By: CC Coding Level of Care Code 02911 Inpt Consult Level 3 Diagnoses Schizoaffective disorder F25.9 Major depression, recurrent F33.9 Major depression episode severity: unspecified
--- NOTE | 2022-04-03 13:55 | Electrocardiogram Report ---
Test Reason : Blood Pressure : / mmHG Vent. Rate : 138 BPM Atrial Rate : 138 BPM P-R Int : 126 ms QRS Dur : 082 ms QT Int : 300 ms P-R-T Axes : 046 034 015 degrees QTc Int : 454 ms Poor data quality, interpretation may be adversely affected Sinus tachycardia Cannot rule out Inferior infarct , age undetermined Abnormal ECG When compared with ECG of 01-APR-2022 14:57, T wave inversion now evident in Lateral leads Confirmed by Sage Lentz ([id number]) on 04/03/2022 1:55:10 PM Referred By: REFERRED SELF Confirmed By:Sage Lentz
--- NOTE | 2022-04-03 14:47 | Electrocardiogram Report ---
Test Reason : Blood Pressure : / mmHG Vent. Rate : 081 BPM Atrial Rate : 081 BPM P-R Int : 134 ms QRS Dur : 086 ms QT Int : 402 ms P-R-T Axes : 040 033 025 degrees QTc Int : 466 ms Normal sinus rhythm with sinus arrhythmia Normal ECG When compared with ECG of 02-APR-2022 20:43, (unconfirmed) Vent. rate has decreased BY 57 BPM T wave inversion no longer evident in Lateral leads Confirmed by Sage Lentz ([id number]) on 04/03/2022 2:46:35 PM Referred By: REFERRED SELF Confirmed By:Sage Lentz
[2022-04-04 06:45] LABS: Basophils # (auto) 0.04 K/uL (0-0.2); Basophils % (auto) 0.6 %; Eosinophils # (auto) 0.11 K/uL (0-0.50); Eosinophils % (auto) 1.6 %; Hematocrit (blood only) 35.7 % (34.1-44.9); Hemoglobin 11.6 g/dl (12.0-16.0); Immature Granulocytes # (auto) 0.02 K/uL (0.00-0.02); Immature Granulocytes % (auto) 0.3 %; Lymphocytes # (auto) 1.84 K/uL (1.2-3.4); Lymphocytes % (auto) 26.2 %; Mean Corpuscular Hemoglobin 27.5 pg (25.0-34.0); Mean Corpuscular Hgb Conc 32.5 g/dL (32.0-36.0); Mean Corpuscular Volume 84.6 fL (80.0-100.0); Mean Platelet Volume 9.1 fL (9.4-12.3); Monocytes # (auto) 0.64 K/uL (0.24-0.82); Monocytes % (auto) 9.1 %; Neutrophils # (auto) 4.37 K/uL (1.4-6.5); Neutrophils % (auto) 62.2 %; Platelet Count 277 K/uL (130-400); RDW Coefficient of Variation 12.9 % (11.5-14.5); RDW Standard Deviation 39.3 fL (36.4-46.3); Red Blood Count 4.22 M/uL (3.93-5.22); White Blood Count 7.02 K/ul (4.8-10.8)
--- NOTE | 2022-04-04 07:07 | Hospitalist Progress Note ---
Date of Service April 04, 2022 Assessment & Plan (1) Bupropion overdose: Plan: 36yo female with a history of schizophrenia and frequent ED visits for mental health evaluations presents to [facility] via EMS after an intentional overdose of an unknown quantity of bupropion and risperidone. Bupropion overdose, risperidone overdose Patient presents after an intentional overdose of an unknown quantity ("a handful") of bupropion and risperidone Vitals notable for tachycardia and intermittent hypertension, have since returned to wnl Labs notable only for mild hypokalemia; LFTs not elevated -MDMA UDS positive, known to be false positive with bupropion Admit to PCU for supportive care and benzodiazepine administration due to 12- hour seizure risk secondary to bupropion overdose Ativan 2mg IV q15min as-needed for agitation or seizure received 12mg ativan since admission RASS -1 NPO, home meds held Daily CBC, BMP, EKG Parasuicidal behavior Patient with intentional overdose with the goal of suicide in the setting of prior attempts One-to-one observation, safe tray when diet is advanced, suicide precautions Psychiatry consulted, appreciate suggestions Hypokalemia: repleted Potassium on admission 3.3, repleted recheck 4.3 Trend daily BMP Schizophrenia Home regimen held on admission Will defer further psych med management to psychiatry given patient's complex history WBCs in urine -Ucx pending FEN: NPO, LR@100mL/hr + 20mEq KCl Code status: full code (NOT discussed with patient due to cognitive status; reassess when able) DVT ppx: SCDs Held home meds: all Consults: psychiatry Case management: following, has considered inpatient treatment for SI Dispo: PCU given seizure risk and need for frequent reassessment (2) Intentional overdose of risperidone: (3) Schizophrenia: (4) Sinus tachycardia: Admission and Anticipated Discharge Date Admission Date: April 03, 2022 Results & Data Results & Data ([facility]) Vital Signs (Past 12 Hours) Vital Signs Temp Pulse Pulse Resp BP BP BP 04/03/22 23:00 102 H 04/03/22 20:45 104 H 04/04/22 05:00 37.1 C 95 H 18 118/69 04/04/22 01:00 37.6 C H 101 H 18 110/65 04/03/22 19:45 04/03/22 19:45 36.3 C L 108 H 18 129/89 04/03/22 19:12 98 H 20 151/89 H Pulse Ox O2 Del Method 04/03/22 23:00 04/03/22 20:45 04/04/22 05:00 97 Room Air 04/04/22 01:00 94 Room Air 04/03/22 19:45 Room Air 04/03/22 19:45 99 Room Air 04/03/22 19:12 99 Room Air (1) Schizophrenia Schizophrenia type: unspecified Qualified Code(s): F20.9 - Schizophrenia, unspecified
[2022-04-04 07:12] LABS: Calcium 8.9 mg/dl (8.5-10.1); Creatinine Clr Calc Pharmacy 84.6 ml/min; Est GFR (African American) 95.3 ml/min; Est GFR (Non-African American) 82.3 ml/min; Phosphorus 4.6 mg/dl (2.5-4.9); Potassium 4.1 mmol/L (3.5-5.1)
--- NOTE | 2022-04-04 09:37 | Electrocardiogram Report ---
Test Reason : Blood Pressure : / mmHG Vent. Rate : 114 BPM Atrial Rate : 114 BPM P-R Int : 130 ms QRS Dur : 078 ms QT Int : 354 ms P-R-T Axes : 046 048 014 degrees QTc Int : 487 ms Sinus tachycardia Otherwise normal ECG When compared with ECG of 03-APR-2022 08:36, No significant change was found Confirmed by Campos Washington ([id number]) on 04/04/2022 9:36:58 AM Referred By: REFERRED SELF Confirmed By:Campos Washington
--- NOTE | 2022-04-04 10:19 | Psychiatric Progress Note ---
Date of Service April 04, 2022 Impression / Recommendations Impression 36 woman with a history of schizoaffective disorder and frequent psychiatric hospitalizations/ED presentations admitted medically following a suicide attempt via overdose with a 302 petition on the chart. Diagnostically consistent with schizoaffective disorder likely current depressive episode and leading to suicide attempt. She is deemed unstable and requires psychiatric hospitalization for diagnostic clarification, safety and stabilization, medication management and development of further coping skills. She is now medically stable and is agreeing to voluntary psychiatric referrals. We will continue to hold her medications for now and consider restarting risperidone tomorrow. If she attempts to leave or changes her mind she will meet 302 criteria. (1) Schizoaffective disorder: (2) Major depression, recurrent: Plan - Requires one-on-one and suicide precautions -302 petition on the chart she may not leave AMA, agreeing to voluntary referrals -Agree with holding her psychiatric medications for now, consider restarting risperidone tomorrow -Psychiatric liaison to begin process of referrals for inpatient psychiatric hospitalization Interval History Identifying Information 36 woman from [place] with a history of schizoaffective disorder and frequent psychiatric hospitalizations/ED presentations admitted medically following a suicide attempt via overdose. Psychiatry consulted for risk assessment/recommendations. Chief Complaint "I'm alright". Review of Systems Notes Slept last night appetite stable no physical complaints Subjective Subjective Patient was seen & assessed and interval progress reviewed. Denise is awake and fully oriented this morning. Recalls taking Wellbutrin and risperidone as part of a suicide attempt stating that "I get really sad and it feels the circuits in my brain". He states that she started to feel very hopeless saying suicidal ideation due to feeling like she will not ever meet anyone or find a romantic partner. She states that after taking the pills she called 911 to alert them of her suicide attempt so that they could come and provide help. States she is no longer on Abilify or Zoloft and has been taking Wellbutrin, risperidone and Rexulti. We reviewed that she continues to live with her cat Eggo and she is going to reach out to her landlord or her brothers this afternoon to ensure that someone can check on her cat/ensure it has the food it needs. She is agreeable to psychiatric hospitalization and we will begin the referral process. Physical Exam Psychiatric Orientation: alert and oriented x 3 Apperance: appropriately dressed and appropriately groomed Eye Contact: good eye contact Motor Behavior: no abnormal motor movements Speech: normal rate/rhythm/volume of speech Affect: + flat affect Mood: + depressed mood; no anxious mood Thought Process: + concrete thought process Thought Content: reality based without delusions Suicidal Thoughts: denies suicidal plan; + reports suicidal thoughts (Endorses intermittent SI though feels safe in the hospital had attempt ) Homicidal Thoughts: denies homicidal thoughts Hallucinations: + auditory hallucinations (Intermittent AH denies any voices currently); no visual hallucinations Cognition: recent memory grossly intact, remote memory grossly intact, attention grossly intact and language grossly intact Estimated Intelligence: consistent with education level Insight: + limited insight Judgement: + limited judgement Vital Signs (Past 24 Hours) Last Vital Signs Temp 36.7 C 04/04/22 07:38 Pulse 108 H 04/04/22 08:00 Resp 16 04/04/22 07:38 BP 115/61 04/04/22 07:38 Pulse Ox 96 04/04/22 07:38 O2 Del Method 04/04/22 07:38 Results & Data ([facility]) Laboratory Results Laboratory Results - last 24 hr 04/04/22 04/04/22 06:05 06:05 WBC 7.02 RBC 4.22 Hgb 11.6 L Hct 35.7 MCV 84.6 MCH 27.5 MCHC 32.5 RDW Std Deviation 39.3 RDW Coeff of Indira 12.9 Plt Count 277 MPV 9.1 L Immature Gran % (Auto) 0.3 Neut % (Auto) 62.2 Lymph % (Auto) 26.2 [place] % (Auto) 9.1 Eos % (Auto) 1.6 Baso % (Auto) 0.6 Neut # (Auto) 4.37 Lymph # (Auto) 1.84 [place] # (Auto) 0.64 Eos # (Auto) 0.11 Baso # (Auto) 0.04 Immature Gran # (Auto) 0.02 Sodium 138 Potassium 4.1 Chloride 105 Carbon Dioxide 26 Anion Gap 7 BUN 9 Creatinine 0.90 Est Cr Clr Drug Dosing 84.6 Est GFR ( Amer) 95.3 Est GFR (Non-Af Amer) 82.3 BUN/Creatinine Ratio 10.0 Glucose 81 Calcium 8.9 Phosphorus 4.6 Magnesium 2.0 Current Inpatient Medications Current Inpatient Medications: Current Inpatient Medications Lorazepam (Lorazepam 2 Mg/1 Ml Vial) 2 mg IV Q15M PRN; Protocol PRN Reason: Agitation or seizure Stop: 05/03/22 01:29 (1) Major depression, recurrent Major depression episode severity: unspecified
--- NOTE | 2022-04-04 15:01 | Discharge Summary ---
Date of Service April 04, 2022 Admission HPI Per Admitting Provider 36yo female with a history of schizophrenia and frequent ED visits for mental health evaluations presents to [facility] via EMS after an intentional overdose of an unknown quantity of bupropion and risperidone. History is obtained through EMS and ED chart review, as patient is obtunded at the time of my interview (04/03 at 00:30). Per EMS report, patient reported intentionally ingesting "a handful" of bupropion and risperidone on 04/02 around 16:00-17:00 with suicide as the intent. Patient reported to EMS personnel that she developed sudden-onset chest pain immediately after taking the pills. Patient called 911 a few hours later, and EMS arrived at 19:54. Upon initial EMS assessment, vitals - HR 164, BP 137/87, RR 16; patient was AOx4, GCS 15, pupils were equal and reactive, PE was otherwise unremarkable. No signs of physical trauma noted. EMS personnel felt patient was in SVT and administered adenosine. Upon arrival to the ED, patient was tachycardic between 130s-150s and hypertensive to 155/112. Afebrile, RR wnl, O2 sat adequate on room air. Appeared clinically dry, skin warm and dry, normal reflexes without clonus. EKG showed sinus tachycardia; no QTc prolongation. Labs were notable for mild hypokalemia to 3.3 and UDS positive for MDMA. CBC unremarkable, chemistry without metabolic acidosis, electrolytes otherwise unremarkable. LFTs wnl, b-hCG not elevated. APAP and salicylates negative. Per ED provider, Poison Control recommended admission for supportive care given bupropion's seizure threshold-lowering effect lasts up to twelve hours. Poison Control recommended symptomatic treatment with ativan 2mg q15min as-needed for agitation. Admission Exam Per Admitting Provider Constitutional: no acute distress, laying in hospital bed, obtunded HEENT: NCAT, no conjunctival injection, no scleral icterus CV: tachycardic, rhythm regular, no murmur appreciated, extremities well- perfused, no LE edema Resp: CTABL, no wheezes/rales/rhonchi appreciated, no increased work of breathing GI: soft, nondistended, nontender, BS normoactive MSK: no gross deformities appreciated Skin: multiple linear scars noted on anterior wrists bilaterally Neuro: obtunded, arouses to voice but falls back asleep quickly, no focal deficit appreciated Principal Diagnosis Intentional Overdose with Suicidal Ideation Discharge Exam Constitutional: well developed, well nourished, cooperative, comfortable Eyes: PERRL, conjunctivae normal, anicteric sclerae ENMT: external ear and nose normal, oropharynx normal Neck: trachea midline, no thyromegaly Respiratory: normal respiratory effort, lungs clear to auscultation Cardiovascular: RRR, no murmur, no edema Chest (Breasts): Chest: normal inspection of chest Gastrointestinal (Abdomen): normal bowel sounds, soft, nontender, no hepatosplenomegaly Skin: no rashes, warm and dry Discharge Data Allergies Allergy/AdvReac Type Severity Reaction Status Date / Time codeine Allergy Intermediate RASH Verified 03/28/22 19:56 Consultations 04/02/22 22:08 ED Decision to Admit Stat 04/03/22 03:22 Consult Psychiatry Routine 04/04/22 00:15 Consult Behavioral Health Liaison Routine Hospital Course (1) Bupropion overdose: 36yo female with a history of schizophrenia and frequent ED visits for mental health evaluations presents to [facility] via EMS after an intentional overdose of an unknown quantity of bupropion and risperidone. Bupropion overdose, risperidone overdose Patient presents after an intentional overdose of an unknown quantity ("a handful") of bupropion and risperidone Vitals notable for tachycardia and intermittent hypertension, tachycardia persistent stable at the time of discharge to [facility] -held all psych medications, may try resuming risperidone tomorrow on 04/05 Sinus Tachycardia -asymptomatic. overall improved HR since admission. anticipate it will return to normal with restarting Risperdal. Parasuicidal behavior Patient with intentional overdose with the goal of suicide in the setting of prior attempts Psychiatry consulted, [address], patient transferred to the [facility] may resume risperidone tomorrow Hypokalemia: repleted Potassium on admission 3.3, repleted recheck 4.3 Schizophrenia Home regimen held on admission per psych may resume risperidone tomorrow -transer to the [facility] for inpatient psych WBCs in urine -Ucx unremarkable (2) Intentional overdose of risperidone: (3) Schizophrenia: (4) Sinus tachycardia: Total Time Total Time Spent Total Time Spent (In Minutes): see attending attestation Discharge Plan Discharge Items Patient Disposition: Transfer Behavioral Health Fac Reason For Visit: INTENTIONAL NDRI / ANTIPSYCHOTIC OVERDOSE Discharge Diagnosis: Intentional Overdose with Suicidal Ideation Activity: Per Instructions section Non-emergency contact: Primary Care Provider Call non-emergency contact if: you have any medication questions, your symptoms worsen, your pain is concerning for you and you have a fever Follow-up/Referrals: Santosh Vigil DO [Primary Care Provider] - Diet: Regular Addtl Attending Provider Instructions: 36yo female with a history of schizophrenia and frequent ED visits for mental health evaluations presents to [facility] via EMS after an intentional overdose of an unknown quantity of bupropion and risperidone. Bupropion overdose, risperidone overdose Patient presents after an intentional overdose of an unknown quantity ("a handful") of bupropion and risperidone Vitals notable for tachycardia and intermittent hypertension, tachycardia persistent Labs notable only for mild hypokalemia; LFTs not elevated -MDMA UDS positive, known to be false positive with bupropion Admit to PCU for supportive care and benzodiazepine administration due to 12- hour seizure risk secondary to bupropion overdose received 12mg ativan since admission RASS -1 resumed diet with safety tray -hold all psych medications at this time, may try resuming risperidone tomorrow on 04/05 Sinus Tachycardia -ongoing since admission -no changes noted on EKG -patient denies pain SOB resting comfortably -may be 2/2 to recent overdose, discontinuation of all medication Parasuicidal behavior Patient with intentional overdose with the goal of suicide in the setting of prior attempts One-to-one observation, safe tray when diet is advanced, suicide precautions Psychiatry consulted, [address], patient to be transferred to the [facility] may resume risperidone tomorrow Hypokalemia: repleted Potassium on admission 3.3, repleted recheck 4.3 Schizophrenia Home regimen held on admission per psych may resume risperidone tomorrow -transer to the [facility] for inpatient psych WBCs in urine -Ucx unremarkable Pending Studies at Discharge: No Stand-Alone Forms: My [facility] Intr[facility] Medications and DC Order Prescriptions: Continued risperidone 1 mg tablet See Rx Instructions .ROUTE .COMPLEX Rx Instructions: 1 mg ORALLY; TAKES 1 MG QAM, THEN 2 MG AT HS Rexulti 0.5 mg tablet 0.5 mg PO QAM bupropion HCl (smoking deter) 150 mg tablet extended release 12 hr 150 mg PO QAM Discharge Orders: Discharge Order (Routine); Ordered 04/04/22 Ordered By: Melyssa Landon Admission Data Admit Date/Time: 04/03/22 00:50 Attending Provider: Sharita Sauceda Admit Provider: Daljit Gale Primary Care Provider: Santosh Vigil Other Providers: Elizabeth Rogers ; Rosaline Bermudez ; Brit Story ; Allie Hurst Other Interventions: Discharge Summary Assessment (RN) Last Done: 04/04/22 17:21 Supervising Physician Co-Signing Physician Notes Resident Physician Supervision Note: I independently interviewed and examined the patient and verified the rodriguez history and physical, reviewed labs and image studies and agree with resident Dr. Landon findings and care plan. Resident Activity Tracking Resident Involvement: Resident Care Provided Care Provided: Adult Hospital Medicine
[2022-04-07 10:21] LABS: MDA negative; MDEA negative; MDMA (Ecstasy) Urine, Confirm negative
== END 2022-04-04 17:34 | DRG 918 ==
LOC: ED 20:34 → INTOOBSV 04-03 00:50 → EDINP 04-03 03:10 → SUATTDRO 04-03 03:10 → EDINP 04-03 19:19 → 2E 04-03 20:03

== ENCOUNTER 2022-06-26 14:42 | Observation (INO) ==
[2022-06-26] MEDS ORDERED: SODIUM CHLORIDE 0.9% 1000ML 1,000 ML IV SCH (15:00)
[2022-06-26 15:10] LABS: Basophils # (auto) 0.04 K/uL (0-0.2); Basophils % (auto) 0.4 %; Eosinophils # (auto) 0.02 K/uL (0-0.50); Eosinophils % (auto) 0.2 %; Hematocrit (blood only) 38.2 % (34.1-44.9); Hemoglobin 12.5 g/dl (12.0-16.0); Immature Granulocytes # (auto) 0.03 K/uL (0.00-0.02); Immature Granulocytes % (auto) 0.3 %; Lymphocytes # (auto) 1.39 K/uL (1.2-3.4); Lymphocytes % (auto) 12.2 %; Mean Corpuscular Hemoglobin 26.9 pg (25.0-34.0); Mean Corpuscular Hgb Conc 32.7 g/dL (32.0-36.0); Mean Corpuscular Volume 82.2 fL (80.0-100.0); Mean Platelet Volume 9.1 fL (9.4-12.3); Monocytes % (auto) 6.2 %; Neutrophils # (auto) 9.18 K/uL (1.4-6.5); Neutrophils % (auto) 80.7 %; Platelet Count 302 K/uL (130-400); RDW Coefficient of Variation 13.3 % (11.5-14.5); RDW Standard Deviation 39.8 fL (36.4-46.3); Red Blood Count 4.65 M/uL (3.93-5.22); White Blood Count 11.36 K/ul (4.8-10.8)
--- NOTE | 2022-06-26 15:11 | Emergency Department Note ---
Impression & Plan Tachycardia, Overdose, Suicidal ideation, Elevated troponin ED Provider Note NAME: LISA THAYER AGE: 36 SEX: F : 1985 ARRIVES VIA: Ambulance INFORMANT: [Patient][ems] ED PROVIDER(S): [Clint Velazquez MD] CHIEF COMPLAINT: Overdose HISTORY OF PRESENT ILLNESS: The patient is a 36-year-old female presents to the ER after allegedly overdosing on risperidone. The patient states that she took all that she had, she states that there were a lot of pills. She denies taking anything else. He took the meds about 3 hours ago. She feels sleepy but otherwise okay. There has been no vomiting, she is not short of breath, she is not in pain. Apparently, a wellness check was done on the patient. This check was requested by her brother. She was found to be sleepy and admitted to the OD, she was brought for evaluation to our ED. The patient states that she felt sad and that is why she took the medication. The patient has a history of schizophrenia as well as suicidality. She was in our hospital for an overdose and discharged April 04. She had overdosed on Wellb utrin and risperidone at that time. REVIEW OF SYSTEMS: See HPI for pertinent positives and negatives. A total of ten systems were reviewed and were otherwise negative. PMHx/PSHx: See Below SOCIAL HISTORY: See Below. PHYSICAL EXAM: GENERAL: Patient is in no acute distress. HEENT: No acute trauma, normocephalic atraumatic, mucous membranes moist, no nasal congestion, no scleral icterus. Pupils equal and reactive to light. NECK: No stridor, no adenopathy, no meningismus, trachea is midline. LUNGS: Clear to auscultation bilaterally, no wheeze, no rhonchi, breath sounds equal. HEART: Mildly tachycardic, regular rhythm, no murmurs. ABDOMEN: Soft, nontender, bowel sounds positive, no peritonitis. EXTREMITIES: No cyanosis or edema, full range of motion of all the joints without pain or difficulty, no signs for acute trauma. NEUROLOGIC: Oriented x 3, seems sleepy. Slight speech slur. Moves all extremities SKIN: No rash, no jaundice, no diaphoresis. DIFFERENTIAL DIAGNOSIS: Mood disorder, infection, UTI, suicidality, psychosis, hypoglycemia, electrolyte abnormalities, cardiac sources, intracerebral event, toxicologic etiology, trauma, neurologic event, as well as other pathologies. EMERGENCY DEPARTMENT COURSE/PROCEDURES: ECG: Indication was overdose. The ECG shows a sinus tachycardia with a rate of 137. There is no ST elevation. No PVCs. The QTc is 483. The QRS duration is 78. Continuous Cardiac Monitoring: An order was placed for continuous cardiac monitoring. The monitor shows a rate of 131 with sinus tachycardia. Critical Care Note: I have personally spent 42 minutes of critical care time in the direct management of this patient. This includes bedside care, interpretation of diagnostic studies, and testing, discussion with consultants, patient, and family members, and other required patient management activities. This 42 minutes is in excess of all separately billable procedures. MEDICAL DECISION MAKING: There is a mild leukocytosis, this could be consistent with infection or the stress of her situation. There is a normal hemoglobin and platelet count. Potassium slightly low at 3.4. No renal failure. No concerning liver enzyme elevation. The patient appeared to be in a euthyroid state. testing was negative. Urinalysis did not show infection. Aspirin, Tylenol and alcohol levels were undetectable. Urine tox was negative. COVID test was negative. ECG showed a sinus tachycardia, no obvious ischemia. Cardiac enzyme testing x1 was slightly elevated, this could be consistent with cardiac injury or potentially mismatch. The patient presents after overdosing on risperidone. The exact number of pills was unclear. The poison center was contacted. Ativan as needed was recommended, hydration was recommended. Patient does require some observation to make sure that her overdose clears. Given the medication ingested--lethargy, hypotension, seizure and somnolence were of concern. The patient was given IV saline, 1.5 L. She was given IV Ativan 0.5 mg. She was given IV potassium and IV magnesium. The patient remains tachycardic. She is doing well otherwise though. She is going to be hospitalized on the medicine service with a psych consult. I did speak with the patient and onsite case manager. The on-call hospitalist was consulted. Past Med/Surg History Medical History Acute periapical abscess Depression Facial cellulitis History of drug overdose Hypokalemia Psychosis Schizophrenia Sinus tachycardia Suicidal ideation Surgical History No pertinent past surgical history Family History Other Cancer Social History Smoking Status: Never smoker Tobacco Type: Cigarettes Hx Alcohol Use: No Hx Substance Use: No Preferred Language: [place] Communication Ability: Effective Surveyor Instrument Assistant Required: No Beliefs That Will Affect Care: None marital status: Single Current Living Situation: Alone current occupational status: unemployed Feels Safe at Home: Yes Assistive Devices: None Allergies Allergies Allergy/AdvReac Type Severity Reaction Status Date / Time codeine Allergy Intermediate RASH Verified 06/26/22 18:00 Home Meds Home Medications Medication Instructions Recorded Confirmed bupropion HCl (smoking deter) 150 150 mg PO QAM 03/28/22 06/26/22 mg tablet,12 hr sustained-release(smoking deterrent) ibuprofen 800 mg tablet 800 mg PO Q8H PRN Pain 06/26/22 06/26/22 sertraline 25 mg tablet 25 mg PO DAILY 06/26/22 06/26/22 Results & Data (ED) Vital Signs Vital Signs - 24 hr 06/26/22 14:55 06/26/22 14:54 06/26/22 15:00 Temperature 36.5 C Temperature Source Oral Pulse Rate 163 H 152 H 133 H Pulse Rate from SpO2 Sensor Pulse Strength Normal Respiratory Rate 20 21 20 Respiratory Effort / Characteristics Non-Labored Respiratory Depth Normal Respiratory Pattern Regular Blood Pressure 114/60 Blood Pressure Mean 78 Blood Pressure Position Sitting Pulse Oximetry 98 Oxygen Delivery Method Room Air Sepsis Recent Fever Within 48 Hours No Sepsis New/Unexplained Change in Mental Status N/A Sepsis Action Taken by Nursing No Action Required 06/26/22 15:16 06/26/22 15:16 06/26/22 15:30 Temperature Temperature Source Pulse Rate 117 H Pulse Rate from SpO2 Sensor 117 H Pulse Strength Respiratory Rate 17 Respiratory Effort / Characteristics Respiratory Depth Respiratory Pattern Blood Pressure 138/75 129/78 Blood Pressure Mean 96 95 Blood Pressure Position Pulse Oximetry 97 Oxygen Delivery Method Sepsis Recent Fever Within 48 Hours Sepsis New/Unexplained Change in Mental Status Sepsis Action Taken by Nursing 06/26/22 15:30 06/26/22 16:01 06/26/22 16:18 Temperature Temperature Source Pulse Rate 114 H 135 H 120 H Pulse Rate from SpO2 Sensor 115 H 136 H 120 H Pulse Strength Respiratory Rate 22 24 20 Respiratory Effort / Characteristics Respiratory Depth Respiratory Pattern Blood Pressure Blood Pressure Mean Blood Pressure Position Pulse Oximetry 96 100 96 Oxygen Delivery Method Sepsis Recent Fever Within 48 Hours Sepsis New/Unexplained Change in Mental Status Sepsis Action Taken by Nursing 06/26/22 16:18 06/26/22 16:30 06/26/22 16:30 Temperature Temperature Source Pulse Rate 112 H Pulse Rate from SpO2 Sensor 115 H Pulse Strength Respiratory Rate 20 Respiratory Effort / Characteristics Respiratory Depth Respiratory Pattern Blood Pressure 158/89 H 151/95 H Blood Pressure Mean 112 113 Blood Pressure Position Pulse Oximetry 99 Oxygen Delivery Method Sepsis Recent Fever Within 48 Hours Sepsis New/Unexplained Change in Mental Status Sepsis Action Taken by Custodial Medications Current Medication List: was personally reviewed by me Laboratory Data Attestation: I reviewed the patient's lab results. Result diagrams: 06/26/22 15:00 06/26/22 15:00 Lab Results 06/26/22 06/26/22 06/26/22 Range/Units 15:00 15:00 15:00 WBC 11.36 H (4.8-10.8) K/ul RBC 4.65 (3.93-5.22) M/uL Hgb 12.5 (12.0-16.0) g/dl Hct 38.2 (34.1-44.9) % MCV 82.2 (80.0-100.0) fL MCH 26.9 (25.0-34.0) pg MCHC 32.7 (32.0-36.0) g/dL RDW Std Deviation 39.8 (36.4-46.3) fL RDW Coeff of Indira 13.3 (11.5-14.5) % Plt Count 302 (130-400) K/uL MPV 9.1 L (9.4-12.3) fL Immature Gran % (Auto) 0.3 % Neut % (Auto) 80.7 % Lymph % (Auto) 12.2 % Stoddard % (Auto) 6.2 % Eos % (Auto) 0.2 % Baso % (Auto) 0.4 % Neut # (Auto) 9.18 H (1.4-6.5) K/uL Lymph # (Auto) 1.39 (1.2-3.4) K/uL Stoddard # (Auto) 0.70 (0.24-0.82) K/uL Eos # (Auto) 0.02 (0-0.50) K/uL Baso # (Auto) 0.04 (0-0.2) K/uL Immature Gran # (Auto) 0.03 H (0.00-0.02) K/uL Sodium 137 (136-145) mmol/L Potassium 3.4 L (3.5-5.1) mmol/L Chloride 102 (98-107) mmol/L Carbon Dioxide 22 (21-32) mmol/L Anion Gap 13 H (3-11) BUN 10 (6-23) mg/dl Creatinine 0.98 (0.6-1.2) mg/dl Est Cr Clr Drug Dosing 83.9 ml/min Est GFR ( Amer) 86.0 ml/min Est GFR (Non-Af Amer) 74.2 ml/min BUN/Creatinine Ratio 10.2 (10-20) Glucose 106 H (70-99(Fasting)) mg/dl Calcium 9.0 (8.5-10.1) mg/dl Total Bilirubin 0.4 (0.2-1.0) mg/dl AST 16 (13-39) U/L ALT 24 (7-52) U/L Alkaline Phosphatase 69 (34-104) U/L Troponin I High Sens 55.4 H* (0-14) pg/ml Total Protein 7.3 (6.0-8.3) gm/dl Albumin 4.1 (3.4-5.0) gm/dl Globulin 3.2 (2.5-4.0) gm/dl Albumin/Globulin Ratio 1.3 (0.9-2) TSH 1.573 (0.300-4.500) uIu/ml HCG, Qual (Negative) Urine Color Urine Appearance (Clear) Urine pH (4.5-7.5) Ur Specific Durand (1.000-1.030) Urine Protein (Negative) Urine Glucose (UA) (Negative) Urine Ketones (Negative) Urine Blood (Negative) Urine Nitrite (Negative) Urine Bilirubin (Negative) Urine Urobilinogen (Negative) Ur Leukocyte Esterase (Negative) Urine WBC (Auto) (0-5) /hpf Urine RBC (Auto) (0-4) /hpf U Hyaline Cast (Auto) (0-5) /lpf U Epithel Cells (Auto) (0-5) /lpf Urine Bacteria (Auto) (Negative) Salicylates (3.0-30) mg/dl Urine Opiates Screen (Neg) Ur Methadone, Qual (Neg) Acetaminophen (10-30) ug/ml Urine Barbiturates (Neg) Ur Phencyclidine (PCP) (Neg) U Amphetamin/Meth Scrn (Neg) MDMA (Ecstasy) Screen (Neg) U Benzodiazepines Scrn (Neg) Ur Cocaine Metabolite (Neg) U Marijuana (THC) Screen (Neg) Ethyl Alcohol mg/dL (<10.0) mg/dl SARS-CoV-2, RNA, NAAT (NEGATIVE) 06/26/22 06/26/22 06/26/22 Range/Units 15:00 15:00 15:00 WBC (4.8-10.8) K/ul RBC (3.93-5.22) M/uL Hgb (12.0-16.0) g/dl Hct (34.1-44.9) % MCV (80.0-100.0) fL MCH (25.0-34.0) pg MCHC (32.0-36.0) g/dL RDW Std Deviation (36.4-46.3) fL RDW Coeff of Indira (11.5-14.5) % Plt Count (130-400) K/uL MPV (9.4-12.3) fL Immature Gran % (Auto) % Neut % (Auto) % Lymph % (Auto) % Stoddard % (Auto) % Eos % (Auto) % Baso % (Auto) % Neut # (Auto) (1.4-6.5) K/uL Lymph # (Auto) (1.2-3.4) K/uL Stoddard # (Auto) (0.24-0.82) K/uL Eos # (Auto) (0-0.50) K/uL Baso # (Auto) (0-0.2) K/uL Immature Gran # (Auto) (0.00-0.02) K/uL Sodium (136-145) mmol/L Potassium (3.5-5.1) mmol/L Chloride (98-107) mmol/L Carbon Dioxide (21-32) mmol/L Anion Gap (3-11) BUN (6-23) mg/dl Creatinine (0.6-1.2) mg/dl Est Cr Clr Drug Dosing ml/min Est GFR ( Amer) ml/min Est GFR (Non-Af Amer) ml/min BUN/Creatinine Ratio (10-20) Glucose (70-99(Fasting)) mg/dl Calcium (8.5-10.1) mg/dl Total Bilirubin (0.2-1.0) mg/dl AST (13-39) U/L ALT (7-52) U/L Alkaline Phosphatase (34-104) U/L Troponin I High Sens (0-14) pg/ml Total Protein (6.0-8.3) gm/dl Albumin (3.4-5.0) gm/dl Globulin (2.5-4.0) gm/dl Albumin/Globulin Ratio (0.9-2) TSH (0.300-4.500) uIu/ml HCG, Qual Negative (Negative) Urine Color Urine Appearance (Clear) Urine pH (4.5-7.5) Ur Specific Dur[place] (1.000-1.030) Urine Protein (Negative) Urine Glucose (UA) (Negative) Urine Ketones (Negative) Urine Blood (Negative) Urine Nitrite (Negative) Urine Bilirubin (Negative) Urine Urobilinogen (Negative) Ur Leukocyte Esterase (Negative) Urine WBC (Auto) (0-5) /hpf Urine RBC (Auto) (0-4) /hpf U Hyaline Cast (Auto) (0-5) /lpf U Epithel Cells (Auto) (0-5) /lpf Urine Bacteria (Auto) (Negative) Salicylates < 3.0 L (3.0-30) mg/dl Urine Opiates Screen (Neg) Ur Methadone, Qual (Neg) Acetaminophen < 3 L (10-30) ug/ml Urine Barbiturates (Neg) Ur Phencyclidine (PCP) (Neg) U Amphetamin/Meth Scrn (Neg) MDMA (Ecstasy) Screen (Neg) U Benzodiazepines Scrn (Neg) Ur Cocaine Metabolite (Neg) U Marijuana (THC) Screen (Neg) Ethyl Alcohol mg/dL < 10.0 (<10.0) mg/dl SARS-CoV-2, RNA, NAAT (NEGATIVE) 06/26/22 06/26/22 06/26/22 Range/Units 15:50 16:01 16:01 WBC (4.8-10.8) K/ul RBC (3.93-5.22) M/uL Hgb (12.0-16.0) g/dl Hct (34.1-44.9) % MCV (80.0-100.0) fL MCH (25.0-34.0) pg MCHC (32.0-36.0) g/dL RDW Std Deviation (36.4-46.3) fL RDW Coeff of Indira (11.5-14.5) % Plt Count (130-400) K/uL MPV (9.4-12.3) fL Immature Gran % (Auto) % Neut % (Auto) % Lymph % (Auto) % Stoddard % (Auto) % Eos % (Auto) % Baso % (Auto) % Neut # (Auto) (1.4-6.5) K/uL Lymph # (Auto) (1.2-3.4) K/uL Stoddard # (Auto) (0.24-0.82) K/uL Eos # (Auto) (0-0.50) K/uL Baso # (Auto) (0-0.2) K/uL Immature Gran # (Auto) (0.00-0.02) K/uL Sodium (136-145) mmol/L Potassium (3.5-5.1) mmol/L Chloride (98-107) mmol/L Carbon Dioxide (21-32) mmol/L Anion Gap (3-11) BUN (6-23) mg/dl Creatinine (0.6-1.2) mg/dl Est Cr Clr Drug Dosing ml/min Est GFR ( Amer) ml/min Est GFR (Non-Af Amer) ml/min BUN/Creatinine Ratio (10-20) Glucose (70-99(Fasting)) mg/dl Calcium (8.5-10.1) mg/dl Total Bilirubin (0.2-1.0) mg/dl AST (13-39) U/L ALT (7-52) U/L Alkaline Phosphatase (34-104) U/L Troponin I High Sens (0-14) pg/ml Total Protein (6.0-8.3) gm/dl Albumin (3.4-5.0) gm/dl Globulin (2.5-4.0) gm/dl Albumin/Globulin Ratio (0.9-2) TSH (0.300-4.500) uIu/ml HCG, Qual (Negative) Urine Color Yellow Urine Appearance Clear (Clear) Urine pH 6.0 (4.5-7.5) Ur Specific Durand 1.006 (1.000-1.030) Urine Protein Negative (Negative) Urine Glucose (UA) Negative (Negative) Urine Ketones Negative (Negative) Urine Blood Trace H (Negative) Urine Nitrite Negative (Negative) Urine Bilirubin Negative (Negative) Urine Urobilinogen Negative (Negative) Ur Leukocyte Esterase Negative (Negative) Urine WBC (Auto) 1-5 (0-5) /hpf Urine RBC (Auto) 0-4 (0-4) /hpf U Hyaline Cast (Auto) 1-5 (0-5) /lpf U Epithel Cells (Auto) 5-10 H (0-5) /lpf Urine Bacteria (Auto) Negative (Negative) Salicylates (3.0-30) mg/dl Urine Opiates Screen Neg (Neg) Ur Methadone, Qual Neg (Neg) Acetaminophen (10-30) ug/ml Urine Barbiturates Neg (Neg) Ur Phencyclidine (PCP) Neg (Neg) U Amphetamin/Meth Scrn Neg (Neg) MDMA (Ecstasy) Screen Neg (Neg) U Benzodiazepines Scrn Neg (Neg) Ur Cocaine Metabolite Neg (Neg) U Marijuana (THC) Screen Neg (Neg) Ethyl Alcohol mg/dL (<10.0) mg/dl SARS-CoV-2, RNA, NAAT NEGATIVE (NEGATIVE) Administered Medications Magnesium Sulfate/Dextrose (Magnesium Sulfate / D5w) 1 gm in 100 mls @ 50 m ls/hr IV ONE STA Stop: 06/26/22 23:33 Last Admin: 06/26/22 21:42 Dose: 50 mls/hr Documented By: [id number] Discontinued Medications Sodium Chloride (Nss 1000ml) 1,000 mls @ 999 mls/hr IV .Q1H1M SUZY Stop: 06/26/22 16:00 Last Infusion: 06/26/22 16:03 Dose: 0 mls/hr Documented By: Admin: 06/26/22 15:06 Dose: 999 mls/hr Documented By: HG Potassium Chloride (K Joss / Wtr) 10 meq in 100 mls @ 100 mls/hr IV ONE ONE; Protocol Stop: 06/26/22 18:24 Last Infusion: 06/26/22 18:52 Dose: 0 mls/hr Documented By: MARIA LUISA Admin: 06/26/22 17:42 Dose: 100 mls/hr Documented By: SONNY Magnesium Sulfate/Dextrose (Magnesium Sulfate / D5w) 1 gm in 100 mls @ 100 mls/hr IV NOW STA Stop: 06/26/22 18:24 Last Infusion: 06/26/22 18:52 Dose: 0 mls/hr Documented By: MARIA LUISA Admin: 06/26/22 17:42 Dose: 100 mls/hr Documented By: SONNY Sodium Chloride (Nss 1000ml) 500 mls @ 999 mls/hr IV .Q31M ONE Stop: 06/26/22 17:56 Last Infusion: 06/26/22 18:29 Dose: 0 mls/hr Documented By: MARIA LUISA Admin: 06/26/22 17:41 Dose: 999 mls/hr Documented By: SONNY Lorazepam 1 mg/ Syringe 1 mls @ 2 mls/min IV NOW STA Stop: 06/26/22 20:51 Last Admin: 06/26/22 21:01 Dose: 2 mls/min Documented By: [id number] Lorazepam (Lorazepam 2 Mg/2 Ml Syr) 0.5 mg IV NOW STA; Protocol Stop: 06/26/22 16:18 Last Admin: 06/26/22 16:29 Dose: 0.5 mg Documented By: [facility] Lorazepam (Lorazepam 2 Mg/2 Ml Syr) Confirm Administered Dose 2 mg .ROUTE .STK- MED ONE Stop: 06/26/22 20:59 Last Admin: 06/26/22 21:04 Dose: Not Given Documented By: IAN Potassium Chloride (Potassium Chloride Crtab 20 Meq Tabcr) 20 meq PO NOW STA Stop: 06/26/22 21:29 Last Admin: 06/26/22 21:42 Dose: 20 meq Documented By: [id number] Discharge Plan Visit Data Chief Complaint: Mental Health Evaluation Stated Complaint: ILLNESS, OVERDOSE ED Provider: Clint Velazquez Discharge Problem: Tachycardia, Overdose, Suicidal ideation, Elevated troponin Patient Disposition: Admitted As Inpatient Condition: Fair
[2022-06-26 15:28] LABS: Pregnancy Test, Serum Negative (Negative)
[2022-06-26 15:41] LABS: Acetaminophen < 3 ug/ml (10-30); Salicylate < 3.0 mg/dl (3.0-30)
[2022-06-26 15:42] LABS: Albumin Globulin Ratio 1.3 (0.9-2); Albumin Level 4.1 gm/dl (3.4-5.0); BUN Creatinine Ratio 10.2 (10-20); Bilirubin,Total 0.4 mg/dl (0.2-1.0); Creatinine Clr Calc Pharmacy 83.9 ml/min; Est GFR (Non-African American) 74.2 ml/min; Globulin 3.2 gm/dl (2.5-4.0); Potassium 3.4 mmol/L (3.5-5.1); Total Protein 7.3 gm/dl (6.0-8.3)
[2022-06-26 16:11] LABS: Troponin I High Sensitivity 55.4 pg/ml (0-14)
[2022-06-26] MEDS ORDERED: LORazepam 2 MG/2 ML SYR IV STA (16:17)
--- NOTE | 2022-06-26 16:33 | History & Physical Report ---
Date of Service June 26, 2022 Assessment & Plan (1) Intentional overdose of risperidone: Plan: Discussed with poison control. Patient now adequately hydrated and recommend using 1-2 mg lorazepam to aim HR around 100 - given prior admission and risk of sedation would aim higher than this however perhaps <120. Mg sulfate 2g IV recommended by poison control despite Mg level Serial EKGs Monitor K and Mg Consult psychiatry (2) Sinus tachycardia: Plan: Suspect secondary to risperidone overdose. Will monitor on PCU (3) Major depression, recurrent: Plan: Will defer SSRi treatment to psychiatry tomorrow (4) Schizophrenia: Plan: Consult psychiatry - not on antipsychotics as outpatient (5) Suicidal ideation: Plan: One to one Consult psychiatry (6) Elevated troponin: Plan: Suspected demand-ischemia in setting of overdose and tachycardia. No chest pain or shortness of breath to suspect ACS Will continue to trend to peak Plan VTE Prophylaxis - low risk, treatment deferred on admission Diet - safe tray Disposition - admit to PCU Admission and Anticipated Discharge Date Admission Date: June 26, 2022 History of Present Illness Chief Complaint: Intentional overdose Primary Care Provider: DO Denise Lainez Tomy is a 36 year old female who presents to the ER after an intentional risperidone overdose. She reports she took quite a full bottle of risperidone which she is no longer prescribed but she had an old bottle prescription. This was 3 hours prior to coming to the emergency room. She feels a little tired but otherwise has no complaints. No chest pain, shortness of breath or dizziness. She was admitted here for the same but also taking an overdose of Wellbutrin in March. She took the medication because she felt sad. In the ER poison control have been informed and helping to direct care. I discussed her case with poison control myself and recommended Mg sulfate 2g IV due to increasing QTC and utilizing lorazepam 1-2mg IV as needed to reduce her HR as long as adequately hydrated and other causes of sinus tachycardia have been ruled out. Allergies Allergy/AdvReac Type Severity Reaction Status Date / Time codeine Allergy Intermediate RASH Verified 06/26/22 18:00 Home Medications Medication Instructions Recorded Confirmed Type bupropion HCl (smoking deter) 150 150 mg PO QAM 03/28/22 06/26/22 History mg tablet,12 hr sustained-release(smoking deterrent) ibuprofen 800 mg tablet 800 mg PO Q8H PRN Pain 06/26/22 06/26/22 History sertraline 25 mg tablet 25 mg PO DAILY 06/26/22 06/26/22 History Past Med/Surg History Medical History Acute periapical abscess Depression Facial cellulitis History of drug overdose Hypokalemia Psychosis Schizophrenia Sinus tachycardia Suicidal ideation Surgical History No pertinent past surgical history Family History Other Cancer Social History Smoking Status: Never smoker Tobacco Type: Cigarettes Hx Alcohol Use: No Hx Substance Use: No Preferred Language: Czech Communication Ability: Effective 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: No Beliefs That Will Affect Care: None marital status: Single Current Living Situation: Alone current occupational status: unemployed Feels Safe at Home: Yes Assistive Devices: None Review of Systems Review of Systems: All systems reviewed & are unremarkable except as noted in HPI & below Physical Exam Constitutional: WD/WN, vitals as above Eyes: PERRL, conjunctivae normal, anicteric sclerae (difficulty opening eyes when seen but as best I could tell PERRL) ENMT: external ear and nose normal, oropharynx normal Neck: trachea midline, no thyromegaly Respiratory: normal respiratory effort, lungs clear to auscultation Cardiovascular: Rate/Rhythm: regular rhythm and + tachycardic Heart Sounds: no murmur Extremities: normal capillary refill; no calf tenderness and no pedal edema Gastrointestinal (Abdomen): normal bowel sounds, soft, nontender, no hepatosplenomegaly Musculoskeletal: no cyanosis or clubbing, extremities motor strength 5/5 Skin: no rashes, warm and dry Neurologic: moves all extremities and awake; not confused Psychiatric: A+Ox3, euthymic affect Genitourinary: no CVA tenderness Results & Data Results & Data ([facility]) Vital Signs (Past 12 Hours) Vital Signs Temp Pulse Resp BP Pulse Ox O2 Del Method 06/26/22 16:01 135 H 24 100 06/26/22 15:30 114 H 22 96 06/26/22 15:30 129/78 06/26/22 15:16 117 H 17 97 06/26/22 15:16 138/75 06/26/22 15:00 133 H 20 06/26/22 14:54 152 H 21 06/26/22 14:55 36.5 C 163 H 20 114/60 98 Room Air Diagnostic Findings CXR per my read is unremakrable Medications Administered ER Medications Given: Lorazepam 0.5mg IV NSS 1L bolus K Joss 10 meq IV x1 Mg sulfate 1g IV NSS 500 ml bolus ECG Indication: toxicologic Rate (beats per minute): 137 Rhythm: sinus tachycardia Findings: + other (QTc 483 ms) Comparison ECG Date: from (April 04, 2022) Change: the following changes noted (T wave amplitude increased in anterior leads) Code Status & VTE Plan Code Status Full VTE Prophylaxis Plan VTE Prophylaxis will be ordered: No Reason for no VTE drug order: Treatment not indicated Reason for no VTE mechanical prophylaxis: Treatment not indicated PG Care Time/CCT Total # of Minutes Spent Total Time Spent: 80 Total Time Spent with Patient: Total time spent is greater than 50% in coordination of care (as documented) at patient's floor/unit and/or counseling patient: Coding Level of Care Code 65561 Initial Inpt Care Lvl 3 Diagnoses Intentional overdose of risperidone T43.592A Sinus tachycardia R00.0 Major depression, recurrent F33.9 Major depression episode severity: unspecified Schizophrenia F20.9 Schizophrenia type: unspecified Suicidal ideation R45.851 Elevated troponin R77.8 (1) Major depression, recurrent Major depression episode severity: unspecified (2) Schizophrenia Schizophrenia type: unspecified Qualified Code(s): F20.9 - Schizophrenia, unspecified
[2022-06-26 16:45] LABS: Appearance Urine Clear (Clear); Bacteria Urine Automated Negative (Negative); Bilirubin Urine Negative (Negative); Blood Urine Trace (Negative); Color Urine Yellow; Glucose Urine UA Negative (Negative); Ketones Urine Negative (Negative); Leukocyte Esterase Urine Negative (Negative); Nitrite Urine Negative (Negative); Protein Urine Negative (Negative); RBC Urine Automated 0-4 /hpf (0-4); Specific Gravity Urine 1.006 (1.000-1.030); Urobilinogen Urine Negative (Negative)
[2022-06-26 17:12] LABS: Amphetamines+Metham, Urine Neg (Neg); Barbiturates, Urine Neg (Neg); Benzodiazepine, Urine Neg (Neg); Cocaine, Urine Neg (Neg); MDMA (Ecstacy), Urine Neg (Neg); Methadone, Urine Neg (Neg); Opiate, Urine Neg (Neg); Phencyclidine, Urine Neg (Neg)
[2022-06-26] MEDS ORDERED: MAGNESIUM SULFATE / D5W 1 GM/100 ML BAG IV STA ×2 (17:25→21:34)
[2022-06-26] MEDS ORDERED: POTASSIUM CHLORIDE / WTR 10 MEQ/100 ML PLCT IV ONE (17:25)
[2022-06-26] MEDS ORDERED: SODIUM CHLORIDE 0.9% 1000ML 500 ML IV ONE (17:26)
[2022-06-26 19:15] LABS: Magnesium 2.3 mg/dl (1.7-2.4)
[2022-06-26 19:23] LABS: Troponin I High Sensitivity 95.3 pg/ml (0-14)
[2022-06-26] MEDS ORDERED: POLYETHYLENE (MIRALAX) 17 GM PACK PO PRN (19:49)
[2022-06-26] MEDS ORDERED: ONDANSETRON INJ 2 MG/ML 2 ML VIAL IV PRN (19:49)
[2022-06-26] MEDS ORDERED: ACETAMINOPHEN 325 MG TAB PO PRN (19:49)
[2022-06-26] MEDS ORDERED: LORazepam 1 MG in SYRINGE 0 ML IV STA (20:50)
[2022-06-26] MEDS ORDERED: LORazepam 2 MG/2 ML SYR ONE (20:58)
[2022-06-26] MEDS ORDERED: POTASSIUM CHLORIDE CRTAB 20 MEQ TABCR PO STA (21:28)
[2022-06-27 01:24] LABS: Basophils # (auto) 0.04 K/uL (0-0.2); Basophils % (auto) 0.4 %; Eosinophils # (auto) 0.03 K/uL (0-0.50); Eosinophils % (auto) 0.3 %; Hematocrit (blood only) 32.9 % (34.1-44.9); Hemoglobin 10.8 g/dl (12.0-16.0); Immature Granulocytes # (auto) 0.02 K/uL (0.00-0.02); Immature Granulocytes % (auto) 0.2 %; Lymphocytes # (auto) 2.33 K/uL (1.2-3.4); Lymphocytes % (auto) 24.7 %; Mean Corpuscular Hemoglobin 26.8 pg (25.0-34.0); Mean Corpuscular Hgb Conc 32.8 g/dL (32.0-36.0); Mean Corpuscular Volume 81.6 fL (80.0-100.0); Mean Platelet Volume 9.3 fL (9.4-12.3); Monocytes # (auto) 0.75 K/uL (0.24-0.82); Monocytes % (auto) 7.9 %; Neutrophils # (auto) 6.27 K/uL (1.4-6.5); Neutrophils % (auto) 66.5 %; Platelet Count 321 K/uL (130-400); RDW Coefficient of Variation 13.5 % (11.5-14.5); RDW Standard Deviation 39.9 fL (36.4-46.3); Red Blood Count 4.03 M/uL (3.93-5.22); White Blood Count 9.44 K/ul (4.8-10.8)
[2022-06-27 02:06] LABS: Albumin Globulin Ratio 1.4 (0.9-2); Albumin Level 3.8 gm/dl (3.4-5.0); BUN Creatinine Ratio 10.1 (10-20); Bilirubin,Total 0.3 mg/dl (0.2-1.0); Calcium 8.4 mg/dl (8.5-10.1); Creatinine Clr Calc Pharmacy 104.1 ml/min; Est GFR (African American) 111.6 ml/min; Est GFR (Non-African American) 96.3 ml/min; Globulin 2.7 gm/dl (2.5-4.0); Magnesium 2.8 mg/dl (1.7-2.4); Phosphorus 3.3 mg/dl (2.5-4.9); Potassium 4.2 mmol/L (3.5-5.1); Total Protein 6.5 gm/dl (6.0-8.3)
--- NOTE | 2022-06-27 09:02 | Electrocardiogram Report ---
Test Reason : Blood Pressure : / mmHG Vent. Rate : 137 BPM Atrial Rate : 137 BPM P-R Int : 114 ms QRS Dur : 078 ms QT Int : 320 ms P-R-T Axes : 051 046 028 degrees QTc Int : 483 ms Sinus tachycardia Left atrial enlargement Diffuse Minor Nonspecific ST abnormality Abnormal ECG When compared with ECG of 04-APR-2022 06:37, T wave amplitude has increased in Anterior leads Confirmed by Campos Washington ([id number]) on 06/27/2022 9:01:59 AM Referred By: ED Confirmed By:Campos Washington
--- NOTE | 2022-06-27 09:03 | Electrocardiogram Report ---
Test Reason : Blood Pressure : / mmHG Vent. Rate : 153 BPM Atrial Rate : 153 BPM P-R Int : 112 ms QRS Dur : 074 ms QT Int : 330 ms P-R-T Axes : 000 048 035 degrees QTc Int : 526 ms Poor data quality, interpretation may be adversely affected Sinus tachycardia Otherwise normal ECG When compared with ECG of 26-JUN-2022 14:58, No significant change was found Confirmed by Campos Washington ([id number]) on 06/27/2022 9:02:28 AM Referred By: REFERRED SELF Confirmed By:Campos Washington
--- NOTE | 2022-06-27 09:03 | Electrocardiogram Report ---
Test Reason : Blood Pressure : / mmHG Vent. Rate : 093 BPM Atrial Rate : 093 BPM P-R Int : 138 ms QRS Dur : 074 ms QT Int : 396 ms P-R-T Axes : 084 093 078 degrees QTc Int : 492 ms Normal sinus rhythm Prolonged QT Abnormal ECG When compared with ECG of 26-JUN-2022 17:36, Vent. rate has decreased BY 60 BPM Confirmed by Campos Washington ([id number]) on 06/27/2022 9:03:05 AM Referred By: REFERRED SELF Confirmed By:Campos Washington
--- NOTE | 2022-06-27 09:09 | Electrocardiogram Report ---
Test Reason : Blood Pressure : / mmHG Vent. Rate : 104 BPM Atrial Rate : 104 BPM P-R Int : 130 ms QRS Dur : 076 ms QT Int : 396 ms P-R-T Axes : 076 094 053 degrees QTc Int : 520 ms Sinus tachycardia Rightward axis Prolonged QT Abnormal ECG When compared with ECG of 27-JUN-2022 00:53, No significant change was found Confirmed by Campos Washington ([id number]) on 06/27/2022 9:09:13 AM Referred By: REFERRED SELF Confirmed By:Campos Washington
--- NOTE | 2022-06-27 09:50 | XRay Report ---
XR chest 1V portable HISTORY: infection workup COMPARISON: Chest 01/18/2022. FINDINGS: The lungs are clear. Cardiac silhouette is normal in size. No pleural effusions. No pneumot horax. IMPRESSION: No acute process. ACT 112: Negative or not required by law. Electronically signed by: Jakob Cadena M.D. 06/27/2022 9:48 AM
--- NOTE | 2022-06-27 11:29 | Discharge Summary ---
Date of Service June 27, 2022 Admission HPI Per Admitting Provider Denise Huitron is a 36 year old female who presents to the ER after an intentional risperidone overdose. She reports she took quite a full bottle of risperidone which she is no longer prescribed but she had an old bottle prescription. This was 3 hours prior to coming to the emergency room. She feels a little tired but otherwise has no complaints. No chest pain, shortness of breath or dizziness. She was admitted here for the same but also taking an overdose of Wellbutrin in March. She took the medication because she felt sad. In the ER poison control have been informed and helping to direct care. I discussed her case with poison control myself and recommended Mg sulfate 2g IV due to increasing QTC and utilizing lorazepam 1-2mg IV as needed to reduce her HR as long as adequately hydrated and other causes of sinus tachycardia have been ruled out. Principal Diagnosis Intentional risperidone overdose, suicidal ideation Discharge Exam General-alert and oriented x3, no fevers, no chills HEENT-head atraumatic and normocephalic, pupils equal and reactive to light, extraocular muscles intact Neck-no lymphadenopathy or thyromegaly, trachea midline Chest-clear to auscultation percussion. No rales wheezing or rhonchi Cardiac-mildly tachycardic regular rhythm, normal S1 and S2, no murmurs Abdomen-normal bowel sounds, nontender, no hepatosplenomegaly Extremities-no cyanosis, clubbing, or edema Neuro-cranial nerves II through XII intact, motor and sensory function within normal limits, strength symmetrical , no focal deficits Psych-depressed affect Discharge Data Allergies Allergy/AdvReac Type Severity Reaction Status Date / Time codeine Allergy Intermediate RASH Verified 06/26/22 18:00 Consultations 06/26/22 16:18 ED Decision to Admit Stat 06/26/22 19:49 Consult Psychiatry Routine Hospital Course (1) Intentional overdose of risperidone: He has been treated with intravenous magnesium and IV fluids. She currently is asymptomatic. She is mildly tachycardic but asymptomatic at this time. This may be her baseline however. She will be seen by psychiatry and eventually discharged to inpatient psychiatry. (2) Sinus tachycardia: Suspect secondary to risperidone overdose. Asymptomatic. Telemetry. No intervention necessary at this time (3) Major depression, recurrent: Will defer SSRi treatment to psychiatry (4) Schizophrenia: Consult psychiatry - not on antipsychotics as outpatient (5) Suicidal ideation: One to one Consult psychiatry (6) Elevated troponin: Suspected demand-ischemia in setting of overdose and tachycardia. No chest pain or shortness of breath to suspect ACS Will continue to trend to peak Plan VTE Prophylaxis - low risk, treatment deferred on admission Diet - safe tray Disposition -be discharged to inpatient psych facility . Currently is medically stable for discharge Total Time Total Time Spent Total Time Spent (In Minutes): 35 minutes Discharge Plan Discharge Items Patient Disposition: Transfer Behavioral Health Fac Reason For Visit: INTENTIONAL OVERDOSE Discharge Diagnosis: Normal risperidone overdose, suicidal ideation Condition on Discharge: Fair Activity: Resume your previous activity Non-emergency contact: Primary Care Provider Call non-emergency contact if: you have any medication questions Follow-up/Referrals: Santosh Vigil, [Primary Care Provider] - Diet: Regular Addtl Attending Provider Instructions: Inpatient psychiatric management Pending Studies at Discharge: No Stand-Alone Forms: My [facility] Medications and DC Order Prescriptions: Continued bupropion HCl (smoking deter) 150 mg tablet extended release 12 hr 150 mg PO QAM ibuprofen 800 mg Tablet 800 mg PO Q8H PRN (Reason: Pain) sertraline 25 mg Tablet 25 mg PO DAILY Discharge Orders: Discharge Order (Routine); Ordered 06/27/22 Ordered By: Santosh Allen Admission Data Admit Date/Time: 06/26/22 16:31 Attending Provider: Santosh Allen Admit Provider: Brayden Wang Primary Care Provider: Santosh Vigil Other Providers: Brayden Wang ; Elizabeth Rogers ; Rosaline Bermudez ; Brit Story Coding Level of Care Code D/C DAY MANAGEMENT >30 MINS Diagnoses Intentional overdose of risperidone T43.592A Sinus tachycardia R00.0 Major depression, recurrent F33.9 Major depression episode severity: unspecified Schizophrenia F20.9 Schizophrenia type: unspecified Suicidal ideation R45.851 Elevated troponin R77.8
--- NOTE | 2022-06-27 12:41 | Psychiatric Consultation ---
Date of Consultation June 27, 2022 Impression / Recommendations Impression This is a 36 yo admitted medically following an intentional overdose suicide attempt in setting of schizoaffective disorder with history of suicide attempts and reported recent medication non-adherence, loosening of associations and increase in auditory hallucinations. Acute risk of self-harm remains elevated and high given suicide attempt requiring medical admission, depressive and psychosis symptoms, history of prior attempts, impulsivity, social isolation, helplessness, limited insight. Per hospitalist she is now medically clear and desires voluntary inpatient psychiatric treatment. Given elevated risk of harm to self they meet criteria for inpatient psychiatric care for diagnostic clarification, safety/stabilization, development of additional coping skills, medication management and disposition/safety planning once medically stable. If she changes her mind about voluntary treatment at that time they will meet criteria for 302 status based on severity of suicide attempt and ongoing modifiable risk factors. (1) Overdose: Encounter type: initial encounter Injury intent: intentional se lf-harm Qualified Code(s): T50.902A - Poisoning by unspecified drugs, medicaments and biological substances, intentional self-harm, initial encounter (2) Schizoaffective disorder: Plan -Start inpt psych bed search, 201 status -Continue 1-on-1 for risk of harm to self -Do not discharge or allow to leave AMA, would meet 302 criteria -Hold psych medications for now given elevated QTc on arrival last night Psych History Identifying Data 36 yo woman from [place] with a history of schizoaffective disorder and frequent psychiatric hospitalizations/ED presentations admitted medically following a suicide attempt via overdose of risperidone. Psychiatry consulted for risk assessment/recommendations. Chief Complaint "I feel alright". History of Present Illness Denise is well known to our service from frequent inpatient psychiatric admissions and on consult service following suicide attempts requiring medical admission. She was last seen at the end of March 2022 for similar circumstances of suicide attempt via overdose resulting in inpatient psych hospitalization. Presented and admitted following overdose of unknown quantity of risperidone. Today reports she is "alright". Cannot identify any specific stressors or reasons for suicide attempt but states she was depressed and "sort of" wanted to . Thinks she took "like a bottle" of risperidone and selected this medication because she had a full bottle of it. States she hasn't been taking her medications recently, time frame unclear. Says she turned off her phone and wouldn't talk to her brother and thinks this is how she was found and brought to the hospital by EMS. Continues to see Ny Lopez at [facility]. Plans to visit [place] in July, where her brother lives, and if she likes it there then plan is for her to move there. Endorses rey abrams, denies any command rey abrams. Past Psychiatric History Outpatient Services: see HPI Previous Psych Admissions: multiple, most recently [facility] late January 2022 and [facility] in March 2022 History of Previous Suicide Attempt: Yes (multiple via overdose) Allergies Allergy/AdvReac Type Severity Reaction Status Date / Time codeine Allergy Intermediate RASH Verified 06/26/22 18:00 Home Medications Medication Instructions Recorded Confirmed Type bupropion HCl (smoking deter) 150 150 mg PO QAM 03/28/22 06/26/22 History mg tablet,12 hr sustained-release(smoking deterrent) ibuprofen 800 mg tablet 800 mg PO Q8H PRN Pain 06/26/22 06/26/22 History sertraline 25 mg tablet 25 mg PO DAILY 06/26/22 06/26/22 History Personal History Living Arrangements: Apartment Employment Status: Disabled Beliefs That Will Affect Care: None Patient History Medical History Acute periapical abscess Depression Facial cellulitis History of drug overdose Hypokalemia Psychosis Schizophrenia Sinus tachycardia Suicidal ideation Surgical History No pertinent past surgical history Family History Other Cancer Social History Smoking Status: Never smoker Tobacco Type: Cigarettes Hx Alcohol Use: No Hx Substance Use: No Preferred Language: Persian Communication Ability: Effective Beauty Director Required: No Beliefs That Will Affect Care: None marital status: Single Current Living Situation: Alone current occupational status: unemployed Feels Safe at Home: Yes Assistive Devices: None Physical Exam Psychiatric: Orientation: alert and oriented x 3 Apperance: appropriately dressed and + disheveled Eye Contact: good eye contact Motor Behavior: no abnormal motor movements Speech: normal rate/rhythm/volume of speech Affect: + flat affect Mood: + depressed mood Thought Process: + looseness of associations and + concrete thought process Thought Content: reality based without delusions Suicidal Thoughts: denies suicidal thoughts (but attempt leading to admission) Homicidal Thoughts: denies homicidal thoughts Hallucinations: + auditory hallucinations; no visual hallucinations Cognition: remote memory grossly intact and language grossly intact; + recent memory not intact and + attention not intact Insight: + limited insight Judgement: + limited judgement Vital Signs (Past 24 Hours): Last Vital Signs Temp 36.5 C 06/27/22 10:51 Pulse 127 H 06/27/22 10:51 Resp 17 06/27/22 10:51 BP 130/89 06/27/22 10:51 Pulse Ox 96 06/27/22 10:51 O2 Del Method 06/27/22 10:51 Review of Systems All systems reviewed & are unremarkable except as noted in HPI & below Results & Data (PSY) Laboratory Results QTc 520ms on EKG 06/27/22 Coding Level of Care Code 20093 Inpt Consult Level 3 Diagnoses Overdose T50.902A Encounter type: initial encounter Injury intent: intentional self-harm Schizoaffective disorder F25.9 Time Spent (min) 30
[2022-06-27] MEDS ORDERED: METOPROLOL TARTRATE 50 MG TAB PO STA (13:11)
[2022-06-27] MEDS: LORazepam 1 MG TAB PO PRN ×2 (14:20→21:57)
[2022-06-28] MEDS: LORazepam 1 MG TAB PO PRN (08:00)
--- NOTE | 2022-06-28 08:45 | Electrocardiogram Report ---
Test Reason : Blood Pressure : / mmHG Vent. Rate : 099 BPM Atrial Rate : 099 BPM P-R Int : 136 ms QRS Dur : 082 ms QT Int : 392 ms P-R-T Axes : 044 047 024 degrees QTc Int : 503 ms Normal sinus rhythm Prolonged QT Abnormal ECG When compared with ECG of 27-JUN-2022 05:39, No significant change was found Confirmed by Campos Washington ([id number]) on 06/28/2022 8:45:16 AM Referred By: REFERRED SELF Confirmed By:Campos Washington
--- NOTE | 2022-06-28 12:17 | Electrocardiogram Report ---
Test Reason : Blood Pressure : / mmHG Vent. Rate : 109 BPM Atrial Rate : 109 BPM P-R Int : 134 ms QRS Dur : 076 ms QT Int : 358 ms P-R-T Axes : 042 035 005 degrees QTc Int : 482 ms Sinus tachycardia Otherwise normal ECG When compared with ECG of 28-JUN-2022 05:45, No significant change was found Confirmed by Campos Washington ([id number]) on 06/28/2022 12:17:12 PM Referred By: REFERRED SELF Confirmed By:Campos Washington
== END 2022-06-28 13:00 ==
LOC: ED 14:42 → EDINP 16:31 → SUATTDRO 16:31 → INTOOBSV 16:31 → 2S 23:31

== ENCOUNTER 2023-08-10 23:56 | Observation (INO) ==
--- OUTSIDE RECORDS SUMMARY | 2023-08-11 00:07 | External Medical Summary | Summary of Care ---
Author Name Unknown Organization [facility] Address [address] [place] [address] Phone [phone] Care Team Providers Care Laser Systems Engineer Name Role Phone Sharon Arthur MD Primary Care Provider [phone] Reason for Visit * Reason Onset Date Comments Medication Refill 07/18/2023 Encounter Details Date Type Department Care Team (Late st Contact Info) Description 07/18/2023 Refill Family Practice [facility] [address] [place] [address] Sharon Arthur MD [address] [place] [place] [address] Allergies Active Allergy Reactions Criticality Noted Date Comments Codeine Rash Medium 05/19/2011 documented as of this encounter (statuses as of 07/18/2023) Medications Medication Sig Dispensed Refills Start Date End Date Status LAMOTRIGINE 100 MG PO TABSIndications:Sc hizophrenia, chronic condition (HCC),Adjustment disorder with depressed mood one pill each day 30 Tab 1 12/27/2013 Active LAMOTRIGINE 25 MG PO TBDPIndications:Ad justment disorder with depressed mood,Schizophrenia , chronic condition (HCC) 2 tabs in am 60 Tab 1 12/27/2013 Active PROPRANOLOL HCL 10 MG PO TABSIndications:Tr emor one pill three times a day 90 Tab 1 12/27/2013 Active BENZTROPINE MESYLATE 1 MG PO TABSIndications:Ad justment disorder with depressed mood one pill twice a day 60 Tab 1 12/27/2013 Active LATUDA 40 MG PO TABSIndications:Sc hizophrenia, chronic condition (HCC) 1 TABLET DAILY WITH FOOD 30 Tab 1 12/28/2013 Active Ibuprofen 600 MG Oral Tablet (Motrin)Indication s:Concussion without loss of consciousness, initial encounter Take 1 Tab by mouth 3 times a day. with food for pain 30 Tab 1 11/08/2020 Active OLANZapine 10 MG Oral Tablet (zyPREXA) Take by mouth 10 mg before bedtime. 0 Active Zolpidem Tartrate 10 MG Oral Tablet (Ambien) Take by mouth 10 mg as needed before bedtime for Sleep. 0 Active Venlafaxine HCl ER 150 MG Oral Capsule Extended Release 24 Hour (Effexor XR) Take 1 Capsule (150 mg) by mouth in the morning. 2 capsules daily. 60 Capsule 1 08/20/2022 Active QUEtiapine Fumarate 50 MG Oral Tablet (SEROquel) Take 1 Tablet by mouth at bedtime. 30 Tablet 1 09/12/2022 Active traZODone HCl 100 MG Oral Tablet (Desyrel) Take 0.5 Tablets by mouth at bedtime. 30 Tablet 1 10/15/2022 Active Additional Information Patient taking differently: 150 mgOral HS, Reported on 03/14/2023 Paliperidone Palmitate ER 156 MG/ML Intramuscular Suspension Prefilled Syringe ([facility]) Inject 156 mg into a large muscle every [address]. [address] Deangelo Berumen 0 Active Escitalopram Oxalate 10 MG Oral Tablet (Lexapro) Take 1 Tablet by mouth in the morning. 30 Tablet 4 07/18/2023 Active amLODIPine Besylate 5 MG Oral Tablet (Norvasc) Take 1 Tablet by mouth in the morning. 30 Tablet 4 07/18/2023 Active Escitalopram Oxalate 10 MG Oral Tablet (Lexapro) Take 1 Tablet by mouth in the morning. 30 Tablet 5 07/07/2023 3 Discontinue d(Refill) amLODIPine Besylate 5 MG Oral Tablet (Norvasc) Take 1 Tablet by mouth in the morning. 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 Poor dentition 01/24/2020 documented as of this encounter (statuses as of 07/18/2023) Resolved Problems Problem Noted Date Diagnosed Date Resolved Date Right wrist pain 03/14/2023 06/15/2023 History of 2019 novel bateman virus disease (COVID-19) 09/19/2020 02/07/2022 Abnormal x-ray examination 10/22/2016 0 01/24/2020 Overview: Right wrist 10/21/16- ?RA over ulna Dry skin dermatitis 10/18/2014 01/24/20 20 Tremor 12/27/2013 09/19/2020 Shaky 09/27/2011 12/27/2013 Caffeine-induced tremor 09/27/201112/08 Adjustment disorder with depressed mood 04/10/2011 01/24/2020 Schizophrenia, chronic condition 12/03/2010 09/19/2020 Diarrhea 09/29/2010 01/24/2020 Abdominal pain, generalized 09/29/2010 01/24/2020 Nausea with vomiting 09/29/2010 020 VIRAL GASTROENTERITIS 09/29/20102019 Oral aphthae 09/26/2010 01/24/2020 Acute tonsillitis 08/06/2010 01/24/2020 Hypertrophy of breast 02/22/20092019 Contusion of lower leg 02/09/200502/09 Contusion of multiple sites 02/09/2005 01/24/2020 CONTUSION OF LOWER LEG, LEFT LATERAL 02/09/2005 01/24/2020 Other acne 09/09/2002 01/24/2020 Behavioral problems 01/10/2000 01/24/20 20 Overview: ICD-10 update of inactive term Other acne 08/30/1998 10/13/2008 Overview: Resolved per Duplicate Protocol #2. documented as of this encounter (statuses as of 07/18/2023) Immunizations Name Administration Dates Next Due PPD 04/12/2013,04/10/2011 SEASONAL INFLUENZA, PF, 6 M & Above, IM , (FLULAVAL or FLUZONE) 07/30/2017 Seasonal Influenza, Split, I IV3, With Preserve, Inj 05/10/2015,08/13/2014,06/10/2013, 0 12 TDAP (age 11 and older)(Adacel) 04/10/2011 documented as of this encounter Social History Tobacco Use Types Packs/Day Years Used Date Smoking Tobacco: Never Smokeless Tobacco: Never Alcohol Use Standard Drinks/Week Comments No 0 (1 standard drink = 0.6 oz pur e alcohol) PHQ-2 Answer Date Recorded PHQ-2 Score 0 01/24/2020 Hunger Vital Sign Answer Date Recorded Worried About Running Out of Food in the Last Ye ar Never true 01/24/2020 Ran Out of Food in the Last Year Never true 01/24/2020 Sex and Gender Information Value Date Recorded Sex Assigned at Not on file Gender Identity Not on file Sexual Orientation Straight 01/24/2020 12 :00 PM EDT Job Start Date Occupation Industry Not on file Not on file Not on file documented as of this encounter Miscellaneous Notes * Telephone Encounter - Sharon Means RPh - 07/18/2023 11:19 AM EST Signed Prescriptions: Disp Refills Escitalopram Oxalate 10 MG Oral Tablet (Le*30 Tab*4 Sig: Take 1Tablet by mouth in the morning.Authorizing Provider: SHARON ARTHUR User: SHARON MEANS amLODIPine Besylate 5 MG Oral Tablet (Norv*30 Tab*4 Sig: Take 1 Tablet by mouth in the morni ng.Authorizing Provider: SHARON ARTHUR User: SHARON MEANS * Telephone Encounter - Radha Arroyo CPhT - 07/18/2023 11:16 AM EST Pt asking high priority as she misplaced her meds and needs an early refill at [facility] Please reroute Rx to [id number] [id number] [address] [place]. Pending Prescriptions: Disp Refills Escitalopram Oxalate 10 MG Oral Tablet (L*30 Tab*4 Sig: Take 1 Tablet by mouth in the morning. amLODIPine Besylate 5 MG Oral Tablet (Nor*30 Tab*4 Sig: Take 1 Tablet by mouth in the morning. Last Visit: 03/14/2023 (in office), Visit date not found (telemedicine) Visit date not found If no future appointments scheduled, and last appointment is greater than a year ago, please schedule patient for a follow-up appointment Last date the medication was ordered: 07/07/23 Patient Phone Numbers Labs: Lab Results Component Value Date/Time CREAT 0.89 12/22/2021 12:00 AM CREAT 1.1 (H) 09/19/2020 02:20 PM POTASSIUM 3.4 (A) 12/22/2021 12:00 AM POTASSIUM 4.5 09/19/2020 02:20 PM TSH 1.243 12/22/2021 12:00 AM TSH 0.94 10/22/2018 02:07 PM LDLCALC 114 09/22/2021 12:00 AM ALT 27 10/22/2018 02:07 PM documented in this encounter Plan of Treatment Health Maintenance Due Date Last Done Comments COVID-19 Vaccine (#1) 02/25/1986 Hepatitis C Screening 2003 HPV/Co-Test 2015 Cervical Cancer Screening 04/09/2016 Pap Smear 04/09/2016 04/09/2013, 05/10, 12/03/2010, Additional history exists Depression Screening 01/23/2021 01/24/2020 DTaP,Tdap,and Td Vaccines (7 - Td or Tdap) 04/10/2021 04/10/2011, 11/07/1998, 12/07/1989, Additional history exists Influenza Vaccine (FLU shot) (#1) 2023 07/30/2017, 05/10/2015, 08/13/2014, Additional history exists Diabetes Screening 12/22/2024 12/22/2021, 0 12/10/2021, 09/22/2021, Additional history exists Hepatitis B Completed 11/07/1998, 02/08, 02/03/1997 GARDASIL-HPV IMMUNIZATION SERIES Aged Out No longer eligible based on patient's age to complete this topic MENINGOCOCCAL (MENACTRA/MENVEO) Aged Out No longer eligible based on patient's age to complete this topic Pneumococcal Vaccine: Pediatrics (0 to 5 Years) and At-Risk Patients (6 to 64 Years) Aged Out No longer eligible based on patient's age to complete this topic documented as of this encounter Medical Devices Not on filedocumented as of this encounter Advance Directives Latest Code Status on File Code Status Date Activated Date Inactivated Comments Full Code 01/23/2010 4:55 PM 01/24/2010 3:12 PM This order reflects the patients wishes and were consensually agreed upon. Care Teams Laser Systems Engineer Relationship Specialty Start Date End Date Sharon Arthur MD [address] [place] [id number] PCP - General Family Medicine 08/24/20 documented as of this encounter
--- OUTSIDE RECORDS SUMMARY | 2023-08-11 00:07 | External Medical Summary | Summary of Care ---
Author Name Unknown Organization [facility] Address [address] [place] [address] Phone [phone] Care Team Providers Care Finance Vice President Name Role Phone Campos Hansen MD Primary Care Provider [phone] Reason for Visit * Reason Onset Date Comments Medication Refill 07/18/2023 Encounter Details Date Type Department Care Team (Late st Contact Info) Description 07/18/2023 Refill Family Practice [facility] [address] [place] [address] Campos Hansen MD [address] [place] [address] Tremor Allergies Active Allergy Reactions Criticality Noted Date Comments Codeine Rash Medium 05/19/2011 documented as of this encounter (statuses as of 07/18/2023) Medications Medication Sig Dispensed Refills Start Date End Date Status LAMOTRIGINE 100 MG PO TABSIndications:Schi zophrenia, chronic condition (HCC),Adjustment disorder with depressed mood one pill each day 30 Tab 1 12/27/2013 Active LAMOTRIGINE 25 MG PO TBDPIndications:Adju stment disorder with depressed mood,Schizophrenia, chronic condition (HCC) 2 tabs in am 60 Tab 1 12/27/2013 Active PROPRANOLOL HCL 10 MG PO TABSIndications:Trem or one pill three times a day 90 Tab 1 12/27/2013 Active BENZTROPINE MESYLATE 1 MG PO TABSIndications:Adju stment disorder with depressed mood one pill twice a day 60 Tab 1 12/27/2013 Active LATUDA 40 MG PO TABSIndications:Schi zophrenia, chronic condition (HCC) 1 TABLET DAILY WITH FOOD 30 Tab 1 12/28/2013 Active Ibuprofen 600 MG Oral Tablet (Motrin)Indications: Concussion without loss of consciousness, initial encounter Take 1 Tab by mouth 3 times a day. with food for pain 30 Tab 1 11/08/2020 Active OLANZapine 10 MG Oral Tablet (zyPREXA) Take by mouth 10 mg before bedtime. 0 Active Zolpidem Tartrate 10 MG Oral Tablet (Ambien) Take by mouth 10 mg as needed before bedtime for Sleep. 0 Active QUEtiapine Fumarate 50 MG Oral Tablet (SEROquel) Take 1 Tablet by mouth at bedtime. 30 Tablet 1 09/12/2022 Active Paliperidone Palmitate ER 156 MG/ML Intramuscular Suspension Prefilled Syringe (Invega Sustenna) Inject 156 mg into a large muscle every [address] Deangelo Berumen 0 Active traZODone HCl 100 MG Oral Tablet (Desyrel) Take 0.5 Tablets by mouth at bedtime. 30 Tablet 1 07/18/2023 Active Venlafaxine HCl ER 150 MG Oral Capsule Extended Release 24 Hour (Effexor XR) Take 1 Capsule by mouth in the morning. 2 capsules daily. 60 Capsule 1 07/18/2023 Active Escitalopram Oxalate 10 MG Oral Tablet (Lexapro) Take 1 Tablet by mouth in the morning. 30 Tablet 4 07/18/2023 Active amLODIPine Besylate 5 MG Oral Tablet (Norvasc) Take 1 Tablet by mouth in the morning. 30 Tablet 4 07/18/2023 Active Hospital, Clinic, or Other Facility Administered Medication Ordered Dose Route Frequency Start Date End Date Status paliperidone palmitate ER (Invega Sustenna) inj 156 mgIndications:Disorganized schizophrenia (HCC) 156 mg IM [id number] 06/19/2023 Activ e documented as of this [...] 07/18/2023) Immunizations Name Administration Dates Next Due DT - Diptheria/Tetanus (PEDS) 12/07/1989 DTWP - Dipth/Tet/Whole Cell Pertussis 03/08/1987,03/08/1986,01/06/1986,1985 Diptheria/Tetanus (Adult) 11/07/19982008 Hepatitis B Vaccine 11/07/1998,03/07/1997,1996 MMR - Measles/Mumps/Rubella Vaccine 11/06/1988,0 11/06/1986 OPV - Polio Virus Vaccine (Oral) 990,03/08/1987,03/08/1986,1985,1985 PPD 04/12/2013, 1,09/12/2004,2000 SEASONAL INFLUENZA, PF, 6 M & Above, IM , (FLULAVAL or FLUZONE) 07/30/2017 Seasonal Influenza, Split, I IV3, With Preserve, Inj 05/10/2015,08/13/2014,06/10/2013,2011 TB Day Test 06/05/2000 TDAP (age 11 and older)(Adacel) 04/10/2011 Varicella Vaccine (Chicken Pox) 06/05/2000 documented as of this encounter Social History [...] as of this encounter Miscellaneous Notes * Addendum Note - Yan Putnam LPN - 07/18/2023 1:36 PM ESTAddended by: YAN PUTNAM on: 07/18/2023 01:36 PM Modules accepted: Orders * Telephone Encounter - Radha Arroyo CPhT - 07/18/2023 11:18 AM EST Pt calling requesting the following medication below that is listed as "Historical". The following information was provided: Medication Name: Propranolol Strength: 10mg tablets Directions: One pill three times a day Preferred Quantity: 30 day supply Previous Prescriber: Psych doctor, pt asking for PCP to fill Preferred Pharmacy: [id number] [id number] [address] Please review and approve if appropriate. Thank you, Radha Arroyo CPhT [employer] Tanker Driver Commercial Account Executive [facility] ([facility] (Formerly [facility]) 07/18/2023,11:19 AM documented in this encounter Plan of Treatment [...] Not on filedocumented as of this encounter Visit Diagnoses Diagnosis Tremor Abnormal involuntary movements documented in this encounter Advance Directives Latest Code Status on File Code Status Date Activated Date Inactivated Comments Full Code 01/23/2010 4:55 PM 01/24/2010 3:12 PM This order reflects the patients wishes and were consensually agreed upon. Care Teams Finance Vice President Relationship Specialty Start Date End Date Campos Hansen MD [address] [place] [id number] PCP - General Family Medicine 08/24/20 documented as of this encounter
--- OUTSIDE RECORDS SUMMARY | 2023-08-11 00:07 | External Medical Summary | Summary of Care ---
Author Name Unknown Organization [facility] Address [address] [place] [address] Phone [phone] Care Team Providers Care Field Rep Name Role Phone Campos Hansen MD Primary Care Provider [phone] Reason for Visit * Reason Onset Date Comments Medication Refill 07/18/2023 Encounter Details Date Type Department Care Team (Late st Contact Info) Description 07/18/2023 Refill Family Practice [facility] [address] [place] [address] Campos Hansen MD [address] [address] Tremor Allergies Active Allergy Reactions Criticality Noted [...] 156 mgIndications:Disorganized schizophrenia (HCC) 156 mg IM [id number] 06/19/2023 Activ e documented as of this [...] for PCP to fill Preferred Pharmacy: [id number] [id number] [address] Please review and approve if appropriate. Thank you, Radha Arroyo CPhT C[employer] Mason Apprentice Crm System Administrator [facility] ([facility] (Formerly Tele[facility]) [...] and were consensually agreed upon. Care Teams Field Rep Relationship Specialty Start Date End Date Campos Hansen MD [address] [place] [address] [address] PCP - General Family Medicine 08/24/20 documented as of this encounter
--- OUTSIDE RECORDS SUMMARY | 2023-08-11 00:07 | External Medical Summary | Summary of Care ---
Author Name Unknown Organization [facility] Address [address] [place] [address] Phone [phone] Care Team Providers Care Cash Register Mechanic Name Role Phone Sharon Arthur MD Primary Care Provider [phone] Reason for Visit * Reason Onset Date Comments Medication Refill 07/18/2023 Encounter Details Date Type Department Care Team (Late st Contact Info) Description 07/18/2023 Refill Family Practice [facility] [address] [place] [address] Sharon Arthur MD [address] [place] [address] Tremor Allergies Active Allergy Reactions Criticality Noted Date Comments Codeine Rash Medium 05/19/2011 documented as of this encounter (statuses as of 07/18/2023) Medications Medication Sig Dispensed Refills Start Date End Date Status LAMOTRIGINE 100 MG PO TABSIndications:[place] izophrenia, chronic condition (HCC),Adjustment disorder with depressed mood one pill each day 30 Tab 1 12/27/2013 Active LAMOTRIGINE 25 MG PO TBDPIndications:Adj ustment disorder with depressed mood,Schizophrenia, chronic condition (HCC) 2 tabs in am 60 Tab 1 12/27/2013 Active PROPRANOLOL HCL 10 MG PO TABSIndications:Jb mor one pill three times a day 90 Tab 1 12/27/2013 Active BENZTROPINE MESYLATE 1 MG PO TABSIndications:Adj ustment disorder with depressed mood one pill twice a day 60 Tab 1 12/27/2013 Active LATUDA 40 MG PO TABSIndications:[place] izophrenia, chronic condition (HCC) 1 TABLET DAILY WITH FOOD 30 Tab 1 12/28/2013 Active Ibuprofen 600 MG Oral Tablet (Motrin)Indications :Concussion without loss of consciousness, initial encounter Take [...] 156 MG/ML Intramuscular Suspension Prefilled Syringe (Invega SustSTARFACE) Inject 156 mg into a large muscle [...] the morning. 30 Tablet 4 07/18/2023 Active Venlafaxine HCl ER 150 MG Oral Capsule Extended Release 24 Hour (Effexor XR) Take 1 Capsule (150 mg) by mouth in the morning. 2 capsules daily. 60 Capsule 1 08/20/2022 3 Discontinue d(Refill) traZODone HCl 100 MG Oral Tablet (Desyrel) Take 0.5 Tablets by mouth at bedtime. 30 Tablet 1 10/15/2022 3 Discontinue d(Refill) Hospital, Clinic, or Other Facility Administered Medication Ordered Dose Route Frequency Start Date End Date Status paliperidone palmitate ER (Invega Sustenna) inj 156 mgIndications:Disorganized schizophrenia (HCC) 156 mg IM [id number] 06/19/2023 Activ e documented as of this [...] Miscellaneous Notes * Telephone Encounter - Sharon Arthur MD - 07/18/2023 12:29 PM ESTSigned Prescriptions: Disp Refills traZODone HCl 100 MG Oral Tablet (Desyrel) 30 Tab*1 Sig: Take 0.5 Tablets by mouth at bedtime. Authorizing Provider: SHARON ARTHUR Venlafaxine HCl ER 150 MG Oral Capsule Ext*60 Cap*1 Sig: Take 1 Capsule by mouth in the morning. 2 capsules daily. Authorizing Provider: SHARON ARTHUR * Telephone Encounter - Shawna Rowe [facility] - 07/18/2023 11:18 AM EST Pending Prescriptions: Disp Refills traZODone HCl 100 MG Oral Tablet (Desyrel) 30 Tab*1 Sig: Take 0.5 Tablets by mouth at bedtime. Venlafaxine HCl ER 150 MG Oral Capsule Ext*60 Cap*1 Sig: Take 1 Capsule by mouth in the morning. 2 capsules daily. * Telephone Encounter - Shawna Rowe [facility] - 07/18/2023 11:18 AM EST This has not been prescribed by PCP in a while. Please advise. * Telephone Encounter - Radha Arroyo [facility] - 07/18/2023 11:08 AM EST Pt mislplaced her meds and is asking for a refill high priority from PCP Did you pend patient's preferred pharmacy and medication before forwarding?yes [facility]acy[facility] [id number] [place] Pending Prescriptions: Disp Refills traZODone HCl 100 MG Oral Tablet (Desyrel)30 Tab*1 Sig: Take 0.5 Tablets by mouth at bedtime. Venlafaxine HCl ER 150 MG Oral Capsule Ex*60 Cap*1 Sig: Take 1 Capsule by mouth in the morning. 2 capsules daily. Last Visit: 03/14/2023 (in office), Visit date not found (telemedicine) Next Visit: Visit date not found If no future appointments scheduled, and last appointment is greater than a year ago, please schedule patient for a follow-up appointment Last date the medication was ordered: 08/20/22, 10/15/22 Is this request for a controlled substance?No Urine Drug Screen:No results found for this or any previous visit. Patient Phone Numbers Labs: Lab Results Component [...] and were consensually agreed upon. Care Teams Cash Register Mechanic Relationship Specialty Start Date End Date Sharon Arthur MD [address] [place] [address] PCP - General Family Medicine 08/24/20 documented as of this encounter
[2023-08-11] MEDS ORDERED: PANTOprazole 40 MG in SYRINGE 0 ML IV ONE (00:56)
[2023-08-11] MEDS ORDERED: ALUMINUM/MAGNESIUM SUSP 30 ML UDC PO STA (00:56)
[2023-08-11] MEDS ORDERED: ONDANSETRON INJ 2 MG/ML 2 ML VIAL IV STA ×2 (00:56→02:59)
[2023-08-11 01:33] LABS: Albumin Globulin Ratio 1.3 (0.9-2); Albumin Level 4.7 gm/dl (3.4-5.0); BUN Creatinine Ratio 15.2 (10-20); Bilirubin,Total 0.3 mg/dl (0.2-1.0); Calcium 9.3 mg/dl (8.6-10.3); Creatinine Clr Calc Pharmacy 110.5 ml/min; Est GFR (African American) 110.8 ml/min; Est GFR (Non-African American) 95.6 ml/min; Globulin 3.6 gm/dl (2.5-4.0); Potassium 4.2 mmol/L (3.5-5.1); Total Protein 8.3 gm/dl (6.0-8.3)
[2023-08-11 01:40] LABS: Troponin I High Sensitivity 3.9 pg/ml (0-14)
[2023-08-11 01:41] LABS: Basophils # (auto) 0.05 K/uL (0.00-0.20); Basophils % (auto) 0.3 %; Eosinophils # (auto) 0.06 K/uL (0.00-0.50); Eosinophils % (auto) 0.3 %; Hematocrit (blood only) 39.6 % (37.0-47.0); Hemoglobin 12.8 g/dl (12.0-16.0); Immature Granulocytes # (auto) 0.09 K/uL (0.01-0.20); Immature Granulocytes % (auto) 0.5 %; Lymphocytes # (auto) 1.61 K/uL (1.20-3.40); Lymphocytes % (auto) 9.1 %; Mean Corpuscular Hemoglobin 26.1 pg (25.0-34.0); Mean Corpuscular Hgb Conc 32.3 g/dL (32.0-36.0); Mean Corpuscular Volume 80.8 fL (80.0-100.0); Mean Platelet Volume 10.2 fL (9.4-12.4); Neutrophils # (auto) 15.19 K/uL (1.40-6.50); Neutrophils % (auto) 85.8 %; Platelet Count 362 K/uL (130-400); Platelet Estimate Normal (Normal); RDW Coefficient of Variation 14.1 % (11.5-14.5); RDW Standard Deviation 41.2 fL (36.4-46.3)
[2023-08-11 01:42] LABS: INR 0.9 (0.9-1.1); Partial Thromboplastin Ratio 0.9; Partial Thromboplastin Time 26.7 Seconds (21.0-31.0); Prothrombin Time 10.1 Seconds (9.0-12.0)
--- NOTE | 2023-08-11 02:42 | CT Scan Report ---
Exam(s): CT ABDOMEN + PELVIS Without Contrast EXAM: CT Abdomen and Pelvis Without Intravenous Contrast CLINICAL HISTORY: Reason for exam: Upper abd pain, n/v. TECHNIQUE: Axial computed tomography images of the abdomen and pelvis without intravenous contrast. CTDI is 27.36 mGy and DLP is 1438.46 mGy-cm. Automated exposure control was utilized for the study. A dose lowering technique was utilized adhering to the principles of ALARA. COMPARISON: No relevant prior studies available. FINDINGS: Lung bases: Unremarkable. No mass. No consolidation. ABDOMEN: Liver: Unremarkable. Gallbladder and bile ducts: Diffusely thick-walled gallbladder with mild distention. No calcified stones. No ductal dilation. Pancreas: Unremarkable. No ductal dilation. Spleen: Unremarkable. No splenomegaly. Adrenals: Unremarkable. No mass. Kidneys and ureters: Unremarkable. No obstructing stones. No hydronephrosis. Stomach and bowel: Unremarkable. No obstruction. No mucosal thickening. PELVIS: Appendix: No findings to suggest acute appendicitis. Bladder: Unremarkable. No stones. Reproductive: Unremarkable as visualized. ABDOMEN and PELVIS: Intraperitoneal space: Unremarkable. No free air. No significant fluid collection. Bones/joints: No acute fracture. No dislocation. Soft tissues: Unremarkable. Vasculature: Unremarkable. No abdominal aortic aneurysm. Lymph nodes: Unremarkable. No enlarged lymph nodes. IMPRESSION: Diffusely thick-walled gallbladder with mild distention. Electronically signed by: Deric Woodall M.D. 08/11/23 02:41 AM
--- NOTE | 2023-08-11 02:56 | Emergency Department Note ---
History of Present Illness General Chief complaint: Abdominal Pain Stated complaint: SEVERE ABDOMINAL PAIN, CHEST PAIN History of Present Illness Maximum Pain Intensity: 10 This is a 37-year-old female presenting to the emergency department for evaluation of upper abdominal pain, nausea, and vomiting. The patient went to the [employer], ate spaghetti around 6 PM, and shortly afterwards began having severe symptoms. The patient had an almost identical episode to this about 3 weeks ago. The patient rates her discomfort a 10/10. She does not have lower abdominal discomfort. No fevers or chills. No recent travel. No history of previous abdominal surgeries. She has had breast reduction in the past. There is past history of mental health disease, but this seems stable at this time. Home Medications Medication Instructions Recorded Confirmed Type trazodone 100 mg tablet 150 mg PO HS 11/12/22 08/11/23 History amlodipine 5 mg tablet 5 mg PO DAILY 05/30/23 08/11/23 History escitalopram oxalate 5 mg tablet 5 mg PO DAILY 05/30/23 08/11/23 History propranolol 10 mg tablet 10 mg PO TID 08/11/23 08/11/23 History Allergies Allergy/AdvReac Type Severity Reaction Status Date / Time codeine Allergy Intermediate RASH Verified 08/11/23 00:55 Past Med/Surg History Medical History Psychosis Schizophrenia Hypokalemia Suicidal ideation Sinus tachycardia Facial cellulitis History of drug overdose Depression Acute periapical abscess Surgical History No pertinent past surgical history Family History Other Cancer Social History Smoking Status: Never smoker Tobacco Type: Cigarettes Hx Alcohol Use: Yes Alcohol type: beer, wine and hard liquor Hx Substance Use: No Preferred Language: Divehi Communication Ability: Effective 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 Beliefs That Will Affect Care: None marital status: Single Current Living Situation: Alone current occupational status: unemployed Other Information That Helps Us Care for You: No Feels Safe at Home: Yes Safety Concerns: Feels Safe At This Time Gender Identity: Female Assistive Devices: None Review of Systems A total of 10 systems reviewed and were otherwise negative Physical Exam Vital Signs Vital Signs - 24 hr 08/11/23 00:03 08/11/23 01:23 08/11/23 01:23 Temperature 36.1 C L Temperature Source Temporal Artery Scan Pulse Rate 70 Pulse Rate [Apical] Respiratory Rate 16 Respiratory Effort / Characteristics Non-Labored Spontaneous Respiratory Depth Normal Respiratory Pattern Regular Blood Pressure 190/113 H Blood Pressure [Right Arm] Blood Pressure Mean 138 Blood Pressure Mean [Right Arm] Pulse Oximetry 99 93 Oxygen Delivery Method Room Air Room Air Sepsis Recent Fever Within 48 Hours No Sepsis New/Unexplained Change in Mental Status No Sepsis Action Taken by Nursing No Action Required 08/11/23 01:23 08/11/23 01:25 08/11/23 04:52 Temperature 36.6 C Temperature Source Oral Pulse Rate 79 Pulse Rate [Apical] 70 74 Respiratory Rate 16 Respiratory Effort / Characteristics Non-Labored Spontaneous Respiratory Depth Normal Respiratory Pattern Regular Blood Pressure Blood Pressure [Right Arm] 178/113 H 160/100 H Blood Pressure Mean Blood Pressure Mean [Right Arm] 134 120 Pulse Oximetry 98 Oxygen Delivery Method Room Air Sepsis Recent Fever Within 48 Hours Sepsis New/Unexplained Change in Mental Status Sepsis Action Taken by Nursing 08/11/23 05:10 Temperature Temperature Source Pulse Rate Pulse Rate [Apical] Respiratory Rate Respiratory Effort / Characteristics Non-Labored Respiratory Depth Normal Respiratory Pattern Regular Blood Pressure Blood Pressure [Right Arm] Blood Pressure Mean Blood Pressure Mean [Right Arm] Pulse Oximetry Oxygen Delivery Method Room Air Sepsis Recent Fever Within 48 Hours Sepsis New/Unexplained Change in Mental Status Sepsis Action Taken by Nursing VITALS: Vitals are noted on the nurse's note and reviewed by myself. Vital signs stable. GENERAL: Well-developed, well-nourished, white female, who is moderately uncomfortable on presentation. HEAD: Normocephalic atraumatic. NECK: Supple without nuchal rigidity. No lymphadenopathy. No thyromegaly. Cervical spine is nontender. HEART: Regular rate and rhythm without murmurs gallops or rubs. LUNGS: Clear to auscultation bilaterally without wheezes, rales or rhonchi. No retractions or accessory muscle use. ABDOMEN: Positive normal bowel sounds x 4. Soft, with epigastric tenderness on palpation. No rebound or guarding. Course Administered Medications Discontinued Medications Al Hydrox/Mg Hydrox/Simethicone (Aluminum/Magnesium Susp 30 Ml Udc) 30 ml PO NOW STA Stop: 08/11/23 00:57 Last Admin: 08/11/23 01:16 Dose: 30 ml Documented By: Pantoprazole Sodium 40 mg/ (Syringe) 10 mls @ 5 mls/min IV NOW ONE Stop: 08/11/23 00:57 Last Admin: 08/11/23 01:37 Dose: 5 mls/min Documented By: Piperacillin Sod/Tazobactam Sod (Zosyn) 4.5 gm in 100 mls @ 200 mls/hr IV NOW ONE Stop: 08/11/23 05:00 Last Infusion: 08/11/23 05:31 Dose: Infused Documented By: Admin: 08/11/23 04:53 Dose: 200 mls/hr Documented By: DOE Ondansetron HCl (Ondansetron Inj 2 Mg/Ml 2 Ml Vial) 4 mg IV NOW STA Stop: 08/11/23 00:57 Last Admin: 08/11/23 01:16 Dose: 4 mg Documented By: Ondansetron HCl (Ondansetron Inj 2 Mg/Ml 2 Ml Vial) 4 mg IV NOW STA Stop: 08/11/23 03:00 Last Admin: 08/11/23 03:18 Dose: 4 mg Documented By: SAM Medical Decision Making Differential Diagnosis Differential diagnosis: Etiologies such as biliary colic, cholecystitis, hepatitis, pancreatitis, cardiac disease, pancreatitis, gastritis, peptic ulcer disease, appendicitis, cystitis, diverticulitis, mesenteric ischemia, inflammatory bowel disease, ileus, bowel obstruction, testicular/adnexal torsion, aortic pathology, shingles, as well as others were considered Laboratory Data 08/11/23 00:48 08/11/23 00:48 Lab Results 08/11/23 Range/Units 00:48 WBC 17.70 H (4.8-10.8) K/ul RBC 4.90 (4.20-5.40) M/uL Hgb 12.8 (12.0-16.0) g/dl Hct 39.6 (37.0-47.0) % MCV 80.8 (80.0-100.0) fL MCH 26.1 (25.0-34.0) pg MCHC 32.3 (32.0-36.0) g/dL RDW Std Deviation 41.2 (36.4-46.3) fL RDW Coeff of Indira 14.1 (11.5-14.5) % Plt Count 362 (130-400) K/uL MPV 10.2 (9.4-12.4) fL Immature Gran % (Auto) 0.5 % Neut % (Auto) 85.8 % Lymph % (Auto) 9.1 % [place] % (Auto) 4.0 % Eos % (Auto) 0.3 % Baso % (Auto) 0.3 % Neut # (Auto) 15.19 H (1.40-6.50) K/uL Lymph # (Auto) 1.61 (1.20-3.40) K/uL [place] # (Auto) 0.70 H (0.11-0.59) K/uL Eos # (Auto) 0.06 (0.00-0.50) K/uL Baso # (Auto) 0.05 (0.00-0.20) K/uL Immature Gran # (Auto) 0.09 (0.01-0.20) K/uL Platelet Estimate Normal (Normal) PT 10.1 (9.0-12.0) Seconds INR 0.9 (0.9-1.1) APTT 26.7 (21.0-31.0) Seconds PTT Ratio 0.9 Sodium 136 (136-145) mmol/L Potassium 4.2 (3.5-5.1) mmol/L Chloride 100 (98-107) mmol/L Carbon Dioxide 27 (21-32) mmol/L Anion Gap 9 (3-11) BUN 12 (6-23) mg/dl Creatinine 0.79 (0.6-1.2) mg/dl Est Cr Clr Drug Dosing 110.5 ml/min Est GFR ( Amer) 110.8 ml/min Est GFR (Non-Af Amer) 95.6 ml/min BUN/Creatinine Ratio 15.2 (10-20) Glucose 162 H (70-99(Fasting)) mg/dl Calcium 9.3 (8.6-10.3) mg/dl Total Bilirubin 0.3 (0.2-1.0) mg/dl AST 22 (13-39) U/L ALT 22 (7-52) U/L Alkaline Phosphatase 87 (34-104) U/L Troponin I High Sens 3.9 (0-14) pg/ml Total Protein 8.3 (6.0-8.3) gm/dl Albumin 4.7 (3.4-5.0) gm/dl Globulin 3.6 (2.5-4.0) gm/dl Albumin/Globulin Ratio 1.3 (0.9-2) Lipase 3 L (11-82) U/L Imaging Data Radiologist's Impression: Abdomen/Pelvis CT 08/11/23 01:44 Exam(s): CT ABDOMEN + PELVIS Without Contrast EXAM: CT Abdomen and Pelvis Without Intravenous Contrast CLINICAL HISTORY: Reason for exam: Upper abd pain, n/v. TECHNIQUE: Axial computed tomography images of the abdomen and pelvis without intravenous contrast. CTDI is 27.36 mGy and DLP is 1438.46 mGy-cm. Automated exposure control was utilized for the study. A dose lowering technique was utilized adhering to the principles of ALARA. COMPARISON: No relevant prior studies available. FINDINGS: Lung bases: Unremarkable. No mass. No consolidation. ABDOMEN: Liver: Unremarkable. Gallbladder and bile ducts: Diffusely thick-walled gallbladder with mild distention. No calcified stones. No ductal dilation. Pancreas: Unremarkable. No ductal dilation. Spleen: Unremarkable. No splenomegaly. Adrenals: Unremarkable. No mass. Kidneys and ureters: Unremarkable. No obstructing stones. No hydronephrosis. Stomach and bowel: Unremarkable. No obstruction. No mucosal thickening. PELVIS: Appendix: No findings to suggest acute appendicitis. Bladder: Unremarkable. No stones. Reproductive: Unremarkable as visualized. ABDOMEN and PELVIS: Intraperitoneal space: Unremarkable. No free air. No significant fluid collection. Bones/joints: No acute fracture. No dislocation. Soft tissues: Unremarkable. Vasculature: Unremarkable. No abdominal aortic aneurysm. Lymph nodes: Unremarkable. No enlarged lymph nodes. IMPRESSION: Diffusely thick-walled gallbladder with mild distention. Electronically signed by: Deric Woodall M.D. 08/11/23 02:41 AM Gallbladder Ultrasound 08/11/23 03:07 Exam(s): US GALLBLADDER EXAM: US Abdomen Limited, Gallbladder CLINICAL HISTORY: ruq pain. TECHNIQUE: Real-time ultrasound of the right upper quadrant with image documentation. COMPARISON: CT abdomen and pelvis without contrast performed at 0204 hrs. FINDINGS: Liver: The liver is hyperechoic measuring 17.4 cm. The portal vein is patent directed towards the liver. Gallbladder: Echogenic sludge and gallstones noted in the gallbladder. There is a probable gallstone noted in the gallbladder neck. The gallbladder wall is mildly thickened measuring up to 4.3 mm on longitudinal imaging with a suggestion of mural edema and questionable subtle pericholecystic fluid. Evaluation for sonographic Moore sign is not possible secondary to patient's medication status. Common bile duct: The common bile duct measures 3 mm. No stones. No dilation. Pancreas: Visualized portions of the pancreas are unremarkable. Right kidney: Mild pelviectasis of the right kidney without significant hydronephrosis or definite nephrolithiasis. Free fluid: No free fluid. IMPRESSION: 1. Echogenic sludge and gallstones noted in the gallbladder. There is a probable nonmobile gallstone noted in the gallbladder neck. The gallbladder wall is mildly thickened measuring up to 4.3 mm on longitudinal imaging with a suggestion of mural edema and questionable subtle pericholecystic fluid. Evaluation is highly suspicious for acute cholecystitis. 2. No biliary dilatation. 3. Right renal pelviectasis without significant hydronephrosis is a presumed normal variation. No definite nephrolithiasis. Electronically signed by: Beck Hollins MD 08/11/23 04:53 AM MDM Narrative Physical exam and history were performed. Nursing notes, EMR, and Medication List were personally reviewed. No social concerns were identified as barriers to patients care. Patient appears to have abdominal pain with nausea and vomiting bringing her to the ER. Patient's symptoms are similar to an episode that she had a few weeks ago. IV access was established and labs were obtained. She was hydrated with normal saline and given IV Protonix, IV Zofran, and a GI cocktail. The patient has had difficulty with substance abuse in the past and is allergic to codeine, and I did not provide narcotics right off the start. Patient's blood work is as above and was reviewed. She does have a notably elevated white count of 17,000. I am unsure if this is from the vomiting or possible infection. She does have a shift of 15,000 on the neutrophils. Transaminases are not diagnostic. Lipase is normal. She does not have significant electrolyte imbalance. Because of the white count, abdominal pain, and vomiting she was sent to CT scan for imaging of her belly. This was reviewed by myself and radiology and does suggest a biliary etiology. Patient was sent to ultrasound, which also suggests gallbladder is the cause of her symptoms. The case was discussed with both the on-call general surgeon, as well as the on-call hospitalist. Patient was given Zosyn here in the ER. Please see the specialist dictation for further patient course, plan, and disposition. The chart was completed utilizing [employer] Speech Voice Recognition Software. Grammatical errors, random word insertions, pronoun errors, and incomplete sentences are an occasional consequence of this system due to software limitations, ambient noise, and hardware issues. Any formal questions or concerns about the content, text, or information contained within the body of this dictation should be directly addressed to the provider for clarification. . Impression & Plan Cholecystitis Discharge Plan Visit Data Chief Complaint: Abdominal Pain Stated Complaint: SEVERE ABDOMINAL PAIN, CHEST PAIN ED Provider: Radha Yancey ED Midlevel Provider: Carmelo Chambers Discharge Problem: Cholecystitis Forms Stand Alone Forms: [employer] Prescriptions Prescriptions: No Action trazodone 100 mg tablet 150 mg PO HS amlodipine 5 mg tablet 5 mg PO DAILY escitalopram oxalate 5 mg tablet 5 mg PO DAILY propranolol 10 mg tablet 10 mg PO TID Referrals Referrals: PCP,NO [Primary Care Provider] -
[2023-08-11] MEDS ORDERED: PIPERACILLIN/TAZOBACTAM 4.5 GM/100 ML BAG IV ONE (04:31)
--- NOTE | 2023-08-11 04:54 | Ultrasound Report ---
Exam(s): US GALLBLADDER EXAM: US Abdomen Limited, Gallbladder CLINICAL HISTORY: ruq pain. TECHNIQUE: Real-time ultrasound of the right upper quadrant with image documentation. COMPARISON: CT abdomen and pelvis without contrast performed at 0204 hrs. FINDINGS: Liver: The liver is hyperechoic measuring 17.4 cm. The portal vein is patent directed towards the liver. Gallbladder: Echogenic sludge and gallstones noted in the gallbladder. There is a probable gallstone noted in the gallbladder neck. The gallbladder wall is mildly thickened measuring up to 4.3 mm on longitudinal imaging with a suggestion of mural edema and questionable subtle pericholecystic fluid. Evaluation for sonographic Moore sign is not possible secondary to patient's medication status. Common bile duct: The common bile duct measures 3 mm. No stones. No dilation. Pancreas: Visualized portions of the pancreas are unremarkable. Right kidney: Mild pelviectasis of the right kidney without significant hydronephrosis or definite nephrolithiasis. Free fluid: No free fluid. IMPRESSION: 1. Echogenic sludge and gallstones noted in the gallbladder. There is a probable nonmobile gallstone noted in the gallbladder neck. The gallbladder wall is mildly thickened measuring up to 4.3 mm on longitudinal imaging with a suggestion of mural edema and questionable subtle pericholecystic fluid. Evaluation is highly suspicious for acute cholecystitis. 2. No biliary dilatation. 3. Right renal pelviectasis without significant hydronephrosis is a presumed normal variation. No definite nephrolithiasis. Electronically signed by: Beck Hollins MD 08/11/23 04:53 AM
--- NOTE | 2023-08-11 05:21 | Surgery Consultation ---
Date of Consultation August 11, 2023 Assessment & Plan (1) Cholecystitis: Plan This point broad-spectrum antibiotic was started we will have the medical service see the patient to evaluate for her hypertension Will keep patient n.p.o. Start IV fluids We will most likely proceed with laparoscopic cholecystectomy once medicine clears her for surgery History of Present Illness Reason for Consultation: Gallbladder issues History of Present Illness This 37-year-old female came into the emergency room for evaluation of vomiting that started approximately 2 hours after eating spaghetti at the [email or web address] approximately 6:00 last evening The patient apparently had similar symptoms approximately 3 weeks ago and was seen at the emergency room at that time the workup was very limited and those symptoms resolved somewhat although she states off-and-on she has had occasional bouts of nausea and vomiting since that then but really was most significant since last evening She denies any fever or chills related to this her pain she does scribes as being in the upper abdomen and going both sides of her back A CT scan shows some gallbladder wall thickening and we asked to see her regarding the She has had a longstanding history of drug abuse although she states that recently she has not taken any drugs other than prescription drug There is no family history of gallbladder dysfunction Prior to the most recent episodes with food that she ate at the same market and had the same symptoms she has not had any fatty foods or spicy food intolerances Allergies Allergy/AdvReac Type Severity Reaction Status Date / Time codeine Allergy Intermediate RASH Verified 08/11/23 00:55 Home Medications Medication Instructions Recorded Confirmed Type trazodone 100 mg tablet 150 mg PO HS 11/12/22 08/11/23 History amlodipine 5 mg tablet 5 mg PO DAILY 05/30/23 08/11/23 History escitalopram oxalate 5 mg tablet 5 mg PO DAILY 05/30/23 08/11/23 History propranolol 10 mg tablet 10 mg PO TID 08/11/23 08/11/23 History Patient History Medical History Psychosis Schizophrenia Hypokalemia Suicidal ideation Sinus tachycardia Facial cellulitis History of drug overdose Depression Acute periapical abscess Surgical History No pertinent past surgical history Family History Other Cancer Social History Smoking Status: Never smoker Tobacco Type: Cigarettes Hx Alcohol Use: Yes Alcohol type: beer, wine and hard liquor Hx Substance Use: No Preferred Language: [place] Zealander Communication Ability: Effective Rehab Nursing Tech Required: No Beliefs That Will Affect Care: None marital status: Single Current Living Situation: Alone current occupational status: unemployed Other Information That Helps Us Care for You: No Feels Safe at Home: Yes Safety Concerns: Feels Safe At This Time Gender Identity: Female Assistive Devices: None Review of Systems Review of Systems: She denies any changes in weight Really had no GI symptoms set most recently with these 2 episodes of vomiting Other than past history of drug abuse which she states she has not taken any drugs at this time she has had a history of hypertension sinus tachycardia depression psychosis schizophrenic hypokalemia Physical Exam Physical Exam: Initially saw the patient she was asleep she recently woken coherent in no distress not complaining of any pain although the nurse taking care of her stated that she had another bout of emesis containing spaghetti just recently The sclera is nonicteric Lungs no audible wheezing Heart by monitor normal sinus rhythm heart rate 74 The abdomen prominent mostly due to her body habitus she has no tenderness no masses and on deep palpation the right upper quadrant there is no guarding and no Moore sign The palpation of the rest of the abdomen there is no other tenderness Extremities no pedal edema Results & Data Vital Signs (Past 12 Hours) Vital Signs Temp Pulse Pulse Resp BP BP Pulse Ox 08/11/23 04:52 36.6 C 74 16 160/100 H 98 08/11/23 01:25 79 08/11/23 01:23 70 178/113 H 08/11/23 01:23 93 08/11/23 01:23 08/11/23 00:03 36.1 C L 70 16 190/113 H 99 O2 Del Method 08/11/23 04:52 Room Air 08/11/23 01:25 08/11/23 01:23 08/11/23 01:23 Room Air 08/11/23 01:23 Room Air 08/11/23 00:03 Laboratory Results White count 17.70 with left shift, hemoglobin 12.8 Liver function test all normal Lipase normal Diagnostic Findings CT scan showed diffuse thick-walled gallbladder with mild distention no stones identified Ultrasound the gallbladder showed sludge and gallstones there may be be a probable gallstone noted in the gallbladder neck the gallbladder wall is mildly thickened to 4.3 mm and findings suspicious for acute cholecystitis Toxicology screen pending PG Care Time/CCT Total # of Minutes Spent Total Time Spent with Patient: Total time spent is greater than 50% in coordination of care (as documented) at patient's floor/unit and/or counseling patient: Coding Level of Care Code 31260 IN/OBS CONSULT LVL 3,45M Diagnoses Cholecystitis K81.9
--- NOTE | 2023-08-11 05:38 | History & Physical Report ---
Date of Service August 11, 2023 Assessment & Plan (1) Cholecystitis: Plan: Imaging suggestive of acute cholecystitis. Patient is afebrile at present. Not septic appearing. Pain is well controlled. LFTs and lipase are WNL -Admit to medical -Clear liquids -Zosyn -Pain control with Tylenol PRN, Zofran PRN nausea -Appreciate General Surgery input (2) Schizoaffective disorder: Plan: Chronic. Stable moods. -Continue Trazodone (3) Hypertension: Plan: Blood pressure mildly elevated -Pain control -Continue Amlodipine and Propranolol -Monitor History of Present Illness Chief Complaint: abdominal pain Primary Care Provider: DEEDEE PCP 37yo female presenting with acute upper abdominal pain that started after dinner this evening 18:00. She ate spaghetti with meat sauce then shortly after developed upper abdominal pain that was bandlike with radiation into her back. She had nausea with multiple episodes of vomiting, non-bloody. She denies diarrhea. Did have a subjective fever as well as some shortness of breath. No additional complaints at this time. Patient presently feels well. Allergies Allergy/AdvReac Type Severity Reaction Status Date / Time codeine Allergy Intermediate RASH Verified 08/11/23 00:55 Home Medications Medication Instructions Recorded Confirmed Type trazodone 100 mg tablet 150 mg PO HS 11/12/22 08/11/23 History amlodipine 5 mg tablet 5 mg PO DAILY 05/30/23 08/11/23 History escitalopram oxalate 5 mg tablet 5 mg PO DAILY 05/30/23 08/11/23 History propranolol 10 mg tablet 10 mg PO TID 08/11/23 08/11/23 History Past Med/Surg History Medical History Psychosis Schizophrenia Hypokalemia Suicidal ideation Sinus tachycardia Facial cellulitis History of drug overdose Depression Acute periapical abscess Surgical History No pertinent past surgical history Family History Other Cancer Social History Smoking Status: Never smoker Tobacco Type: Cigarettes Hx Alcohol Use: Yes Alcohol type: beer, wine and hard liquor Hx Substance Use: No Preferred Language: Mohawk Communication Ability: Effective 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 Required: No Beliefs That Will Affect Care: None marital status: Single Current Living Situation: Alone current occupational status: unemployed Other Information That Helps Us Care for You: No Feels Safe at Home: Yes Safety Concerns: Feels Safe At This Time Gender Identity: Female Assistive Devices: None Review of Systems Review of Systems: All systems reviewed & are unremarkable except as noted in HPI & below Physical Exam Physical Exam: General: patient resting comfortably, NAD, non-toxic in appearance, AA&O x 4 Skin: warm, dry, intact, no rashes or lesions HEENT: NC/AT, PERRL, EOMI, anicteric sclera, conjunctiva without injection, external ear normal to inspection and nontender, nares patent, moist mucus membranes, dentition intact, no oropharyngeal lesions, neck supple, trachea midline, no LAD, no thyromegaly, no JVD Heart: +S1/S2, regular, no m/r/g Lungs: equal air entry bilaterally, no rales/rhonchi/wheezes Abd: +BS, soft, NT/ND, no masses/organomegaly/ascites Ext: warm, 2+ pulses in UE/LE bilaterally, no clubbing/cyanosis or edema Neuro: nonfocal, patient AA&O x 4, speech intact, no facial droop, moving all extremities on command with equal strength 5/5 Results & Data Results & Data Vital Signs (Past 12 Hours) Vital Signs Temp Pulse Pulse Resp BP BP Pulse Ox 08/11/23 05:10 08/11/23 04:52 36.6 C 74 16 160/100 H 98 08/11/23 01:25 79 08/11/23 01:23 70 178/113 H 08/11/23 01:23 93 08/11/23 01:23 08/11/23 00:03 36.1 C L 70 16 190/113 H 99 O2 Del Method 08/11/23 05:10 Room Air 08/11/23 04:52 Room Air 08/11/23 01:25 08/11/23 01:23 08/11/23 01:23 Room Air 08/11/23 01:23 Room Air 08/11/23 00:03 Laboratory Results Laboratory Results WBC 17.70 K/ul (4.8-10.8) H 08/11/23 00:48 RBC 4.90 M/uL (4.20-5.40) 08/11/23 00:48 Hgb 12.8 g/dl (12.0-16.0) 08/11/23 00:48 Hct 39.6 % (37.0-47.0) 08/11/23 00:48 MCV 80.8 fL (80.0-100.0) 08/11/23 00:48 MCH 26.1 pg (25.0-34.0) 08/11/23 00:48 MCHC 32.3 g/dL (32.0-36.0) 08/11/23 00:48 RDW Std Deviation 41.2 fL (36.4-46.3) 08/11/23 00:48 RDW Coeff of Indira 14.1 % (11.5-14.5) 08/11/23 00:48 Plt Count 362 K/uL (130-400) 08/11/23 00:48 MPV 10.2 fL (9.4-12.4) 08/11/23 00:48 Immature Gran % (Auto) 0.5 % 08/11/23 00:48 Neut % (Auto) 85.8 % 08/11/23 00:48 Lymph % (Auto) 9.1 % 08/11/23 00:48 Jack % (Auto) 4.0 % 08/11/23 00:48 Eos % (Auto) 0.3 % 08/11/23 00:48 Baso % (Auto) 0.3 % 08/11/23 00:48 Neut # (Auto) 15.19 K/uL (1.40-6.50) H 08/11/23 00:48 Lymph # (Auto) 1.61 K/uL (1.20-3.40) 08/11/23 00:48 Jack # (Auto) 0.70 K/uL (0.11-0.59) H 08/11/23 00:48 Eos # (Auto) 0.06 K/uL (0.00-0.50) 08/11/23 00:48 Baso # (Auto) 0.05 K/uL (0.00-0.20) 08/11/23 00:48 Immature Gran # (Auto) 0.09 K/uL (0.01-0.20) 08/11/23 00:48 Platelet Estimate Normal (Normal) 08/11/23 00:48 PT 10.1 Seconds (9.0-12.0) 08/11/23 00:48 INR 0.9 (0.9-1.1) 08/11/23 00:48 APTT 26.7 Seconds (21.0-31.0) 08/11/23 00:48 PTT Ratio 0.9 08/11/23 00:48 Sodium 136 mmol/L (136-145) 12 00:48 Potassium 4.2 mmol/L (3.5-5.1) 08/11/23 00:48 Chloride 100 mmol/L (98-107) 08/11/23 00:48 Carbon Dioxide 27 mmol/L (21-32) 08/11/23 00:48 Anion Gap 9 (3-11) 08/11/23 00:48 BUN 12 mg/dl (6-23) 08/11/23 00:48 Creatinine 0.79 mg/dl (0.6-1.2) 12 00:48 Est Cr Clr Drug Dosing 110.5 ml/min 12 00:48 Est GFR ( Amer) 110.8 ml/min 08/11/23 00:48 Est GFR (Non-Af Amer) 95.6 ml/min 08/11/23 00:48 BUN/Creatinine Ratio 15.2 (10-20) 08/11/23 00:48 Glucose 162 mg/dl (70-99(Fasting)) H 08/11/23 00:48 Calcium 9.3 mg/dl (8.6-10.3) 08/11/23 00:48 Total Bilirubin 0.3 mg/dl (0.2-1.0) 08/11/23 00:48 AST 22 U/L (13-39) 08/11/23 00:48 ALT 22 U/L (7-52) 08/11/23 00:48 Alkaline Phosphatase 87 U/L (34-104) 08/11/23 00:48 Troponin I High Sens 3.9 pg/ml (0-14) 08/11/23 00:48 Total Protein 8.3 gm/dl (6.0-8.3) 08/11/23 00:48 Albumin 4.7 gm/dl (3.4-5.0) 08/11/23 00:48 Globulin 3.6 gm/dl (2.5-4.0) 08/11/23 00:48 Albumin/Globulin Ratio 1.3 (0.9-2) 08/11/23 00:48 Lipase 3 U/L (11-82) L 08/11/23 00:48 Impressions Abdomen/Pelvis CT 08/11/23 01:44 Exam(s): CT ABDOMEN + PELVIS Without Contrast EXAM: CT Abdomen and Pelvis Without Intravenous Contrast CLINICAL HISTORY: Reason for exam: Upper abd pain, n/v. TECHNIQUE: Axial computed tomography images of the abdomen and pelvis without intravenous contrast. CTDI is 27.36 mGy and DLP is 1438.46 mGy-cm. Automated exposure control was utilized for the study. A dose lowering technique was utilized adhering to the principles of ALARA. COMPARISON: No relevant prior studies available. FINDINGS: Lung bases: Unremarkable. No mass. No consolidation. ABDOMEN: Liver: Unremarkable. Gallbladder and bile ducts: Diffusely thick-walled gallbladder with mild distention. No calcified stones. No ductal dilation. Pancreas: Unremarkable. No ductal dilation. Spleen: Unremarkable. No splenomegaly. Adrenals: Unremarkable. No mass. Kidneys and ureters: Unremarkable. No obstructing stones. No hydronephrosis. Stomach and bowel: Unremarkable. No obstruction. No mucosal thickening. PELVIS: Appendix: No findings to suggest acute appendicitis. Bladder: Unremarkable. No stones. Reproductive: Unremarkable as visualized. ABDOMEN and PELVIS: Intraperitoneal space: Unremarkable. No free air. No significant fluid collection. Bones/joints: No acute fracture. No dislocation. Soft tissues: Unremarkable. Vasculature: Unremarkable. No abdominal aortic aneurysm. Lymph nodes: Unremarkable. No enlarged lymph nodes. IMPRESSION: Diffusely thick-walled gallbladder with mild distention. Electronically signed by: Deric Woodall M.D. 08/11/23 02:41 AM Gallbladder Ultrasound 08/11/23 03:07 Exam(s): US GALLBLADDER EXAM: US Abdomen Limited, Gallbladder CLINICAL HISTORY: ruq pain. TECHNIQUE: Real-time ultrasound of the right upper quadrant with image documentation. COMPARISON: CT abdomen and pelvis without contrast performed at 0204 hrs. FINDINGS: Liver: The liver is hyperechoic measuring 17.4 cm. The portal vein is patent directed towards the liver. Gallbladder: Echogenic sludge and gallstones noted in the gallbladder. There is a probable gallstone noted in the gallbladder neck. The gallbladder wall is mildly thickened measuring up to 4.3 mm on longitudinal imaging with a suggestion of mural edema and questionable subtle pericholecystic fluid. Evaluation for sonographic Moore sign is not possible secondary to patient's medication status. Common bile duct: The common bile duct measures 3 mm. No stones. No dilation. Pancreas: Visualized portions of the pancreas are unremarkable. Right kidney: Mild pelviectasis of the right kidney without significant hydronephrosis or definite nephrolithiasis. Free fluid: No free fluid. IMPRESSION: 1. Echogenic sludge and gallstones noted in the gallbladder. There is a probable nonmobile gallstone noted in the gallbladder neck. The gallbladder wall is mildly thickened measuring up to 4.3 mm on longitudinal imaging with a suggestion of mural edema and questionable subtle pericholecystic fluid. Evaluation is highly suspicious for acute cholecystitis. 2. No biliary dilatation. 3. Right renal pelviectasis without significant hydronephrosis is a presumed normal variation. No definite nephrolithiasis. Electronically signed by: Beck Hollins MD 08/11/23 04:53 AM PG Care Time/CCT Total # of Minutes Spent Total Time Spent with Patient: Total time spent is greater than 50% in coordination of care (as documented) at patient's floor/unit and/or counseling patient: Coding Level of Care Code 81162 INT INP/OBS CARE 2/55MIN Diagnoses Cholecystitis K81.9 Schizoaffective disorder F25.9 Hypertension I10
[2023-08-11 05:52] LABS: Appearance Urine Clear (Clear); Bacteria Urine Automated Negative (Negative); Bilirubin Urine Negative (Negative); Blood Urine 2+ (Negative); Cast Urine Automated 0 /lpf (0-5); Color Urine Yellow; Epithelial Cell Urine Auto 20-30 /lpf (0-5); Glucose Urine UA Trace (Negative); Ketones Urine Negative (Negative); Leukocyte Esterase Urine Negative (Negative); Nitrite Urine Negative (Negative); Protein Urine 1+ (Negative); RBC Urine Automated >30 /hpf (0-4); Specific Gravity Urine 1.017 (1.000-1.030); Urobilinogen Urine Negative (Negative)
[2023-08-11] MEDS: LACTATED RINGER'S 1,000 ML IV SCH ×3 (05:53→16:21)
[2023-08-11 06:06] LABS: Amphetamines+Metham, Urine Neg (Neg); Barbiturates, Urine Neg (Neg); Benzodiazepine, Urine Neg (Neg); Cocaine, Urine Neg (Neg); MDMA (Ecstacy), Urine Neg (Neg); Marijuana, Urine Neg (Neg); Methadone, Urine Neg (Neg); Opiate, Urine Neg (Neg); Phencyclidine, Urine Neg (Neg)
--- NOTE | 2023-08-11 07:02 | Anesthesiology Consultation ---
Date of Service August 11, 2023 Assessment & Plan Chart Review Chart Review: Acceptable Risk for Surgery and Patient NOT seen in Pre Admission Testing Consults Requested none History Surgery Operation Date: 08/11/23 07:00 Proposed Procedures p Laparoscopic Cholecystectomy - Sae Atkinson MD, FACS Height/Weight Height: 5 ft 3 in Weight: 100.8 kg Allergies Allergy/AdvReac Type Severity Reaction Status Date / Time codeine Allergy Intermediate RASH Verified 08/11/23 00:55 Medications Home Medications Medication Instructions Recorded Confirmed Last Taken trazodone 100 mg tablet 150 mg PO HS 11/12/22 08/11/23 08/09/23 amlodipine 5 mg tablet 5 mg PO DAILY 05/30/23 08/11/23 08/10/23 escitalopram oxalate 5 mg tablet 5 mg PO DAILY 05/30/23 08/11/23 08/10/23 propranolol 10 mg tablet 10 mg PO TID 08/11/23 08/11/23 08/10/23 2 DOSES Active Medications Generic Name Dose Route Start Last Admin Trade Name Freq PRN Reason Stop Dose Admin Lactated Ringer's 1,000 mls @ 125 mls/hr 08/11/23 05:30 08/11/23 05:53 Lr IV 09/10/23 05:29 125 mls/hr .Q8H SUZY Administration Past Medical History Medical History Psychosis Schizophrenia Hypokalemia Suicidal ideation Sinus tachycardia Facial cellulitis History of drug overdose Depression Acute periapical abscess Past Family History Family History Other Cancer Past Surgical History Surgical History No pertinent past surgical history Social History Smoking Status: Never smoker tobacco type: cigarettes Hx Alcohol Use: Yes Alcohol type: beer, wine and hard liquor alcohol intake frequency: holidays/special occasions only Hx Substance Use: No substance use type: does not use Physical Exam Vital Signs Last Vital Signs Temp 36.6 C 08/11/23 04:52 Pulse 74 08/11/23 04:52 Resp 16 08/11/23 04:52 BP 160/100 H 08/11/23 04:52 Pulse Ox 98 08/11/23 04:52 O2 Del Method Room Air 08/11/23 05:10 Testing Laboratory Results 08/11/23 00:48 08/11/23 00:48 PT 10.1 Seconds (9.0-12.0) 08/11/23 00:48 INR 0.9 (0.9-1.1) 08/11/23 00:48 APTT 26.7 Seconds (21.0-31.0) 08/11/23 00:48 Urine Color Yellow 08/11/23 05:33 Urine Appearance Clear (Clear) 08/11/23 05:33 Urine pH 8.0 (4.5-7.5) H 08/11/23 05:33 Ur Specific [place] 1.017 (1.000-1.030) 08/11/23 05:33 Urine Protein 1+ (Negative) H 08/11/23 05:33 Urine Glucose (UA) Trace (Negative) H 08/11/23 05:33 Urine Ketones Negative (Negative) 08/11/23 05:33 Urine Nitrite Negative (Negative) 08/11/23 05:33 Ur Leukocyte Esterase Negative (Negative) 08/11/23 05:33 Urine WBC (Auto) 1-5 /hpf (0-5) 08/11/23 05:33 Urine RBC (Auto) >30 /hpf (0-4) H 08/11/23 05:33 U Hyaline Cast (Auto) 0 /lpf (0-5) 08/11/23 05:33 U Epithel Cells (Auto) 20-30 /lpf (0-5) H 08/11/23 05:33 Urine Bacteria (Auto) Negative (Negative) 08/11/23 05:33 Electrocardiogram Date: 08/11/23 Findings: + NSR @
--- NOTE | 2023-08-11 07:05 | XRay Report ---
XR chest 1V not portable HISTORY: Chest pain, nonspecific COMPARISON: Chest 06/26/2022. FINDINGS: Mild elevation the right hemidiaphragm. The cardiac silhouette is mildly enlarged. No focal lung consolidations to suggest a pneumonia. No evidence for pulmonary edema. There are old, healed l eft-sided rib fractures. No pleural effusions. No pneumothorax. IMPRESSION: No acute process. ACT 112: Negative or not required by law. Electronically signed by: Jakob Cadena M.D. 08/11/2023 7:03 AM
[2023-08-11] MEDS ORDERED: ACETAMINOPHEN 325 MG TAB PO PRN (09:41)
[2023-08-11] MEDS ORDERED: ONDANSETRON INJ 2 MG/ML 2 ML VIAL IV PRN ×2 (09:41→12:45)
[2023-08-11] MEDS: amLODIPine BESYLATE 5 MG TAB PO SCH (10:30)
[2023-08-11] MEDS: PANTOprazole 40 MG in SYRINGE 0 ML IV SCH (10:31)
[2023-08-11] MEDS: PIPERACILLIN/TAZOBACTAM 4.5 GM in DEXTROSE 5% MINI-B 100 ML IV SCH ×2 (10:46→17:34)
[2023-08-11] MEDS: ESCITALOPRAM OXALATE 10 MG TAB PO SCH (10:46)
[2023-08-11] MEDS: PROPRANOLOL HCL 10 MG TAB PO SCH ×3 (10:47→19:37)
--- NOTE | 2023-08-11 12:20 | Surgery Progress Note ---
Date of Service August 11, 2023 Assessment & Plan (1) Cholecystitis: Plan: At this time we will proceed with laparoscopic cholecystectomy possible open risk and complication of been explained to the patient and she would like to proceed accordingly Permit signed Admission and Anticipated Discharge Date Admission Date: August 11, 2023 Subjective Still has some epigastric right upper quadrant discomfort A toxicology screen was all negative Physical Exam Physical Exam: Alert coherent resting comfortably overall states feels better than yesterday with some pain in the right side of her belly Constitutional: Sclera nonicteric The abdomen prominent to the body habitus Right upper quadrant tenderness to deep palpation the rest of the abdomen is negative Has a erythema noted on both upper extremities and the dorsal surface extending from the wrist up to the inner upper arm nontender This is almost a mirror image 1 another She also has a similar but less prominent distribution in the medial aspect of both lower extremities nontender Results & Data Vital Signs (Past 12 Hours) Vital Signs Temp Pulse Pulse Resp BP Pulse Ox O2 Del Method 08/11/23 10:31 125 H 20 129/109 H 99 Room Air 08/11/23 09:00 90 20 155/107 H 93 Room Air 08/11/23 09:00 94 H 08/11/23 05:10 Room Air 08/11/23 04:52 36.6 C 74 16 160/100 H 98 Room Air 08/11/23 01:25 79 08/11/23 01:23 70 178/113 H 08/11/23 01:23 93 Room Air 08/11/23 01:23 Room Air
--- NOTE | 2023-08-11 12:44 | Electrocardiogram Report ---
Test Reason : Blood Pressure : / mmHG Vent. Rate : 065 BPM Atrial Rate : 065 BPM P-R Int : 118 ms QRS Dur : 086 ms QT Int : 460 ms P-R-T Axes : 024 017 016 degrees QTc Int : 478 ms Normal sinus rhythm Normal ECG When compared with ECG of 28-JUN-2022 10:06, Vent. rate has decreased BY 44 BPM Confirmed by Tay Tejada ([id number]) on 08/11/2023 12:44:27 PM Referred By: REFERRED SELF Confirmed By:Tay Tejada
[2023-08-11] MEDS ORDERED: ATROPINE SULFATE 0.1 MG/ML 10ML SYR IV PRN (12:45)
[2023-08-11] MEDS ORDERED: ePHEDrine sulfate 50 MG/ML AMP IV PRN (12:45)
[2023-08-11] MEDS ORDERED: fentaNYL citrate PF 100 MCG/2 ML VIAL IV PRN (12:45)
[2023-08-11] MEDS ORDERED: ROCURONIUM BROMIDE 10 MG/ML 5 ML VIAL IV ONE ×2 (13:05→14:36)
[2023-08-11] MEDS ORDERED: PROPOFOL IV EMULSION 10 MG/ML 20 ML VIAL IV ONE (13:05)
[2023-08-11] MEDS ORDERED: LIDOCAINE 2% 2 ML VIAL/AMP(20MG/ML) INFIL ONE (13:05)
[2023-08-11] MEDS ORDERED: fentaNYL citrate PF 100 MCG/2 ML VIAL ONE ×2 (13:05→14:31)
[2023-08-11] MEDS ORDERED: MIDAZOLAM HCL 1 MG/ML 2ML VIAL ONE (13:06)
[2023-08-11] MEDS ORDERED: EPINEPHrine INJ 1 MG/ML AMP ONE (13:16)
[2023-08-11] MEDS ORDERED: LIDOCAINE 1% LOCAL 20 ML VIAL ONE (13:16)
[2023-08-11] MEDS ORDERED: ACETAMINOPHEN 1000 MG/100 ML IV IV ONE (13:43)
[2023-08-11] MEDS ORDERED: GLUCAGON FOR INJ 1 MG VIAL ONE (14:13)
[2023-08-11] MEDS ORDERED: IOVERSOL 50ml IV ONE (14:14)
[2023-08-11] MEDS ORDERED: SUGAMMADEX SODIUM 200 MG/2 ML VIAL IV ONE (14:28)
[2023-08-11] MEDS ORDERED: DEXAMETHASONE SOD INJ 4 MG/ML VIAL ONE (14:28)
--- NOTE | 2023-08-11 14:48 | Fluoroscopy Report ---
[place] cholangiogram OR CLINICAL HISTORY: CHOLANGIOGRAM TECHNIQUE: 3 views were obtained with the C-arm in the OR with the above procedure. Total fluoroscopy time was 3.9 seconds. Radiation dose was 1 8 mGy. Comparison: Comparison is made to CT abdomen pelvis 423 FINDINGS/IMPRESSION: Intraoperative images were obtained of cholangiogram. No gallbladder was opacifi ed. Please correlate with intraoperative fluoroscopy and operative report. ACT 112: Negative or not required by law. Electronically signed by: Trenton Cagle M.D. 08/11/2023 2:46 PM
--- NOTE | 2023-08-11 15:02 | Post Operative Brief Note ---
Immediate Post Op Note v1 Date of Surgery August 11, 2023 Pre & Post Diagnosis Operation Date: 08/11/23 07:00 Pre-Op Diagnosis: Cholecystitis Post-Op Diagnosis: Cholecystitis I identified the patient and participated in the time-out.: Yes Procedure Operation Date: 08/11/23 07:00 Actual Procedures p Laparoscopic Cholecystectomy with Intraoperative Cholangiogram(Not Applicable) - Sae Atkinson MD, FACS Surgeon Sae Atkinson MD, FACS Lay Midwife 'Renate'Reese Estimated Blood Loss 10 Findings Consistent with Post-Op Diagnosis Drains Denis-Fleming Drain (19 Uzbek berkley drain)
[2023-08-11] MEDS ORDERED: diphenhydrAMINE 50 MG/ML VIAL IV PRN (15:15)
--- NOTE | 2023-08-11 15:24 | Operative Report ---
PG Post Operative Report Pre & Post Diagnosis Operation Date: 08/11/23 07:00 Pre-Op Diagnosis: Cholecystitis Post-Op Diagnosis: Cholecystitis I identified the patient and participated in the time-out.: Yes Procedure Operation Date: 08/11/23 07:00 Actual Procedures p Laparoscopic Cholecystectomy with Intraoperative Cholangiogram(Not Applicable) - Sae Atkinson MD, FACS The patient was brought into the operating theater supine position general endotracheal anesthesia systemic antibiotics on board abdomen prepped with Betadine solution properly draped a timeout was the patient identified that we made a small transverse incision above the umbilicus sufficient to place a Veress needle followed by CO2 to 8 mmHg followed by 5 mm trocar point of entry specter no injury identified rectally was initially placed a 5 mm epigastric and 2 5 mm subcostal ports with preemptive local analgesic 0.5% Marcaine plain the patient was placed in reverse Trendelenburg rotated to the left we did identify the cap of the gallbladder which appeared to be thick walled somewhat intrahepatic there is a right upper quadrant trocar site grasper was placed to grasped the thick walled gallbladder and elevated this 0.5 moderate amount of adhesions and omental adherent to the gallbladder which was thick-walled and some edema most with we are able to dissect up with blunt dissection we worked our way down towards the triangle ZENIA the patient had a very long redundant gallbladder we are able then to free up from the surrounding fatty tissue to the point of creating a window around the cystic duct identified the triangle of Thelma and the close note and the artery once we got around the cystic duct a clip was placed at the takeoff of the cystic duct a small opening was made into the cystic duct and actually the only drainage what appeared to be thick whitish in nature consistent with a hydrops most likely we were narrowed the common bile duct we tried to milk away some of the cystic duct contents but never were able to get any green bilious drainage #4 urethral catheter transversing abdominal wall and Angiocath position the cystic duct 2 x-rays were taken which showed free flow of the duodenum no obstruction no filling defects the Cholangiocath was removed the cystic duct was secured twice with 5 mm clips we then dissected out the artery right into the gallbladder which was a prominent artery we clipped approximately twice once distally and divided gallbladder was then taken out in antegrade fashion significant amount of thick wall and this was appreciated throughout most likely there was sharp dissection using electrocautery a small opening gallbladder was made some bowel extracted but no stones. We continued the dissection take out the gallbladder intact from the liver placed in an Endopouch and taken out intact through the epigastric port cultures were taken the subhepatic suprahepatic area was then checked hemostasis appear satisfactory due to significant amount inflammation and some oozing from the gallbladder fossa as stated mostly was intrahepatic I elected to drain the area with a 19 Yosi drain bring it into the epigastric area placed in the subhepatic leak taken out to the right upper quadrant lateral trocar site attaching the skin edge with 2-0 silk this point the camera was placed in the subhepatic trocar to visualize the original entry into the umbilical area no adhesions in the area was identified and no bleeding individual trocars were then removed last the umbilical trocar fascial stitch of 0 Vicryl suture was used to close the epigastric opening that we enlarged to get the original and thickened gallbladder out 0 Vicryl subcutaneous 4-0 Monocryl subcuticular with the other trocar site and dressing was applied procedure was tolerated well by patient estimate blood loss 10 cc Addendum Hollis MINER was present throughout the procedure and helped the retraction exposure wound closure Called her brother Uvaldo at [phone] Surgeon Sea Atkinson MD, FACS Dragline Mechanic 'Zakia Estimated Blood Loss 10 Findings Consistent with Post-Op Diagnosis Acute cholecystitis: With Specimens Gallbladder and Drains 19 Yosi sub- Complications None Description of Procedure merda I attest to the content of the Intraoperative Record and any orders documented therein. Any exceptions are noted below.
--- NOTE | 2023-08-11 15:25 | Operative Report ---
PG Post Operative Report Pre & Post Diagnosis Operation Date: 08/11/23 07:00 Pre-Op Diagnosis: Cholecystitis Post-Op Diagnosis: Cholecystitis I identified the patient and participated in the time-out.: Yes Procedure Operation Date: 08/11/23 07:00 Actual Procedures p Laparoscopic Cholecystectomy with Intraoperative Cholangiogram(Not Applicable) - Sae Atkinson MD, FACS A cholangiogram was performed at the time of the cholecystectomy utilizing fluoroscopy and I personally interpreted all the images Surgeon Sae Atkinson MD, FACS Assistant Ceja Estimated Blood Loss 10 Findings Consistent with Post-Op Diagnosis Specimens 0 Description of Procedure merda I attest to the content of the Intraoperative Record and any orders documented therein. Any exceptions are noted below.
[2023-08-11] MEDS ORDERED: KETOROLAC 30 MG/ML VIAL IV PRN (15:36)
--- NOTE | 2023-08-11 16:00 | Anesthesiology Progress Note ---
Date of Service August 11, 2023 Anesthesia Post Procedure Vital Signs Vital Signs: Temp Pulse Pulse Pulse Resp BP BP 08/11/23 15:50 37.4 C 98 H 26 H 140/93 08/11/23 15:40 95 H 23 148/97 H 08/11/23 15:30 97 H 16 153/104 H 08/11/23 15:17 36.2 C L 103 H 18 162/101 H 08/11/23 12:22 37.8 C H 110 H 20 143/86 H 08/11/23 10:31 125 H 20 129/109 H 08/11/23 09:00 90 20 155/107 H 08/11/23 09:00 94 H 08/11/23 05:10 08/11/23 04:52 36.6 C 74 16 160/100 H 08/11/23 01:25 79 08/11/23 01:23 70 178/113 H 08/11/23 01:23 08/11/23 01:23 08/11/23 00:03 36.1 C L 70 16 190/113 H Pulse Ox O2 Del Method O2 Flow Rate 08/11/23 15:50 95 Room Air 08/11/23 15:40 98 Oxymask 4 08/11/23 15:30 98 Oxymask 4 08/11/23 15:17 100 Oxymask 6 08/11/23 12:22 98 Room Air 08/11/23 10:31 99 Room Air 08/11/23 09:00 93 Room Air 08/11/23 09:00 08/11/23 05:10 Room Air 08/11/23 04:52 98 Room Air 08/11/23 01:25 08/11/23 01:23 08/11/23 01:23 93 Room Air 08/11/23 01:23 Room Air 08/11/23 00:03 99 Pain Intensity Abdomen: Pain Intensity: 10 Transfer of Care Handoff Completed per policy Notes Mental Status: alert / awake / arousable Patient Amnestic to Procedure: Yes Nausea / Vomiting: adequately controlled Pain: adequately controlled Airway Patency, RR, SpO2: stable & adequate BP & HR: stable & adequate Hydration State: stable & adequate Anesthetic Complications: no major complications apparent and Pt Satisfied with anesthetic care
--- NOTE | 2023-08-11 17:10 | History & Physical Bridge Note ---
Date of Service August 11, 2023 History & Physical Bridge Note I have examined the patient, reviewed the History & Physical and in the interval since the performance of the History & Physical I have noted the following changes of clinical significance: no changes noted S/p lap Dominga with intraoperative cholangiogram with Dr Atkinson this morning. EBL 10cc. CLAUDIO drain in placed Patient evaluated in room 305 post-operatively. Sleepy/resting comfortably on entry. Rash w/ redness within marking/receding to bilateral eyes, blanches. Patient denies being itchy. Denies any allergy to antibiotics/allergy as a kid to medications. Denies any shortness of breath/wheezing, on room air. IVF: LR @ 80cc/hr per surgery IV Abx: Zosyn IV Clear liquid diet ordered Pain control w/ Tylenol -- noting patient denied need for medication at this time.. Antiemetics prn Benadryl available as needed IV Discussed w/ Dr Gutierrez regarding rash to her arms/legs - arms w/ bilateral redness appartnelty before OR, but not clear if was present prior to abx administration, ?mention about wool blanket per nursing staff. Given Benadryl 50mg and IV steroids-- per anesthesia record decadon 8mg IV Monitor rash on exam in follow up If any worsening breathing/wheezing/worsened rash will need systemic steroids/antihistamines and moved to monitored bed but appears stable for now. HTN -- home meds continued, BP stable/improved and 143/86 post-operatively at present time Schizoaffective disorder -- continue home propranolol 10mg TID, trazodone 150mg HS, escitalopram 5mg daily Supervising Physician Co-Signing Physician Notes The patient was not seen by me. The chart was reviewed. case discussed with KATELYN Chowdhury. Agree with assessment and plan.
[2023-08-11] MEDS ORDERED: hydrALAZINE HCL 20 MG/ML VIAL IV PRN (18:41)
[2023-08-11] MEDS ORDERED: ACETAMINOPHEN 1,000 MG/100 ML VIAL IV PRN (18:41)
[2023-08-11] MEDS ORDERED: traZODone HCL 50 MG TAB PO SCH (21:00)
[2023-08-12] MEDS: LACTATED RINGER'S 1,000 ML IV SCH (00:56)
[2023-08-12] MEDS: PIPERACILLIN/TAZOBACTAM 4.5 GM in DEXTROSE 5% MINI-B 100 ML IV SCH ×2 (00:56→09:52)
[2023-08-12 05:57] LABS: Hematocrit (blood only) 36.2 % (37.0-47.0); Hemoglobin 11.7 g/dl (12.0-16.0); Mean Corpuscular Hgb Conc 32.3 g/dL (32.0-36.0); Mean Corpuscular Volume 80.4 fL (80.0-100.0); Mean Platelet Volume 9.8 fL (9.4-12.4); Platelet Count 359 K/uL (130-400); RDW Coefficient of Variation 14.6 % (11.5-14.5); RDW Standard Deviation 42.5 fL (36.4-46.3); White Blood Count 16.01 K/ul (4.8-10.8)
[2023-08-12 06:11] LABS: Albumin Globulin Ratio 1.1 (0.9-2); Albumin Level 3.6 gm/dl (3.4-5.0); Bilirubin,Total 0.8 mg/dl (0.2-1.0); Calcium 8.3 mg/dl (8.6-10.3); Creatinine Clr Calc Pharmacy 106.4 ml/min; Est GFR (Non-African American) 91.4 ml/min; Globulin 3.2 gm/dl (2.5-4.0); Magnesium 1.9 mg/dl (1.7-2.4); Potassium 3.7 mmol/L (3.5-5.1); Total Protein 6.8 gm/dl (6.0-8.3)
[2023-08-12 06:30] LABS: Basophils # (auto) 0.02 K/uL (0.00-0.20); Basophils % (auto) 0.1 %; Immature Granulocytes # (auto) 0.07 K/uL (0.01-0.20); Immature Granulocytes % (auto) 0.4 %; Lymphocytes # (auto) 0.93 K/uL (1.20-3.40); Lymphocytes % (auto) 5.8 %; Monocytes # (auto) 0.39 K/uL (0.11-0.59); Monocytes % (auto) 2.4 %; Neutrophils % (auto) 91.3 %
--- NOTE | 2023-08-12 06:55 | Surgery Progress Note ---
Date of Service August 12, 2023 Assessment & Plan (1) Cholecystitis: Plan: Operative findings were discussed the patient At this point we will reevaluate later today and possibly discharge her if okay with the medical service Still no etiological factors regarding the skin redness medial aspect of both upper extremities and lesser extent lower extremity but given the distribution I would suspect to probably be's contact dermatitis Patient should follow-up in our office in 1 week Will plan to remove the Yosi drain plan to discharge No lifting greater than 10 pounds for 1 week Admission and Anticipated Discharge Date Admission Date: August 11, 2023 Subjective Voices no complaints had a good night since surgery Physical Exam Physical Exam: Alert coherent The redness appreciated both upper extremities and the medial aspect is unchanged there is no extension of the parameters nontender Abdomen is benign Yosi drainage minimal serosanguineous Results & Data Vital Signs (Past 12 Hours) Vital Signs Temp Pulse Resp BP Pulse Ox O2 Del Method 08/12/23 02:44 37.0 C 100 H 16 157/90 H 94 Room Air 08/11/23 23:34 36.9 C 96 H 18 149/91 H 93 Room Air 08/11/23 19:16 36.5 C 103 H 18 160/93 H 94 Room Air Laboratory Results White count still remains elevated
[2023-08-12] MEDS: ESCITALOPRAM OXALATE 10 MG TAB PO SCH (08:21)
[2023-08-12] MEDS: amLODIPine BESYLATE 5 MG TAB PO SCH (08:21)
[2023-08-12] MEDS: PROPRANOLOL HCL 10 MG TAB PO SCH ×2 (08:22→14:25)
--- NOTE | 2023-08-12 09:36 | Hospitalist Progress Note ---
Date of Service August 12, 2023 Assessment & Plan (1) Cholecystitis: (2) Schizoaffective disorder: (3) Hypertension: Plan Admitted with n/v/abdominal pain. Imaging suggestive of acute cholecystitis S/p lap Dominga with intraoperative cholangiogram with Dr Atkinson 08/12 EBL 10cc. CLAUDIO drain in placed Cx from OR pending, no WBC/organisms pain control/antiemetics IVF now discontinued Diet advanced/tolerating regular diet prior to discharge Rash w/ redness within marking/receding to bilateral arms, blanches. Was given Dexamethasone 8mg w/ surgery and benadryl IV. Made available prn but hadn't used Patient denies being itchy. Denies any allergy to antibiotics/allergy as a kid to medications. Notable exoriations RUE from itching Additional dose IV steroids provided, zyrtec Discussed rash starting AFTER antibiotic therapy, suspect reaction to Zosyn. No breathing difficulty/tongue swelling/trouble swallowing Asked RN to STOP her Zosyn --> messaged Dr Atkinson regarding dc plan, he said they will dc (Noting patient has [facility] PCP, should f/u Dr Hansen outpatient at dc) --> rec if needing continued abx to utilize Cipro/Flagyl in meantime Would continue zyrtec -- patient reports not painful, improved and wanting to go home. Discussed if estephanie worsening of rash/pain/fever/breathing issues to return to ER Zosyn added to allergy list Of note, review meds while sending zyrtec at discharge and surgery sending Augmentin at discharge. Messaged surgery JONNY as prior rec cipro/flagyl if needed and asked RN NOT to discharge patient until clarified/changed by surgery as SHOULD NOT utilize augmentin given reaction to Zosyn HTN -- home meds continued, BP stable/improved 149/81 this AM w/ no pain reported/need for medication Schizoaffective disorder -- continue home propranolol 10mg TID, trazodone 150mg HS, escitalopram 5mg daily Surgery to discharge patient this afternoon. F/u [facility] PCP and surgery at discharge. Admission and Anticipated Discharge Date Admission Date: August 11, 2023 Supervising Physician Co-Signing Physician Notes PA Supervision Note: I did not personally see or examine the patient today, but I verified all rodriguez points of KATELYN Jeronimo's assessment and plan with the following exceptions/additions: None Subjective Eval this morning, reports feeling well, wanting dc. Reports redness to arms improved but on exam look more red. Exoriations to RUE, reports some itchiness actually upon further quesiotning. Discussed will order zyrtec, steroid and monitor but if improvement w/ can continue and come back if any worsening. No tongue swelling/SOB/stridor/trouble swallowing. PCP Dr Jade lemus -- will have f/u at [facility]. Messaged surgery about possible reaction w/ zosyn/discontinued but inquiring if any further need abx at dc. Physical Exam Physical Exam: General: WD/WN obese female resting in bed, NAD reporting wanting to go home HEENT: head normocephalic, atraumatic, mmm, trachea midline, no stridor, no tongue swelling Resp: even/unlabored, no w/c/r, on room air CV: RRR< no significant mrg, no pitting edema GI: +BS,soft, NT, CLAUDIO w/ scant output, incisions look good : no major MSK/Neuro; no focal deficit, answering questions appropriately Psych: AOx3 Skin: erythema to bilateral arms/legs, within markings but appears darker red (NONTENDER to palpation), excoriations to RUE from itching. No drainage Redness to bilateral legs improved Noting Zosyn currently running Results & Data Results & Data Vital Signs (Past 12 Hours) Vital Signs Temp Pulse Resp BP Pulse Ox O2 Del Method 08/12/23 07:25 36.8 C 92 H 18 149/81 H 95 Room Air 08/12/23 02:44 37.0 C 100 H 16 157/90 H 94 Room Air 08/11/23 23:34 36.9 C 96 H 18 149/91 H 93 Room Air Laboratory Results 08/12/23 Range/Units 05:29 WBC 16.01 H (4.8-10.8) K/ul RBC 4.50 (4.20-5.40) M/uL Hgb 11.7 L (12.0-16.0) g/dl Hct 36.2 L (37.0-47.0) % MCV 80.4 (80.0-100.0) fL MCH 26.0 (25.0-34.0) pg MCHC 32.3 (32.0-36.0) g/dL RDW Std Deviation 42.5 (36.4-46.3) fL RDW Coeff of Indira 14.6 H (11.5-14.5) % Plt Count 359 (130-400) K/uL MPV 9.8 (9.4-12.4) fL Immature Gran % (Auto) 0.4 % Neut % (Auto) 91.3 % Lymph % (Auto) 5.8 % Chaves % (Auto) 2.4 % Eos % (Auto) 0.0 % Baso % (Auto) 0.1 % Neut # (Auto) 14.60 H (1.40-6.50) K/uL Lymph # (Auto) 0.93 L (1.20-3.40) K/uL Chaves # (Auto) 0.39 (0.11-0.59) K/uL Eos # (Auto) 0.00 (0.00-0.50) K/uL Baso # (Auto) 0.02 (0.00-0.20) K/uL Immature Gran # (Auto) 0.07 (0.01-0.20) K/uL Toxic Vacuolation 1+ Sodium 135 L (136-145) mmol/L Potassium 3.7 (3.5-5.1) mmol/L Chloride 102 (98-107) mmol/L Carbon Dioxide 25 (21-32) mmol/L Anion Gap 8 (3-11) BUN 9 (6-23) mg/dl Creatinine 0.82 (0.6-1.2) mg/dl Est Cr Clr Drug Dosing 106.4 ml/min Est GFR ( Amer) 106.0 ml/min Est GFR (Non-Af Amer) 91.4 ml/min BUN/Creatinine Ratio 11.0 (10-20) Glucose 160 H (70-99(Fasting)) mg/dl Estimat Average Glucose 117 mg/dl Hemoglobin A1c 5.7 H (4.5-5.6) % Calcium 8.3 L (8.6-10.3) mg/dl Magnesium 1.9 (1.7-2.4) mg/dl Total Bilirubin 0.8 D (0.2-1.0) mg/dl AST 32 (13-39) U/L ALT 34 (7-52) U/L Alkaline Phosphatase 60 (34-104) U/L Total Protein 6.8 (6.0-8.3) gm/dl Albumin 3.6 (3.4-5.0) gm/dl Globulin 3.2 (2.5-4.0) gm/dl Albumin/Globulin Ratio 1.1 (0.9-2) Diagnostic Findings Cholangiogram,Operative 08/11/23 00:00 [place] cholangiogram OR CLINICAL HISTORY: CHOLANGIOGRAM TECHNIQUE: 3 views were obtained with the C-arm in the OR with the above procedure. Total fluoroscopy time was 3.9 seconds. Radiation dose was 1 8 mGy. Comparison: Comparison is made to CT abdomen pelvis 423 FINDINGS/IMPRESSION: Intraoperative images were obtained of cholangiogram. No gallbladder was opacified. Please correlate with intraoperative fluoroscopy and operative report. ACT 112: Negative or not required by law. Electronically signed by: Trenton Cagle M.D. 08/11/2023 2:46 PM Chest X-Ray 08/11/23 00:08 XR chest 1V not portable HISTORY: Chest pain, nonspecific COMPARISON: Chest 06/26/2022. FINDINGS: Mild elevation the right hemidiaphragm. The cardiac silhouette is mildly enlarged. No focal lung consolidations to suggest a pneumonia. No evidence for pulmonary edema. There are old, healed left-sided rib fractures. No pleural effusions. No pneumothorax. IMPRESSION: No acute process. ACT 112: Negative or not required by law. Electronically signed by: Jakob Cadena M.D. 08/11/2023 7:03 AM Abdomen/Pelvis CT 08/11/23 01:44 Exam(s): CT ABDOMEN + PELVIS Without Contrast EXAM: CT Abdomen and Pelvis Without Intravenous Contrast CLINICAL HISTORY: Reason for exam: Upper abd pain, n/v. TECHNIQUE: Axial computed tomography images of the abdomen and pelvis without intravenous contrast. CTDI is 27.36 mGy and DLP is 1438.46 mGy-cm. Automated exposure control was utilized for the study. A dose lowering technique was utilized adhering to the principles of ALARA. COMPARISON: No relevant prior studies available. FINDINGS: Lung bases: Unremarkable. No mass. No consolidation. ABDOMEN: Liver: Unremarkable. Gallbladder and bile ducts: Diffusely thick-walled gallbladder with mild distention. No calcified stones. No ductal dilation. Pancreas: Unremarkable. No ductal dilation. Spleen: Unremarkable. No splenomegaly. Adrenals: Unremarkable. No mass. Kidneys and ureters: Unremarkable. No obstructing stones. No hydronephrosis. Stomach and bowel: Unremarkable. No obstruction. No mucosal thickening. PELVIS: Appendix: No findings to suggest acute appendicitis. Bladder: Unremarkable. No stones. Reproductive: Unremarkable as visualized. ABDOMEN and PELVIS: Intraperitoneal space: Unremarkable. No free air. No significant fluid collection. Bones/joints: No acute fracture. No dislocation. Soft tissues: Unremarkable. Vasculature: Unremarkable. No abdominal aortic aneurysm. Lymph nodes: Unremarkable. No enlarged lymph nodes. IMPRESSION: Diffusely thick-walled gallbladder with mild distention. Electronically signed by: Deric Woodall M.D. 08/11/23 02:41 AM Gallbladder Ultrasound 08/11/23 03:07 Exam(s): US GALLBLADDER EXAM: US Abdomen Limited, Gallbladder CLINICAL HISTORY: ruq pain. TECHNIQUE: Real-time ultrasound of the right upper quadrant with image documentation. COMPARISON: CT abdomen and pelvis without contrast performed at 0204 hrs. FINDINGS: Liver: The liver is hyperechoic measuring 17.4 cm. The portal vein is patent directed towards the liver. Gallbladder: Echogenic sludge and gallstones noted in the gallbladder. There is a probable gallstone noted in the gallbladder neck. The gallbladder wall is mildly thickened measuring up to 4.3 mm on longitudinal imaging with a suggestion of mural edema and questionable subtle pericholecystic fluid. Evaluation for sonographic Moore sign is not possible secondary to patient's medication status. Common bile duct: The common bile duct measures 3 mm. No stones. No dilation. Pancreas: Visualized portions of the pancreas are unremarkable. Right kidney: Mild pelviectasis of the right kidney without significant hydronephrosis or definite nephrolithiasis. Free fluid: No free fluid. IMPRESSION: 1. Echogenic sludge and gallstones noted in the gallbladder. There is a probable nonmobile gallstone noted in the gallbladder neck. The gallbladder wall is mildly thickened measuring up to 4.3 mm on longitudinal imaging with a suggestion of mural edema and questionable subtle pericholecystic fluid. Evaluation is highly suspicious for acute cholecystitis. 2. No biliary dilatation. 3. Right renal pelviectasis without significant hydronephrosis is a presumed normal variation. No definite nephrolithiasis. Electronically signed by: Beck Hollins MD 08/11/23 04:53 AM PG Care Time/CCT Total # of Minutes Spent Total Time Spent with Patient: Total time spent is greater than 50% in coordination of care (as documented) at patient's floor/unit and/or counseling patient: Coding Level of Care Code 55731 SUB INP/OBS CARE 3/50MIN Diagnoses Cholecystitis K81.9 Schizoaffective disorder F25.9 Hypertension I10
[2023-08-12 09:55] LABS: Toxic Vacuolation 1+
[2023-08-12 10:39] LABS: Estimated Average Glucose 117 mg/dl; Hemoglobin A1C 5.7 % (4.5-5.6)
[2023-08-12] MEDS ORDERED: methylPREDNISolone 60 MG in SYRINGE 0 ML IV STA (11:10)
[2023-08-12] MEDS ORDERED: CETIRIZINE HCL 10 MG TABLET PO ONE (11:10)
[2023-08-12] MEDS: PANTOprazole 40 MG in SYRINGE 0 ML IV SCH (11:29)
--- NOTE | 2023-08-12 11:57 | Discharge Summary ---
Date of Service August 12, 2023 Admission HPI Per Admitting Provider 37yo female presenting with acute upper abdominal pain that started after dinner this evening 18:00. She ate spaghetti with meat sauce then shortly after developed upper abdominal pain that was bandlike with radiation into her back. She had nausea with multiple episodes of vomiting, non-bloody. She denies diarrhea. Did have a subjective fever as well as some shortness of breath. No additional complaints at this time. Patient presently feels well. Principal Diagnosis Acute cholecystitis , Rash Discharge Exam Alert coherent The redness appreciated both upper extremities and the medial aspect is unchanged there is no extension of the parameters nontender Abdomen is benign Yosi drainage minimal serosanguineous Discharge Data Allergies Allergy/AdvReac Type Severity Reaction Status Date / Time codeine Allergy Intermediate RASH Verified 08/11/23 00:55 piperacillin [From Zosyn] AdvReac Verified 08/12/23 11:17 tazobactam [From Zosyn] AdvReac Verified 08/12/23 11:17 Consultations 08/11/23 04:34 ED Decision to Admit Stat 08/11/23 09:41 Consult General Surgery Routine Procedures Performed Operation Date: 08/11/23 07:00 Actual Procedures p Laparoscopic Cholecystectomy with Intraoperative Cholangiogram(Not Applicable) - Sae Atkinson MD, FACS Ordered Studies 08/11/23 [place] cholangiogram OR Routine 08/11/23 01:44 CT abd pelvis wo con Stat 08/11/23 03:07 US gallbladder Stat ergy/Adv: codeine, piperacillin, tazobactam (More) Close Gall Bladder Ultrasound (Signed) Beck Hollins - 08/11/23 Abdomen/Pelvis CT (Signed) Deric Woodall - 08/11/23 Chest X-Ray (Signed) Jakob Cadena - 08/11/23 Cholangiogram,Operative (Signed) Trenton Cagle - 08/11/23 Hand X-Ray (Signed) Mehul Kngiht - 05/30/23 Finger X-Ray (Signed) Clint Desai - 01/13/23 Chest X-Ray (Signed) Jakob Cadena - 06/26/[address] (Signed) Jakob Cadena - 01/18/22 Chest X-Ray (Signed) Trenton Cagle - 01/18/22 Chest X-Ray (Signed) EstherClint wheatley - 12/10/21 Chest X-Ray (Signed) Mehul Knight - 02/12/[address] (Signed) Mehul Knight - 02/12/21 Knee X-Ray (Signed) Clint Desai - 06/25/[address] (Signed) Guanaco Feng - 05/30/[address] (Signed) DickDandre - 05/06/19 Xray Report 11/21/17 [employer] [place] [place] [phone] Ultrasound Report Patient: LISA THAYER Admit Date: 08/10/23 MR#: [id number] Address1: [address] [place] [address] Acct ID:[id number] Address2: [address] Date: 1985 [facility] Zip: [place] [address] Age: 37 Location: ED Sex: F Room/Bed: Att Phy: Diagnosis: CHEST ACHES,VOMITING,FEVER,ACHES/PAIN UNDER CHEST Alena Phy: PCP,NO Service Date: 08/11/23 [facility] Phy: Interpreting Phy: Beck Hollins MDAdmit Phy: Ordering Phy: Carmelo Chambers PA-C cc: ~ Exam(s): US GALLBLADDER EXAM: US Abdomen Limited, Gallbladder CLINICAL HISTORY: ruq pain. TECHNIQUE: Real-time ultrasound of the right upper quadrant with image documentation. COMPARISON: CT abdomen and pelvis without contrast performed at 0204 hrs. FINDINGS: Liver: The liver is hyperechoic measuring 17.4 cm. The portal vein is patent directed towards the liver. Gallbladder: Echogenic sludge and gallstones noted in the gallbladder. There is a probable gallstone noted in the gallbladder neck. The gallbladder wall is mildly thickened measuring up to 4.3 mm on longitudinal imaging with a suggestion of mural edema and questionable subtle pericholecystic fluid. Evaluation for sonographic Moore sign is not possible secondary to patient's medication status. Common bile duct: The common bile duct measures 3 mm. No stones. No dilation. Pancreas: Visualized portions of the pancreas are unremarkable. Right kidney: Mild pelviectasis of the right kidney without significant hydronephrosis or definite nephrolithiasis. Free fluid: No free fluid. IMPRESSION: 1. Echogenic sludge and gallstones noted in the gallbladder. There is a probable nonmobile gallstone noted in the gallbladder neck. The gallbladder wall is mildly thickened measuring up to 4.3 mm on longitudinal imaging with a suggestion of mural edema and questionable subtle pericholecystic fluid. Evaluation is highly suspicious for acute cholecystitis. 2. No biliary dilatation. 3. Right renal pelviectasis without significant hydronephrosis is a presumed normal variation. No definite nephrolithiasis. Electronically signed by: Beck Hollins MD 08/11/23 04:53 AM Dictated: 08/11/23452 Transcribed: 08/11/23452 Hospital Course (1) Cholecystitis: Patient presented to the [facility] ER 08/11/23 with c/o n/v abdominal pain after eating dinner. Patient was had a work up in the ER and a abdominal ultrasound revealing an Evaluation is highly suspicious for acute cholecystitis. The patient was admitted to the hospitalist service and scheduled for a laparoscopic cholecystectomy with Dr. Atkinson on 08/11/23. It was noted in the ER that the patient had erythema noted on both upper extremities and the dorsal surface extending from the wrist up to the inner upper arm that was nontender. The patient reports this rash was new. It was thought that it could have been from IV zosyn, which was discontinued and added to the patients allergy list. The patient was given antihistamine and steroids for the rash, from the hospitalist. After Laparoscopic Cholecystectomy the patient was admitted to the hospital for overnight observation. Her diet was advanced and her pain was tolerable with PO pain medication. Her CLAUDIO drain was removed prior to discharge. She was given post operative antibiotics and was sent home with a prescription for Ciprofloxacin, Flagyl, and Zyrtec. She remained stable throughout her entire stay and was deem ready for discharge on 08/12/23. She was given post operative instructions, return precautions, and follow up instructions. Total Time Total Time Spent Total Time Spent (In Minutes): 40 Discharge Plan Discharge Items Patient Disposition: Home - Self-Care Reason For Visit: ABD PAIN Discharge Diagnosis: Laparoscopic cholecystectomy , rash Activity: As commented below Lifting: No more than 10 pounds Bathing Comment: you may shower, no pools or baths for 2 weeks Exercise/Sports: Wait until after follow-up appointment Driving/Machine Use: Resume 1 day after discharge Non-emergency contact: Surgeon Call non-emergency contact if: you have any medication questions, your symptoms worsen, your pain is unusual for you, your temperature is above 101.5, your wound has increased redness, your wound has increased drainage and your wound pain has increased Follow-up/Referrals: Sae Atkinson MD, FACS [Surgeon] - (call office for a follow up appointment in 1 week from discharge ) Campos Hansen MD [Primary Care Provider] - 08/18/23 11:00 am PCP,NO [Physician] - Diet: Regular Addtl Attending Provider Instructions: You may remove your outer surgical dressing on 08/13/23. You will have small white bandages on underneath that are over your incision. You may shower with these on. They will tend to fall off on their own in a 7-10 days. You can keep a band aid over your drain site. You are being ordered an antibiotic. Take all of it as directed even if you are feeling better. You may purchase Tylenol and/or Ibuprofen over the counter if needed for additional pain control over the next few days. Take per manufacturers instructions. Do Not take more than 3 grams of Tylenol in 24 hours. You may follow up out patient with your PCP if your rash does not improve or gets worse. Continue to follow hospitalist recommendations for the rash taking Zyrtec . Addtl Tool Supervisor Provider Instructions: If your rash worsens at all or you have any difficulty swelling or fever you should return to the ER> Pending Studies at Discharge: Yes Studies:: surgical pathology Stand-Alone Forms: [facility], Work/School Release, Smoking Cessation Medications and DC Order Prescriptions: New cetirizine [Zyrtec] 10 mg tablet 10 mg PO DAILY Qty: 30 0RF ciprofloxacin HCl 500 mg tablet 500 mg PO Q12H MDD 2 tabs 10 Days Qty: 20 0RF Rx Instructions: Take one tablet by mouth every 12 hours for the next 10 days. Continue to take all of antibiotic even if feeling better metronidazole 500 mg tablet 500 mg PO Q8H 7 Days Qty: 21 0RF Continued trazodone 100 mg tablet 150 mg PO HS amlodipine 5 mg tablet 5 mg PO DAILY escitalopram oxalate 5 mg tablet 5 mg PO DAILY propranolol 10 mg tablet 10 mg PO TID Discharge Orders: Discharge Order (Routine); Ordered 08/12/23 Ordered By: Kemi Bear/Other Patient Handouts: Having Laparoscopic Cholecystectomy Admission Data Admit Date/Time: 08/11/23 05:34 Attending Provider: Shirley Dee Admit Provider: Allie Hurst Primary Care Provider: Campos Hansen Other Providers: Sae Atkinson; Allie Hurst Other Interventions: Discharge Summary Assessment (RN) Last Done: 08/12/23 14:57 Supervising Physician Co-Signing Physician Notes The patient was not seen by me. The chart was reviewed. case discussed with KATELYN Chowdhury. Agree with assessment and plan. Coding Level of Care Code 24907 INP/OBS DISCH >30 MIN Diagnoses Cholecystitis K81.9
== END 2023-08-12 16:58 | disposition home or self-care (01) ==
LOC: ED 23:56 → SUATTDRO 08-11 05:34 → EDINP 08-11 05:34 → INTOOBSV 08-11 05:34 → EDINP 08-11 12:36 → 3E 08-11 16:09